=== PATIENT | male | born 1945 | race Caucasian/White ===

== ENCOUNTER 2023-10-23 10:46 | Outpatient (AMB) | payer OTHER, SELFPAY ==
--- NOTE | 2023-10-23 10:57 | A.OFFVIS_ITS ---
Vital Signs 10/23/23 11:02 Height 5 ft 11 in Weight 128 lb 6 oz BMI 17.9 BP 118/62 Blood Pressure Location Rt brachial Position Sitting Respiration 16 Pulse 86 Pulse Source Pulse Oximeter Pulse Oximetry (%) 93 Oxygen Delivery Method Room Air Intake Visit Reasons: ENP: Parkinson disease - Confirmed Intake Note: Pt presents for new pt evaluation for Parkinson's. 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 he was diagnosed by Late DR. Goldstein about 15 years ago when he presented with right UE rest tremors. He has been under the care of psychiatry for depression PTSD for over 40 years and has been on multiple medications. His psychiatrist noticed his tremors a s referred him to Dr. Goldstein. Currently he is on carbidopa/levodopa ER 50/200 2-1-1-1 Rasagiline 1mg qd ropinirole 0.5mg bid. Memory- good Sleep- he wanders, sleep talks Mood- stable with meds Motivated- good SPeech- softer, mumbles, drooling Trouble swallowing Using utensils- he has weighted spoons and it helps Handwriting- cannot write Dressing - slower and has trouble with buttons Shower- slower Gait- no falls , has back problems which affects his gait No dizziness He has constipation He has mild hallucinations - has insight started before Parkinsons. startles easily No fh/o tremors He was in [place] and exposed to Agent [place] [facility] Medical History (Updated 10/23/23 @ 11:36 by Lucy Pate MD) Coarse tremors Parkinson's disease without dyskinesia Hallucinations Depression Panic attacks Anxiety PTSD (post-traumatic stress disorder) Skin cancer Hyperlipidemia Squamous cell carcinoma of nose Surgical History (Updated 10/23/23 @ 11:07 by Monserrat Chen [facility]) History of appendectomy Social History (Updated 10/23/23 @ 11:09 by Monserrat Chen CMA) Household Members: Spouse Housing: House Alcohol intake: never Patient Tobacco Use Status: Current everyday Tobacco user Tobacco use type: Cigarette Years Smoked: for 50 years 3-5 cigarettes Physical Exam Vital Signs: Last Vital Signs Pulse 86 10/23/23 11:02 Resp 16 10/23/23 11:02 BP 118/62 10/23/23 11:02 Pulse Ox 93 10/23/23 11:02 Oxygen Delivery Method Room Air 10/23/23 11:02 BMI result Body Mass Index 17.9 Const General: cooperative, healthy appearing and no acute distress Nutritional Appearance: obese Orientation/consciousness: patient oriented x3 HEENT Head: Yes normal to inspection Neck Other: mild antecollis and restricted range of motion Neuro Other: Mild decreased blink and facial expression mild lower lip tremors, tongue tremors , slow tongue movements , yes yes head tremors Voice- severe hypophonia Rest tremors- Right LE Right UE Posturla and action tremors R>L Fine Finger movements - severely decreased bijal R>L Alternating hand movements - decreased bijal Hand movements - decreased bijal Foot taps- decreased bijal cog wheel rigidity - left UE gait - stooped, severe slowness and decreased arm swing R>L, small steps General: patient oriented x3 and no focal motor deficits Cranial nerves: Yes CN's II-XII intact bilaterally, Yes Bilaterally intact EOM present, Yes Normal facial strength present and Yes Midline tongue present Cognition (Neuro): normal cognition Motor exam (neuro): 5/5 motor strength present throughout Deep tendon reflexes (DTR's): Right triceps reflex intensity grade: 1+, Left triceps reflex intensity grade: 1+, Rt Biceps (C5, C6): 1+, Left biceps reflex intensity grade: 1+, Right brachioradialis reflex intensity grade: 1+, Left brachioradialis reflex intensity grade: 1+, Right patellar reflex intensity g rade: 1+ and Left patellar reflex intensity grade: 1+ Coordination: [id number] test normal Assessment & Plan Assessment & Plan (1) Parkinson's disease without dyskinesia: Comment: exposure to Agent [place] Code(s): G20.A1 - Parkinson's disease without dyskinesia, without mention of fluctuations Category: Medical (2) Hallucinations: Code(s): R44.3 - Hallucinations, unspecified Category: Social Hx (3) Coarse tremors: Code(s): G25.2 - Other specified forms of tremor Category: Medical Plan In addition to Parkinsonism he has additional features of essential tremors i will trail him on propranolol 10mg tid continue carbidopa/levodopa CR 50/200 2-1-1- Ropinirole 0.5 mg bid rasagiline 1mg qd will consider botox decline PT Speech therapy Medications: New propranolol 10 mg PO TID 90 tabs 6RF Coding Level of Care Code New Pt Level 4 (09501) Complex EM visit Add On G2211 Diagnoses Parkinson's disease without dyskinesia G20.A1 Hallucinations R44.3 Coarse tremors G25.2
[2023-10-23 11:02] VITALS: BP 118/62; PULSE 86; RESP 16; O2SAT 93; BMI 17.9
== END 2023-10-23 12:04 | disposition home or self-care (01) ==
PROVIDERS: Visit Provider Psychiatry & Neurology Neurology
DX: G20.A1 Parkinson's disease without dyskinesia, without mention of fluctuations (principal); R44.3 Hallucinations, unspecified; G25.2 Other specified forms of tremor
CPT/HCPCS: 99204; G2211

== ENCOUNTER → 2023-10-23 10:46 | Outpatient (BNVA) | payer OTHER, SELFPAY | PROVIDERS: Visit Provider Psychiatry & Neurology Neurology | DX: G20.A1 Parkinson's disease without dyskinesia, without mention of fluctuations (principal); R44.3 Hallucinations, unspecified; G25.2 Other specified forms of tremor | CPT/HCPCS: 99202 ==

== ENCOUNTER 2024-06-15 12:03 | Outpatient (AMB) | payer OTHER, SELFPAY ==
[2024-06-15 12:32] VITALS: BP 118/70; BMI 18.4
--- NOTE | 2024-06-15 12:32 | A.OFFVIS_ITS ---
Vital Signs 06/15/24 12:32 Height 5 ft 11 in Weight 132 lb BMI 18.4 BP 118/70 Blood Pressure Location Rt brachial Position Sitting Intake Visit Reasons: Follow up Intake Note: Patient presents for follow up Allergies Penicillins Allergy (Mild, Verified 06/15/24 12:35) Rash Medication List - Last Reconciled 06/15/24 by Lucy Pate MD carbidopa-levodopa 25-100 mg (Sinemet) 2 tabs PO QID escitalopram oxalate 20 mg PO DAILY gabapentin 300 mg PO DAILY lorazepam 0.5 mg PO BEDTIME PRN magnesium oxide 420 mg PO BEDTIME rasagiline 1 mg PO DAILY ropinirole 0.5 mg PO BID HPI Comments Details: 78y/o Right Handed male comes for follow up of Parkinson disease.He was trialed on propranalol 10mg tid - but he did not tolerate.He also decreased from Carbidopa/levodopa CR 50/200 ( -) to (2) History from initial visit- he was diagnosed by Late DR. Goldstein about 15 years ago when he presented with right UE rest tremors. He has been under the care of psychiatry for depression PTSD for over 40 years and has been on multiple medications. His psychiatrist noticed his tremors a s referred him to Dr. Goldstein. Currently he is on carbidopa/levodopa ER 50/200 - Rasagiline 1mg qd ropinirole 0.5mg bid. Memory- good Sleep- he wanders, sleep talks Mood- stable with meds Motivated- good SPeech- softer, mumbles, drooling Trouble swallowing Using utensils- he has weighted spoons and it helps Handwriting- cannot write Dressing - slower and has trouble with buttons Shower- slower Gait- no falls , has back problems which affects his gait No dizziness He has constipation He has mild hallucinations - has insight started before Parkinsons. startles easily No fh/o tremors He was in [place] and exposed to Agent [place] [facility] Medical History Coarse tremors Parkinson's disease without dyskinesia Hallucinations Depression Panic attacks Anxiety PTSD (post-traumatic stress disorder) Skin cancer Hyperlipidemia Squamous cell carcinoma of nose Surgical History History of appendectomy Social History Household Members: Spouse Housing: House Alcohol intake: never Patient Tobacco Use Status: Current everyday Tobacco user Tobacco use type: Cigarette Years Smoked: for 50 years 3-5 cigarettes Physical Exam Vital Signs: Last Vital Signs BP 118/70 06/15/24 12:32 BMI result Body Mass Index 18.4 Const General: cooperative, healthy appearing and no acute distress Nutritional Appearance: obese Orientation/consciousness: patient oriented x3 HEENT Head: Yes normal to inspection Neck Other: mild antecollis and restricted range of motion Neuro Other: Mild decreased blink and facial expression mild lower lip tremors, tongue tremors , slow tongue movements , yes yes head tremors Voice- severe hypophonia Rest tremors- Right LE Right UE Postural and action tremors R>L Fine Finger movements - severely decreased bijal R>L Alternating hand movements - decreased bijal Hand movements - decreased bijal Foot taps- decreased bijal cog wheel rigidity - left UE gait - stooped, severe slowness and decreased arm swing R>L, small steps General: patient oriented x3 and no focal motor deficits Cranial nerves: Yes CN's II-XII intact bilaterally, Yes Bilaterally intact EOM present, Yes Normal facial strength present and Yes Midline tongue present Cognition (Neuro): normal cognition Motor exam (neuro): 5/5 motor strength present throughout Coordination: [id number] test normal Assessment & Plan Assessment & Plan (1) Parkinson's disease without dyskinesia: Comment: exposure to Agent [place] Code(s): G20.A1 - Parkinson's disease without dyskinesia, without mention of fluctuations Category: Medical Qualifiers: Fluctuating manifestations: with fluctuating manifestations Qualified Code(s): G20.A2 - Parkinson's disease without dyskinesia, with fluctuations (2) Hallucinations: Comment: visual hallucinations. Code(s): R44.3 - Hallucinations, unspecified Category: Social Hx (3) Coarse tremors: Code(s): G25.2 - Other specified forms of tremor Category: Medical Plan In addition to Parkinsonism he has additional features of essential tremors D/C carbidopa/levodopa CR 50/200 2-1-1-1 Trial carbidopa/levodopa 25/100 2 tabs 8am 12, 4pm, 8pm Ropinirole 0.5 mg bid rasagiline 1mg qd will consider botox decline PT Speech therapy Medications: New carbidopa-levodopa 25-100 mg (Sinemet) 2 tabs PO QID 240 tabs 6RF Discontinued propranolol Discontinued Reason: Patient no longer taking 10 mg PO TID 90 tabs 6RF Coding Level of Care Code Est Pt Level 4 (35219) Complex EM visit Add On G2211 Diagnoses Parkinson's disease without dyskinesia, with fluctuating manifestations G20.A2 Fluctuating manifestations: with fluctuating manifestations Hallucinations R44.3 Coarse tremors G25.2
--- OUTSIDE RECORDS SUMMARY | 2024-06-15 13:27 | XMS_ITS ---
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 Per family, patient has had multiple previous MBS studies (most recently 4 years ago) given diagnosis of Parkinson's, leading to difficulty with chewing and swallowing. Previous MBS had recommended a diet of honey thick liquids and pur??es and compensation such as slow pacing and completing an additional swallow to clear residue, which patient tolerated well. Given recent intubation, patient underwent [facility] evaluation and MBS, which found that patient has mild to moderate oral and severe pharyngeal dysphagia with a life-threatening bleeding unsafe and severely inefficient swallow in the setting of Parkinson's disease, history of dysphagia and recent intubation. Patient was found to be high risk for aspiration due to moderate to severe oropharyngeal dysphagia and recommended for strict n.p.o. except ice chips after oral care and repeat MBS on 10/20 for reassessment. Per discussion with patient and patient's family, patient is recommended to continue swallowing exercises and reassessment of swallowing function, given recent intubation likely leading to swallowing weakness. Nutrition is an ongoing concern, as patient is not a candidate for NG tube given recent nasal surgery. -[facility] following closely for continued swallow exercises -Repeat MBS evaluation on 10/20 -Initiated on peripheral PN until repeat MBS evaluation for nutrition support -RFP, Mg BID given risk for re-feeding syndrome Pneumonia due to hemophilus influenzae ([facility]) 10/16/2022 Assessment & Plan (10/18/2022 9:02 AM EDT): RESOLVED. Patient found to have worsening respiratory distress during his postop course. Sputum culture did grow haemophilus influenzae. Initially started on ampicillin-sulbactam, but was transitioned to piperacillin-tazobactam when cultures found that H. influenzae which was beta-lactamase positive (predicting resistance to penicillin, ampicillin, and amoxicillin). Treated with course of piperacillin-tazobactam from 10/13/-10/17 with symptomatic improvement. Anxiety and depression 10/16/2022 Assessment & Plan (10/17/2022 4:58 PM EDT): Home medication(s): Escitalopram 20 mg daily, lorazepam 0.5 mg nightly PRN Patient with history of anxiety and depression, managed with aforementioned regimen, which held this admission iso strict NPO. -Hold escitalopram -Transition to lorazepam concentrate 0.5 mg nightly Restless leg syndrome 10/16/2022 Assessment & Plan (10/16/2022 6:42 PM EDT): Home medication(s): Ropinirole 0.2 mg BID Patient with history of restless leg syndrome, managed with aforementioned regimen, which held this admission. -Hold ropinirole Abnormal echocardiogram 10/16/2022 Assessment & Plan (10/16/2022 6:46 PM EDT): Patient underwent TTE given persistent hypoxia despite intubation. TTE demonstrated preserved LVEF of 65%, normal right ventricular size and function, estimated PA pressure 33 mmHg plus right atrial pressure, and abnormal septal motion. Cardiology was consulted for abnormal septal motion; per review of TTE by cardiology, patient was found to have septal flattening at end systole which is consistent with right ventricular pressure overload (consistent with multiple active pulmonary issues). Low concern for ischemic etiology given EKG demonstrating unchanged RBBB and normal troponin x2. 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 Zarate on 10/11. Surgery went without complication and minimal estimated blood loss. Postop course complicated by acute hypoxic and hypercapnic respiratory failure. Underwent nasal bolster removal on 10/18 with ENT. Continued on antibiotics for infection ppx until nasal stents can be removed after discharge. -ENT following, recommendations appreciated -Initiated on IV cefazolin 2g every 8 hours for infection ppx until nasal stent is removed (D1 10/18-) -Follow up with ENT: Shady Zarate Jr., MD on 10/24/2022 at 11:30 AM for nasal stent removal Aspiration into lower respiratory tract 10/12/19 23 Smoker 10/11/2022 Assessment & Plan (10/16/2022 6:43 PM EDT): Patient with history of smoking. -Nicotine 14 mg/24 hr daily Parkinson's disease 07/07/2013 Assessment & Plan (10/18/2022 9:02 AM EDT): Home medication(s): Carbidopa-levodopa 300 mg 3 times a day, rasagiline 1 mg daily Patient with history of Parkinson's, managed with aforementioned regimen, which was adjusted for this hospitalization. Patient was transitioned from PO to SL carbidopa-levodopa given NPO status. Rasagiline was held given risk of serotonin syndrome with peripheral PN. -Carbidopa-levodopa 25-100 mg 1 tablet 3 times a day -Hold rasagiline and gabapentin Hypercholesterolemia 02/12/2013 Current Oncology Plans No current plan information found. Past Plans No past plan information found. Radiation Treatments * No radiation treatments are documented for this patient in [facility]. Treatments may have been administered in another system. Lifetime Dose Tracking * Chemical Lifetime Dose Automatic Entry Manual Entr y Fluoro Time 5.705 minutes 5.705 minutes 0 minutes TotalDLP 398 mGy 398 mGy 0 mGy [id number] 3.6 mSv 3.6 mSv 0 mSv CTDIvol Max 12.6 mGy 12.6 mGy 0 mGy CTDIvol Min 12.6 mGy 12.6 mGy 0 mGy Radiation - mGy 16.59 mGy 16.59 mGy 0 mGy Resolved Problems Problem Noted Date Diagnosed Date Resolved Date Acute respiratory failure wi th hypoxia and hypercapnia 10/11/2022 10/19/2022 Assessment & Plan (10/18/2022 11:21 AM EDT): Patient with no baseline oxygen requirement, who presented to the hospital for elective resection of nasal squamous cell carcinoma. Postop course complicated by acute respiratory failure with hypoxemia and hypercarbia, requiring NRB and BiPAP. Due to persistent somnolence and hypoxia, patient was re-intubated and admitted to the ICU. In the ICU, patient was found to have slight LLL collapse. Patient was treated with chest physiotherapy, course of IV steroids for suspected COPD exacerbation (10/12-10/16), and IV Zosyn (10/13-10/17) for H. influenzae pneumonia. Patient initially transferred to floor on 8L aerosolized mask, but weaned to RA quickly. -Continuous pulse ox -Maintain SPO2 greater than 92% -Due to nasal surgery, NO nasal cannula, high flow nasal cannula, BiPAP, or CPAP for oxygen supplementation -For LLL collapse: Chest PT 3 times a day -Trending pulse ox Aspiration pneumonia (CMS/HCC) 10/11/2022 10/19/2022 Hypotension 10/11/2022 10/19/2022
--- OUTSIDE RECORDS SUMMARY | 2024-06-15 13:27 | XMS_ITS | Encounter Summary ---
Author Name [facility] (MD) Organization [facility] (MD) Address [address] [place] [address] Care Team Providers Care Property Portfolio Officer Name Role Phone MICA BALTAZAR Primary Care Provider Unavailabl e Insurance Providers: All historical and current Section Date Range: From patient's date of to the date document was created. This section includes the names of all active insurance providers for the patient. Insurance Provider Type of Coverage Plan Name Start of Policy Coverage End of Policy Coverage Group Number Member ID Insurance Provider's Telephone Number Policy Mccray's Name Patient's Relationship to Policy Mccray [employer] PRESCRIPT ION [id number] May 13, 2015 [id number] [phone] JAROCHO VILLASENOR PATIENT MEDICARE (WNR) MEDICARE (M) PART B Nov 10, 2014 PART B [id number] [phone] JAROCHO VILLASENOR PATIENT MEDICARE (WNR) MEDICARE (M) PART A Oct 11, 2009 PART A [id number] JAROCHO VILLASENOR PATIENT MEDICARE (WNR) MEDICARE (M) PART A Oct 11, 2009 PART A [id number] JAROCHO VILLASENOR PATIENT MEDICARE (WNR) MEDICARE (M) PART B Oct 11, 2009 PART B [id number] [phone] JAROCHO VILLASENOR PATIENT MEDICARE PART D (WN) PRESCRIPT ION PART D May 13, 2015 PART D [id number] JAROCHO VILLASENOR PATIENT UNICARE MEDICAL EXPENSE (OPT/PROF ) UNICLaila WHITE INDEM * Mar 13, 2015 [id number] JAROCHO VILLASENOR PATIENT Selected Encounter This section includes the information on record at MD for the Encounter. Date/Time Encounter Type Encounter Description Reason Provider Source Dec 17, 2023 11:30 AM OFFICE O/P EST MOD 30 MIN [facility]ENTAL [facility] CLINIC - IND ICD-10-CM F43.12 Post-traumatic stress disorder, chronic DELANEY LOGAN IHE Encounter Template Text not used by MD Assessments - Encounter Diagnoses This section includes the primary and secondary diagnoses documented for the Encounter. Date/Time Primary/Secondary Diagnosis Diagnosis Name Provider Source Dec 25, 2023 09:03 AM PRIMARY Post-traumatic stress disorder, chronic DELANEY LOGAN [facility] Plan of Treatment: Future Appointments (+ 6 months) and Future Tests (+/- 45 days) The Plan of Treatment section includes future care activities for the [facility] This section includes future appointments and future orders which are active, pending or scheduled. Future Appointments This section includes appointments that were scheduled to occur 6 months from the date of the Encounter, up to a maximum of 20 appointments. The data comes from all MD treatment facilities. Appointment Date/Time Appointment Type Appointme nt Facility Name Feb 26, 2024 11:30 AM [facility] Mar 25, 2024 11:30 AM [facility] Apr 21, 2024 11:30 AM AMBULATORY - PS[facility]CHIATRY [facility] [place] [facility] May 22, 2024 10:30 AM [facility] Jun 18, 2024 11:30 AM [facility] Social History: Smoking Status (Most current) and Tobacco Use (All prior to encounter date) This section includes the most current, and the historical, smoking and tobacco- related health factors from the MD facility where the Encounter took place. Current Smoking Status This section includes the most current smoking, or tobacco-related health factor, from the MD facility where the Encounter took place. Date/Time Current Smoking Status Comment Facil it May 23, 2023 10:30 AM VA-TOBACCO USER EVERY DAY [facility] [place] [facility] Tobacco Use History This section includes a history of the smoking, or tobacco-related health factors, that were collected on or before the date of the Encounter. The data comes from the MD facility where the Encounter took place. 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 [facility] [place] [facility] May 23, 2023 10:30 AM VA-TOBACCO USE MED NO [facility] [place] [facility] May 23, 2023 10:30 AM VA-TOBACCO USER EVERY DAY [facility] [place] [facility] May 23, 2022 09:30 AM VA-TOBACCO USE 30 YEARS OR MORE [facility] [place] [facility] May 23, 2022 09:30 AM VA-TOBACCO USE ADVICE [facility] [place] [facility] May 23, 2022 09:30 AM 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 [facility] [place] [facility] May 23, 2022 09:30 AM VA-TOBACCO USE MED NO [facility] [place] [facility] May 23, 2022 09:30 AM VA-TOBACCO USE WI 30 MIN OF WAKEUP [facility] [place] [facility] May 23, 2022 09:30 AM VA-TOBACCO USER SOME DAYS [facility] [place] [facility] May 22, 2021 01:30 PM VA-TOBACCO FORMER USER [facility] [place] [facility] May 22, 2021 01:30 PM VA-TOBACCO QUIT 15 YRS OR MORE [facility] [place] [facility] May 24, 2020 09:00 AM VA-TOBACCO FORMER USER [facility] [place] [facility] May 24, 2020 09:00 AM VA-TOBACCO QUIT 15 YRS OR MORE [facility] [place] [facility] Nov 24, 2018 08:52 AM VA-TOBACCO FORMER USER [facility] [place] [facility] Nov 24, 2018 08:52 AM VA-TOBACCO QUIT 15 YRS OR MORE [facility] [place] [facility] May 21, 2018 08:52 AM VA-TOBACCO FORMER USER [facility] [place] [facility] May 21, 2018 08:52 AM VA-TOBACCO QUIT 5 TO < 15 YRS [facility] [place] [facility] May 21, 2017 09:01 AM LIFETIME NON-TOBACCO USER [facility] [place] [facility] Jun 12, 2016 09:16 AM QUIT TOBACCO USE > 7 YEARS AGO [facility] [place] [facility] Jul 11, 2015 09:16 AM QUIT TOBACCO USE > 7 YEARS AGO [facility] [place] [facility] Aug 06, 2014 09:11 AM QUIT TOBACCO USE 1-7 YEARS AGO [facility] [place] [facility] Jan 08, 2014 09:12 AM QUIT TOBACCO USE IN PAST YEAR [facility] [place] [facility] May 01, 2013 08:55 AM CURRENT SMOKER [facility] [place] [facility] May 01, 2013 08:55 AM V1-PT NOT INTERESTED IN QUIT TOBACCO USE [facility] [place] [facility] Nov 07, 2012 08:35 AM V1-PT DECLINES TOBACCO CESSATION MEDS [facility] [place] [facility] Nov 07, 2012 08:35 AM V1-PT THINKING ABOUT QUIT TOBACCO USE [facility] [place] [facility] May 08, 2012 09:00 AM CURRENT SMOKER [facility] [place] [facility] May 08, 2012 09:00 AM V1-PT DECLINES TOBACCO CESSATION MEDS [facility] [place] [facility] May 08, 2012 09:00 AM V1-PT THINKING ABOUT QUIT TOBACCO USE [facility] [place] [facility] Nov 09, 2011 08:43 AM V1-PT DECLINES TOBACCO CESSATION MEDS [facility] [place] [facility] Nov 09, 2011 08:43 AM V1-PT THINKING ABOUT QUIT TOBACCO USE [facility] [place] [facility] Dec 29, 2010 08:58 AM CURRENT SMOKER Thinking to quit [facility] [place] [facility] Dec 29, 2010 08:58 AM V1-PT DECLINES TOBACCO CESSATION MEDS [facility] [place] [facility] Dec 29, 2010 08:58 AM V1-PT THINKING ABOUT QUIT TOBACCO USE [facility] [place] [facility] Jun 30, 2010 08:30 AM V1-PT DECLINES REF TO TOBACCO CESS PRGM [facility] [place] [facility] Jun 30, 2010 08:30 AM V1-PT DECLINES TOBACCO CESSATION MEDS [facility] [place] [facility] Jun 30, 2010 08:30 AM V1-PT THINKING ABOUT QUIT TOBACCO USE [facility] [place] [facility] Dec 30, 2009 09:18 AM CURRENT SMOKER Try to quit [facility] [place] [facility] Dec 30, 2009 09:18 AM V1-PT DECLINES REF TO TOBACCO CESS PRGM [facility] [place] [facility] Dec 30, 2009 09:18 AM V1-PT DECLINES TOBACCO CESSATION MEDS [facility] [place] [facility] Dec 30, 2009 09:18 AM V1-PT THINKING ABOUT QUIT TOBACCO USE [facility] [place] [facility] Dec 17, 2008 08:44 AM CURRENT SMOKER [facility] [place] [facility] Dec 17, 2008 08:44 AM V1-PT DECLINES REF TO TOBACCO CESS PRGM [facility] [place] [facility] Dec 17, 2008 08:44 AM V1-PT DECLINES TOBACCO CESSATION MEDS [facility] [place] [facility] Dec 17, 2008 08:44 AM V1-PT THINKING ABOUT QUIT TOBACCO USE [facility] [place] [facility] Jun 18, 2008 08:47 AM V1-PT DECLINES REF TO TOBACCO CESS PRGM [facility] [place] [facility] Jun 18, 2008 08:47 AM V1-PT DECLINES TOBACCO CESSATION MEDS [facility] [place] [facility] Jun 18, 2008 08:47 AM V1-PT THINKING ABOUT QUIT TOBACCO USE [facility] [place] [facility] Dec 12, 2007 08:59 AM CURRENT SMOKER [facility] [place] [facility] Dec 12, 2007 08:59 AM V1-PT DECLINES REF TO TOBACCO CESS PRGM [facility] Dec 12, 2007 08:59 AM V1-PT DECLINES TOBACCO CESSATION MEDS [facility] Dec 12, 2007 08:59 AM V1-PT THINKING ABOUT QUIT TOBACCO USE [facility] Jun 13, 2007 09:30 AM V1-PT DECLINES REF TO TOBACCO CESS PRGM [facility] Jun 13, 2007 09:30 AM V1-PT DECLINES TOBACCO CESSATION MEDS [facility] Jun 13, 2007 09:30 AM V1-PT THINKING ABOUT QUIT TOBACCO USE [facility] 2006 09:09 AM CURRENT SMOKER Not ready as yet to quit [facility] Aug 03, 2005 08:20 AM CURRENT SMOKER [facility] Apr 19, 2004 10:13 AM CURRENT SMOKER [facility] Mar 26, 2003 09:23 AM CURRENT SMOKER trying to cut down. [facility] Feb 17, 2002 11:07 AM CURRENT SMOKER [facility] Advance Directives: All historical and current Section Date Range: From patient's date of to the date document was created. This section includes ALL of a patient's completed or amended MD Advance and Rescinded Directives. The entries below indicate that a directive exists for the patient, but an actual copy is not included with this document. The data comes from all MD facilities. Date Advance Directives Provider Source Jun 12, 2019 ADVANCE DIRECTIVE MICA BALTAZAR [facility] Encounter Notes: All associated encounter notes This section contains the clinical notes associated to the Encounter. Date/Time Encounter Note(s) Provider Source Dec 17, 2023 11:55 AM PRIMARY CARE NURSE PRACTITIONER OUTPATIENT NOTE: LOCAL TITLE: NURSE PRACTITIONER OUTPATIENT NOTE STANDARD TITLE: PRIMARY CARE NURSE PRACTITIONER OUTPATIENT NOTE DATE OF NOTE: DEC 17, 2023@11:55 ENTRY DATE: DEC 17, 2023@11:55:19 AUTHOR: ISABELLA LOGAN COSIGNER: URGENCY: STATUS: COMPLETED OUTPATIENT MENTAL HEALTH CLINIC: FOLLOW-UP Visit is being conducted by MD [facility]. [place] identified with 2 identifiers: Full Name Date of Emergency Plan: confirmed and/or provided the following information in case of emergency or technology failure. PATIENT PHONE - PHONE NUMBER [CELLULAR] - Is patient phone number correct, if not, enter below: 's phone number: CHRISTIANO VILLASENOR [address], [place], [address] 's present location and address for appointment: home 's emergency contact name and phone number: up to date in CPRS [place] reported that location is private and safe: yes HPI: CHRISTIANO VILLASENOR, a 78 y/o male previously diagnosed with PTSD and PMH significant for Parkinson's disease presents for [facility] Follow-Up appointment. Last seen by This Provider on 10/15/23 Since Neurologist made change to dosage and formulation of carbidopa/levodopa Motivation, energy and concentration have all improved considerably and depression has decreased. Sleep has gotten worse recently. Wakes up for 30-40 minutes and then able to get back to sleep Also had some weird dreams after initiating propranolol but these have resolved. Dreams are not distressing or impairing Propranolol, prescribed by non-VA Neurologist might be helpful for anxiety PTSD symptoms stable at baseline Does not want to initiate a medication for sleep One fall last Saturday; no LOC or fracture. Did not hit his head. Informed that benzodiazepines increase fall risk and encouraged to consider downward titration of this medication. declines at present but says that he will think about it. [place] explicitly and convincingly denied SI, intent or plan and denied thoughts of harming others. SUBSTANCE USE: Caffeine: Tobacco: 3-5 cigarettes per day Alcohol: denied Narcotics: denied Cannabis: denied PSYCHIATRIC HISTORY: Medication trials: Melatonin trial ineffective and he has stopped taking MIRTAZAPINE RASAGILINE for PD PHENELZINE ([id number]) chart review suggests that change was prompted by change from phenelzine to tranylcyrpromine due to nationwide unavailability of phenelzine. SERTRALINE 2013- TRANYLCYPROMINE Inpatient Hospitalizations: denied Suicidal Acts and Self-Harm: denied HISTORY OF VIOLENCE/ASSAULTING OTHERS: denied FAMILY MENTAL HEALTH AND SUBSTANCE USE HISTORY: denied SOCIAL HISTORY: Per Uniform Outpatient Mental Health Assessment (06/03/2023), confirmed by [place] during assessment BORN IN [place] TO PARENTS. I AM MIDDLE OF THREE CHILDREN. MOM WAS A STAY AT HOME MOTHER AND DAD WAS A PRESS CLARK IN A [employer] 2nd Watch. IT WAS MOSTLY US AND MY MOTHER'S SISTER LIVED WITH US. WE DID NOT GO TO [facility]. FOR DISCIPLINE, WE DIDN'T DARE DO ANYTHING WRONG. WAIT TILL YOUR FATHER COMES HOME - THE FEAR WAS ENOUGH. 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 I PLAYED FOOTBALL FOR ONE YEAR. I GRADUATED FROM [employer] IN 1962. I WAS DRAFTED INTO THE [employer] IN 1964 AND SERVED IN [employer]. I WAS SENT TO [employer] FOR 13 MONTHS. I GOT OUT ON AN EARLY 90 DAY PASS IN FEBRUARY 26, 1967. I WAS AT 20. I HAVE THREE CHILDREN FROM THAT MARRIAGE. IT ENDED IN 1980 AFTER 5 OR 6 YEARS. I THOUGHT I HID MY PTSD PRETTY GOOD BUT I GUESS NOT. I MET AGRO IN 1982. WE GOT 10 YEARS LATER. HE WAS GOING TO BUY ME A MIKE AND I WASN'T GOING TO WAIT ANY LONGER. I WORKED IN AN [employer] FOR 11 YEARS. I LEFT THAT JOB TO FIND SOMETHING ELSE. 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 I THINK IT WAS A PERSONALITY CONFLICT WITH THE PERSON IN CHARGE. I QUIT. I THEN WENT TO [employer]. 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 THEY CHANGED MY JOB DESCRIPTION AND GAVE ME A RAISE. I WAS THERE FOR 20 YEARS. I LEFT DUE TO THE PARKINSON SYMPTOMS FROM [employer] (TOXIC) EXPOSURE. THE PROBLEM WITH THE SYMPTOMS WAS THAT WE USED TO STOCK RAINBOW TROUT FROM THE DECK OF A TRUCK AND I WAS FALLING OFF THE TRUCK. I FELL ONCE OR TWICE. NO MAJOR INJURIES. I LOST MY MOM, DAD, AUNT AND YOUNGER BROTHER (TOTALLY UNEXPECTED) - AROUND 2008. : WHEN HE GETS NERVOUS - WHEN PEOPLE COME OVER, HE DOESN'T LIKE TO EAT IN FRONT OF PEOPLE. HE DOESN'T WANT PEOPLE AROUND. HE HIDES THE PARKINSON SYMPTOMS. HE HAS ALIENATED FROM PEOPLE. ONLY ONE DAUGHTER KNOWS ABOUT THE SYMPTOMS. HER NAME IS YUNG AND SHE COMES EVERY WEEK. OTHER CHILDREN LIVE NEARBY. WE DON'T GO OUT ANYMORE. HE CAN'T WALK...SO HE CAN'T GO AROUND OUR BIG YARD. HE'S GOT A LITTLE SCOOTER THAT HELPS HIM TO GET OUT. HIS BACK KILLS HIM TO WALK, SO HE DOESN'T DO IT. I ENJOY WORKING ON MY CAR. I CAN DO THAT SOMEWHAT. I DO A LOT OF LOOKING. I GET UP, TAKE A SHOWER AND GET DRESSED MOSTLY BY MYSELF. I DON'T COOK. I CAN MAKE MY BED. I CAN DO THE DISHES OCCASIONALLY. I SOMETIMES DROP THEM SO I CAN'T ALWAYS DO IT. I DO NOT GO ONLINE. History: [id number]. ONE 13 MO DEPLOYMENT TO [employer]. MULTIPLE TRAUMA. 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 [employer] LEFT WITH AN HONORABLE DISCHARGE AT E-4. 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 Bradykinesia of BUE due to Parkinson's Disease. Speech: speech slurred due to Parkinson's disease; generally offers short answers to questions Thought process: logical, linear and coherent Thought content: denies delusions, or paranoia. Denies homicidal thoughts. Denies suicidal ideation, intent or plan to harm self. Insight and Judgment: both intact Cognition: alert and oriented x 3, good attention, memory grossly intact to conversational testing Mood: still doing good Affect: mood congruent MEDICAL HISTORY: Active Problem Parkinson's disease G20.A1 07/19/2023 RIGO DYKES Exposure to potentially hazardous s 07/18/2023 KAYLEIGH KENDRICK Hypercholesterolemia ([facility] [id number]) 05/21/2019 MICA BALTAZAR Parkinsonian gait (SNOMED CT [id number] 04/04/2015 RIGO DYKES Posttraumatic stress disorder, vahe 01/31/2016 NIKOLAY SULTANA ALLERGIES: Data on this list may not be complete. Please check JLV. FACILITY ALLERGY/ADR -------- No Remote Allergy/ADR Data available for this patient [facility] [place] [facility] MEDICATIONS: reviewed and updated in CPRS Active Outpatient Medications (including Supplies): Active Outpatient Medications Status 1) CARBIDOPA 50/LEVODOPA 200MG SA TAB TAKE 2 TABLETS BY ACTIVE (S) MOUTH EVERY MORNING AND TAKE 1 TABLET THREE TIMES A DAY FOR PARKINSON'S DISEASE 2) ESCITALOPRAM OXALATE 20MG TAB TAKE ONE TABLET BY ACTIVE (S) MOUTH EVERY MORNING AFTER BREAKFAST FOR MOOD/DEPRESSION 3) GABAPENTIN 300MG CAP TAKE ONE CAPSULE BY MOUTH EVERY ACTIVE (S) MORNING AND TAKE TWO CAPSULES AT BEDTIME TO PREVENT SEIZURES OR PAIN 4) LORAZEPAM 0.5MG TAB TAKE ONE TABLET BY MOUTH EVERY ACTIVE MORNING NEEDED AND TAKE TWO TABLETS AT BEDTIME NEEDED FOR ANXIETY 5) MAGNESIUM OXIDE 420MG TAB TAKE ONE TABLET BY MOUTH ACTIVE (S) EVERY DAY 6) PROPRANOLOL HCL 10MG TAB TAKE ONE TABLET BY MOUTH ACTIVE (S) THREE TIMES A DAY 7) RASAGILINE MESYLATE 1MG TAB TAKE ONE TABLET BY MOUTH ACTIVE (S) DAILY 8) ROPINIROLE HCL 0.5MG TAB TAKE ONE TABLET BY MOUTH ACTIVE (S) TWICE DAILY Pending Outpatient Medications Status 1) ESCITALOPRAM OXALATE 20MG TAB TAKE ONE TABLET BY PENDING MOUTH EVERY MORNING AFTER BREAKFAST FOR MOOD/DEPRESSION 9 Total Medications LABS AND STUDIES: REVIEWED IN CPRS SAFETY ASSESSMENT: No acute safety concerns. Convincingly denies any thoughts, intents, or plans to harm self or others. Chronic risk is elevated by status and mental illness but is currently mitigated by participation in treatment and demonstration of help-seeking behaviors. IMPRESSION: [place] presents as polite, cooperative and treatment motivated Reports adherence to current medications with significant therapeutic benefit and denies side effects. Reports desire to continue with current pharmacotherapy regimen. Discussed risks of BENZODIAZEPINES including increased fall risk and encouraged [place] to consider titrating dosage downwards. prefers to wait reminded of potential side effects of benzodiazepines, including ataxia, confusion, drowsiness, respiratory depression (especially if combined with other BRIM STITCHER depressants such as alcohol or opioid medications), increased fall risk and the risk of developing a substance use disorder. agreed to refrain from use of alcohol or opioid medications concurrent with use of benzodiazepine. PDMP and chart review do suggest any history of misuse or diversion. Will continue to discuss downward titration of lorazepam at follow-up No acute safety concerns Diagnosis: PTSD, chronic PLAN: 1) CONTINUE ESCITALOPRAM 20MG PO DAILY 2) CONTINUE LORAZEPAM 0.5MG PO TID Labs: None today Follow-Up: 02/26/24 Discussed risks and benefits of proposed medication treatments including FDA approved indications and off-label uses, as well as common and severe side effects. [place] comprehended all information discussed, had opportunity to ask questions which were answered to their satisfaction, and voluntarily and without duress agreed to trial as documented. CONTACT AND CRISIS INFO: informed that This Provider can be contacted at , [phone] or via Secure Messaging. We have reviewed the Crisis Hotline (209, dial #1 for line), and the [place] has been instructed to call 911 or go to the nearest ED if acutely suicidal or experiencing a mental health emergency. INFORMED CONSENT REVIEWED: At beginning of session reviewed rights and limits of confidentiality, mandatory reporting situations, duty to warn and protect, risk of suicide or homicide, potential elder or child abuse/neglect and Maciel Warning, (if treatment team finds patient to be an acute danger to himself or others, that this information could be relayed to a court of law and presented to a coremaking machine operator), and DOD access for active-duty service members. CODING: Total time today was 30 minutes, which included an in-person visit with the patient, providing counseling and education, and time spent reviewing the record, ordering meds, completing documentation, and coordinating care. CLINICAL REMINDERS: Medication Reconciliation: Outpatient: Has the patient been taking medications as documented in the EMLR? YES: The patient has been taking medications as documented in the EMLR. Essential Medication List for Review used to complete this medication reconciliation. INCLUDED IN THIS LIST: Alphabetical list of active outpatient prescriptions dispensed from this VA (local) and dispensed from another MD or [facility] facility (remote) as well as inpatient orders (local, pending and active), local clinic medications, locally documented non-VA medications, and local prescriptions that have or been discontinued in the past 90 days. - All changes in medications, including all non-VA/Herbal/OTC medications were entered into CPRS. - If there were any medications the patient should no longer take, they were discontinued. - The patient/caregiver was instructed to update this list, discard old lists, and take this list to the next appointment, whether with a VA or non-VA provider. /kev/ ISABELLA LOGAN Psychiatric Mental Health Nurse Practitioner Signed: 12/25/2023 09:03 ISABELLA LOGAN [facility]
--- OUTSIDE RECORDS SUMMARY | 2024-06-15 13:27 | XMS_ITS | Encounter Summary ---
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 Role Phone MICA BALTAZAR Primary Care [...] PRESCRIPT ION [id number] May 13, 2015 [id number] JAROCHO VILLASENOR PATIENT MEDICARE (WNR) MEDICARE (M) PART B Nov 10, 2014 PART B [id number] JAROCHO VILLASENOR PATIENT MEDICARE (WNR) MEDICARE (M) PART A Oct 11, 2009 PART A [id number] JAROCHO VILLASENOR PATIENT MEDICARE (WNR) MEDICARE (M) PART A Oct 11, 2009 PART A [id number] JAROCHO VILLASENOR PATIENT MEDICARE (WNR) MEDICARE (M) PART B Oct 11, 2009 PART B [id number] JAROCHO VILLASENOR PATIENT MEDICARE PART D (WN) PRESCRIPT ION PART D May 13, 2015 PART D [id number] JAROCHO VILLASENOR PATIENT UNICARE MEDICAL EXPENSE (OPT/PROF ) PIETRO WHITE INDEM * Mar 13, 2015 [id number] JAROCHO VILLASENOR PATIENT Selected Encounter This section includes the information on record at [place] for the Encounter. Date/Time Encounter Type Encounter Description Reason Provider Source Oct 15, 2023 11:30 AM OFFICE O/P EST MOD 30 MIN [facility]IC - IND ICD-10-CM F43.12 Post-traumatic stress disorder, chronic DELANEY LOGAN [facility] Encounter Template Text not used by [place] Assessments - Encounter Diagnoses This section includes the primary and secondary diagnoses documented for the Encounter. Date/Time Primary/Secondary Diagnosis Diagnosis Name Provider Source Oct 15, 2023 12:02 PM PRIMARY Post-traumatic stress disorder, chronic DELANEY LOGAN [facility] Plan of Treatment: Future Appointments (+ 6 months) and Future Tests (+/- 45 days) The Plan of Treatment section includes future care activities for the patient from all [place] treatmentfacilities. This section includes future appointments and future orders which are active, pending or scheduled. Future Appointments This section includes appointments that were scheduled to occur 6 months from the date of the Encounter, up to a maximum of 20 appointments. The data comes from all [place] treatment facilities. Appointment Date/Time Appointment Type Appointme nt Facility Name Oct 23, 2023 11:00 AM AMBULATORY - MEDICINE [facility] Dec 17, 2023 11:30 AM [facility] [place] Feb 26, 2024 11:30 AM [facility] [place] Mar 25, 2024 11:30 AM AMBULATORY - PSYCHIATRY [facility] Social History: Smoking Status (Most current) and Tobacco Use (All prior to encounter date) This section includes the most current, and the historical, smoking and tobacco- related health factors from the [facility] facility where the Encounter took place. Current Smoking Status This section includes the most current smoking, or tobacco-related health factor, from the [place] facility where the Encounter took place. Date/Time Current Smoking Status Comment Facil ity May 23, 2023 10:30 AM VA-TOBACCO DOESNT USE WI 30 MIN WAKEUP [place] [facility] [place] [facility] Tobacco Use History This section includes a history of the smoking, or tobacco-related health factors, that were collected on or before the date of the Encounter. The data comes from the [place] facility where the Encounter took place. 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 [facility] [place] [facility] May 23, 2023 10:30 AM VA-TOBACCO USE MED NO [facility] [place] [facility] May 23, 2023 10:30 AM VA-TOBACCO USER EVERY DAY [facility] [place] [facility] May 23, 2022 09:30 AM VA-TOBACCO USE 30 YEARS OR MORE [facility] [place] [facility] May 23, 2022 09:30 AM VA-TOBACCO USE ADVICE [facility] [place] [facility] May 23, 2022 09:30 AM 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 [facility] [place] [facility] May 23, 2022 09:30 AM VA-TOBACCO USE MED NO [facility] [place] [facility] May 23, 2022 09:30 AM VA-TOBACCO USE WI 30 MIN OF WAKEUP [facility] [place] [facility] May 23, 2022 09:30 AM VA-TOBACCO USER SOME DAYS [facility] [place] [facility] May 22, 2021 01:30 PM VA-TOBACCO FORMER USER [facility] [place] [facility] May 22, 2021 01:30 PM VA-TOBACCO QUIT 15 YRS OR MORE [facility] [place] [facility] May 24, 2020 09:00 AM VA-TOBACCO FORMER USER [facility] [place] [facility] May 24, 2020 09:00 AM VA-TOBACCO QUIT 15 YRS OR MORE [facility] [place] [facility] Nov 24, 2018 08:52 AM VA-TOBACCO FORMER USER [place] [facility] [place] [facility] Nov 24, 2018 08:52 AM VA-TOBACCO QUIT 15 YRS OR MORE [place] [facility] [place] [facility] May 21, 2018 08:52 AM VA-TOBACCO FORMER USER [facility] [place] [facility] May 21, 2018 08:52 AM VA-TOBACCO QUIT 5 TO < 15 YRS [place] [facility] [place] [facility] May 21, 2017 09:01 AM LIFETIME NON-TOBACCO USER [facility] [place] [facility] Jun 12, 2016 09:16 AM QUIT TOBACCO USE > 7 YEARS AGO [facility] [place] [facility] Jul 11, 2015 09:16 AM QUIT TOBACCO USE > 7 YEARS AGO [facility] [place] [facility] Aug 06, 2014 09:11 AM QUIT TOBACCO USE 1-7 YEARS AGO [place] [facility] [place] [facility] Jan 08, 2014 09:12 AM QUIT TOBACCO USE IN PAST YEAR [facility] [place] [facility] May 01, 2013 08:55 AM CURRENT SMOKER [place] [facility] [place] [facility] May 01, 2013 08:55 AM V1-PT NOT INTERESTED IN QUIT TOBACCO USE [facility] [place] [facility] Nov 07, 2012 08:35 AM V1-PT DECLINES TOBACCO CESSATION MEDS [facility] [place] [facility] Nov 07, 2012 08:35 AM V1-PT THINKING ABOUT QUIT TOBACCO USE [facility] [place] [facility] May 08, 2012 09:00 AM CURRENT SMOKER [facility] [place] [facility] May 08, 2012 09:00 AM V1-PT DECLINES TOBACCO CESSATION MEDS [facility] [place] [facility] May 08, 2012 09:00 AM V1-PT THINKING ABOUT QUIT TOBACCO USE [facility] [place] [facility] Nov 09, 2011 08:43 AM V1-PT DECLINES TOBACCO CESSATION MEDS [facility] [place] [facility] Nov 09, 2011 08:43 AM V1-PT THINKING ABOUT QUIT TOBACCO USE [facility] [place] [facility] Dec 29, 2010 08:58 AM CURRENT SMOKER Thinking to quit [facility] [place] [facility] Dec 29, 2010 08:58 AM V1-PT DECLINES TOBACCO CESSATION MEDS [facility] [place] [facility] Dec 29, 2010 08:58 AM V1-PT THINKING ABOUT QUIT TOBACCO USE [facility] [place] [facility] Jun 30, 2010 08:30 AM V1-PT DECLINES REF TO TOBACCO CESS PRGM [facility] [place] [facility] Jun 30, 2010 08:30 AM V1-PT DECLINES TOBACCO CESSATION MEDS [facility] [place] [facility] Jun 30, 2010 08:30 AM V1-PT THINKING ABOUT QUIT TOBACCO USE [facility] [place] [facility] Dec 30, 2009 09:18 AM CURRENT SMOKER Try to quit [facility] [place] [facility] Dec 30, 2009 09:18 AM V1-PT DECLINES REF TO TOBACCO CESS PRGM [facility] [place] [facility] Dec 30, 2009 09:18 AM V1-PT DECLINES TOBACCO CESSATION MEDS [facility] [place] [facility] Dec 30, 2009 09:18 AM V1-PT THINKING ABOUT QUIT TOBACCO USE [facility] [place] [facility] Dec 17, 2008 08:44 AM CURRENT SMOKER [facility] [place] [facility] Dec 17, 2008 08:44 AM V1-PT DECLINES REF TO TOBACCO CESS PRGM [facility] [place] [facility] Dec 17, 2008 08:44 AM V1-PT DECLINES TOBACCO CESSATION MEDS [facility] [place] [facility] Dec 17, 2008 08:44 AM V1-PT THINKING ABOUT QUIT TOBACCO USE [facility] [place] [facility] Jun 18, 2008 08:47 AM V1-PT DECLINES REF TO TOBACCO CESS PRGM [facility] [place] [facility] Jun 18, 2008 08:47 AM V1-PT DECLINES TOBACCO CESSATION MEDS [facility] [place] [facility] Jun 18, 2008 08:47 AM V1-PT THINKING ABOUT QUIT TOBACCO USE [facility] [place] [facility] Dec 12, 2007 08:59 AM CURRENT SMOKER [facility] [place] [facility] Dec 12, 2007 08:59 AM V1-PT DECLINES REF TO TOBACCO CESS PRGM [facility] [place] [facility] Dec 12, 2007 08:59 AM V1-PT DECLINES TOBACCO CESSATION MEDS [facility] Dec 12, 2007 08:59 AM V1-PT THINKING ABOUT QUIT TOBACCO USE [facility] Jun 13, 2007 09:30 AM V1-PT DECLINES REF TO TOBACCO CESS PRGM [facility] Jun 13, 2007 09:30 AM V1-PT DECLINES TOBACCO CESSATION MEDS [facility] Jun 13, 2007 09:30 AM V1-PT THINKING ABOUT QUIT TOBACCO USE [facility] 2006 09:09 AM CURRENT SMOKER Not ready as yet to quit [facility] Aug 03, 2005 08:20 AM CURRENT SMOKER [facility] Apr 19, 2004 10:13 AM CURRENT SMOKER [facility] Mar 26, 2003 09:23 AM CURRENT SMOKER trying to cut down. [facility] Feb 17, 2002 11:07 AM CURRENT SMOKER [facility] Advance Directives: All historical and current Section Date Range: From patient's date of to the date document was created. This section includes ALL of a patient's completed or amended [place] Advance and Rescinded Directives. The entries below indicate that a directive exists for the patient, but an actual copy is not included with this document. The data comes from all [place] facilities. Date Advance Directives Provider Source Jun 12, 2019 ADVANCE DIRECTIVE MICA BALTAZAR [facility] Encounter Notes: All associated encounter notes This section contains the clinical notes associated to the Encounter. Date/Time Encounter Note(s) Provider Source Oct 15, 2023 11:46 AM PRIMARY CARE NURSE PRACTITIONER OUTPATIENT NOTE: LOCAL TITLE: NURSE PRACTITIONER OUTPATIENT NOTE STANDARD TITLE: PRIMARY CARE NURSE PRACTITIONER OUTPATIENT NOTE DATE OF NOTE: OCT 15, 2023@11:46 ENTRY DATE: OCT 15, 2023@11:46:11 AUTHOR: ISABELLA LOGAN COSIGNER: URGENCY: STATUS: COMPLETED OUTPATIENT MENTAL HEALTH CLINIC: FOLLOW-UP Visit [facility] by [facility] [place] identified with 2 identifiers: Full Name Date of Emergency Plan: confirmed and/or provided the following information in case of emergency or technology failure. PATIENT PHONE - PHONE NUMBER [CELLULAR] - Is patient phone number correct, if not, enter below: 's phone number: CHRISTIANO VILLASENOR [address], [place], [address] 's present location and address for appointment: home [place]'s emergency contact name and phone number: up to date in CPRS reported that location is private and safe: yes HPI: CHRISTIANO VILLASENOR, a 77 y/o male [place] previously diagnosed with PTSD and PMH significant for Parkinson's disease presents for [facility] Follow-Up appointment. Last seen by This Provider on 08/20/23 Mood has improved substantially since Neurologist made change to dosage and formulation of carbidopa/levodopa. Motivation, energy and concentration have all improved considerably. Chronic VH in peripheral vision of 'people sneaking up on me' are stable at baseline. Not distressing or impairing at present. Chronic PTSD symptoms are stable. Sleep has been different. Fall asleep relatively easily but wakes up in the middle of the night wide awake. Needs to walk around in order to get back to sleep. No falls in interim since last visit. I'm very careful about that. Confirms desire to maintain current pharmacotherapy regimen. I think I'm doing pretty good. [place] explicitly and convincingly denied SI, intent or plan and denied thoughts of harming others. SUBSTANCE USE: Caffeine: Tobacco: 3-5 cigarettes per day Alcohol: denied Narcotics: denied Cannabis: denied PSYCHIATRIC HISTORY: Medication trials: Melatonin trial ineffective and he has stopped taking MIRTAZAPINE RASAGILINE for PD PHENELZINE ([id number]) chart review suggests that change was prompted by change from phenelzine to tranylcyrpromine due to nationwide unavailability of phenelzine. SERTRALINE TRANYLCYPROMINE Inpatient Hospitalizations: denied Suicidal Acts and Self-Harm: denied HISTORY OF VIOLENCE/ASSAULTING OTHERS: denied FAMILY MENTAL HEALTH AND SUBSTANCE USE HISTORY: denied SOCIAL HISTORY: Per Uniform Outpatient Mental Health Assessment (06/03/2023), confirmed by during assessment BORN IN [place] TO PARENTS. I AM MIDDLE OF THREE CHILDREN. MOM WAS A STAY AT HOME MOTHER AND DAD WAS A PRESS CLARK IN A [place]. IT WAS MOSTLY US AND MY MOTHER'S SISTER LIVED WITH US. WE DID NOT GO TO [place]. FOR DISCIPLINE, WE DIDN'T DARE DO ANYTHING WRONG. WAIT TILL YOUR FATHER COMES HOME - THE FEAR WAS ENOUGH. 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 I PLAYED FOOTBALL FOR ONE YEAR. I GRADUATED FROM [employer] IN 1962. I WAS DRAFTED INTO THE [employer] IN 1964 AND SERVED IN [employer]. I WAS SENT TO [employer] FOR 13 MONTHS. I GOT OUT ON AN EARLY 90 DAY PASS IN FEBRUARY 26, 1967. I WAS AT 20. I HAVE THREE CHILDREN FROM THAT MARRIAGE. IT ENDED IN 1980 AFTER 5 OR 6 YEARS. I THOUGHT I HID MY PTSD PRETTY GOOD BUT I GUESS NOT. I MET GARO IN 1982. WE GOT 10 YEARS LATER. HE WAS GOING TO BUY ME A MIKE AND I WASN'T GOING TO WAIT ANY LONGER. I WORKED IN AN [employer] FOR 11 YEARS. I LEFT THAT JOB TO FIND SOMETHING ELSE. 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 I THINK IT WAS A PERSONALITY CONFLICT WITH THE PERSON IN CHARGE. I QUIT. I THEN WENT TO [facility]. 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 THEY CHANGED MY JOB DESCRIPTION AND GAVE [...] IT. I DO NOT GO ONLINE. History: [id number]. ONE 13 MO DEPLOYMENT TO [employer]. MULTIPLE [...] memory grossly intact to conversational testing Mood: pretty good Affect: mood congruent MEDICAL HISTORY: Active Problem Parkinson's disease G20.A1 07/19/2023 RIGO DYKES Exposure to potentially hazardous s 07/18/2023 KAYLEIGH KENDRICK Hypercholesterolemia ([facility] [id number]) 05/21/2019 MICA BALTAZAR Parkinsonian gait (SNOMED CT 143808 04/04/2015 RIGO DYKES Posttraumatic stress disorder, vahe 01/31/2016 NIKOLAY SULTANA ALLERGIES: Data on this list may not be complete. Please check [facility]. FACILITY ALLERGY/ADR -------- No Remote Allergy/ADR Data available for this patient [facility] [place] [facility] [place] MEDICATIONS: reviewed and updated in CPRS Active Outpatient Medications (including Supplies): Active Outpatient Medications Status 1) CARBIDOPA 50/LEVODOPA 200MG SA TAB TAKE 2 TABLETS BY ACTIVE MOUTH EVERY MORNING AND TAKE 1 TABLET THREE TIMES A DAY FOR PARKINSON'S DISEASE 2) ESCITALOPRAM OXALATE 20MG TAB TAKE ONE TABLET BY ACTIVE MOUTH EVERY MORNING AFTER BREAKFAST FOR MOOD/DEPRESSION [...] BY MOUTH ACTIVE (S) EVERY DAY 6) RASAGILINE MESYLATE 1MG TAB TAKE ONE TABLET BY MOUTH ACTIVE (S) DAILY 7) ROPINIROLE HCL 0.5MG TAB TAKE ONE TABLET BY MOUTH ACTIVE (S) TWICE DAILY LABS AND STUDIES: REVIEWED IN CPRS SAFETY ASSESSMENT: No acute safety concerns. Convincingly denies any thoughts, intents, or plans to harm self or others. Chronic risk is elevated by status and mental illness but is currently mitigated by participation in treatment and demonstration of help-seeking behaviors. IMPRESSION: [place] presents as polite, cooperative and treatment motivated Mood symptoms have improved considerably after change made by Neurologist to carbidopa/levodopa Reports adherence to current medications with significant therapeutic benefit and denies side effects. Reports desire to continue with current pharmacotherapy regimen. 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 agreed to refrain from use of alcohol or opioid medications concurrent with use of benzodiazepine. PDMP and chart review do suggest any history of misuse or diversion. Emphasized that this medication increases fall risk and discussed trial of dose reduction. [place] declined to do so at present noting that mood symptoms have only recently improved and that he does not want to risk making changes at present. No acute safety concerns Diagnosis: PTSD, chronic PLAN: 1) CONTINUE ESCITALOPRAM 20MG PO DAILY 2) CONTINUE LORAZEPAM 0.5MG PO TID Labs: none today Follow-Up: 12/17/23 Discussed risks and benefits of proposed medication treatments including FDA approved indications and off-label uses, as well as common and severe side effects. comprehended all information discussed, had opportunity to ask questions which were answered to their satisfaction, and voluntarily and without duress agreed to trial as documented. CONTACT AND CRISIS INFO: informed that This Provider can be contacted at , [phone] or via Secure Messaging. We have reviewed the Crisis Hotline (544, dial #1 for line), and the has been instructed to call 911 or [...] court of law and presented to a vessel ordinary seaman), and DOD access for active-duty service members. [...] this VA (local) and dispensed from another VA or DoD facility (remote) as well as inpatient orders [...] LOGAN Psychiatric Mental Health Nurse Practitioner Signed: 10/15/2023 12:01 ISABELLA LOGAN [facility]
--- OUTSIDE RECORDS SUMMARY | 2024-06-15 13:27 | XMS_ITS | Encounter Summary ---
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 Name Role Phone MICA BALTAZAR Primary Care [...] PRESCRIPT ION [id number] May 13, 2015 [id number] JAROCHO VILLASENOR PATIENT MEDICARE (WNR) MEDICARE (M) PART B Nov 10, 2014 PART B [id number] JAROCHO VILLASENOR PATIENT MEDICARE (WNR) MEDICARE (M) PART A Oct 11, 2009 PART A [id number] JAROCHO VILLASENOR PATIENT MEDICARE (WNR) MEDICARE (M) PART A Oct 11, 2009 PART A [id number] JAROCHO VILLASENOR PATIENT MEDICARE (WNR) MEDICARE (M) PART B Oct 11, 2009 PART B [id number] JAROCHO VILLASENOR PATIENT MEDICARE PART D (WN) PRESCRIPT ION PART D May 13, 2015 PART D [id number] JAROCHO VILLASENOR PATIENT UNICARE MEDICAL EXPENSE (OPT/PROF ) UNICLaila WHITE INDEM * Mar 13, 2015 [id number] JAROCHO VILLASENOR PATIENT Selected Encounter This section includes the information on record at [place] for the Encounter. Date/Time Encounter Type Encounter Description Reason Provider Source Jun 17, 2023 02:00 PM OFFICE O/P EST HI 40 MIN [facility] CLINIC - IND ICD-10-CM F43.12 Post-traumatic stress disorder, chronic DELANEY TODD IHE Encounter Template Text not used by [place] Assessments - Encounter Diagnoses This section includes the primary and secondary diagnoses documented for the Encounter. Date/Time Primary/Secondary Diagnosis Diagnosis Name Provider Source Jun 17, 2023 02:49 PM PRIMARY Post-traumatic stress disorder, chronic [facility] TODD [facility] Plan of Treatment: Future Appointments (+ 6 months) and Future Tests (+/- 45 days) The Plan of Treatment section includes future care activities for the patient from [facility] [place] [facility] [place] This section includes future appointments and future orders which are active, pending or scheduled. Future Appointments This section includes appointments that were scheduled to occur 6 months from the date of the Encounter, up to a maximum of 20 appointments. The data comes from all [place] treatment facilities. Appointment Date/Time Appointment Type Appointme nt Facility Name Jul 09, 2023 11:30 AM [facility] [place] [facility] Jul 19, 2023 01:00 PM [facility] [place] [facility] Aug 20, 2023 11:30 AM AMBULATORY - PSYCHIATRY [facility] [place] [facility] Oct 15, 2023 11:30 AM [facility] [place] [facility] Oct 23, 2023 11:00 AM AMBUL[facility] - MED[facility]INE [facility] Social History: Smoking Status (Most current) and Tobacco Use (All prior to encounter date) This section includes the most current, and the historical, smoking and tobacco- related health factors from the [place] facility where the Encounter took place. Current Smoking Status This section includes the most current smoking, or tobacco-related health factor, from the [place] facility where the Encounter took place. Date/Time Current Smoking Status Comment [facility] it May 23, 2023 10:30 AM VA-TOBACCO USER EVERY DAY [place] [facility] [place] [facility] Tobacco Use History This section includes a history of the smoking, or tobacco-related health factors, that were collected on or before the date of the Encounter. The data comes from the [place] facility where the Encounter took place. 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 [facility] [place] [facility] May 23, 2023 10:30 AM VA-TOBACCO USE MED NO [facility] [place] [facility] May 23, 2023 10:30 AM VA-TOBACCO USER EVERY DAY [facility] [place] [facility] May 23, 2022 09:30 AM VA-TOBACCO USE 30 YEARS OR MORE [facility] [place] [facility] May 23, 2022 09:30 AM VA-TOBACCO USE ADVICE [facility] [place] [facility] May 23, 2022 09:30 AM 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 [facility] [place] [facility] May 23, 2022 09:30 AM VA-TOBACCO USE MED NO [facility] [place] [facility] May 23, 2022 09:30 AM VA-TOBACCO USE WI 30 MIN OF WAKEUP [facility] [place] [facility] May 23, 2022 09:30 AM VA-TOBACCO USER SOME DAYS [facility] [place] [facility] May 22, 2021 01:30 PM VA-TOBACCO FORMER USER [facility] [place] [facility] May 22, 2021 01:30 PM VA-TOBACCO QUIT 15 YRS OR MORE [facility] [place] [facility] May 24, 2020 09:00 AM VA-TOBACCO FORMER USER [facility] [place] [facility] May 24, 2020 09:00 AM VA-TOBACCO QUIT 15 YRS OR MORE [facility] [place] [facility] Nov 24, 2018 08:52 AM VA-TOBACCO FORMER USER [facility] [place] [facility] Nov 24, 2018 08:52 AM VA-TOBACCO QUIT 15 YRS OR MORE [facility] [place] [facility] May 21, 2018 08:52 AM VA-TOBACCO FORMER USER [facility] [place] [facility] May 21, 2018 08:52 AM VA-TOBACCO QUIT 5 TO < 15 YRS [facility] [place] [facility] May 21, 2017 09:01 AM LIFETIME NON-TOBACCO USER [facility] [place] [facility] Jun 12, 2016 09:16 AM QUIT TOBACCO USE > 7 YEARS AGO [facility] [place] [facility] Jul 11, 2015 09:16 AM QUIT TOBACCO USE > 7 YEARS AGO [facility] [place] [facility] Aug 06, 2014 09:11 AM QUIT TOBACCO USE 1-7 YEARS AGO [facility] [place] [facility] Jan 08, 2014 09:12 AM QUIT TOBACCO USE IN PAST YEAR [facility] [place] [facility] May 01, 2013 08:55 AM CURRENT SMOKER [facility] [place] [facility] May 01, 2013 08:55 AM V1-PT NOT INTERESTED IN QUIT TOBACCO USE [facility] [place] [facility] Nov 07, 2012 08:35 AM V1-PT DECLINES TOBACCO CESSATION MEDS [facility] [place] [facility] Nov 07, 2012 08:35 AM V1-PT THINKING ABOUT QUIT TOBACCO USE [facility] [place] [facility] May 08, 2012 09:00 AM CURRENT SMOKER [facility] [place] [facility] May 08, 2012 09:00 AM V1-PT DECLINES TOBACCO CESSATION MEDS [facility] [place] [facility] May 08, 2012 09:00 AM V1-PT THINKING ABOUT QUIT TOBACCO USE [facility] [place] [facility] Nov 09, 2011 08:43 AM V1-PT DECLINES TOBACCO CESSATION MEDS [facility] [place] [facility] Nov 09, 2011 08:43 AM V1-PT THINKING ABOUT QUIT TOBACCO USE [facility] [place] [facility] Dec 29, 2010 08:58 AM CURRENT SMOKER Thinking to quit [facility] [place] [facility] Dec 29, 2010 08:58 AM V1-PT DECLINES TOBACCO CESSATION MEDS [facility] [place] [facility] Dec 29, 2010 08:58 AM V1-PT THINKING ABOUT QUIT TOBACCO USE [facility] [place] [facility] Jun 30, 2010 08:30 AM V1-PT DECLINES REF TO TOBACCO CESS PRGM [facility] [place] [facility] Jun 30, 2010 08:30 AM V1-PT DECLINES TOBACCO CESSATION MEDS [facility] [place] [facility] Jun 30, 2010 08:30 AM V1-PT THINKING ABOUT QUIT TOBACCO USE [facility] [place] [facility] Dec 30, 2009 09:18 AM CURRENT SMOKER Try to quit [facility] [place] [facility] Dec 30, 2009 09:18 AM V1-PT DECLINES REF TO TOBACCO CESS PRGM [facility] [place] [facility] Dec 30, 2009 09:18 AM V1-PT DECLINES TOBACCO CESSATION MEDS [facility] [place] [facility] Dec 30, 2009 09:18 AM V1-PT THINKING ABOUT QUIT TOBACCO USE [facility] [place] [facility] Dec 17, 2008 08:44 AM CURRENT SMOKER [facility] [place] [facility] Dec 17, 2008 08:44 AM V1-PT DECLINES REF TO TOBACCO CESS PRGM [facility] [place] [facility] Dec 17, 2008 08:44 AM V1-PT DECLINES TOBACCO CESSATION MEDS [facility] [place] [facility] Dec 17, 2008 08:44 AM V1-PT THINKING ABOUT QUIT TOBACCO USE [facility] [place] [facility] Jun 18, 2008 08:47 AM V1-PT DECLINES REF TO TOBACCO CESS PRGM [facility] [place] [facility] Jun 18, 2008 08:47 AM V1-PT DECLINES TOBACCO CESSATION MEDS [facility] [place] [facility] Jun 18, 2008 08:47 AM V1-PT THINKING ABOUT QUIT TOBACCO USE [facility] [place] [facility] Dec 12, 2007 08:59 AM CURRENT SMOKER [facility] [place] [facility] Dec 12, 2007 08:59 AM V1-PT DECLINES REF TO TOBACCO CESS PRGM [facility] Dec 12, 2007 08:59 AM V1-PT DECLINES TOBACCO CESSATION MEDS [facility] Dec 12, 2007 08:59 AM V1-PT THINKING ABOUT QUIT TOBACCO USE [facility] Jun 13, 2007 09:30 AM V1-PT DECLINES REF TO TOBACCO CESS PRGM [facility] Jun 13, 2007 09:30 AM V1-PT DECLINES TOBACCO CESSATION MEDS [facility] Jun 13, 2007 09:30 AM V1-PT THINKING ABOUT QUIT TOBACCO USE [facility] 2006 09:09 AM CURRENT SMOKER Not ready as yet to quit [facility] Aug 03, 2005 08:20 AM CURRENT SMOKER [facility] Apr 19, 2004 10:13 AM CURRENT SMOKER [facility] Mar 26, 2003 09:23 AM CURRENT SMOKER trying to cut down. [facility] Feb 17, 2002 11:07 AM CURRENT SMOKER [facility] Advance Directives: All historical and current Section Date Range: From patient's date of to the date document was created. This section includes ALL of a patient's completed or amended [place] Advance and Rescinded Directives. The entries below indicate that a directive exists for the patient, but an actual copy is not included with this document. The data comes from all [place] facilities. Date Advance Directives Provider Source Jun 12, 2019 ADVANCE DIRECTIVE MICA BALTAZAR [facility] Encounter Notes: All associated encounter notes This section contains the clinical notes associated to the Encounter. Date/Time Encounter Note(s) Provider Source Jun 17, 2023 02:48 PM ACCOUNTING OF DISCLOSURES NOTE: LOCAL TITLE: STATE PRESCRIPTION DRUG MONITORING PROGRAM STANDARD TITLE: ACCOUNTING OF DISCLOSURES NOTE DATE OF NOTE: JUN 17, 2023@14:48:08 ENTRY DATE: JUN 17, 2023@14:48:08 AUTHOR: DOREEN,SIMON EXP COSIGNER: URGENCY: STATUS: COMPLETED This PDMP query was submitted by Simon Todd. The clinical justification for this PDMP query is to review controlled substances prescribed outside of the [facility], and any additional information that may become available, as an important component of standard clinical care, and in accordance with [facility] policy. Patient information was shared with the PDMP [place]. No prescription(s) for controlled substances outside the [facility] were found in the last 90 days. /kev/ SIMON TODD Psychiatric Mental Health Nurse Practitioner Signed: 06/17/2023 14:49 SIMON TODD [place] [facility] [place] [facility] Jun 17, 2023 02:04 PM MENTAL HEALTH INITIAL EVALUATION NOTE: LOCAL TITLE: CONSULT REPORT/MENTAL HEALTH INTAKE STANDARD TITLE: MENTAL HEALTH INITIAL EVALUATION NOTE DATE OF NOTE: JUN 17, 2023@14:04 ENTRY DATE: JUN 17, 2023@14:05:38 AUTHOR: SIMON TODD EXP COSIGNER: URGENCY: STATUS: COMPLETED OUTPATIENT MENTAL-HEALTH CLINIC: INITIAL ASSESSMENT Visit is being conducted by [place] [employer]. [place] identified with 2 identifiers: Full Name Date of Emergency Plan: [place] confirmed and/or provided the following information in case of emergency or technology failure. PATIENT PHONE - PHONE NUMBER [CELLULAR] - Is patient phone number correct, if not, enter below: [place]'s phone number: CHRISTIANO VILLASENOR [address], [place], [address] [place]'s present location and address for appointment: home 's emergency contact name and phone number: up to date in CPRS [place] reported that location is private and safe: yes HPI: CHRISTIANO VILLASENOR, a 77 y/o male previously diagnosed with PTSD and PMH significant for Parkinson's disease presents for Initial Assessment following transfer from previous psychiatric prescriber, Dr. Bishop Bhatia, PharmD. Last seen by Dr. Bhatia on 09/24/22 Current Psychotropics are: ESCITALOPRAM 20MG PO DAILY LORAZEPAM 0.5MG PO TID 's joined today's assessment, at [place]'s suggestion. reports mood as About the same, no changes anxious, depressed and don't sleep very well. adds that between depression and anxiety, symptoms of anxiety are worse. Sleep is Usually about 4-5 hours per night. endorses trauma related symptoms secondary to loss of younger brother and combat in [place] including nightmares, hypervigilance, startle response and irritability. Takes Lorazepam TID and finds it very helpful for anxiety and preventing panic attacks. Still has mild panic attacks one to three times per week but frequency is reduced by PRN lorazepam. Experienced Bad rebound symptoms when medication was abruptly discontinued. With regards to appetite reports I don't have appetite, don't care if I eat anything. Endorsed auditory and visual hallucinations but then clarified that these are People sneaking up on me that are only seen in his peripheral vision as shadows. Also endorses auditory hallucinations of Sounds like someone talking in the distance. Mumbling in the distance. Cannot hear distinct words and denies command hallucinations. Reports that these symptoms predated onset of Parkinson's Disease and started after return from [place]. Notes that It can be frightening but that he's gotten used to them. Able to reality test and aware that these sounds and images are not being generated by 'real' people. [place] reports that previous trial of phenelzine was much more helpful, for symptoms of depression and anxiety but that he was taken off because of concerns about cardiac function (per [place]). Reports that adherence to dietary restrictions while taking an MAOI were not overly difficult or onerous. Denies paranoia or delusions. No Ideas of reference, thought insertion or command hallucinations Denies any recent episodes of sandy/hypomania and specifically denies discrete episodes of increased energy, irritability, impulsivity and/or expansive affect lasting several days. [place] explicitly and convincingly denied SI, intent or plan and denied thoughts of harming others. SUBSTANCE USE: Caffeine: Tobacco: 3-5 cigarettes per day Alcohol: denied Narcotics: denied Cannabis: denied PSYCHIATRIC HISTORY: Medication trials: Melatonin trial ineffective and he has stopped taking MIRTAZAPINE RASAGILINE for PD PHENELZINE ([id number]) chart review suggests that change was prompted by change from phenelzine to tranylcyrpromine due to nationwide unavailability of phenelzine. SERTRALINE TRANYLCYPROMINE Inpatient Hospitalizations: denied Suicidal Acts and Self-Harm: denied HISTORY OF VIOLENCE/ASSAULTING OTHERS: denied FAMILY MENTAL HEALTH AND SUBSTANCE USE HISTORY: denied SOCIAL HISTORY: Per [facility]patient Mental Health Assessment (06/03/2023), confirmed by [place] during assessment BORN IN [place] TO PARENTS. I AM MIDDLE OF THREE CHILDREN. MOM WAS A STAY AT HOME MOTHER AND DAD WAS A PRESS CLARK IN A PAPER MILL. IT WAS MOSTLY US AND MY MOTHER'S SISTER LIVED WITH US. WE DID NOT GO TO [place]. FOR DISCIPLINE, WE DIDN'T DARE DO ANYTHING WRONG. WAIT TILL YOUR FATHER COMES HOME - THE FEAR WAS ENOUGH. 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 I PLAYED FOOTBALL FOR ONE YEAR. I GRADUATED FROM [employer] IN 1962. I WAS DRAFTED INTO THE [employer] IN 1964 AND [facility] [employer]. I WAS SENT TO [place] FOR 13 MONTHS. I GOT OUT ON [...] WAIT ANY LONGER. I WORKED IN AN [employer] FOR 11 YEARS. I LEFT THAT JOB TO FIND SOMETHING ELSE. 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 I THINK IT WAS A PERSONALITY CONFLICT WITH THE PERSON IN CHARGE. I QUIT. I THEN WENT TO [employer] AND [employer]. 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 THEY CHANGED MY JOB DESCRIPTION AND GAVE [...] IT. I DO NOT GO ONLINE. History: [id number]. ONE 13 MO DEPLOYMENT TO [place]. MULTIPLE TRAUMA. 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 [employer] LEFT WITH AN HONORABLE DISCHARGE AT E-4. 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 Please check JLV. FACILITY ALLERGY/ADR -------- No Remote Allergy/ADR Data available for this patient [place] [facility] [place] [facility] PENICILLIN MEDICATIONS: reviewed and updated in CPRS Active Outpatient Medications (including Supplies): Active Outpatient Medications Status 1) CARBIDOPA 25/LEVODOPA 100MG TAB TAKE 3 TABLETS BY ACTIVE MOUTH THREE TIMES A DAY 2) CARBIDOPA 50/LEVODOPA 200MG SA TAB TAKE 1 TABLET BY ACTIVE (S) MOUTH AT BEDTIME 3) ESCITALOPRAM OXALATE 20MG TAB TAKE ONE TABLET BY ACTIVE (S) MOUTH EVERY MORNING AFTER BREAKFAST FOR MOOD/DEPRESSION 4) GABAPENTIN 300MG CAP TAKE ONE CAPSULE BY MOUTH EVERY ACTIVE (S) MORNING AND TAKE TWO CAPSULES AT BEDTIME TO PREVENT SEIZURES OR PAIN 5) LORAZEPAM 0.5MG TAB TAKE ONE TABLET BY MOUTH EVERY ACTIVE MORNING NEEDED AND TAKE TWO TABLETS AT BEDTIME NEEDED FOR ANXIETY 6) MAGNESIUM OXIDE 420MG TAB TAKE ONE TABLET BY MOUTH ACTIVE (S) EVERY DAY 7) RASAGILINE MESYLATE 1MG TAB TAKE ONE TABLET BY MOUTH ACTIVE (S) DAILY 8) ROPINIROLE HCL 0.5MG TAB TAKE ONE TABLET BY MOUTH ACTIVE (S) TWICE DAILY MENTAL STATUS EXAM: Appearance: consistent w/ stated age, approriate grooming and hygiene Behavior: polite, cooperative and [...] memory grossly intact to conversational testing Mood: anxious and depressed Affect: mood congruent LABS AND STUDIES: Color, Urine (AX 4280): Light-Yellow Appearance, Urine (AX 4280): Clear Glucose, Urine (AX 4280): NEGATIVE Ketones, Urine (AX 4280): TRACE Blood, Urine (AX 4280): NEGATIVE Protein, Urine (AX 4280): NEGATIVE Nitrite, Urine (AX 4280): NEGATIVE Bilirubin, Urine (AX 4280): NEGATIVE Specific [place], (AX 4280): 1.019 pH, Urine ([id number]): 6.0 Urobilinogen, Urine (AX 4280): <2.0 Leukocyte Esterase, (AX 4280): NEGATIVE GLUCOSE: 84 UREA NITROGEN: 13 SODIUM: 142 POTASSIUM: 4.2 CHLORIDE: 104 CO2: 29 CHOLESTEROL: 199 PROTEIN,TOTAL: 6.3 ALBUMIN: 3.9 ALKALINE PHOSPHATASE: 67 SGOT: 9 SGPT: <6 TRIGLYCERIDE: 60 LDL CHOL: 130 H CHOL/HDL RATIO: 3.5 HDL: 57 BILIRUBIN,TOT.: 0.7 TSH (Access): 0.76 CREATININE-EGFR: 0.81 eGFR CKD-EPI 2020: 90 WBC: 4.54 RBC: 4.79 HGB: 15.7 HCT: 46.7 MCV: 97.5 MCHC: 33.6 RDW: 13.7 PLT: 201 MCH: 32.8 H Neut %: 47.2 Lymph %: 32.6 Cameron %: 11.0 Eos %: 7.5 H Baso %: 1.5 Neut, Abs: 2.14 L Lymph, Abs: 1.48 Cameron, Abs: 0.50 Eos, Abs: 0.34 Baso, Abs: 0.07 Immature Granulocytes %: 0.2 Immature Granulocytes, Abs: 0.01 SAFETY ASSESSMENT: No acute safety concerns. Convincingly denies any thoughts, intents, or plans to harm self or others. Chronic risk is elevated by status and mental illness but is currently mitigated by participation in treatment and demonstration of help-seeking behaviors. IMPRESSION: Mirtazapine was still active as of Peter's last visit with Dr. Bhatia and it is unclear why it was not continued. Chart review does not indicate adverse reaction and given disrupted sleep, poor appetite and significant residual symptoms of anxiety and depression reinitiation appears to be a logical starting point. Chart review indicates that Peter was previously treated with MAOI at therapeutic doses for depression but that this treatment had to be discontinued as Neurology insisted that it interfered with treatment for Parkinson's Disease, presumably because PD tx involved initiation of another MAOI which Peter continues to take. Peter currently in the process of being connected with a Neurologist through [facility] referral also has Cataract surgery scheduled for the and 03 of July. Discussed reinitiation of phenelzine but after further chart review and before Peter has been connected with a new Neurologist doing so does not appear to be prudent. Chart review suggests that Peter tolerated mirtazapine without any indications of serotonin syndrome (a concern given co-prescription of an MAOI and an SSRI) and preliminary literature review suggests that mirtazapine far less likely to produce serotonin syndrome than other serotonergic medications with some literature indicating that mirtazapine may actually attenuate the risk of serotonin syndrome. Also briefly discussed augmenting with bupropion but when informed that increased anxiety and insomnia were possible side effects Peter and his were both reluctant to initiate this medication. Auditory and visual hallucinations appear to be PTSD related pseudo hallucinations, especially given that their onset predates PD onset by some time. Primvanserin and clozapine are recommended for PD psychosis but this does not appear to be the case. Might also consider switching back to sertraline. Will assess further as to patients response to this medication vs escitalopram. No acute safety concerns Diagnosis: PTSD PLAN: 1) CONTINUE ESCITALOPRAM 20MG PO DAILY 2) CONTINUE LORAZEPAM 0.5MG PO TID Labs: None today Follow-Up: RTC for 07/09/23 Discussed risks and benefits of proposed medication treatments including FDA approved indications and off-label uses, as well as common and severe side effects. reminded of potential side effects of benzodiazepines, including ataxia, confusion, drowsiness, respiratory depression (especially if combined with other COMPUT[employer] depressants such as alcohol or opioid medications), increased fall risk and the risk of developing a substance use disorder. agreed to refrain from use of alcohol or opioid medications concurrent with use of benzodiazepine. PDMP and chart review do suggest any history of misuse or diversion. comprehended all information discussed, had opportunity to ask questions which were answered to their satisfaction, and voluntarily and without duress agreed to trial as documented. CONTACT AND CRISIS INFO: informed that This Provider can be contacted at , [phone] or via Secure Messaging. We have reviewed the Crisis Hotline (185, dial #1 for line), and the [place] has been instructed to call 911 or go to the nearest ED if acutely suicidal or experiencing a mental health emergency. 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 CODING: Total time today was 60 minutes, which included an in-person visit with [...] of active outpatient prescriptions dispensed from this [facility] (local) and dispensed from another [place] or [facility] facility (remote) as well as [...] with a VA or non-VA provider. /kev/ SIMON TODD Psychiatric Mental Health Nurse Practitioner Signed: 06/20/2023 10:08 SIMON TODD [facility] May 22, 2023 10:29 AM ACCOUNTING OF DISCLOSURES NOTE: LOCAL TITLE: STATE PRESCRIPTION DRUG MONITORING PROGRAM STANDARD TITLE: ACCOUNTING OF DISCLOSURES NOTE DATE OF NOTE: MAY 22, 2023@10:29:59 ENTRY DATE: MAY 22, 2023@10:29:59 AUTHOR: LAVELLE DUNNE EXP COSIGNER: URGENCY: STATUS: COMPLETED This PDMP query was submitted by Lavelle Dunne MD, MD. The clinical justification for this PDMP query is to review controlled substances prescribed outside of the VA, and any additional information that may become available, as an important component of standard clinical care, and in accordance with [facility] policy. Patient information was shared with the PDMP [place]. No prescription(s) for controlled substances outside the VA were found in the last 90 days. /kev/ LAVELLE DUNNE JR, MD STAFF PSYCHIATRIST Signed: 05/22/2023 10:30 LAVELLE DUNNE MD [facility]
--- OUTSIDE RECORDS SUMMARY | 2024-06-15 13:27 | XMS_ITS | Referral Summary ---
Author Organization [facility] Address [address] [place] [address] Care Team Providers Care Outpatient Physical Therapist Assistant Name Role Phone Wing Sumanth Dilip Primary Care Provider [phone] Allergies Active Allergy Reactions Criticality Noted Date Comments Penicillins Fever Tolerated ampicillin-sulbactam October 2022 Venom-Honey Bee Angioedema High Medications carbidopa-levod opa (SINEMET) 25-100 mg per tablet Take 3 tablets by mouth 3 times a day. 5 Active gabapentin (NEURONTIN) 300 mg capsule Take 300 mg by mouth 3 times a day. 3 Active rasagiline (AZILECT) 1 mg tablet Take 1 mg by mouth once a day. 5 Active rOPINIRole (REQUIP) 0.5 mg tablet Take 0.5 mg by mouth 2 times a day. 3 Active escitalopram (LEXAPRO) 20 mg tablet Take 20 mg by mouth every morning. After breakfast 2 Active magnesium oxide 420 mg tablet Take 420 mg by mouth once a day. 3 Active vit C,Y-Ah-oopmm-kaye tein-zeaxan (PreserVision AREDS-2) capsule Take 1 capsule by mouth 2 times a day. Active LORazepam (ATIVAN) 0.5 mg tablet Take 1 mg by mouth nightly as needed for anxiety. Active Active Problems Problem Noted Date Diagnosed Date Dysphagia causing pulmonary aspiration with swal lowing 10/16/2022 Assessment & Plan (10/18/2022 7:08 AM EDT): Patient with a history of acute on chronic dysphagia, followed by SCRUBBER SYSTEM ATTENDANT through the [facility]. Per family, patient has had multiple previous MBS studies (most recently 4 years ago) given diagnosis of Parkinson's, leading to difficulty with chewing and swallowing. Previous MBS had recommended a diet of honey thick liquids and pur??es and compensation such as slow pacing and completing an additional swallow to clear residue, which patient tolerated well. Given recent intubation, patient underwent SCRUBBER SYSTEM ATTENDANT evaluation and MBS, which found that patient [...] for NG tube given recent nasal surgery. -SCRUBBER SYSTEM ATTENDANT following closely for continued swallow exercises -Repeat MBS evaluation on 10/20 -Initiated on peripheral PN until repeat MBS evaluation for nutrition support -RFP, Mg BID given risk for re-feeding syndrome Pneumonia due to hemophilus influenzae ([facility]) 10/16/2022 Assessment & Plan (10/18/2022 9:02 [...] day -Hold rasagiline and gabapentin Hypercholesterolemia 02/12/2013 Resolved Problems Problem Noted Date Diagnosed Date [...] pneumonia (CMS/HCC) 10/11/2022 10/19/2022 Hypotension 10/11/2022 10/19/2022 Immunizations Name Administration Dates Next Due Influenza, Injectable, Quadrivalent, Preservativ e Free 02/19/2013 Social History Tobacco Use Types Packs/Day Years Used Date Smoking Tobacco: Some Days Cigarettes Smokeless Tobacco: Never Tobacco Cessation:Ready to Q uit: Not Asked; Counseling Given: Not Answered Comments:Here and there smoker Alcohol Use Standard Drinks/Week Comments Never 0 (1 standard drink = 0.6 oz pur e alcohol) Sex and Gender Information Value Date Recorded Sex Assigned at Not on file Legal Sex Male 12:08 AM EDT Gender Identity Not on file Sexual Orientation Not on file Last Filed Vital Signs Vital Sign Reading Time Taken Comments Blood Pressure 103/65 01/04/2023 9:00 AM EDT Pulse 75 01/04/2023 9:00 AM EDT Temperature 36.7 ??C (98.1 ??F) 10/19/2022 6:00 AM ED T Respiratory Rate 18 01/04/2023 9:00 AM EDT Oxygen Saturation 95% 01/04/2023 9:00 AM EDT Inhaled Oxygen Concentration - - Weight 56.7 kg (125 lb) 11/30/2022 8:45 AM EDT Height 177.8 cm (5' 10 ) 11/30/2022 8:45 AM EDT Body Mass Index 17.94 11/30/2022 8:45 AM EDT Plan of Treatment Not on file Insurance MEDICARE [facility] Advance Directives Documents on File Type Date Recorded Patient Marketing Executive Expl anation Health Care Proxy 10/15/2022 2:03 PM 2022 * Full Code (Latest Code Status on File) Date Activated Date Inactivated Comments 10/11/2022 4:30 PM 10/19/2022 3:36 PM * Presumed Full Code Date Activated Date Inactivated Comments 10/11/2022 5:51 AM 10/11/2022 4:29 PM Care Teams Outpatient Physical Therapist Assistant Relationship Specialty Start Date End Date Sumanth Dimas [address] [place] [id number] PCP - General Family Medicine 08/27/22
--- OUTSIDE RECORDS SUMMARY | 2024-06-15 13:27 | XMS_ITS | Encounter Summary ---
Author Organization [facility] Address [address] [place] [address] Care Team Providers Care Animal Physiologist Name Role Phone Sumanth Dimas Primary Care Provider [phone] Encounter Details Date Type Department Care Team (Late st Contact Info) Description 09/07/2022 Orders Only [facility] Interventional Radiology [address] [place] [address] Cain Davila MD [address], [place] [id number] Social History Tobacco Use Types Packs/Day Years Used Date Smoking Tobacco: Former Comments:: Sex and Gender Information Value Date Recorded Sex Assigned at Not on file Legal Sex Male 12:08 AM EDT Gender Identity Not on file Sexual Orientation Not on file documented as of this encounter Plan of Treatment Not on file documented as of this encounter Visit Diagnoses Not on filedocumented in this encounter Care Teams Animal Physiologist Relationship Specialty Start Date End Date Sumanth Dimas [address] [place] [phone] PCP - General Family Medicine 08/27/22 documented as of this encounter
--- OUTSIDE RECORDS SUMMARY | 2024-06-15 13:27 | XMS_ITS | Encounter Summary ---
Author Name [facility] Organization [facility] Address [address] [place] [address] Care Team Providers Care Rehab Nursing Tech Name Role Phone SHAYAN SAMANIEGO Primary Care Provider Unavailabl e Insurance Providers: [...] PRESCRIPT ION [id number] May 13, 2015 [id number] JAROCHO VILLASENOR PATIENT MEDICARE (WNR) MEDICARE (M) PART B Nov 10, 2014 PART B [id number] JAROCHO VILLASENOR PATIENT MEDICARE (WNR) MEDICARE (M) PART A Oct 11, 2009 PART A [id number] JAROCHO VILLASENOR PATIENT MEDICARE (WNR) MEDICARE (M) PART A Oct 11, 2009 PART A [id number] JAROCHO VILLASENOR PATIENT MEDICARE (WNR) MEDICARE (M) PART B Oct 11, 2009 PART B [id number] JAROCHO VILLASENOR PATIENT MEDICARE PART D (WN) PRESCRIPT ION PART D May 13, 2015 PART D [id number] JAROCHO VILLASENOR PATIENT UNICARE MEDICAL EXPENSE (OPT/PROF ) [place] [facility] * Mar 13, 2015 [id number] JAROCHO VILLASENOR PATIENT Selected Encounter This section includes the information on record at NH for the Encounter. Date/Time Encounter Type Encounter Description Reason Pro vider Source Apr 27, 2024 03:09 PM Outpatient Encounter ADMIN PAT ACTIVTIES (MASNONCT) IHE Encounter Template Text not used by NH Plan of Treatment: Future Appointments (+ 6 months) and Future Tests (+/- 45 days) The Plan of Treatment section includes future care activities for the patient from all NH treatmentfacilities. This section includes future appointments and future orders which are active, pending or scheduled. Future Appointments This section includes appointments that were scheduled to occur 6 months from the date of the Encounter, up to a maximum of 20 appointments. The data comes from all NH treatment facilities. Appointment Date/Time Appointment Type Appointme nt Facility Name May 22, 2024 10:30 AM [facility] Jun 18, 2024 11:30 AM AMBULATORY - PSYCHIATRY [facility] Lab Results: +/- 30 days of the encounter This section includes the Chemistry and Hematology Lab Results on record with NH for the patient. Radiology Reports and Pathology Reports are provided separately, in subsequent sections. Lab Results This section contains the Chemistry/Hematology Results that were resulted 30 days before or 30 daysafter the date of the Encounter. Date/Time Source Result Type Result - Unit Interpretation Reference Range Comment Apr 22, 2024 08:26 AM [facility] TSH Specimen Type: SERUM No comment entered. Ordering Provider: SHAYAN SAMANIEGO Report Released Date/Time: Apr 05, 2024 04:17 PM Reporting Lab: [facility] [address] [facility] [address] Performing Lab: [facility] [address] [facility] [address] TSH 1.09 u[IU]/mL 0.35-5.00 Apr 22, 2024 08:26 AM [facility] LIPID PANEL FASTING Specimen Type: SERUM No comment entered. Ordering Provider: SHAYAN SAMANIEGO Report Released Date/Time: Apr 05, 2024 04:17 PM Reporting Lab: [address] [address] Performing Lab: [address] [address] CHOLESTEROL 207 mg/dL H TRIGLYCERIDE 101 mg/dL 0-150 LDL calculated 135 mg/dL H 0-129 CHOL/HDL 4.0 HDL CHOLESTEROL 52 mg/dL 40-60 Apr 22, 2024 08:26 AM [facility] LIVER FUNCTION Specimen Type: SERUM No comment entered. Ordering Provider: SHAYAN SAMANIEGO Report Released Date/Time: Apr 05, 2024 04:17 PM Reporting Lab: [address] [address] Performing Lab: [address] [address] PROTEIN,TOTAL 6.6 g/dL 6.0-8.3 ALBUMIN 3.9 g/dL 3.5-5.0 ALKALINE PHOSPHATASE 66 U/L 40-150 AST 10 U/L 5-34 ALT <6 U/L BILIRUBIN, TOTAL 0.7 mg/dL 0.2-1.2 Apr 22, 2024 08:26 AM [facility] BASIC METABOLIC PANEL (fasting) Specimen Type: SERUM No comment entered. Ordering Provider: SHAYAN SAMANIEGO Report Released Date/Time: Apr 05, 2024 04:17 PM Reporting Lab: [address] [address] Performing Lab: [address] [address] UREA NITROGEN 15 mg/dL 7-25 GLUCOSE 98 mg/dL 65-100 SODIUM 142 mmol/L 135-145 POTASSIUM 4.8 mmol/L 3.5-5.0 CHLORIDE 103 mmol/L 100-110 CO2 31 meq/L H 20-30 CREATININE, Serum 0.81 mg/dL 0.50-1.40 eGFR(CKD-EPI 2020) 90 mL/min >60 Apr 22, 2024 08:26 AM [facility] URINALYSIS CLEAN CATCH Specimen Type: URINE Comment: If Glucose = >500 and Ketones are positive, please alert the Physician. Ordering Provider: SHAYAN SAMANIEGO Report Released Date/Time: Apr 05, 2024 04:17 PM Reporting Lab: [address] [address] Performing Lab: [address] [address] UA COLOR Light-Yellow Yellow UA APPEARANCE Clear Clear UA GLUCOSE Normal mg/dL Negative UA KETONES NEGATIVE mg/dL Negative UA BLOOD NEGATIVE mg/dL Negative UA PROTEIN NEGATIVE mg/dL Negative UA NITRITE NEGATIVE mg/dL Negative UA BILIRUBIN NEGATIVE mg/dL Negative UA SPECIFIC GRAVITY 1.020 1.016-1.022 UA pH 6.5 5.0-9.0 UA UROBILINOGEN Normal mg/dL <2.0 UA LEUKOCYTE NEGATIVE Negative Apr 22, 2024 08:26 AM [facility] CBC AND DIFF (AUTO) Specimen Type: BLOOD No comment entered. Ordering Provider: SHAYAN SAMANIEGO Report Released Date/Time: Apr 05, 2024 04:17 PM Reporting Lab: [address] [address] Performing Lab: [address] [address] WBC 4.92 10*3/uL 4.50-11.00 RBC 4.55 10*6/uL 4.23-5.66 HGB 15.1 g/dL 12.8-17 HCT 44.2 39.2-50.4 MCV 97.1 fL 82-99 MCHC 34.2 g/dL 30.8-35.1 PLT 211 10*3/uL 140-360 RDW-CV 12.9 12.0-16.0 MONO, ABS 0.55 10*3/uL 0.30-1.10 MCH 33.2 pg H 26.2-32.6 NEUT % 54.1 43.7-75.8 LYMPH % 25.8 14.0-42.3 MONO % 11.2 5.1-13.7 EOS % 7.1 H 0.4-6.8 BASO % 1.6 0.1-2.0 NEUT, ABS 2.66 10*3/uL 2.20-7.60 LYMPH, ABS 1.27 10*3/uL 1.00-3.20 EOS, ABS 0.35 10*3/uL 0.03-0.44 BASO, ABS 0.08 10*3/uL 0.01-0.13 IMMATURE GRAN % 0.2 0.0-0.7 IMMATURE GRAN, ABS 0.01 10*3/uL 0.00-0.06 NRBC % 0.0 0.0-0.0 NRBC, ABS 0.00 10*3/uL 0.00-0.00 Social History: Smoking Status (Most current) and Tobacco Use (All prior to encounter date) This section includes the most current, and the historical, smoking and tobacco- related health factors from the NH facility where the Encounter took place. Current Smoking Status This section includes the most current smoking, or tobacco-related health factor, from the NH facility where the Encounter took place. Date/Time Current Smoking Status Comment [facility] May 23, 2023 10:30 AM VA-TOBACCO USER EVERY DAY [facility] [place] [facility] Tobacco Use History This section includes a history of the smoking, or tobacco-related health factors, that were collected on or before the date of the Encounter. The data comes from the NH facility where the Encounter took place. Date/Time Smoking Status/Tobac co Use Comment Facility May 23, 2023 10:30 AM VA-TOBACCO USE 30 YEARS OR MORE [facility] [place] [facility] May 23, 2023 10:30 AM VA-TOBACCO USE ADVICE [facility] [place] [facility] May 23, 2023 10:30 AM VA-TOBACCO USE AQUATIC PERFORMER NO [facility] [place] [facility] May 23, 2023 10:30 AM VA-TOBACCO USE MED NO [facility] [place] [facility] May 23, 2023 10:30 AM VA-TOBACCO USER EVERY DAY [facility] [place] [facility] May 23, 2022 09:30 AM VA-TOBACCO USE 30 YEARS OR MORE [facility] [place] [facility] May 23, 2022 09:30 AM VA-TOBACCO USE ADVICE [facility] [place] [facility] May 23, 2022 09:30 AM VA-TOBACCO USE AQUATIC PERFORMER NO [facility] [place] [facility] May 23, 2022 09:30 AM VA-TOBACCO USE MED NO [facility] [place] [facility] May 23, 2022 09:30 AM VA-TOBACCO USE WI 30 MIN OF WAKEUP [facility] [place] [facility] May 23, 2022 09:30 AM VA-TOBACCO USER SOME DAYS [facility] [place] [facility] May 22, 2021 01:30 PM VA-TOBACCO FORMER USER [facility] [place] [facility] May 22, 2021 01:30 PM VA-TOBACCO QUIT 15 YRS OR MORE [facility] [place] [facility] May 24, 2020 09:00 AM VA-TOBACCO FORMER USER [facility] [place] [facility] May 24, 2020 09:00 AM VA-TOBACCO QUIT 15 YRS OR MORE [facility] [place] [facility] Nov 24, 2018 08:52 AM VA-TOBACCO FORMER USER [facility] [place] [facility] Nov 24, 2018 08:52 AM VA-TOBACCO QUIT 15 YRS OR MORE [facility] [place] [facility] May 21, 2018 08:52 AM VA-TOBACCO FORMER USER [facility] [place] [facility] May 21, 2018 08:52 AM VA-TOBACCO QUIT 5 TO < 15 YRS [facility] [place] [facility] May 21, 2017 09:01 AM LIFETIME NON-TOBACCO USER [facility] [place] [facility] Jun 12, 2016 09:16 AM QUIT TOBACCO USE > 7 YEARS AGO [facility] [place] [facility] Jul 11, 2015 09:16 AM QUIT TOBACCO USE > 7 YEARS AGO [facility] [place] [facility] Aug 06, 2014 09:11 AM QUIT TOBACCO USE 1-7 YEARS AGO [facility] [place] [facility] Jan 08, 2014 09:12 AM QUIT TOBACCO USE IN PAST YEAR [facility] [place] [facility] May 01, 2013 08:55 AM CURRENT SMOKER [facility] [place] [facility] May 01, 2013 08:55 AM V1-PT NOT INTERESTED IN QUIT TOBACCO USE [facility] [place] [facility] Nov 07, 2012 08:35 AM V1-PT DECLINES TOBACCO CESSATION MEDS [facility] [place] [facility] Nov 07, 2012 08:35 AM V1-PT THINKING ABOUT QUIT TOBACCO USE [facility] [place] [facility] May 08, 2012 09:00 AM CURRENT SMOKER [facility] [place] [facility] May 08, 2012 09:00 AM V1-PT DECLINES TOBACCO CESSATION MEDS [facility] [place] [facility] May 08, 2012 09:00 AM V1-PT THINKING ABOUT QUIT TOBACCO USE [facility] [place] [facility] Nov 09, 2011 08:43 AM V1-PT DECLINES TOBACCO CESSATION MEDS [facility] [place] [facility] Nov 09, 2011 08:43 AM V1-PT THINKING ABOUT QUIT TOBACCO USE [facility] [place] [facility] Dec 29, 2010 08:58 AM CURRENT SMOKER Thinking to quit [facility] [place] [facility] Dec 29, 2010 08:58 AM V1-PT DECLINES TOBACCO CESSATION MEDS [facility] [place] [facility] Dec 29, 2010 08:58 AM V1-PT THINKING ABOUT QUIT TOBACCO USE [facility] [place] [facility] Jun 30, 2010 08:30 AM V1-PT DECLINES REF TO TOBACCO CESS PRGM [facility] [place] [facility] Jun 30, 2010 08:30 AM V1-PT DECLINES TOBACCO CESSATION MEDS [facility] [place] [facility] Jun 30, 2010 08:30 AM V1-PT THINKING ABOUT QUIT TOBACCO USE [facility] [place] [facility] Dec 30, 2009 09:18 AM CURRENT SMOKER Try to quit [facility] [place] [facility] Dec 30, 2009 09:18 AM V1-PT DECLINES REF TO TOBACCO CESS PRGM [facility] [place] [facility] Dec 30, 2009 09:18 AM V1-PT DECLINES TOBACCO CESSATION MEDS [facility] [place] [facility] Dec 30, 2009 09:18 AM V1-PT THINKING ABOUT QUIT TOBACCO USE [facility] [place] [facility] Dec 17, 2008 08:44 AM CURRENT SMOKER [facility] [place] [facility] Dec 17, 2008 08:44 AM V1-PT DECLINES REF TO TOBACCO CESS PRGM [facility] [place] [facility] Dec 17, 2008 08:44 AM V1-PT DECLINES TOBACCO CESSATION MEDS [facility] [place] [facility] Dec 17, 2008 08:44 AM V1-PT THINKING ABOUT QUIT TOBACCO USE [facility] [place] [facility] Jun 18, 2008 08:47 AM V1-PT DECLINES REF TO TOBACCO CESS PRGM [facility] [place] [facility] Jun 18, 2008 08:47 AM V1-PT DECLINES TOBACCO CESSATION MEDS [facility] [place] [facility] Jun 18, 2008 08:47 AM V1-PT THINKING ABOUT QUIT TOBACCO USE [facility] [place] [facility] Dec 12, 2007 08:59 AM CURRENT SMOKER [facility] [place] [facility] Dec 12, 2007 08:59 AM V1-PT DECLINES REF TO TOBACCO CESS PRGM [facility] [place] [facility] Dec 12, 2007 08:59 AM V1-PT DECLINES TOBACCO CESSATION MEDS [facility] [place] [facility] Dec 12, 2007 08:59 AM V1-PT THINKING ABOUT QUIT TOBACCO USE [facility] [place] [facility] Jun 13, 2007 09:30 AM V1-PT DECLINES REF TO TOBACCO CESS PRGM [facility] [place] [facility] Jun 13, 2007 09:30 AM V1-PT DECLINES TOBACCO CESSATION MEDS [facility] [place] [facility] Jun 13, 2007 09:30 AM V1-PT THINKING ABOUT QUIT TOBACCO USE [facility] [place] [facility] 2006 09:09 AM CURRENT SMOKER Not ready as yet to quit [facility] [place] [facility] Aug 03, 2005 08:20 AM CURRENT SMOKER [facility] [place] [facility] Apr 19, 2004 10:13 AM CURRENT SMOKER [facility] [place] [facility] Mar 26, 2003 09:23 AM CURRENT SMOKER trying to cut down. [facility] [place] [facility] Feb 17, 2002 11:07 AM CURRENT SMOKER [facility] Advance Directives: All historical and current Section Date Range: From patient's date of to the date document was created. This section includes ALL of a patient's completed or amended NH Advance and Rescinded Directives. The entries below indicate that a directive exists for the patient, but an actual copy is not included with this document. The data comes from all NH facilities. Date Advance Directives Provider Source Jun 12, 2019 ADVANCE DIRECTIVE SHAYAN SAMANIEGO [facility] Encounter Notes: All associated encounter notes This section contains the clinical notes associated to the Encounter. Date/Time Encounter Note(s) Provider Source Apr 27, 2024 03:12 PM ADDENDUM: LOCAL TITLE: Addendum STANDARD TITLE: ADDENDUM DATE OF NOTE: APR 27, 2024@15:12:15 ENTRY DATE: APR 27, 2024@15:12:16 AUTHOR: SHAYAN SAMANIEGO EXP COSIGNER: URGENCY: STATUS: COMPLETED forward to prescriber /kev/ Shayan Samaniego MD Staff Physician Signed: 04/27/2024 15:12 Receipt Acknowledged By: 04/27/2024 16:10 /kev/ ISABELLA LOGAN Psychiatric Mental Health Nurse Practitioner ====== --- Original Document --- 04/27/24 MEDICATION RENEWAL: john Jones is requesting a refill on the following prescription(s). Please renew if appropriate.Thank you for your time. 1) LORAZEPAM 1MG TAB TAKE ONE TABLET BY MOUTH ONCE DAILY ACTIVE NEEDED AND TAKE TWO TABLETS AT BEDTIME NEEDED Indication: ANXIETY /kev/ NAHUN LEON Signed: 04/27/2024 15:09 Receipt Acknowledged By: 04/27/2024 15:14 /kev/ Sylvia Melton RN, BSN Primary Care 04/27/2024 15:12 /kev/ Shayan Samaniego MD Staff Physician [facility] Apr 27, 2024 03:09 PM MEDICATION MGT NOT E: LOCAL TITLE: MEDICATION RENEWAL STANDARD TITLE: MEDICATION MGT NOTE DATE OF NOTE: APR 27, 2024@15:09 ENTRY DATE: APR 27, 2024@15:09:37 AUTHOR: NAHUN LEON EXP COSIGNER: URGENCY: STATUS: COMPLETED MEDICATION RENEWAL Has ADDENDA Hello, is requesting a refill on the following prescription(s). Please renew if appropriate.Thank you for your time. 1) LORAZEPAM 1MG TAB TAKE ONE TABLET BY MOUTH ONCE DAILY ACTIVE NEEDED AND TAKE TWO TABLETS AT BEDTIME NEEDED Indication: ANXIETY /kev/ NAHUN LEON Signed: 04/27/2024 15:09 Receipt Acknowledged By: 04/27/2024 15:14 /kev/ Sylvia Melton RN, BSN Primary Care 04/27/2024 15:12 /kev/ Shayan Samaniego MD Staff Physician 04/27/2024 ADDENDUM STATUS: COMPLETED forward to prescriber /kev/ Shayan Samaniego MD Staff Physician Signed: 04/27/2024 15:12 Receipt Acknowledged By: * AWAITING SIGNATURE * ISABLELA LOGAN JEILYNE M [facility]
--- OUTSIDE RECORDS SUMMARY | 2024-06-15 13:28 | XMS_ITS | Encounter Summary ---
Author Name [facility] [place] Organization [facility] [place] Address [address] [place] [address] Care Team Providers Care Digital Marketing Executive Name Role Phone MICA BALTAZAR Primary Care [...] PRESCRIPT ION [id number] May 13, 2015 [id number] JAROCHO VILLASENOR PATIENT MEDICARE (WNR) MEDICARE (M) PART B Nov 10, 2014 PART B [id number] JAROCHO VILLASENOR PATIENT MEDICARE (WNR) MEDICARE (M) PART A Oct 11, 2009 PART A [id number] JAROCHO VILLASENOR PATIENT MEDICARE (WNR) MEDICARE (M) PART A Oct 11, 2009 PART A [id number] JAROCHO VILLASENOR PATIENT MEDICARE (WNR) MEDICARE (M) PART B Oct 11, 2009 PART B [id number] [phone] JAROCHO VILLASENOR PATIENT MEDICARE PART D (WN) PRESCRIPT ION PART D May 13, 2015 PART D [id number] JAROCHO VILLASENOR PATIENT UNICARE MEDICAL EXPENSE (OPT/PROF ) [place] [facility] [place] * Mar 13, 2015 [id number] JAROCHO VILLASENOR PATIENT Selected Encounter This section includes the information on record at [place] for the Encounter. Date/Time Encounter Type Encounter Description Reason Provider Source Feb 26, 2024 11:30 AM OFFICE O/P EST MOD 30 MIN [facility] - IND ICD-10-CM F43.12 Post-traumatic stress disorder, chronic DELANEY TODD [facility] Encounter Template Text not used by [place] Assessments - Encounter Diagnoses This section includes the primary and secondary diagnoses documented for the Encounter. Date/Time Primary/Secondary Diagnosis Diagnosis Name Provider Source Mar 04, 2024 04:28 PM PRIMARY Post-traumatic stress disorder, chronic DELANEY TODD [facility] Plan of Treatment: Future Appointments (+ 6 months) and Future Tests (+/- 45 days) The Plan of Treatment section includes future care activities for the patient from all [place] treatmentfacilities. This section includes future appointments and future orders which are active, pending or scheduled. Future Appointments This section includes appointments that were scheduled to occur 6 months from the date of the Encounter, up to a maximum of 20 appointments. The data comes from all [place] treatment facilities. Appointment Date/Time Appointment Type Appointme nt Facility Name Mar 25, 2024 11:30 AM AMBULATORY - PSYCHIATRY [facility] Apr 21, 2024 11:30 AM [facility] May 22, 2024 10:30 [facility] Jun 18, 2024 11:30 AM AMBULATORY - PSYCHIATRY [facility] Social History: Smoking Status (Most current) and Tobacco Use (All prior to encounter date) This section includes the most current, and the historical, smoking and tobacco- related health factors from the [facility] facility where the Encounter took place. Current Smoking Status This section includes the most current smoking, or tobacco-related health factor, from the [place] facility where the Encounter took place. Date/Time Current Smoking Status Comment Facil ity May 23, 2023 10:30 AM VA-TOBACCO DOESNT USE WI 30 MIN WAKEUP [place] [facility] [place] [facility] Tobacco Use History This section includes a history of the smoking, or tobacco-related health factors, that were collected on or before the date of the Encounter. The data comes from the [place] facility where the Encounter took place. 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 [facility] [place] [facility] May 23, 2023 10:30 AM VA-TOBACCO USE MED NO [facility] [place] [facility] May 23, 2023 10:30 AM VA-TOBACCO USER EVERY DAY [facility] [place] [facility] May 23, 2022 09:30 AM VA-TOBACCO USE 30 YEARS OR MORE [facility] [place] [facility] May 23, 2022 09:30 AM VA-TOBACCO USE ADVICE [place] [facility] [place] [facility] May 23, 2022 09:30 AM VA-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 [facility] [place] [facility] May 23, 2022 09:30 AM VA-TOBACCO USE MED NO [facility] [place] [facility] May 23, 2022 09:30 AM VA-TOBACCO USE WI 30 MIN OF WAKEUP [facility] [place] [facility] May 23, 2022 09:30 AM VA-TOBACCO USER SOME DAYS [facility] [place] [facility] May 22, 2021 01:30 PM VA-TOBACCO FORMER USER [facility] [place] [facility] May 22, 2021 01:30 PM VA-TOBACCO QUIT 15 YRS OR MORE [facility] [place] [facility] May 24, 2020 09:00 AM VA-TOBACCO FORMER USER [facility] [place] [facility] May 24, 2020 09:00 AM VA-TOBACCO QUIT 15 YRS OR MORE [facility] [place] [facility] Nov 24, 2018 08:52 AM VA-TOBACCO FORMER USER [place] [facility] [place] [facility] Nov 24, 2018 08:52 AM VA-TOBACCO QUIT 15 YRS OR MORE [facility] [place] [facility] May 21, 2018 08:52 AM VA-TOBACCO FORMER USER [facility] [place] [facility] May 21, 2018 08:52 AM VA-TOBACCO QUIT 5 TO < 15 YRS [facility] [place] [facility] May 21, 2017 09:01 AM LIFETIME NON-TOBACCO USER [facility] [place] [facility] Jun 12, 2016 09:16 AM QUIT TOBACCO USE > 7 YEARS AGO [facility] [place] [facility] Jul 11, 2015 09:16 AM QUIT TOBACCO USE > 7 YEARS AGO [facility] [place] [facility] Aug 06, 2014 09:11 AM QUIT TOBACCO USE 1-7 YEARS AGO [place] [facility] [place] [facility] Jan 08, 2014 09:12 AM QUIT TOBACCO USE IN PAST YEAR [facility] [place] [facility] May 01, 2013 08:55 AM CURRENT SMOKER [place] [facility] [place] [facility] May 01, 2013 08:55 AM V1-PT NOT INTERESTED IN QUIT TOBACCO USE [facility] [place] [facility] Nov 07, 2012 08:35 AM V1-PT DECLINES TOBACCO CESSATION MEDS [facility] [place] [facility] Nov 07, 2012 08:35 AM V1-PT THINKING ABOUT QUIT TOBACCO USE [facility] [place] [facility] May 08, 2012 09:00 AM CURRENT SMOKER [facility] [place] [facility] May 08, 2012 09:00 AM V1-PT DECLINES TOBACCO CESSATION MEDS [facility] [place] [facility] May 08, 2012 09:00 AM V1-PT THINKING ABOUT QUIT TOBACCO USE [facility] [place] [facility] Nov 09, 2011 08:43 AM V1-PT DECLINES TOBACCO CESSATION MEDS [facility] [place] [facility] Nov 09, 2011 08:43 AM V1-PT THINKING ABOUT QUIT TOBACCO USE [facility] [place] [facility] Dec 29, 2010 08:58 AM CURRENT SMOKER Thinking to quit [facility] [place] [facility] Dec 29, 2010 08:58 AM V1-PT DECLINES TOBACCO CESSATION MEDS [facility] [place] [facility] Dec 29, 2010 08:58 AM V1-PT THINKING ABOUT QUIT TOBACCO USE [facility] [place] [facility] Jun 30, 2010 08:30 AM V1-PT DECLINES REF TO TOBACCO CESS PRGM [facility] [place] [facility] Jun 30, 2010 08:30 AM V1-PT DECLINES TOBACCO CESSATION MEDS [facility] [place] [facility] Jun 30, 2010 08:30 AM V1-PT THINKING ABOUT QUIT TOBACCO USE [facility] [place] [facility] Dec 30, 2009 09:18 AM CURRENT SMOKER Try to quit [facility] [place] [facility] Dec 30, 2009 09:18 AM V1-PT DECLINES REF TO TOBACCO CESS PRGM [facility] [place] [facility] Dec 30, 2009 09:18 AM V1-PT DECLINES TOBACCO CESSATION MEDS [facility] [place] [facility] Dec 30, 2009 09:18 AM V1-PT THINKING ABOUT QUIT TOBACCO USE [facility] [place] [facility] Dec 17, 2008 08:44 AM CURRENT SMOKER [facility] [place] [facility] Dec 17, 2008 08:44 AM V1-PT DECLINES REF TO TOBACCO CESS PRGM [facility] [place] [facility] Dec 17, 2008 08:44 AM V1-PT DECLINES TOBACCO CESSATION MEDS [facility] [place] [facility] Dec 17, 2008 08:44 AM V1-PT THINKING ABOUT QUIT TOBACCO USE [facility] [place] [facility] Jun 18, 2008 08:47 AM V1-PT DECLINES REF TO TOBACCO CESS PRGM [facility] [place] [facility] Jun 18, 2008 08:47 AM V1-PT DECLINES TOBACCO CESSATION MEDS [facility] [place] [facility] Jun 18, 2008 08:47 AM V1-PT THINKING ABOUT QUIT TOBACCO USE [facility] [place] [facility] Dec 12, 2007 08:59 AM CURRENT SMOKER [facility] [place] [facility] Dec 12, 2007 08:59 AM V1-PT DECLINES REF TO TOBACCO CESS PRGM [facility] [place] [facility] Dec 12, 2007 08:59 AM V1-PT DECLINES TOBACCO CESSATION MEDS [facility] Dec 12, 2007 08:59 AM V1-PT THINKING ABOUT QUIT TOBACCO USE [facility] Jun 13, 2007 09:30 AM V1-PT DECLINES REF TO TOBACCO CESS PRGM [facility] Jun 13, 2007 09:30 AM V1-PT DECLINES TOBACCO CESSATION MEDS [facility] Jun 13, 2007 09:30 AM V1-PT THINKING ABOUT QUIT TOBACCO USE [facility] 2006 09:09 AM CURRENT SMOKER Not ready as yet to quit [facility] Aug 03, 2005 08:20 AM CURRENT SMOKER [facility] Apr 19, 2004 10:13 AM CURRENT SMOKER [facility] Mar 26, 2003 09:23 AM CURRENT SMOKER trying to cut down. [facility] Feb 17, 2002 11:07 AM CURRENT SMOKER [facility] Advance Directives: All historical and current Section Date Range: From patient's date of to the date document was created. This section includes ALL of a patient's completed or amended [place] Advance and Rescinded Directives. The entries below indicate that a directive exists for the patient, but an actual copy is not included with this document. The data comes from all [place] facilities. Date Advance Directives Provider Source Jun 12, 2019 ADVANCE DIRECTIVE MICA BALTAZAR [facility] Encounter Notes: All associated encounter notes This section contains the clinical notes associated to the Encounter. Date/Time Encounter Note(s) Provider Source Feb 26, 2024 11:45 AM ACCOUNTING OF DISCLOSURES NOTE: LOCAL TITLE: STATE PRESCRIPTION DRUG MONITORING PROGRAM STANDARD TITLE: ACCOUNTING OF DISCLOSURES NOTE DATE OF NOTE: FEB 26, 2024@11:45:11 ENTRY DATE: FEB 26, 2024@11:45:11 AUTHOR: SIMON TODD EXP COSIGNER: URGENCY: STATUS: COMPLETED This PDMP query was submitted by Simon Todd. The clinical justification for this PDMP query is to review controlled substances prescribed outside of the VA, and any additional information that may become available, as an important component of standard clinical care, and in accordance with [facility] policy. Patient information was shared with the PDMP Appriss [place]. No prescription(s) for controlled substances outside the VA were found in the last 90 days. /kev/ SIMON TODD Psychiatric Mental Health Nurse Practitioner Signed: 02/26/2024 11:45 SIMON TODD [place] [facility] [place] [facility] Feb 26, 2024 11:43 AM PRIMARY CARE NURSE PRACTITIONER OUTPATIENT NOTE: LOCAL TITLE: NURSE PRACTITIONER OUTPATIENT NOTE STANDARD TITLE: PRIMARY CARE NURSE PRACTITIONER OUTPATIENT NOTE DATE OF NOTE: FEB 26, 2024@11:43 ENTRY DATE: FEB 26, 2024@11:43:25 AUTHOR: SIMON TODD COSIGNER: URGENCY: STATUS: COMPLETED OUTPATIENT MENTAL HEALTH CLINIC: FOLLOW-UP Visit is being conducted by [place] [employer]. [place] identified with 2 identifiers: Full Name Date of Emergency Plan: confirmed and/or provided the following information in case of emergency or technology failure. PATIENT PHONE - PHONE NUMBER [CELLULAR] - Is patient phone number correct, if not, enter below: 's phone number: CHRISTIANO VILLASENOR [address], [place], [address] [place]'s present location and address for appointment: home [place]'s emergency contact name and phone number: up to date in CPR[facility] reported that location is private and safe: yes HPI: CHRISTIANO VILLASENOR, a 78 y/o male previously diagnosed with PTSD and PMH significant for Parkinson's disease presents for [facility] Follow-Up appointment. Last seen by This Provider on 12/17/23 reports mood as pretty good Sleep has gotten worse recently. Wakes up for 30-40 minutes and then able to get back to sleep Also had some weird dreams after initiating propranolol but these have resolved. Dreams are not distressing or impairing Identifies problems both with sleep initiation and sleep maintenance as most distressing MH symptoms at present Confirms that prior prescription for mirtazapine had helped with sleep but just a little bit PTSD symptoms stable at baseline Symptoms of anxiety better under control No depression explicitly and convincingly denied SI, intent or plan and denied thoughts of harming others. SUBSTANCE USE: Caffeine: Tobacco: 3-5 cigarettes per day Alcohol: denied Narcotics: denied Cannabis: denied PSYCHIATRIC HISTORY: Medication trials: Melatonin trial ineffective and he has stopped taking MIRTAZAPINE RASAGILINE for PD PHENELZINE ([id number]) chart review suggests that change was prompted by change from phenelzine to tranylcyrpromine due to nationwide unavailability of phenelzine. SERTRALINE TRANYLCYPROMINE Inpatient Hospitalizations: denied Suicidal Acts and Self-Harm: denied HISTORY OF VIOLENCE/ASSAULTING OTHERS: denied FAMILY MENTAL HEALTH AND SUBSTANCE USE HISTORY: denied SOCIAL HISTORY: Per [facility] Mental Health Assessment (06/03/2023), confirmed by during assessment BORN IN [place] TO PARENTS. I AM MIDDLE OF THREE CHILDREN. MOM WAS A STAY AT HOME MOTHER AND DAD WAS A PRESS CLARK IN A [employer]. IT WAS MOSTLY US AND MY MOTHER'S SISTER LIVED WITH US. WE DID NOT GO TO [place]. FOR DISCIPLINE, WE DIDN'T DARE DO ANYTHING WRONG. WAIT TILL YOUR FATHER COMES HOME - THE FEAR WAS ENOUGH. 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 I PLAYED FOOTBALL FOR ONE YEAR. I GRADUATED FROM [employer] IN 1962. I WAS DRAFTED INTO THE [employer] IN 1964 AND SERVED IN [facility] [employer]. I WAS SENT TO [employer] FOR 13 MONTHS. I GOT OUT ON [...] WAIT ANY LONGER. I WORKED IN AN [employer] SHOP FOR 11 YEARS. I LEFT THAT JOB TO FIND SOMETHING ELSE. 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 I THINK IT WAS A PERSONALITY CONFLICT WITH THE PERSON IN CHARGE. I QUIT. I THEN WENT TO [employer]. 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 THEY CHANGED MY JOB DESCRIPTION AND GAVE [...] IT. I DO NOT GO ONLINE. History: [id number]. ONE 13 MO DEPLOYMENT TO [place]. MULTIPLE [...] potentially hazardous s 07/18/2023 KAYLEIGH KENDRICK Hypercholesterolemia ([facility] [id number]) 05/21/2019 MICA BALTAZAR Parkinsonian gait (SNOMED CT [id number] 04/04/2015 RIGO DYKES Posttraumatic stress disorder, vahe 01/31/2016 NIKOLAY SULTANA ALLERGIES: Data on this list may not be complete. Please check JLV. FACILITY ALLERGY/ADR -------- No Remote Allergy/ADR Data available for this patient [facility] [place] [facility] PENICILLIN MEDICATIONS: reviewed [...] BEDTIME TO PREVENT SEIZURES OR PAIN 4) MAGNESIUM OXIDE 420MG TAB TAKE ONE TABLET BY MOUTH ACTIVE (S) EVERY DAY 5) PROPRANOLOL HCL 10MG TAB TAKE ONE TABLET BY MOUTH ACTIVE (S) THREE TIMES A DAY 6) RASAGILINE MESYLATE 1MG TAB TAKE [...] treatment and demonstration of help-seeking behaviors. IMPRESSION: presents as polite, cooperative and treatment motivated Reports adherence to current medications with significant therapeutic benefit and denies side effects. Reports desire to continue with current pharmacotherapy regimen. Lorazepam order had actually last September but and maintained that he has still been taking this medication without interruption. Denies falls. Risks/side effects were reiterated, especially fall risk. Strongly encouraged to take the lowest possible dose as infrequently as possible. Also reiterated contraindication in PTSD Will start low dose doxepin for sleep No acute safety concerns Diagnosis: PTSD, chronic Insomnia Disorder, unspecified PLAN: 1) CONTINUE ESCITALOPRAM 20MG PO DAILY 2) CONTINUE LORAZEPAM 0.5MG PO TID 3) INITIATE DOXEPIN, 6 MG PO QHS PRN Labs: None today Follow-Up: 03/25/24 Discussed risks and benefits of proposed medication treatments including FDA approved indications and off-label uses, as well as common and severe side effects. [place] comprehended all information discussed, had opportunity to ask questions which were answered to their satisfaction, and voluntarily and without duress agreed to trial as documented. CONTACT AND CRISIS INFO: informed that This Provider can be contacted at , [phone] or via Secure Messaging. We have reviewed the Crisis Hotline (735, dial #1 for line), and the [place] has been instructed to call 911 or [...] court of law and presented to a construction framer), and DOD access for active-duty service members. [...] this [facility] (local) and dispensed from another [place] or [facility] facility (remote) as well as inpatient orders [...] TODD Psychiatric Mental Health Nurse Practitioner Signed: 03/04/2024 16:27 SIMON TODD [place] [facility] [place] [facility]
--- OUTSIDE RECORDS SUMMARY | 2024-06-15 13:28 | XMS_ITS | Encounter Summary ---
Author Name [facility] [place] [facility] [place] Address [address] [place] [address] Care Team Providers Care Video Game Maker Name Role Phone MICA BALTAZAR Primary Care [...] PRESCRIPT ION [id number] May 13, 2015 [id number] JAROCHO VILLASENOR PATIENT MEDICARE (WNR) MEDICARE (M) PART B Nov 10, 2014 PART B [id number] [phone] JAROCHO VILLASENOR PATIENT MEDICARE (WNR) MEDICARE (M) PART A Oct 11, 2009 PART A [id number] JAROCHO VILLASENOR PATIENT MEDICARE (WNR) MEDICARE (M) PART A Oct 11, 2009 PART A [id number] JAROCHO VILLASENOR PATIENT MEDICARE (WNR) MEDICARE (M) PART B Oct 11, 2009 PART B [id number] [phone] JAROCHO VILLASENOR PATIENT MEDICARE PART D (WN) PRESCRIPT ION PART D May 13, 2015 PART D [id number] JAROCHO VILLASENOR PATIENT UNICARE MEDICAL EXPENSE (OPT/PROF ) [place]RO WHITE INDE[place] * Mar 13, 2015 [id number] JAROCHO VILLASENOR PATIENT Selected Encounter This section includes the information on record at [place] for the Encounter. Date/Time Encounter Type Encounter Description Reason Provider Source Aug 20, 2023 11:30 AM OFFICE O/P EST MOD 30 MIN [facility] - IND ICD-10-CM F43.12 Post-traumatic stress disorder, chronic DELANEY TODD IHE Encounter Template Text not used by [place] Assessments - Encounter Diagnoses This section includes the primary and secondary diagnoses documented for the Encounter. Date/Time Primary/Secondary Diagnosis Diagnosis Name Provider Source Aug 20, 2023 12:01 PM PRIMARY Post-traumatic stress disorder, chronic DELANEY TODD [facility] Plan of Treatment: Future Appointments (+ 6 months) and Future Tests (+/- 45 days) The Plan of Treatment section includes future care activities for the patient from all [place] treatmentfacilities. This section includes future appointments and future orders which are active, pending or scheduled. Future Appointments This section includes appointments that were scheduled to occur 6 months from the date of the Encounter, up to a maximum of 20 appointments. The data comes from all [place] treatment facilities. Appointment Date/Time Appointment Type Appointme nt Facility Name Oct 15, 2023 11:30 AM AMBULATORY - PSYCHIATRY [facility] Oct 23, 2023 11:00 AM AMBULATORY - MEDICINE [facility] Dec 17, 2023 11:30 AM AMBULATORY - PSYCHIATRY [facility] Social History: Smoking Status (Most current) and Tobacco Use (All prior to encounter date) This section includes the most current, and the historical, smoking and tobacco- related health factors from the [place] facility where the Encounter took place. Current Smoking Status This section includes the most current smoking, or tobacco-related health factor, from the [place] facility where the Encounter took place. Date/Time Current Smoking Status Comment Don renteria May 23, 2023 10:30 AM VA-TOBACCO USER EVERY DAY [facility] Tobacco Use History This section includes a history of the smoking, or tobacco-related health factors, that were collected on or before the date of the Encounter. The data comes from the [place] facility where the Encounter took place. 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 [facility] [place] [facility] May 23, 2023 10:30 AM VA-TOBACCO USE MED NO [facility] [place] [facility] May 23, 2023 10:30 AM VA-TOBACCO USER EVERY DAY [facility] [place] [facility] May 23, 2022 09:30 AM VA-TOBACCO USE 30 YEARS OR MORE [facility] [place] [facility] May 23, 2022 09:30 AM VA-TOBACCO USE ADVICE [facility] [place] [facility] May 23, 2022 09:30 AM 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 [facility] [place] [facility] May 23, 2022 09:30 AM VA-TOBACCO USE MED NO [facility] [place] [facility] May 23, 2022 09:30 AM VA-TOBACCO USE WI 30 MIN OF WAKEUP [facility] [place] [facility] May 23, 2022 09:30 AM VA-TOBACCO USER SOME DAYS [facility] [place] [facility] May 22, 2021 01:30 PM VA-TOBACCO FORMER USER [facility] [place] [facility] May 22, 2021 01:30 PM VA-TOBACCO QUIT 15 YRS OR MORE [facility] [place] [facility] May 24, 2020 09:00 AM VA-TOBACCO FORMER USER [facility] [place] [facility] May 24, 2020 09:00 AM VA-TOBACCO QUIT 15 YRS OR MORE [facility] [place] [facility] Nov 24, 2018 08:52 AM VA-TOBACCO FORMER USER [facility] [place] [facility] Nov 24, 2018 08:52 AM VA-TOBACCO QUIT 15 YRS OR MORE [facility] [place] [facility] May 21, 2018 08:52 AM VA-TOBACCO FORMER USER [place] [facility] [place] [facility] May 21, 2018 08:52 AM VA-TOBACCO QUIT 5 TO < 15 YRS [facility] [place] [facility] May 21, 2017 09:01 AM LIFETIME NON-TOBACCO USER [facility] [place] [facility] Jun 12, 2016 09:16 AM QUIT TOBACCO USE > 7 YEARS AGO [facility] [place] [facility] Jul 11, 2015 09:16 AM QUIT TOBACCO USE > 7 YEARS AGO [facility] [place] [facility] Aug 06, 2014 09:11 AM QUIT TOBACCO USE 1-7 YEARS AGO [facility] [place] [facility] Jan 08, 2014 09:12 AM QUIT TOBACCO USE IN PAST YEAR [facility] [place] [facility] May 01, 2013 08:55 AM CURRENT SMOKER [place] [facility] [place] [facility] May 01, 2013 08:55 AM V1-PT NOT INTERESTED IN QUIT TOBACCO USE [facility] [place] [facility] Nov 07, 2012 08:35 AM V1-PT DECLINES TOBACCO CESSATION MEDS [facility] [place] [facility] Nov 07, 2012 08:35 AM V1-PT THINKING ABOUT QUIT TOBACCO USE [facility] [place] [facility] May 08, 2012 09:00 AM CURRENT SMOKER [facility] [place] [facility] May 08, 2012 09:00 AM V1-PT DECLINES TOBACCO CESSATION MEDS [facility] [place] [facility] May 08, 2012 09:00 AM V1-PT THINKING ABOUT QUIT TOBACCO USE [facility] [place] [facility] Nov 09, 2011 08:43 AM V1-PT DECLINES TOBACCO CESSATION MEDS [facility] [place] [facility] Nov 09, 2011 08:43 AM V1-PT THINKING ABOUT QUIT TOBACCO USE [facility] [place] [facility] Dec 29, 2010 08:58 AM CURRENT SMOKER Thinking to quit [facility] [place] [facility] Dec 29, 2010 08:58 AM V1-PT DECLINES TOBACCO CESSATION MEDS [facility] [place] [facility] Dec 29, 2010 08:58 AM V1-PT THINKING ABOUT QUIT TOBACCO USE [facility] [place] [facility] Jun 30, 2010 08:30 AM V1-PT DECLINES REF TO TOBACCO CESS PRGM [facility] [place] [facility] Jun 30, 2010 08:30 AM V1-PT DECLINES TOBACCO CESSATION MEDS [facility] [place] [facility] Jun 30, 2010 08:30 AM V1-PT THINKING ABOUT QUIT TOBACCO USE [facility] [place] [facility] Dec 30, 2009 09:18 AM CURRENT SMOKER Try to quit [facility] [place] [facility] Dec 30, 2009 09:18 AM V1-PT DECLINES REF TO TOBACCO CESS PRGM [facility] [place] [facility] Dec 30, 2009 09:18 AM V1-PT DECLINES TOBACCO CESSATION MEDS [facility] [place] [facility] Dec 30, 2009 09:18 AM V1-PT THINKING ABOUT QUIT TOBACCO USE [facility] [place] [facility] Dec 17, 2008 08:44 AM CURRENT SMOKER [facility] [place] [facility] Dec 17, 2008 08:44 AM V1-PT DECLINES REF TO TOBACCO CESS PRGM [facility] [place] [facility] Dec 17, 2008 08:44 AM V1-PT DECLINES TOBACCO CESSATION MEDS [facility] [place] [facility] Dec 17, 2008 08:44 AM V1-PT THINKING ABOUT QUIT TOBACCO USE [facility] [place] [facility] Jun 18, 2008 08:47 AM V1-PT DECLINES REF TO TOBACCO CESS PRGM [facility] [place] [facility] Jun 18, 2008 08:47 AM V1-PT DECLINES TOBACCO CESSATION MEDS [facility] [place] [facility] Jun 18, 2008 08:47 AM V1-PT THINKING ABOUT QUIT TOBACCO USE [facility] [place] [facility] Dec 12, 2007 08:59 AM CURRENT SMOKER [facility] [place] [facility] Dec 12, 2007 08:59 AM V1-PT DECLINES REF TO TOBACCO CESS PRGM [facility] [place] [facility] Dec 12, 2007 08:59 AM V1-PT DECLINES TOBACCO CESSATION MEDS [facility] [place] [facility] Dec 12, 2007 08:59 AM V1-PT THINKING ABOUT QUIT TOBACCO USE [facility] Jun 13, 2007 09:30 AM V1-PT DECLINES REF TO TOBACCO CESS PRGM [facility] Jun 13, 2007 09:30 AM V1-PT DECLINES TOBACCO CESSATION MEDS [facility] Jun 13, 2007 09:30 AM V1-PT THINKING ABOUT QUIT TOBACCO USE [facility] 2006 09:09 AM CURRENT SMOKER Not ready as yet to quit [facility] Aug 03, 2005 08:20 AM CURRENT SMOKER [facility] Apr 19, 2004 10:13 AM CURRENT SMOKER [facility] Mar 26, 2003 09:23 AM CURRENT SMOKER trying to cut down. [facility] Feb 17, 2002 11:07 AM CURRENT SMOKER [facility] Advance Directives: All historical and current Section Date Range: From patient's date of to the date document was created. This section includes ALL of a patient's completed or amended [place] Advance and Rescinded Directives. The entries below indicate that a directive exists for the patient, but an actual copy is not included with this document. The data comes from all [place] facilities. Date Advance Directives Provider Source Jun 12, 2019 ADVANCE DIRECTIVE MICA BALTAZAR [facility] Encounter Notes: All associated encounter notes This section contains the clinical notes associated to the Encounter. Date/Time Encounter Note(s) Provider Source Aug 20, 2023 12:00 PM ACCOUNTING OF DISCLOSURES NOTE: LOCAL TITLE: STATE PRESCRIPTION DRUG MONITORING PROGRAM STANDARD TITLE: ACCOUNTING OF DISCLOSURES NOTE DATE OF NOTE: AUG 20, 2023@12:00:15 ENTRY DATE: AUG 20, 2023@12:00:15 AUTHOR: SIMON TODD EXP COSIGNER: URGENCY: STATUS: COMPLETED This PDMP query was submitted by Simon Todd. The clinical justification for this PDMP query is to review controlled substances prescribed outside of the [place], and any additional information that may become available, as an important component of standard clinical care, and in accordance with [facility] policy. [facility] [place]. No prescription(s) for controlled substances outside the [place] were found in the last 90 days. /kev/ SIMON TODD Psychiatric Mental Health Nurse Practitioner Signed: 08/20/2023 12:00 SIMON TODD [place] [facility] [place] [facility] Aug 20, 2023 11:48 AM PRIMARY CARE NURSE PRACTITIONER OUTPATIENT NOTE: LOCAL TITLE: NURSE PRACTITIONER OUTPATIENT NOTE STANDARD TITLE: PRIMARY CARE NURSE PRACTITIONER OUTPATIENT NOTE DATE OF NOTE: AUG 20, 2023@11:48 ENTRY DATE: AUG 20, 2023@11:48:23 AUTHOR: SIMON TODD EXP COSIGNER: URGENCY: STATUS: COMPLETED OUTPATIENT MENTAL HEALTH CLINIC: FOLLOW-UP Visit is being conducted by [place] [employer] [facility]. identified with 2 identifiers: Full Name Date of Emergency Plan: [place] confirmed and/or provided the following information in case of emergency or technology failure. PATIENT PHONE - PHONE NUMBER [CELLULAR] - Is patient phone number correct, if not, enter below: 's phone number: CHRISTIANO VILLASENOR [address], [place], [address] [place]'s present location and address for appointment: home 's emergency contact name and phone number: up to date in CPRS [place] reported that location is private and safe: yes HPI: CHRISTIANO VILLASENOR, a 77 y/o male previously diagnosed with PTSD and PMH significant for Parkinson's disease presents for [facility] Follow-Up appointment. Last seen by This Provider on 07/09/23 reports mood as Doing pretty good. Neurologist recently made changes to PD medications and [place] notes improvement in mood and PTSD symptoms as a result. Still tired a lot, but a little more energetic. Appetite is good, Small meals 4 times per day Declines interest in psychotherapy not right now Sleep: pretty good, actually. Credits changes that he has made to his sleeping routine. Depression 6/10 Anxiety and PTSD as a 6 or 7 out of 10. Appetite is good, Small meals 4 times per day 4. Chronic auditory and visual hallucinations with little change from baseline. People sneaking up on me that are only seen in his peripheral vision as shadows. Also endorses auditory hallucinations of Sounds like someone talking in the distance. Mumbling in the distance. Cannot hear distinct words and denies command hallucinations. explicitly and convincingly denied SI, intent or plan and denied thoughts of harming others. SUBSTANCE USE: Caffeine: Tobacco: 3-5 cigarettes per day Alcohol: denied Narcotics: denied Cannabis: denied PSYCHIATRIC HISTORY: Medication trials: Melatonin trial ineffective and he has stopped taking MIRTAZAPINE RASAGILINE for PD PHENELZINE ([id number]) chart review suggests that change was prompted by change from phenelzine to tranylcyrpromine due to nationwide unavailability of phenelzine. SERTRALINE TRANYLCYPROMINE Inpatient Hospitalizations: denied Suicidal Acts and Self-Harm: denied HISTORY OF VIOLENCE/ASSAULTING OTHERS: denied FAMILY MENTAL HEALTH AND SUBSTANCE USE HISTORY: denied SOCIAL HISTORY: Per [facility] Outpatient Mental Health Assessment (06/03/2023), confirmed by during assessment BORN IN [place] TO PARENTS. I AM MIDDLE OF THREE CHILDREN. MOM WAS A STAY AT HOME MOTHER AND DAD WAS A [place]ESS CLARK IN A [place]. IT WAS MOSTLY US AND MY MOTHER'S SISTER LIVED WITH US. WE DID NOT GO TO [facility]IC[facility]. FOR DISCIPLINE, WE DIDN'T DARE DO ANYTHING WRONG. WAIT TILL YOUR FATHER COMES HOME - THE FEAR WAS ENOUGH. 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 I PLAYED FOOTBALL FOR ONE YEAR. I GRADUATED FROM [employer] IN 1962. I WAS DRAFTED INTO THE [employer] IN 1964 AND SERVED IN [facility]. I WAS SENT TO [place] FOR 13 MONTHS. I GOT OUT ON [...] SOMETHING ELSE. 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 I THINK IT WAS A PERSONALITY CONFLICT WITH THE PERSON IN CHARGE. I QUIT. I THEN WENT TO [employer]. 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 THEY CHANGED MY JOB DESCRIPTION AND GAVE [...] IT. I DO NOT GO ONLINE. History: [id number]. ONE 13 MO DEPLOYMENT TO [place]. MULTIPLE [...] DYKES Exposure to potentially hazardous s 07/18/2023 MIREILLEKAYLEIGH Hypercholesterolemia ([facility] [id number]) 05/21/2019 MICA BALTAZAR Parkinsonian gait ([facility]OMED CT [id number] 04/04/2015 RIGO DYKES Posttraumatic stress disorder, vahe 01/31/2016 NIKOLAY S[place]NA ALLERGIES: Data on this list may not be complete. Please check [facility]. FACILITY ALLERGY/ADR -------- No Remote Allergy/ADR Data available for this patient [facility] [place] [facility] MEDICATIONS: reviewed [...] TAKE ONE TABLET BY MOUTH EVERY ACTIVE (S) MORNING NEEDED AND TAKE TWO TABLETS AT [...] treatment and demonstration of help-seeking behaviors. IMPRESSION: [place] presents as polite, cooperative and treatment motivated Reports adherence to current medications with significant therapeutic benefit and denies side effects (aside from sexual side effects from escitalopram). Reports desire to continue with current pharmacotherapy regimen. declined making changes in pharmacotherapy regimen citing recent changes in Neurology medications that have improved mood and not wanting to introduce anything that could potentially interfere with this recent uptick in well being. Declined interest in psychotherapy consult. Reinitiation of mirtazapine (which he tolerated well in the past) and further discussion of bupropion might also be warranted at follow-up. reports excellent response to phenelzine, but in the distant past. Would want to wait until he is connected with a new Neurologist (current provider is retiring) and coordinate before attempting such a change. [place] agreed that prudence and erring on the side of caution is also his preference given multiple ongoing medical issues, even though response to current medications has been suboptimal. No acute safety concerns Diagnosis: PTSD PLAN: 1) CONTINUE ESCITALOPRAM 20MG PO DAILY 2) CONTINUE LORAZEPAM 0.5MG PO TID Labs: None today Follow-Up: RTC for 10/15/23 Discussed risks and benefits of proposed medication treatments including FDA approved indications and off-label uses, as well as common and severe side effects. [place] reminded of potential side effects of benzodiazepines, including ataxia, confusion, drowsiness, respiratory depression (especially if combined with other SITE SAFETY COORDINATOR depressants such as alcohol or opioid medications), increased fall risk and the risk of developing a substance use disorder. [place] agreed to refrain from use of alcohol or opioid medications concurrent with use of benzodiazepine. PDMP and chart review do suggest any history of misuse or diversion. [place] comprehended all information discussed, had opportunity to ask questions which were answered to their satisfaction, and voluntarily and without duress agreed to trial as documented. CONTACT AND CRISIS INFO: [place] informed that This Provider can be contacted at , [phone] or via Secure Messaging. We have reviewed the Crisis Hotline (988, dial #1 for line), and the has [...] court of law and presented to a rural carrier), and DOD access for active-duty service members. [...] TODD Psychiatric Mental Health Nurse Practitioner Signed: 08/20/2023 11:58 SIMON TODD [facility]
--- OUTSIDE RECORDS SUMMARY | 2024-06-15 13:28 | XMS_ITS | Encounter Summary ---
Author Name [facility] [place] Organization [facility] [place] Address [address] [place] [address] Care Team Providers Care Supervisor Grounds Name Role Phone MICA BALTAZAR Primary Care [...] PRESCRIPT ION [id number] May 13, 2015 [id number] [phone] JAROCHO VILLASENOR PATIENT MEDICARE (WNR) MEDICARE (M) PART B Nov 10, 2014 PART B [id number] JAROCHO VILLASENOR PATIENT MEDICARE (WNR) MEDICARE (M) PART A Oct 11, 2009 PART A [id number] [phone] JAROCHO VILLASENOR PATIENT MEDICARE (WNR) MEDICARE (M) PART A Oct 11, 2009 PART A [id number] [phone] JAROCHO VILLAESNOR PATIENT MEDICARE (WNR) MEDICARE (M) PART B Oct 11, 2009 PART B [id number] JAROCHO VILLASENOR PATIENT MEDICARE PART D (WN) PRESCRIPT ION PART D May 13, 2015 PART D [id number] JAROCHO VILLASENOR PATIENT UNICARE MEDICAL EXPENSE (OPT/PROF ) PIETRO WHITE INDEM * Mar 13, 2015 [id number] JAROCHO VILLASENOR PATIENT Selected Encounter This section includes the information on record at [place] for the Encounter. Date/Time Encounter Type Encounter Description Reason Provider Source Jul 09, 2023 11:30 AM OFFICE O/P EST MOD 30 MIN [facility] - IND ICD-10-CM F43.12 Post-traumatic stress disorder, chronic DELANEY LOGAN [facility] Encounter Template Text not used by [place] Assessments - Encounter Diagnoses This section includes the primary and secondary diagnoses documented for the Encounter. Date/Time Primary/Secondary Diagnosis Diagnosis Name Provider Source Jul 09, 2023 12:55 PM PRIMARY Post-traumatic stress disorder, chronic DELANEY LOGAN [facility] Plan of Treatment: Future Appointments (+ 6 months) and Future Tests (+/- 45 days) The Plan of Treatment section includes future care activities for the patient from all [place] [facility] This section includes future appointments and future orders which are active, pending or scheduled. Future Appointments This section includes appointments that were scheduled to occur 6 months from the date of the Encounter, up to a maximum of 20 appointments. The data comes from all [place] treatment facilities. Appointment Date/Time Appointment Type Appointme nt Facility Name Jul 19, 2023 01:00 PM [facility] Aug 20, 2023 11:30 AM [facility] Oct 15, 2023 11:30 AM [facility] [place] [facility] Oct 23, 2023 11:00 AM AM[facility] Dec 17, 2023 11:30 AM [facility] Social History: Smoking Status (Most current) and Tobacco Use (All prior to encounter date) This section includes the most current, and the historical, smoking and tobacco- related health factors from the [place] facility where the Encounter took place. Current Smoking Status This section includes the most current smoking, or tobacco-related health factor, from the [place] facility where the Encounter took place. Date/Time Current Smoking Status Comment Facil it May 23, 2023 10:30 AM VA-TOBACCO USER EVERY DAY [place] [facility] [place] [facility] Tobacco Use History This section includes a history of the smoking, or tobacco-related health factors, that were collected on or before the date of the Encounter. The data comes from the [place] facility where the Encounter took place. Date/Time Smoking Status/Tobac co Use Comment Facility May 23, 2023 10:30 AM VA-TOBACCO USE 30 YEARS OR MORE [facility] [place] [facility] May 23, 2023 10:30 AM VA-TOBACCO USE ADVICE [facility] [place] 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 May 23, 2023 10:30 AM VA-TOBACCO USE MED NO [facility] [place] [facility] May 23, 2023 10:30 AM VA-TOBACCO USER EVERY DAY [facility] [place] [facility] May 23, 2022 09:30 AM VA-TOBACCO USE 30 YEARS OR MORE [facility] [place] [facility] May 23, 2022 09:30 AM VA-TOBACCO USE ADVICE [facility] [place] 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 May 23, 2022 09:30 AM VA-TOBACCO USE MED NO [facility] [place] [facility] May 23, 2022 09:30 AM VA-TOBACCO USE WI 30 MIN OF WAKEUP [facility] [place] [facility] May 23, 2022 09:30 AM VA-TOBACCO USER SOME DAYS [facility] [place] [facility] May 22, 2021 01:30 PM VA-TOBACCO FORMER USER [facility] [place] [facility] May 22, 2021 01:30 PM VA-TOBACCO QUIT 15 YRS OR MORE [facility] [place] [facility] May 24, 2020 09:00 AM VA-TOBACCO FORMER USER [facility] [place] [facility] May 24, 2020 09:00 AM VA-TOBACCO QUIT 15 YRS OR MORE [facility] [place] [facility] Nov 24, 2018 08:52 AM VA-TOBACCO FORMER USER [place] [facility] [place] [facility] Nov 24, 2018 08:52 AM VA-TOBACCO QUIT 15 YRS OR MORE [facility] [place] [facility] May 21, 2018 08:52 AM VA-TOBACCO FORMER USER [facility] [place] [facility] May 21, 2018 08:52 AM VA-TOBACCO QUIT 5 TO < 15 YRS [place] [facility] [place] [facility] May 21, 2017 09:01 AM LIFETIME NON-TOBACCO USER [place] [facility] [place] [facility] Jun 12, 2016 09:16 AM QUIT TOBACCO USE > 7 YEARS AGO [facility] [place] [facility] Jul 11, 2015 09:16 AM QUIT TOBACCO USE > 7 YEARS AGO [place] [facility] [place] [facility] Aug 06, 2014 09:11 AM QUIT TOBACCO USE 1-7 YEARS AGO [place] [facility] [place] [facility] Jan 08, 2014 09:12 AM QUIT TOBACCO USE IN PAST YEAR [place] [facility] [place] [facility] May 01, 2013 08:55 AM CURRENT SMOKER [facility] [place] [facility] May 01, 2013 08:55 AM V1-PT NOT INTERESTED IN QUIT TOBACCO USE [facility] [place] [facility] Nov 07, 2012 08:35 AM V1-PT DECLINES TOBACCO CESSATION MEDS [facility] [place] [facility] Nov 07, 2012 08:35 AM V1-PT THINKING ABOUT QUIT TOBACCO USE [facility] [place] [facility] May 08, 2012 09:00 AM CURRENT SMOKER [facility] [place] [facility] May 08, 2012 09:00 AM V1-PT DECLINES TOBACCO CESSATION MEDS [facility] [place] [facility] May 08, 2012 09:00 AM V1-PT THINKING ABOUT QUIT TOBACCO USE [facility] [place] [facility] Nov 09, 2011 08:43 AM V1-PT DECLINES TOBACCO CESSATION MEDS [facility] [place] [facility] Nov 09, 2011 08:43 AM V1-PT THINKING ABOUT QUIT TOBACCO USE [facility] [place] [facility] Dec 29, 2010 08:58 AM CURRENT SMOKER Thinking to quit [facility] [place] [facility] Dec 29, 2010 08:58 AM V1-PT DECLINES TOBACCO CESSATION MEDS [facility] [place] [facility] Dec 29, 2010 08:58 AM V1-PT THINKING ABOUT QUIT TOBACCO USE [facility] [place] [facility] Jun 30, 2010 08:30 AM V1-PT DECLINES REF TO TOBACCO CESS PRGM [facility] [place] [facility] Jun 30, 2010 08:30 AM V1-PT DECLINES TOBACCO CESSATION MEDS [facility] [place] [facility] Jun 30, 2010 08:30 AM V1-PT THINKING ABOUT QUIT TOBACCO USE [facility] [place] [facility] Dec 30, 2009 09:18 AM CURRENT SMOKER Try to quit [facility] [place] [facility] Dec 30, 2009 09:18 AM V1-PT DECLINES REF TO TOBACCO CESS PRGM [facility] [place] [facility] Dec 30, 2009 09:18 AM V1-PT DECLINES TOBACCO CESSATION MEDS [facility] [place] [facility] Dec 30, 2009 09:18 AM V1-PT THINKING ABOUT QUIT TOBACCO USE [facility] [place] [facility] Dec 17, 2008 08:44 AM CURRENT SMOKER [facility] [place] [facility] Dec 17, 2008 08:44 AM V1-PT DECLINES REF TO TOBACCO CESS PRGM [facility] [place] [facility] Dec 17, 2008 08:44 AM V1-PT DECLINES TOBACCO CESSATION MEDS [facility] [place] [facility] Dec 17, 2008 08:44 AM V1-PT THINKING ABOUT QUIT TOBACCO USE [facility] [place] [facility] Jun 18, 2008 08:47 AM V1-PT DECLINES REF TO TOBACCO CESS PRGM [facility] [place] [facility] Jun 18, 2008 08:47 AM V1-PT DECLINES TOBACCO CESSATION MEDS [facility] [place] [facility] Jun 18, 2008 08:47 AM V1-PT THINKING ABOUT QUIT TOBACCO USE [facility] [place] [facility] Dec 12, 2007 08:59 AM CURRENT SMOKER [facility] [place] [facility] Dec 12, 2007 08:59 AM V1-PT DECLINES REF TO TOBACCO CESS PRGM [facility] Dec 12, 2007 08:59 AM V1-PT DECLINES TOBACCO CESSATION MEDS [facility] Dec 12, 2007 08:59 AM V1-PT THINKING ABOUT QUIT TOBACCO USE [facility] Jun 13, 2007 09:30 AM V1-PT DECLINES REF TO TOBACCO CESS PRGM [facility] Jun 13, 2007 09:30 AM V1-PT DECLINES TOBACCO CESSATION MEDS [facility] Jun 13, 2007 09:30 AM V1-PT THINKING ABOUT QUIT TOBACCO USE [facility] 2006 09:09 AM CURRENT SMOKER Not ready as yet to quit [facility] Aug 03, 2005 08:20 AM CURRENT SMOKER [facility] Apr 19, 2004 10:13 AM CURRENT SMOKER [facility] Mar 26, 2003 09:23 AM CURRENT SMOKER trying to cut down. [facility] Feb 17, 2002 11:07 AM CURRENT SMOKER [facility] Advance Directives: All historical and current Section Date Range: From patient's date of to the date document was created. This section includes ALL of a patient's completed or amended [place] Advance and Rescinded Directives. The entries below indicate that a directive exists for the patient, but an actual copy is not included with this document. The data comes from all [place] facilities. Date Advance Directives Provider Source Jun 12, 2019 ADVANCE DIRECTIVE MICA BALTAZAR [facility] Encounter Notes: All associated encounter notes This section contains the clinical notes associated to the Encounter. Date/Time Encounter Note(s) Provider Source Jul 09, 2023 11:59 AM PRIMARY CARE NURSE PRACTITIONER OUTPATIENT NOTE: LOCAL TITLE: NURSE PRACTITIONER OUTPATIENT NOTE STANDARD TITLE: PRIMARY CARE NURSE PRACTITIONER OUTPATIENT NOTE DATE OF NOTE: JUL 09, 2023@11:59 ENTRY DATE: JUL 09, 2023@11:59:08 AUTHOR: DOREEN,ISABELLA EXP COSIGNER: URGENCY: STATUS: COMPLETED OUTPATIENT MENTAL HEALTH CLINIC: FOLLOW-UP Visit is being conducted by [place] [facility]. Timbo identified with 2 identifiers: Full Name Date of Emergency Plan: confirmed and/or provided the following information in case of emergency or technology failure. PATIENT PHONE - PHONE NUMBER [CELLULAR] - Is patient phone number correct, if not, enter below: 's phone number: CHRISTIANO VILLASENOR [address], [place], [address] Timbo's present location and address for appointment: home Timbo's emergency contact name and phone number: up to date in CPRS reported that location is private and safe: yes HPI: CHRISTIANO VILLASENOR, a 77 y/o male previously diagnosed with PTSD and PMH significant for Parkinson's disease presents for [facility] Follow-Up appointment. Last seen by This Provider on 06/17/23 reports mood as I think I've been doing pretty good. Notes that sleep cycle is better regulated and that sleep is improved marginally. Persistent symptoms of anxiety and depression remain unchanged relative to baselin during previous assessment. Timbo did ask if either of his psychotropics could cause blurred vision as a side effect. Notes that blurred vision had been reported in connection with both but that it seemed to be an extremely rare reaction. is scheduled for cataract surgery next week and encouraged to follow-up with specialist as to whether any psychiatric medications could be exacerbating symptoms. also reports Erectile dysfunction as a medication side effect and has been an issue for quite awhile now. Discussed several possible medication changes and ultimately Timbo elected to remain with current regimen, noting that he'd prefer to wait until after surgery before introducing new changes. Appetite is good, Small meals 4 times per day 4. Mild lapses in memory (forgetting to put the toilet seat down). Endorsed auditory and visual hallucinations but then [...] are not being generated by 'real' people. No paranoia or delusions. No Ideas of reference, thought insertion or command hallucinations explicitly and convincingly denied SI, intent or plan and denied thoughts of harming others. SUBSTANCE USE: Caffeine: Tobacco: 3-5 cigarettes per day Alcohol: denied Narcotics: denied Cannabis: denied PSYCHIATRIC HISTORY: Medication trials: Melatonin trial ineffective and he has stopped taking MIRTAZAPINE RASAGILINE for PD PHENELZINE ([id number]) chart review suggests that change was prompted by change from phenelzine to tranylcyrpromine due to nationwide unavailability of phenelzine. SERTRALINE TRANYLCYPROMINE Inpatient Hospitalizations: denied Suicidal Acts and Self-Harm: denied HISTORY OF VIOLENCE/ASSAULTING OTHERS: denied FAMILY MENTAL HEALTH AND SUBSTANCE USE HISTORY: denied SOCIAL HISTORY: Per [facility] Assessment (06/03/2023), confirmed by Timbo during assessment [place] TO PARENTS. I AM MIDDLE OF THREE CHILDREN. MOM WAS A STAY AT HOME MOTHER AND DAD WAS A PRESS CLARK IN A [employer]. IT WAS MOSTLY US AND MY MOTHER'S SISTER LIVED WITH US. WE DID NOT GO TO [place]. FOR DISCIPLINE, WE DIDN'T DARE DO ANYTHING WRONG. WAIT TILL YOUR FATHER COMES HOME - THE FEAR WAS ENOUGH. 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 I PLAYED FOOTBALL FOR ONE YEAR. I GRADUATED FROM [employer] IN 1962. I WAS DRAFTED INTO THE AR[employer] IN 1964 AND SERVED IN [facility] [employer]. I WAS SENT TO [employer] FOR 13 MONTHS. I GOT OUT ON [...] SOMETHING ELSE. 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 I THINK IT WAS A PERSONALITY CONFLICT WITH THE PERSON IN CHARGE. I QUIT. I THEN WENT TO [employer]. 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 THEY CHANGED MY JOB DESCRIPTION AND GAVE [...] IT. I DO NOT GO ONLINE. History: [id number]. ONE 13 MO DEPLOYMENT TO [employer]. MULTIPLE [...] Mood: anxious and depressed Affect: mood congruent MEDICAL HISTORY: Active Problem Hypercholesterolemia ([facility] [id number]) 05/21/2019 MICA BALTAZAR Parkinsonian gait (SNOMED CT 406358 04/04/2015 RIGO DYKES Posttraumatic stress disorder, vahe 01/31/2016 NIKOLAY S[place]TANA ALLERGIES: Data on this list may not be complete. Please check JLV. FACILITY ALLERGY/ADR -------- No Remote Allergy/ADR Data available for this patient [facility] [place] [facility] MEDICATIONS: reviewed [...] ACTIVE (S) TWICE DAILY LABS AND STUDIES: LAB RESULTS LAST 1440 HRS - NONE FOUND SAFETY ASSESSMENT: No acute safety concerns. Convincingly denies any thoughts, intents, or plans to harm self or others. Chronic risk is elevated by status and mental illness but is currently mitigated by participation in treatment and demonstration of help-seeking behaviors. IMPRESSION: Timbo presents as polite, cooperative and treatment motivated Mirtazapine was still active as of Timbo's last visit with Dr. Bhatia and it is unclear why it was not continued. Chart review does not indicate adverse reaction and given disrupted sleep, poor appetite and significant residual symptoms of anxiety and depression reinitiation appears to be a logical starting point in addressing symptoms of anxiety and depression refractory to treatment. Might consider cross-titrating with escitalopram even though this combination was well tolerated. Further discussion of bupropion might also be warranted. reports excellent response to phenelzine, but in the distant past. Would want to wait until he is connected with a new Neurologist (current provider is retiring) and coordinate before attempting such a change. Timbo agreed that prudence and erring on the side of caution is also his preference given multiple ongoing medical issues, even though response to current medications has been suboptimal. No acute safety concerns Diagnosis: PTSD PLAN: 1) CONTINUE ESCITALOPRAM 20MG PO DAILY 2) CONTINUE LORAZEPAM 0.5MG PO TID Labs: None today Follow-Up: RTC for 08/20/23 Discussed risks and benefits of proposed medication treatments including FDA approved indications and off-label uses, as well as common and severe side effects. Timbo reminded of potential side effects of benzodiazepines, including ataxia, confusion, drowsiness, respiratory depression (especially if combined with other TACTICAL DEBRIEFER depressants such as alcohol or opioid medications), [...] trial as documented. CONTACT AND CRISIS INFO: Timbo informed that This Provider can be contacted at , EXT [phone] or via Secure Messaging. We have reviewed the Crisis Hotline (618, dial #1 for line), and the has [...] court of law and presented to a product management consultant), and DOD access for active-duty service members. [...] LOGAN Psychiatric Mental Health Nurse Practitioner Signed: 07/09/2023 12:54 ISABELLA LOGAN [facility]
--- OUTSIDE RECORDS SUMMARY | 2024-06-15 13:28 | XMS_ITS | Encounter Summary ---
Author Name [facility] Organization [facility] [place] Address [address] [place] [address] Care Team Providers Care Ecological Technical Officer Name Role Phone MICA BALTAZAR Primary [...] PRESCRIPT ION [id number] May 13, 2015 [id number] JAROCHO VILLASENOR PATIENT MEDICARE (WNR) MEDICARE (M) PART B Nov 10, 2014 PART B [id number] JAROCHO VILLASENOR PATIENT MEDICARE (WNR) MEDICARE (M) PART A Oct 11, 2009 PART A [id number] JAROCHO VILLASENOR PATIENT MEDICARE (WNR) MEDICARE (M) PART A Oct 11, 2009 PART A [id number] JAROCHO VILLASENOR PATIENT MEDICARE (WNR) MEDICARE (M) PART B Oct 11, 2009 PART B [id number] JAROCHO VILLASENOR PATIENT MEDICARE PART D (WN) PRESCRIPT ION PART D May 13, 2015 PART D [id number] JAROCHO VILLASENOR PATIENT UNICARE MEDICAL EXPENSE (OPT/PROF ) [place] [facility] * Mar 13, 2015 [id number] JAROCHO VILLASENOR PATIENT Selected Encounter This section includes the information on record at [place] for the Encounter. Date/Time Encounter Type Encounter Description Reason Provider Source Mar 25, 2024 11:30 AM OFFICE O/P EST MOD 30 MIN MENTAL HEALTH CLINIC - IND ICD-10-CM F43.12 Post-traumatic stress disorder, chronic DOREEN,DELANEY N IHE Encounter Template Text not used by [place] Assessments - Encounter Diagnoses This section includes the primary and secondary diagnoses documented for the Encounter. Date/Time Primary/Secondary Diagnosis Diagnosis Name Provider Source Mar 26, 2024 08:28 AM PRIMARY Post-traumatic stress disorder, chronic DELANEY TODD [place] [facility] [place] [facility] Mar 26, 2024 08:28 AM SECONDARY Primary insomnia [facility] Plan of Treatment: Future Appointments (+ 6 months) and Future Tests (+/- 45 days) The Plan of Treatment section includes future care activities for the patient from all [place] treatmentfacilities. This section includes future appointments and future orders which are active, pending or scheduled. Future Appointments This section includes appointments that were scheduled to occur 6 months from the date of the Encounter, up to a maximum of 20 appointments. The data comes from all [place] treatment facilities. Appointment Date/Time Appointment Type Appointme nt Facility Name Apr 21, 2024 11:30 AM AMBULAT[facility] May 22, 2024 10:30 AM AMBULATORY - MEDICINE [place] [facility] [place] [facility] Jun 18, 2024 11:30 AM [facility] Lab Results: +/- 30 days of the encounter This section includes the Chemistry and Hematology Lab Results on record with [place] for the patient. Radiology Reports and Pathology Reports are provided separately, in subsequent sections. Lab Results This section contains the Chemistry/Hematology Results that were resulted 30 days before or 30 daysafter the date of the Encounter. Date/Time Source Result Type Result - Unit Interpretation Reference Range Comment Apr 22, 2024 08:26 AM [facility] TSH Specimen Type: SERUM No comment entered. Ordering Provider: MICA BALTAZAR Report Released Date/Time: Apr 05, 2024 04:17 PM Reporting Lab: [facility] [address] [facility] [address] Performing Lab: [address] [address] TSH 1.09 u[IU]/mL 0.35-5.00 Apr 22, 2024 08:26 AM [facility] LIPID PANEL FASTING Specimen Type: SERUM No comment entered. Ordering Provider: MICA BALTAZAR Report Released Date/Time: Apr 05, 2024 04:17 PM Reporting Lab: [facility] [address] [facility] [address] Performing Lab: [address] [address] CHOLESTEROL 207 mg/dL H TRIGLYCERIDE 101 mg/dL 0-150 LDL calculated 135 mg/dL H 0-129 CHOL/HDL 4.0 HDL CHOLESTEROL 52 mg/dL 40-60 Apr 22, 2024 08:26 AM [facility] LIVER FUNCTION Specimen Type: SERUM No comment entered. Ordering Provider: MICA BALTAZAR Report Released Date/Time: Apr 05, 2024 04:17 PM Reporting Lab: [address] [address] Performing Lab: [address] [address] PROTEIN,TOTAL 6.6 g/dL 6.0-8.3 ALBUMIN 3.9 g/dL 3.5-5.0 ALKALINE PHOSPHATASE 66 U/L 40-150 AST 10 U/L 5-34 ALT <6 U/L BILIRUBIN, TOTAL 0.7 mg/dL 0.2-1.2 Apr 22, 2024 08:26 AM [facility] BASIC METABOLIC PANEL (fasting) Specimen Type: SERUM No comment entered. Ordering Provider: MICA BALTAZAR Report Released Date/Time: Apr 05, 2024 04:17 PM Reporting Lab: [facility] [address] [facility] [address] Performing Lab: [facility] [address] [facility] [address] UREA NITROGEN 15 mg/dL 7-25 GLUCOSE 98 mg/dL 65-100 SODIUM 142 mmol/L 135-145 POTASSIUM 4.8 mmol/L 3.5-5.0 CHLORIDE 103 mmol/L 100-110 CO2 31 meq/L H 20-30 CREATININE, Serum 0.81 mg/dL 0.50-1.40 eGFR(CKD-EPI 2020) 90 mL/min >60 Apr 22, 2024 08:26 AM [facility] URINALYSIS CLEAN CATCH Specimen Type: URINE Comment: If Glucose = >500 and Ketones are positive, please alert the Physician. Ordering Provider: MICA BALTAZAR Report Released Date/Time: Apr 05, 2024 04:17 PM Reporting Lab: [address] [address] Performing Lab: [address] [address] UA COLOR Light-Yellow Yellow UA APPEARANCE Clear Clear UA GLUCOSE Normal mg/dL Negative UA KETONES NEGATIVE mg/dL Negative UA BLOOD NEGATIVE mg/dL Negative UA PROTEIN NEGATIVE mg/dL Negative UA NITRITE NEGATIVE mg/dL Negative UA BILIRUBIN NEGATIVE mg/dL Negative UA SPECIFIC GRAVITY 1.020 1.016-1.022 UA pH 6.5 5.0-9.0 UA UROBILINOGEN Normal mg/dL <2.0 UA LEUKOCYTE NEGATIVE Negative Apr 22, 2024 08:26 AM [facility] CBC AND DIFF (AUTO) Specimen Type: BLOOD No comment entered. Ordering Provider: MICA BALTAZAR Report Released Date/Time: Apr 05, 2024 04:17 PM Reporting Lab: [address] [address] Performing Lab: [address] [address] WBC 4.92 10*3/uL 4.50-11.00 RBC 4.55 10*6/uL [...] and tobacco- related health factors from the [place] facility where the Encounter took place. Current Smoking Status This section includes the most current smoking, or tobacco-related health factor, from the [place] facility where the Encounter took place. Date/Time Current Smoking Status Comment [facility] May 23, 2023 10:30 AM VA-TOBACCO USER EVERY DAY [facility] Tobacco Use History This section includes a history of the smoking, or tobacco-related health factors, that were collected on or before the date of the Encounter. The data comes from the [place] facility where the Encounter took place. Date/Time Smoking Status/Tobac co Use Comment Facility May 23, 2023 10:30 AM VA-TOBACCO USE 30 YEARS OR MORE [facility] May 23, 2023 10:30 AM VA-TOBACCO USE ADVICE [facility] [place] [facility] May 23, 2023 10:30 AM VA-TOBACCO 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 POLICE RESERVES NO [facility] [place] [facility] May 23, 2023 10:30 AM VA-TOBACCO USE MED NO [facility] [place] [facility] May 23, 2023 10:30 AM VA-TOBACCO USER EVERY DAY [facility] [place] [facility] May 23, 2022 09:30 AM VA-TOBACCO USE 30 YEARS OR MORE [facility] [place] [facility] May 23, 2022 09:30 AM VA-TOBACCO USE ADVICE [facility] [place] [facility] May 23, 2022 09:30 AM 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 POLICE RESERVES NO [facility] [place] [facility] May 23, 2022 09:30 AM VA-TOBACCO USE MED NO [facility] [place] [facility] May 23, 2022 09:30 AM VA-TOBACCO USE WI 30 MIN OF WAKEUP [facility] [place] [facility] May 23, 2022 09:30 AM VA-TOBACCO USER SOME DAYS [facility] [place] [facility] May 22, 2021 01:30 PM VA-TOBACCO FORMER USER [facility] [place] [facility] May 22, 2021 01:30 PM VA-TOBACCO QUIT 15 YRS OR MORE [facility] [place] [facility] May 24, 2020 09:00 AM VA-TOBACCO FORMER USER [facility] [place] [facility] May 24, 2020 09:00 AM VA-TOBACCO QUIT 15 YRS OR MORE [facility] [place] [facility] Nov 24, 2018 08:52 AM VA-TOBACCO FORMER USER [facility] [place] [facility] Nov 24, 2018 08:52 AM VA-TOBACCO QUIT 15 YRS OR MORE [facility] [place] [facility] May 21, 2018 08:52 AM VA-TOBACCO FORMER USER [facility] [place] [facility] May 21, 2018 08:52 AM VA-TOBACCO QUIT 5 TO < 15 YRS [facility] [place] [facility] May 21, 2017 09:01 AM LIFETIME NON-TOBACCO USER [facility] [place] [facility] Jun 12, 2016 09:16 AM QUIT TOBACCO USE > 7 YEARS AGO [facility] [place] [facility] Jul 11, 2015 09:16 AM QUIT TOBACCO USE > 7 YEARS AGO [facility] [place] [facility] Aug 06, 2014 09:11 AM QUIT TOBACCO USE 1-7 YEARS AGO [facility] [place] [facility] Jan 08, 2014 09:12 AM QUIT TOBACCO USE IN PAST YEAR [facility] [place] [facility] May 01, 2013 08:55 AM CURRENT SMOKER [facility] [place] [facility] May 01, 2013 08:55 AM V1-PT NOT INTERESTED IN QUIT TOBACCO USE [facility] [place] [facility] Nov 07, 2012 08:35 AM V1-PT DECLINES TOBACCO CESSATION MEDS [facility] [place] [facility] Nov 07, 2012 08:35 AM V1-PT THINKING ABOUT QUIT TOBACCO USE [facility] [place] [place] [facility] May 08, 2012 09:00 AM [facility] [place] [facility] May 08, 2012 09:00 AM V1-PT DECLINES TOBACCO CESSATION MEDS [facility] [place] [facility] May 08, 2012 09:00 AM V1-PT THINKING ABOUT QUIT TOBACCO USE [facility] [place] [facility] Nov 09, 2011 08:43 AM V1-PT DECLINES TOBACCO CESSATION MEDS [facility] [place] [facility] Nov 09, 2011 08:43 AM V1-PT THINKING ABOUT QUIT TOBACCO USE [facility] [place] [facility] Dec 29, 2010 08:58 AM CURRENT SMOKER Thinking to quit [place] [facility] [place] [facility] Dec 29, 2010 08:58 AM V1-PT DECLINES TOBACCO CESSATION MEDS [facility] [place] [facility] Dec 29, 2010 08:58 AM V1-PT THINKING ABOUT QUIT TOBACCO USE [facility] [place] [facility] Jun 30, 2010 08:30 AM V1-PT DECLINES REF TO TOBACCO CESS PRGM [facility] [place] [facility] Jun 30, 2010 08:30 AM V1-PT DECLINES TOBACCO CESSATION MEDS [place] [facility] [place] [facility] Jun 30, 2010 08:30 AM V1-PT THINKING ABOUT QUIT TOBACCO USE [facility] [place] [facility] Dec 30, 2009 09:18 AM CURRENT SMOKER Try to quit [facility] [place] [facility] Dec 30, 2009 09:18 AM V1-PT DECLINES REF TO TOBACCO CESS PRGM [facility] [place] [facility] Dec 30, 2009 09:18 AM V1-PT DECLINES TOBACCO CESSATION MEDS [facility] [place] [facility] Dec 30, 2009 09:18 AM V1-PT THINKING ABOUT QUIT TOBACCO USE [facility] [place] [facility] Dec 17, 2008 08:44 AM CURRENT SMOKER [facility] [place] [facility] Dec 17, 2008 08:44 AM V1-PT DECLINES REF TO TOBACCO CESS PRGM [facility] [place] [facility] Dec 17, 2008 08:44 AM V1-PT DECLINES TOBACCO CESSATION MEDS [facility] [place] [facility] Dec 17, 2008 08:44 AM V1-PT THINKING ABOUT QUIT TOBACCO USE [facility] [place] [facility] Jun 18, 2008 08:47 AM V1-PT DECLINES REF TO TOBACCO CESS PRGM [facility] [place] [facility] Jun 18, 2008 08:47 AM V1-PT DECLINES TOBACCO CESSATION MEDS [facility] [place] [facility] Jun 18, 2008 08:47 AM V1-PT THINKING ABOUT QUIT TOBACCO USE [facility] [place] [facility] Dec 12, 2007 08:59 AM CURRENT SMOKER [facility] [place] [facility] Dec 12, 2007 08:59 AM V1-PT DECLINES REF TO TOBACCO CESS PRGM [facility] [place] [facility] Dec 12, 2007 08:59 AM V1-PT DECLINES TOBACCO CESSATION MEDS [facility] [place] [facility] Dec 12, 2007 08:59 AM V1-PT THINKING ABOUT QUIT TOBACCO USE [facility] [place] [facility] Jun 13, 2007 09:30 AM V1-PT DECLINES REF TO TOBACCO CESS PRGM [facility] [place] [facility] Jun 13, 2007 09:30 AM V1-PT DECLINES TOBACCO CESSATION MEDS [facility] [place] [facility] Jun 13, 2007 09:30 AM V1-PT THINKING ABOUT QUIT TOBACCO USE [facility] 2006 09:09 AM CURRENT SMOKER Not ready as yet to quit [facility] Aug 03, 2005 08:20 AM CURRENT SMOKER [facility] Apr 19, 2004 10:13 AM CURRENT SMOKER [facility] Mar 26, 2003 09:23 AM CURRENT SMOKER trying to cut down. [facility] Feb 17, 2002 11:07 AM CURRENT SMOKER [facility] Advance Directives: All historical and current Section Date Range: From patient's date of to the date document was created. This section includes ALL of a patient's completed or amended [place] Advance and Rescinded Directives. The entries below indicate that a directive exists for the patient, but an actual copy is not included with this document. The data comes from all [place] facilities. Date Advance Directives Provider Source Jun 12, 2019 ADVANCE DIRECTIVE MICA BALTAZAR [facility] Encounter Notes: All associated encounter notes This section contains the clinical notes associated to the Encounter. Date/Time Encounter Note(s) Provider Source Mar 25, 2024 11:56 AM PRIMARY CARE NURSE PRACTITIONER OUTPATIENT NOTE: LOCAL TITLE: NURSE PRACTITIONER OUTPATIENT NOTE STANDARD TITLE: PRIMARY CARE NURSE PRACTITIONER OUTPATIENT NOTE DATE OF NOTE: MAR 25, 2024@11:56 ENTRY DATE: MAR 25, 2024@11:56:36 AUTHOR: SIMON TODD: URGENCY: STATUS: COMPLETED OUTPATIENT MENTAL HEALTH CLINIC: FOLLOW-UP Visit is being conducted by [place] [facility]. identified with 2 identifiers: Full Name Date of Emergency Plan: [place] confirmed and/or provided the following information in case of emergency or technology failure. PATIENT PHONE - PHONE NUMBER [CELLULAR] - Is patient phone number correct, if not, enter below: 's phone number: CHRISTIANO VILLASENOR [address] [place] [address], [id number] 's present location and address for appointment: home 's emergency contact name and phone number: up to date in CPRS reported that location is private and safe: yes HPI: CHRISTIANO VILLASENOR, a 78 y/o male previously diagnosed with PTSD and PMH significant for Parkinson's disease presents for [facility] Follow-Up appointment. Last seen by This Provider on 02/26/24 Doxepin for sleep didn't work. [place] had been taking one full tablet (6 mg) without perceptible benefit. Also denies side effects Sleep has not improved. Sleeps for 1-3 hours, wakes up for several hours and then sleeps for another 1-3 hours. As a result sleep wake cycle is disrupted, sleep is broken up and choppy and even when [place] sleeps 6 hours (which is rare) he does not find this sleep to be restful. Uses lorazepam for both daytime symptoms of anxiety as well as for sleep initiation. Denies falls or worsening gait instability. Also notes worsening symptoms of depression which he feels are secondary to poor and disrupted sleep. [place] explicitly and convincingly denied SI, intent or plan and denied thoughts of harming others. SUBSTANCE USE: Caffeine: Tobacco: 3-5 cigarettes per day Alcohol: denied Narcotics: denied Cannabis: denied PSYCHIATRIC HISTORY: Medication trials: Melatonin trial ineffective and he has stopped taking MIRTAZAPINE RASAGILINE for PD PHENELZINE ([id number]) chart review suggests that change was prompted by change from phenelzine to tranylcyrpromine due to nationwide unavailability of phenelzine. SERTRALINE TRANYLCYPROMINE Inpatient Hospitalizations: denied Suicidal Acts and Self-Harm: denied HISTORY OF VIOLENCE/ASSAULTING OTHERS: denied FAMILY MENTAL HEALTH AND SUBSTANCE USE HISTORY: denied SOCIAL HISTORY: Per [facility] Outpatient Mental Health Assessment (06/03/2023), confirmed by during assessment BORN IN [place] TO PARENTS. I AM MIDDLE OF THREE CHILDREN. MOM WAS A STAY AT HOME MOTHER AND DAD WAS A PRESS CLARK IN A PAPER MILL. IT WAS MOSTLY US AND MY MOTHER'S SISTER LIVED WITH US. WE DID NOT GO TO TENRIISM. FOR DISCIPLINE, WE DIDN'T DARE DO ANYTHING WRONG. WAIT TILL YOUR FATHER COMES HOME - THE FEAR WAS ENOUGH. 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 I PLAYED FOOTBALL FOR ONE YEAR. I GRADUATED FROM [employer] IN 1962. I WAS DRAFTED INTO THE [employer] IN 1964 AND SERVED IN [employer]. I WAS SENT TO [place] FOR 13 MONTHS. I GOT OUT ON [...] WAIT ANY LONGER. I WORKED IN AN [employer] FOR 11 YEARS. I LEFT THAT JOB TO FIND SOMETHING ELSE. 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 I THINK IT WAS A PERSONALITY CONFLICT WITH THE PERSON IN CHARGE. I QUIT. I THEN WENT TO [employer]. 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 THEY CHANGED MY JOB DESCRIPTION AND GAVE [...] IT. I DO NOT GO ONLINE. History: [id number]. ONE 13 MO DEPLOYMENT TO [place]. MULTIPLE [...] memory grossly intact to conversational testing Mood: more depressed and tired Affect: mood congruent MEDICAL HISTORY: Active Problem Parkinson's disease G20.A1 07/19/2023 RIGO DYKES Exposure to potentially hazardous s 07/18/2023 KAYLEIGH KENDRICK Hypercholesterolemia ([facility] [id number]) 05/21/2019 MICA BALTAZAR Parkinsonian gait (SNOMED CT 128990 04/04/2015 RIGO DYKES Posttraumatic stress disorder, vahe 01/31/2016 NIKOLAY SULTANA ALLERGIES: Data on this list may not be complete. Please check JLV. FACILITY ALLERGY/ADR -------- No Remote Allergy/ADR Data available for this patient [facility] [place] [facility] PENICILLIN MEDICATIONS: reviewed and updated in CPRS [...] TO PREVENT SEIZURES OR PAIN 4) LORAZEPAM 1MG TAB TAKE ONE TABLET BY MOUTH ONCE DAILY ACTIVE NEEDED AND TAKE TWO TABLETS AT BEDTIME NEEDED ANXIETY 5) MAGNESIUM OXIDE 420MG TAB TAKE ONE TABLET BY MOUTH ACTIVE (S) EVERY DAY 6) PROPRANOLOL HCL 10MG TAB TAKE ONE TABLET BY MOUTH ACTIVE (S) THREE TIMES A DAY 7) RASAGILINE MESYLATE 1MG TAB TAKE ONE TABLET BY MOUTH ACTIVE (S) DAILY 8) ROPINIROLE HCL 0.5MG TAB TAKE ONE TABLET BY MOUTH ACTIVE (S) TWICE DAILY Pending Outpatient Medications Status 1) ESZOPICLONE 1MG TAB TAKE ONE TABLET BY MOUTH AT PENDING BEDTIME NEEDED 9 Total Medications LABS AND STUDIES: REVIEWED [...] desire to continue with current pharmacotherapy regimen. Denies falls. Risks/side effects of benzodiazepines were reiterated, especially fall risk and respiratory depression. Strongly encouraged to take the lowest possible dose as infrequently as possible. Also reiterated contraindication on benzodiazepines in PTSD. Discussed several options for addressing insomnia including reinitiation of mirtazapine (previously prescribed), trazodone or a frontline medication such as eszopiclone. Discussed possible side effects of BZRAs at length; not generally recommended for chronic use and carries risk of complex sleep behaviors, respiratory depression and other psychiatric/behavioral effects ranging from hallucination (visual and auditory), delirium, abnormality in thinking, increased aggressive behavior, disinhibition, bizarre behavior, agitation, amnesia, anxiety to worsening of depression. Also reminded that potential for sedation, for impaired coordination, for falling and for impaired cognition which can persist into the following morning and can increase the risk of an MVA Advised not combine with other SKI TOPPER depressants such as alcohol or opioid medications. Advised of additive risk of side effects when combined with benzodiazepine given similar mechanism of action and [place] agreed not to combine these medications and to separate them by at least 4-6 hours. Also stressed fall risk of both of these medications. Given that insomnia has not responded to multiple medications with more benign side effect profiles and the way in which disrupted sleep is disrupting daytime mood [place] agreed that potential benefits justify these risks. No acute safety concerns Diagnosis: PTSD, chronic Insomnia Disorder PLAN: 1) CONTINUE ESCITALOPRAM 20MG PO DAILY 2) CONTINUE LORAZEPAM 0.5MG PO TID 3) DISCONTINUE DOXEPIN, 6 MG PO QHS PRN 4) INITIATE ESZOPICLONE, 1 MG PO QHS PRN Labs: None today Follow-Up: 04/21/24 Discussed risks and benefits of proposed medication treatments including FDA approved indications and off-label uses, as well as common and severe side effects. comprehended all information discussed, had opportunity to ask questions which were answered to their satisfaction, and voluntarily and without duress agreed to trial as documented. CONTACT AND CRISIS INFO: [place] informed that This Provider can be contacted at , [phone] or via Secure Messaging. We have reviewed the Crisis Hotline (890, dial #1 for line), and the has [...] court of law and presented to a recapper), and [facility] access for active-duty service members. CODING: Total [...] whether with a VA or non-VA provider. /guilherme TODD Psychiatric Mental Health Nurse Practitioner Signed: 03/26/2024 08:26 SIMON TODD [facility] Mar 25, 2024 11:54 AM ACCOUNTING OF DISCLOSURES NOTE: LOCAL TITLE: STATE PRESCRIPTION DRUG MONITORING PROGRAM STANDARD TITLE: ACCOUNTING OF DISCLOSURES NOTE DATE OF NOTE: MAR 25, 2024@11:54:35 ENTRY DATE: MAR 25, 2024@11:54:35 AUTHOR: SIMON TODD EXP COSIGNER: URGENCY: STATUS: [...] information was shared with the PDMP Appriss [place]. No prescription(s) for controlled substances outside the [facility] were found in the last 90 days. /guilherme TODD Psychiatric Mental Health Nurse Practitioner Signed: 03/25/2024 11:58 SIMON TODD [facility]
--- OUTSIDE RECORDS SUMMARY | 2024-06-15 13:29 | XMS_ITS | Clinical Summary ---
Author Organization [facility] Address [address] [place] [address] Care Team Providers Care Misdraw Hand Name Role Phone WingSumanth Dilip Primary Care Provider [phone] Allergies Active Allergy Reactions Criticality Noted Date [...] mouth once a day. 3 Active vit C,X-Se-eeccy-kaye tein-zeaxan (PreserVision AREDS-2) capsule Take 1 capsule by mouth 2 times a day. Active LORazepam (ATIVAN) 0.5 mg tablet Take 1 mg by mouth nightly as needed for anxiety. Active Active Problems Problem Noted Date Diagnosed Date Dysphagia causing pulmonary aspiration with swal lowing 10/16/2022 Assessment & Plan (10/18/2022 7:08 AM EDT): Patient with a history of acute on chronic dysphagia, [facility] Per family, patient has had multiple previous MBS studies (most recently 4 years ago) given diagnosis of Parkinson's, leading to difficulty with chewing and swallowing. Previous MBS had recommended a diet of honey thick liquids and pur??es and compensation such as slow pacing and completing an additional swallow to clear residue, which patient tolerated well. Given recent intubation, patient underwent RECEIVING T[facility] OPERATOR evaluation and MBS, which found that patient [...] for NG tube given recent nasal surgery. -RECEIVING TANK OPERATOR following closely for continued swallow exercises -Repeat MBS evaluation on 10/20 -Initiated on peripheral PN until repeat MBS evaluation for nutrition support -RFP, Mg BID given risk for re-feeding syndrome Pneumonia due to hemophilus influenzae ([facility]) 10/16/2022 Assessment & Plan (10/18/2022 [...] Influenza, Injectable, Quadrivalent, Preservativ e Free 02/19/2013 Family History Medical History Relation Name Comments Other Brother Fraternal histo ry of Cirrhosis Skin cancer Father Heart disease Mother Other Other 1 Family history of Acute Myocardial Infarction Other Other 2 Family history of Cancer Other Other 3 Family history of Heart Disease Other Sister Sororal history of Parkinson Disease Relation Name Status Comments Brother Father Mother Other 1 Other 2 Other 3 Sister Social History Tobacco Use Types Packs/Day Years [...] 11/30/2022 8:45 AM EDT Plan of Treatment Health Maintenance Due Date Last Done Comments Hepatitis C Screening [address] CT Lung Cancer Screening (Baseline) 1994 Zoster Vaccines (1 of 2) 08/20/2014 06/25/2014 Pneumococcal Vaccine: 65+ Years (2 of 2 - PPSV23 or PCV20) 07/28/2015 06/02/2015 RSV Vaccine (60+ years old and patients) (1 - 1-dose 75+ series) 11/02/2019 DTaP,Tdap,and Td Vaccines (2 - Tdap) 06/10/2023 06/10/2013 COVID-19 Vaccine ( - season) 2024 03/27/2022, 03/31/2021, 07/15/2020, Additional history exists Influenza Vaccine (#1) 2024 3, 03/13/2022, 03/13/2022, Additional history exists Alcohol/Substance Use Screening 05/13/2024 Depression Evaluation 05/13/2024 Health Care Proxy Review 05/13/2024 Social Drivers of Health Annual Screening 05/13/2024 Hepatitis B Vaccines Aged Out No long er eligible based on patient's age to complete this topic Insurance MEDICARE 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
--- OUTSIDE RECORDS SUMMARY | 2024-06-15 13:29 | XMS_ITS | Encounter Summary ---
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 Role Phone MICA BALTAZAR Primary Care [...] PRESCRIPT ION [id number] May 13, 2015 [id number] [phone] JAROCHO VILLASENOR PATIENT MEDICARE (WNR) MEDICARE (M) PART B Nov 10, 2014 PART B [id number] JAROCHO VILLASENOR PATIENT MEDICARE (WNR) MEDICARE (M) PART A Oct 11, 2009 PART A [id number] JAROCHO VILLASENOR PATIENT MEDICARE (WNR) MEDICARE (M) PART A Oct 11, 2009 PART A [id number] JAROCHO VILLASENOR PATIENT MEDICARE (WNR) MEDICARE (M) PART B Oct 11, 2009 PART B [id number] [phone] JAROCHO VILLASENOR PATIENT MEDICARE PART D (WN) PRESCRIPT ION PART D May 13, 2015 PART D [id number] JAROCHO VILLASENOR PATIENT UNICARE MEDICAL EXPENSE (OPT/PROF ) [facility] * Mar 13, 2015 [id number] JAROCHO VILALSENOR PATIENT Selected Encounter This section includes the information on record at [place] for the Encounter. Date/Time Encounter Type Encounter Description Reason Provider Source Apr 21, 2024 11:30 AM OFFICE O/P EST MOD 30 MIN [facility] - IND ICD-10-CM F43.12 Post-traumatic stress disorder, chronic DELANEY TODD IHE Encounter Template Text not used by [place] Assessments - Encounter Diagnoses This section includes the primary and secondary diagnoses documented for the Encounter. Date/Time Primary/Secondary Diagnosis Diagnosis Name Provider Source Apr 21, 2024 12:01 PM PRIMARY Post-traumatic stress disorder, chronic DELANEY TODD [facility] Apr 21, 2024 12:01 PM SECONDARY Insomnia due to other mental disorder [facility] TODD [facility] Plan of Treatment: Future Appointments (+ 6 months) and Future Tests (+/- 45 days) The Plan of Treatment section includes future care activities for the patient from all [place] treatmentcilities. This section includes future appointments and future orders which are active, pending or scheduled. Future Appointments This section includes appointments that were scheduled to occur 6 months from the date of the Encounter, up to a maximum of 20 appointments. The data comes from all [place] treatment facilities. Appointment Date/Time Appointment Type Appointme nt Facility Name May 22, 2024 10:30 AM [facility] [place] [facility] Jun 18, 2024 11:30 AM AMBULATORY - PS[facility]IAT[facility] Lab Results: +/- 30 days of the encounter This section includes the Chemistry and Hematology Lab Results on record with [place] for the patient. Radiology Reports and Pathology Reports are provided separately, in subsequent sections. Lab Results This section contains the Chemistry/Hematology Results that were resulted 30 days before or 30 daysafter the date of the Encounter. Date/Time Source Result Type Result - Unit Interpretation Reference Range Comment Apr 22, 2024 08:26 AM [facility] TSH Specimen Type: SERUM No comment entered. Ordering Provider: MICA BALTAZAR Report Released Date/Time: Apr 05, 2024 04:17 PM Reporting Lab: [facility] [address] [address] Performing Lab: [address] [address] TSH 1.09 u[IU]/mL 0.35-5.00 Apr 22, 2024 08:26 AM [facility] LIPID PANEL FASTING Specimen Type: SERUM No comment entered. Ordering Provider: MICA BALTAZAR Report Released Date/Time: Apr 05, 2024 04:17 PM Reporting Lab: [address] [address] Performing Lab: [address] [address] CHOLESTEROL 207 mg/dL H TRIGLYCERIDE 101 mg/dL 0-150 LDL calculated 135 mg/dL H 0-129 CHOL/HDL 4.0 HDL CHOLESTEROL 52 mg/dL 40-60 Apr 22, 2024 08:26 AM [facility] LIVER FUNCTION Specimen Type: SERUM No comment entered. Ordering Provider: MICA BALTAZAR Report Released Date/Time: Apr 05, 2024 04:17 PM Reporting Lab: [address] [address] Performing Lab: [address] [address] PROTEIN,TOTAL 6.6 g/dL 6.0-8.3 ALBUMIN 3.9 g/dL 3.5-5.0 ALKALINE PHOSPHATASE 66 U/L 40-150 AST 10 U/L 5-34 ALT <6 U/L BILIRUBIN, TOTAL 0.7 mg/dL 0.2-1.2 Apr 22, 2024 08:26 AM [facility] URINALYSIS CLEAN CATCH Specimen Type: URINE Comment: If Glucose = >500 and Ketones are positive, please alert the Physician. Ordering Provider: MICA BALTAZAR Report Released Date/Time: Apr 05, 2024 04:17 PM Reporting Lab: [facility] [address] [address] Performing Lab: [facility] [address] [facility] [address] UA COLOR Light-Yellow Yellow UA APPEARANCE Clear Clear UA GLUCOSE Normal mg/dL Negative UA KETONES NEGATIVE mg/dL Negative UA BLOOD NEGATIVE mg/dL Negative UA PROTEIN NEGATIVE mg/dL Negative UA NITRITE NEGATIVE mg/dL Negative UA BILIRUBIN NEGATIVE mg/dL Negative UA SPECIFIC GRAVITY 1.020 1.016-1.022 UA pH 6.5 5.0-9.0 UA UROBILINOGEN Normal mg/dL <2.0 UA LEUKOCYTE NEGATIVE Negative Apr 22, 2024 08:26 AM [facility] BASIC METABOLIC PANEL (fasting) Specimen Type: SERUM No comment entered. Ordering Provider: MICA BALTAZAR Report Released Date/Time: Apr 05, 2024 04:17 PM Reporting Lab: [address] [address] Performing Lab: [address] [address] UREA NITROGEN 15 mg/dL 7-25 GLUCOSE 98 mg/dL 65-100 SODIUM 142 mmol/L 135-145 POTASSIUM 4.8 mmol/L 3.5-5.0 CHLORIDE 103 mmol/L 100-110 CO2 31 meq/L H 20-30 CREATININE, Serum 0.81 mg/dL 0.50-1.40 eGFR(CKD-EPI 2020) 90 mL/min >60 Apr 22, 2024 08:26 AM [facility] CBC AND DIFF (AUTO) Specimen Type: BLOOD No comment entered. Ordering Provider: MICA BALTAZAR Report Released Date/Time: Apr 05, 2024 04:17 PM Reporting Lab: [address] [address] Performing Lab: [address] [address] WBC 4.92 10*3/uL 4.50-11.00 RBC 4.55 10*6/uL [...] and tobacco- related health factors from the [place] facility where the Encounter took place. Current Smoking Status This section includes the most current smoking, or tobacco-related health factor, from the [place] facility where the Encounter took place. Date/Time Current Smoking Status Comment [facility] May 23, 2023 10:30 AM VA-TOBACCO USER EVERY DAY [facility] Tobacco Use History This section includes a history of the smoking, or tobacco-related health factors, that were collected on or before the date of the Encounter. The data comes from the [place] facility where the Encounter took place. 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 [facility] [place] [facility] May 23, 2023 10:30 AM VA-TOBACCO USE MED NO [facility] [place] [facility] May 23, 2023 10:30 AM VA-TOBACCO USER EVERY DAY [facility] [place] [facility] May 23, 2022 09:30 AM VA-TOBACCO USE 30 YEARS OR MORE [facility] [place] [facility] May 23, 2022 09:30 AM VA-TOBACCO USE ADVICE [facility] [place] [facility] May 23, 2022 09:30 AM 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 [facility] [place] [facility] May 23, 2022 09:30 AM VA-TOBACCO USE MED NO [facility] [place] [facility] May 23, 2022 09:30 AM VA-TOBACCO USE WI 30 MIN OF WAKEUP [place] [facility] [place] [facility] May 23, 2022 09:30 AM VA-TOBACCO USER SOME DAYS [facility] [place] [facility] May 22, 2021 01:30 PM VA-TOBACCO FORMER USER [facility] [place] [facility] May 22, 2021 01:30 PM VA-TOBACCO QUIT 15 YRS OR MORE [facility] [place] [facility] May 24, 2020 09:00 AM VA-TOBACCO FORMER USER [facility] [place] [facility] May 24, 2020 09:00 AM VA-TOBACCO QUIT 15 YRS OR MORE [facility] [place] [facility] Nov 24, 2018 08:52 AM VA-TOBACCO FORMER USER [facility] [place] [facility] Nov 24, 2018 08:52 AM VA-TOBACCO QUIT 15 YRS OR MORE [facility] [place] [facility] May 21, 2018 08:52 AM VA-TOBACCO FORMER USER [facility] [place] [facility] May 21, 2018 08:52 AM VA-TOBACCO QUIT 5 TO < 15 YRS [facility] [place] [facility] May 21, 2017 09:01 AM LIFETIME NON-TOBACCO USER [facility] [place] [facility] Jun 12, 2016 09:16 AM QUIT TOBACCO USE > 7 YEARS AGO [facility] [place] [facility] Jul 11, 2015 09:16 AM QUIT TOBACCO USE > 7 YEARS AGO [facility] [place] [facility] Aug 06, 2014 09:11 AM QUIT TOBACCO USE 1-7 YEARS AGO [facility] [place] [facility] Jan 08, 2014 09:12 AM QUIT TOBACCO USE IN PAST YEAR [facility] [place] [facility] May 01, 2013 08:55 AM CURRENT SMOKER [facility] [place] [facility] May 01, 2013 08:55 AM V1-PT NOT INTERESTED IN QUIT TOBACCO USE [facility] [place] [facility] Nov 07, 2012 08:35 AM V1-PT DECLINES TOBACCO CESSATION MEDS [facility] [place] [facility] Nov 07, 2012 08:35 AM V1-PT THINKING ABOUT QUIT [facility]ACCO [facility] [place] [facility] May 08, 2012 09:00 AM CURRENT SMOKER [facility] [place] [facility] May 08, 2012 09:00 AM V1-PT DECLINES TOBACCO CESSATION MEDS [facility] [place] [facility] May 08, 2012 09:00 AM V1-PT THINKING ABOUT QUIT [facility]BACCO USE [facility] [place] [facility] Nov 09, 2011 08:43 AM V1-PT DECLINES TOBACCO CESSATION MEDS [facility] [place] [facility] Nov 09, 2011 08:43 AM V1-PT THINKING ABOUT QUIT [facility]AC[facility] [place] [facility] Dec 29, 2010 08:58 AM CURRENT SMOKER Thinking to quit [place] [facility] [place] [facility] Dec 29, 2010 08:58 AM V1-PT DECLINES TOBACCO CESSATION MEDS [facility] [place] [facility] Dec 29, 2010 08:58 AM V1-PT THINKING ABOUT QUIT TOBACCO USE [facility] [place] [facility] Jun 30, 2010 08:30 AM V1-PT DECLINES REF TO TOBACCO CESS PRGM [facility] [place] [facility] Jun 30, 2010 08:30 AM V1-PT DECLINES TOBACCO CESSATION MEDS [facility] [place] [facility] Jun 30, 2010 08:30 AM V1-PT THINKING ABOUT QUIT TOBACCO USE [facility] [place] [facility] Dec 30, 2009 09:18 AM CURRENT SMOKER Try to quit [facility] [place] [facility] Dec 30, 2009 09:18 AM V1-PT DECLINES REF TO TOBACCO CESS PRGM [facility] [place] [facility] Dec 30, 2009 09:18 AM V1-PT DECLINES TOBACCO CESSATION MEDS [facility] [place] [facility] Dec 30, 2009 09:18 AM V1-PT THINKING ABOUT QUIT TOBACCO USE [facility] [place] [facility] Dec 17, 2008 08:44 AM CURRENT SMOKER [facility] [place] [facility] Dec 17, 2008 08:44 AM V1-PT DECLINES REF TO TOBACCO CESS PRGM [facility] [place] [facility] Dec 17, 2008 08:44 AM V1-PT DECLINES TOBACCO CESSATION MEDS [facility] [place] [facility] Dec 17, 2008 08:44 AM V1-PT THINKING ABOUT QUIT TOBACCO USE [facility] [place] [facility] Jun 18, 2008 08:47 AM V1-PT DECLINES REF TO TOBACCO CESS PRGM [facility] [place] [facility] Jun 18, 2008 08:47 AM V1-PT DECLINES TOBACCO CESSATION MEDS [facility] [place] [facility] Jun 18, 2008 08:47 AM V1-PT THINKING ABOUT QUIT TOBACCO USE [facility] [place] [facility] Dec 12, 2007 08:59 AM CURRENT SMOKER [facility] [place] [facility] Dec 12, 2007 08:59 AM V1-PT DECLINES REF TO TOBACCO CESS PRGM [facility] [place] [facility] Dec 12, 2007 08:59 AM V1-PT DECLINES TOBACCO CESSATION MEDS [facility] [place] [facility] Dec 12, 2007 08:59 AM V1-PT THINKING ABOUT QUIT TOBACCO USE [facility] [place] [facility] Jun 13, 2007 09:30 AM V1-PT DECLINES REF TO TOBACCO CESS PRGM [facility] [place] [facility] Jun 13, 2007 09:30 AM V1-PT DECLINES TOBACCO CESSATION MEDS [facility] [place] [facility] Jun 13, 2007 09:30 AM V1-PT THINKING ABOUT QUIT TOBACCO USE [facility] 2006 09:09 AM CURRENT SMOKER Not ready as yet to quit [facility] Aug 03, 2005 08:20 AM CURRENT SMOKER [facility] Apr 19, 2004 10:13 AM CURRENT SMOKER [facility] Mar 26, 2003 09:23 AM CURRENT SMOKER trying to cut down. [facility] Feb 17, 2002 11:07 AM CURRENT SMOKER [facility] Advance Directives: All historical and current Section Date Range: From patient's date of to the date document was created. This section includes ALL of a patient's completed or amended [place] Advance and Rescinded Directives. The entries below indicate that a directive exists for the patient, but an actual copy is not included with this document. The data comes from all [place] facilities. Date Advance Directives Provider Source Jun 12, 2019 ADVANCE DIRECTIVE MICA BALTAZAR [facility] Encounter Notes: All associated encounter notes This section contains the clinical notes associated to the Encounter. Date/Time Encounter Note(s) Provider Source Apr 27, 2024 04:10 PM ACCOUNTING OF DISCLOSURES NOTE: LOCAL TITLE: STATE PRESCRIPTION DRUG MONITORING PROGRAM STANDARD TITLE: ACCOUNTING OF DISCLOSURES NOTE DATE OF NOTE: APR 27, 2024@16:10:46 ENTRY DATE: APR 27, 2024@16:10:46 AUTHOR: SIMON TODD EXP COSIGNER: URGENCY: STATUS: COMPLETED This PDMP query was submitted by Simon Todd. The clinical justification for this PDMP query is to review controlled substances prescribed outside of the [place], and any additional information that may become available, as an important component of standard clinical care, and in accordance with [facility] policy. Patient information was shared with the PDMP [place]. No prescription(s) for controlled substances outside the [place] were found in the last 90 days. /kev/ SIMON TODD Psychiatric Mental Health Nurse Practitioner Signed: 04/27/2024 16:10 SIMON TODD [facility] Apr 21, 2024 11:44 AM PRIMARY CARE NURSE PRACTITIONER OUTPATIENT NOTE: LOCAL TITLE: NURSE PRACTITIONER OUTPATIENT NOTE STANDARD TITLE: PRIMARY CARE NURSE PRACTITIONER OUTPATIENT NOTE DATE OF NOTE: APR 21, 2024@11:44 ENTRY DATE: APR 21, 2024@11:44:25 AUTHOR: SIMON TODDIGNYAMILETH: URGENCY: STATUS: COMPLETED OUTPATIENT MENTAL HEALTH CLINIC: FOLLOW-UP Visit is being conducted by [place] [facility]. [place] identified with 2 identifiers: Full Name Date of Emergency Plan: confirmed and/or provided the following information in case of emergency or technology failure. PATIENT PHONE - PHONE NUMBER [CELLULAR] - Is patient phone number correct, if not, enter below: 's phone number: CHRISTIANO VILLASENOR [address], [place], [address] [place]'s present location and address for appointment: home 's emergency contact name and phone number: up to date in CPRS [place] reported that location is private and safe: yes HPI: CHRISTIANO VILLASENOR, a 78 y/o male previously diagnosed with PTSD and PMH significant for Parkinson's disease [place] [facility] [place]. Last seen by This Provider on 03/25/24 Did not try eszopiclone because sleep improved with dose change to carbidopa/levodopa Mood has been good otherwise Sleeping at least 8 hours; wakes up more refreshed and rested LORAZEPAM still helpful for daytime anxiety and also helpful for sleep initiation. Denies falls or any other side effects PTSD symptoms stable at baseline. Declines changes to medication: I think I'm pretty well set on everything [place] explicitly and convincingly denied SI, intent or plan and denied thoughts of harming others. SUBSTANCE USE: Tobacco: 3-5 cigarettes per day Alcohol: denied Narcotics: denied Cannabis: denied PSYCHIATRIC HISTORY: Medication trials: Melatonin trial ineffective and he has stopped taking MIRTAZAPINE RASAGILINE for PD PHENELZINE ([id number]) chart review suggests that change was prompted by change from phenelzine to tranylcyrpromine due to nationwide unavailability of phenelzine. SERTRALINE 2013- TRANYLCYPROMINE DOXEPIN ineffective ESZOPICLONE never initiated Inpatient Hospitalizations: denied Suicidal Acts and Self-Harm: denied HISTORY OF VIOLENCE/ASSAULTING OTHERS: denied FAMILY MENTAL HEALTH AND SUBSTANCE USE HISTORY: denied SOCIAL HISTORY: Per [facility] Outpatient Mental Health Assessment (06/03/2023), confirmed by during assessment BORN IN [place] TO PARENTS. I AM MIDDLE OF THREE CHILDREN. MOM WAS A STAY AT HOME MOTHER AND DAD WAS A PRESS CLARK IN A PAPER [employer]. IT WAS MOSTLY US AND MY MOTHER'S SISTER LIVED WITH US. WE DID NOT GO TO [facility]. FOR DISCIPLINE, WE DIDN'T DARE DO ANYTHING WRONG. WAIT TILL YOUR FATHER COMES HOME - THE FEAR WAS ENOUGH. 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 I PLAYED FOOTBALL FOR ONE YEAR. I GRADUATED FROM [employer] IN 1962. I WAS DRAFTED INTO THE [employer] IN 1964 AND [facility] I WAS SENT TO [employer] FOR 13 MONTHS. I GOT OUT ON [...] WAIT ANY LONGER. I WORKED IN AN [employer] SHOP FOR 11 YEARS. I LEFT THAT JOB TO FIND SOMETHING ELSE. 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 I THINK IT WAS A PERSONALITY CONFLICT WITH THE PERSON IN CHARGE. I QUIT. I THEN WENT TO [employer]. 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 THEY CHANGED MY JOB DESCRIPTION AND GAVE [...] IT. I DO NOT GO ONLINE. History: [id number]. ONE 13 MO DEPLOYMENT TO [employer]. MULTIPLE [...] memory grossly intact to conversational testing Mood: better Affect: mood congruent MEDICAL HISTORY: Active Problem Parkinson's disease G20.A1 07/19/2023 RIGO DYKES Exposure to potentially hazardous s 07/18/2023 KAYLEIGH KENDRICK Hypercholesterolemia ([facility] [id number]) 05/21/2019 MICA BALTAZAR Parkinsonian gait (SNOMED CT [id number] 04/04/2015 RIGO DYKES Posttraumatic stress disorder, vahe [...] 200MG SA TAB TAKE 2 TABLETS BY MOUTH ACTIVE (S) EVERY MORNING AND TAKE 1 TABLET THREE TIMES A DAY Indication: FOR PARKINSON'S DISEASE 2) ESCITALOPRAM OXALATE 20MG TAB TAKE ONE TABLET BY MOUTH EVERY ACTIVE (S) MORNING AFTER BREAKFAST FOR MOOD/DEPRESSION 3) ESZOPICLONE 1MG TAB TAKE ONE TABLET BY MOUTH AT BEDTIME ACTIVE NEEDED FOR Indication: INSOMNIA 4) GABAPENTIN 300MG CAP TAKE ONE CAPSULE BY MOUTH EVERY MORNING ACTIVE (S) AND TAKE TWO CAPSULES AT BEDTIME TO PREVENT SEIZURES OR PAIN 5) LORAZEPAM 1MG TAB TAKE ONE TABLET BY MOUTH ONCE DAILY ACTIVE NEEDED AND TAKE TWO TABLETS AT BEDTIME NEEDED Indication: ANXIETY 6) MAGNESIUM OXIDE 420MG TAB TAKE ONE TABLET BY MOUTH EVERY DAY ACTIVE 7) PROPRANOLOL HCL 10MG TAB TAKE ONE TABLET BY MOUTH THREE ACTIVE TIMES A DAY Indication: FOR ESSENTIAL TREMOR 8) RASAGILINE MESYLATE 1MG TAB TAKE ONE TABLET BY MOUTH DAILY ACTIVE 9) ROPINIROLE HCL 0.5MG TAB TAKE ONE TABLET BY MOUTH TWICE ACTIVE DAILY LABS AND STUDIES: REVIEWED IN CPRS SAFETY ASSESSMENT: No acute safety concerns. Convincingly denies any thoughts, intents, or plans to harm self or others. Chronic risk is elevated by status and mental illness but is currently mitigated by participation in treatment and demonstration of help-seeking behaviors. IMPRESSION: [place] presents as polite, cooperative and treatment motivated Reports adherence to current medications with significant therapeutic benefit and denies side effects. Reports desire to continue with current pharmacotherapy regimen. Denies falls. Risks/side effects of benzodiazepines were reiterated, especially fall risk and respiratory depression. Strongly encouraged to take the lowest possible dose as infrequently as possible. Also reiterated contraindication on benzodiazepines in PTSD. No acute safety concerns Diagnosis: PTSD, chronic Insomnia Disorder PLAN: 1) CONTINUE ESCITALOPRAM 20MG PO DAILY 2) CONTINUE LORAZEPAM 0.5MG PO TID 3) DISCONTINUE ESZOPICLONE, 1 MG PO QHS PRN Labs: None today Follow-Up: 06/18/24 Discussed risks and benefits of proposed medication treatments including FDA approved indications and off-label uses, as well as common and severe side effects. comprehended all information discussed, had opportunity to ask questions which were answered to their satisfaction, and voluntarily and without duress agreed to trial as documented. CONTACT AND CRISIS INFO: informed that This Provider can be contacted at , [phone] or via Secure Messaging. We have reviewed the Crisis Hotline (086, dial #1 for line), and the has [...] court of law and presented to a director of consumer affairs), and DOD access for active-duty service members. [...] whether with a VA or non-VA provider. Outpatient: Has the patient been taking medications as documented in the EMLR? YES: The patient has been taking medications as documented in the EMLR. Essential Medication List for Review used to complete this medication reconciliation. INCLUDED IN THIS LIST: Alphabetical list of active outpatient prescriptions dispensed from this [place] (local) and dispensed from another [place] or [facility] facility (remote) as well as inpatient orders [...] TODD Psychiatric Mental Health Nurse Practitioner Signed: 04/21/2024 12:01 SIMON TODD [place] [facility]
--- OUTSIDE RECORDS SUMMARY | 2024-06-15 13:29 | XMS_ITS | Encounter Summary ---
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 Role Phone MICA BALTAZAR Primary Care [...] PRESCRIPT ION [id number] May 13, 2015 [id number] JAROCHO VILLASENOR PATIENT MEDICARE (WNR) MEDICARE (M) PART B Nov 10, 2014 PART B [id number] JAROCHO VILLASENOR PATIENT MEDICARE (WNR) MEDICARE (M) PART A Oct 11, 2009 PART A [id number] JAROCHO VILLASENOR PATIENT MEDICARE (WNR) MEDICARE (M) PART A Oct 11, 2009 PART A [id number] JAROCHO VILLASENOR PATIENT MEDICARE (WNR) MEDICARE (M) PART B Oct 11, 2009 PART B [id number] [phone] JAROCHO VILLASENOR PATIENT MEDICARE PART D (WN) PRESCRIPT ION PART D May 13, 2015 PART D [id number] JAROCHO VILLASENOR PATIENT UNICARE MEDICAL EXPENSE (OPT/PROF ) [place] * Mar 13, 2015 [id number] JAROCHO VILLASENOR PATIENT Selected Encounter This section includes the information on record at [place] for the Encounter. Date/Time Encounter Type Encounter Description Reason Provider Source Jul 19, 2023 01:00 PM OFFICE O/P EST MOD 30 MIN NEUROLOGY ICD-10-CM G20.A1 Parkinson's dis w/o dyskinesia, w/o mention of fluctuations KENNETH DYKES E Encounter Template Text not used by [place] Assessments - Encounter Diagnoses This section includes the primary and secondary diagnoses documented for the Encounter. Date/Time Primary/Secondary Diagnosis Diagnosis Name Provider Source Jul 19, 2023 01:59 PM PRIMARY Parkinson's dis w/o dyskinesia, w/o mention of fluctuations KENNETH DYKES [facility] Plan of Treatment: Future Appointments (+ 6 months) and Future Tests (+/- 45 days) The Plan of Treatment section includes future care activities for the patient from all [place] treatmentfacilities. This section includes future appointments and future orders which are active, pending or scheduled. Future Appointments This section includes appointments that were scheduled to occur 6 months from the date of the Encounter, up to a maximum of 20 appointments. The data comes from all [place] treatment facilities. Appointment Date/Time Appointment Type Appointme nt Facility Name Aug 20, 2023 11:30 AM AMBULATORY - PSYCHIATRY [facility] Oct 15, 2023 11:30 AM AMBULATORY - PSYCHIATRY [facility] Oct 23, 2023 11:00 AM AMBULATORY - MEDICINE [facility] Dec 17, 2023 11:30 AM AMBULATORY - PSYCHIATRY [facility] Social History: Smoking Status (Most current) and Tobacco Use (All prior to encounter date) This section includes the most current, and the historical, smoking and tobacco- related health factors from the [facility] facility where the Encounter took place. Current Smoking Status This section includes the most current smoking, or tobacco-related health factor, from the [facility] facility where the Encounter took place. Date/Time Current Smoking Status Comment Facil it May 23, 2023 10:30 AM VA-TOBACCO USER EVERY DAY [facility] [place] [facility] Tobacco Use History This section includes a history of the smoking, or tobacco-related health factors, that were collected on or before the date of the Encounter. The data comes from the [place] facility where the Encounter took place. 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 [facility] [place] [facility] May 23, 2023 10:30 AM VA-TOBACCO USE MED NO [facility] [place] [facility] May 23, 2023 10:30 AM VA-TOBACCO USER EVERY DAY [facility] [place] [facility] May 23, 2022 09:30 AM VA-TOBACCO USE 30 YEARS OR MORE [facility] [place] [facility] May 23, 2022 09:30 AM VA-TOBACCO USE ADVICE [facility] [place] [facility] May 23, 2022 09:30 AM 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 [facility] [place] [facility] May 23, 2022 09:30 AM VA-TOBACCO USE MED NO [facility] [place] [facility] May 23, 2022 09:30 AM VA-TOBACCO USE WI 30 MIN OF WAKEUP [facility] [place] [facility] May 23, 2022 09:30 AM VA-TOBACCO USER SOME DAYS [facility] [place] [facility] May 22, 2021 01:30 PM VA-TOBACCO FORMER USER [facility] [place] [facility] May 22, 2021 01:30 PM VA-TOBACCO QUIT 15 YRS OR MORE [facility] [place] [facility] May 24, 2020 09:00 AM VA-TOBACCO FORMER USER [facility] [place] [facility] May 24, 2020 09:00 AM VA-TOBACCO QUIT 15 YRS OR MORE [facility] [place] [facility] Nov 24, 2018 08:52 AM VA-TOBACCO FORMER USER [facility] [place] [facility] Nov 24, 2018 08:52 AM VA-TOBACCO QUIT 15 YRS OR MORE [facility] [place] [facility] May 21, 2018 08:52 AM VA-TOBACCO FORMER USER [facility] [place] [facility] May 21, 2018 08:52 AM VA-TOBACCO QUIT 5 TO < 15 YRS [facility] [place] [facility] May 21, 2017 09:01 AM LIFETIME NON-TOBACCO USER [facility] [place] [facility] Jun 12, 2016 09:16 AM QUIT TOBACCO USE > 7 YEARS AGO [facility] [place] [facility] Jul 11, 2015 09:16 AM QUIT TOBACCO USE > 7 YEARS AGO [facility] [place] [facility] Aug 06, 2014 09:11 AM QUIT TOBACCO USE 1-7 YEARS AGO [facility] [place] [facility] Jan 08, 2014 09:12 AM QUIT TOBACCO USE IN PAST YEAR [facility] [place] [facility] May 01, 2013 08:55 AM CURRENT SMOKER [facility] [place] [facility] May 01, 2013 08:55 AM V1-PT NOT INTERESTED IN QUIT TOBACCO USE [facility] [place] [facility] Nov 07, 2012 08:35 AM V1-PT DECLINES TOBACCO CESSATION MEDS [facility] [place] [facility] Nov 07, 2012 08:35 AM V1-PT THINKING ABOUT QUIT TOBACCO USE [facility] [place] [facility] May 08, 2012 09:00 AM CURRENT SMOKER [facility] [place] [facility] May 08, 2012 09:00 AM V1-PT DECLINES TOBACCO CESSATION MEDS [facility] [place] [facility] May 08, 2012 09:00 AM V1-PT THINKING ABOUT QUIT TOBACCO USE [facility] [place] [facility] Nov 09, 2011 08:43 AM V1-PT DECLINES TOBACCO CESSATION MEDS [facility] [place] [facility] Nov 09, 2011 08:43 AM V1-PT THINKING ABOUT QUIT TOBACCO USE [facility] [place] [facility] Dec 29, 2010 08:58 AM CURRENT SMOKER Thinking to quit [facility] [place] [facility] Dec 29, 2010 08:58 AM V1-PT DECLINES TOBACCO CESSATION MEDS [facility] [place] [facility] Dec 29, 2010 08:58 AM V1-PT THINKING ABOUT QUIT TOBACCO USE [facility] [place] [facility] Jun 30, 2010 08:30 AM V1-PT DECLINES REF TO TOBACCO CESS PRGM [facility] [place] [facility] Jun 30, 2010 08:30 AM V1-PT DECLINES TOBACCO CESSATION MEDS [facility] [place] [facility] Jun 30, 2010 08:30 AM V1-PT THINKING ABOUT QUIT TOBACCO USE [facility] [place] [facility] Dec 30, 2009 09:18 AM CURRENT SMOKER Try to quit [facility] [place] [facility] Dec 30, 2009 09:18 AM V1-PT DECLINES REF TO TOBACCO CESS [facility]GM [facility] Dec 30, 2009 09:18 AM V1-PT DECLINES TOBACCO CESSATION MEDS [facility] [place] [facility] Dec 30, 2009 09:18 AM V1-PT THINKING ABOUT QUIT TOBACCO USE [facility] [place] [facility] Dec 17, 2008 08:44 AM CURRENT SMOKER [facility] [place] [facility] Dec 17, 2008 08:44 AM V1-PT DECLINES REF TO TOBACCO CESS PRGM [facility] [place] [facility] Dec 17, 2008 08:44 AM V1-PT DECLINES TOBACCO CESSATION MEDS [facility] [place] [facility] Dec 17, 2008 08:44 AM V1-PT THINKING ABOUT QUIT TOBACCO USE [facility] [place] [facility] Jun 18, 2008 08:47 AM V1-PT DECLINES REF TO TOBACCO CESS PRGM [facility] [place] [facility] Jun 18, 2008 08:47 AM V1-PT DECLINES TOBACCO CESSATION MEDS [facility] [place] [facility] Jun 18, 2008 08:47 AM V1-PT THINKING ABOUT QUIT TOBACCO USE [facility] [place] [facility] Dec 12, 2007 08:59 AM CURRENT SMOKER [facility] [place] [facility] Dec 12, 2007 08:59 AM V1-PT DECLINES REF TO TOBACCO CESS PRGM [facility] [place] [facility] Dec 12, 2007 08:59 AM V1-PT DECLINES TOBACCO CESSATION MEDS [facility] Dec 12, 2007 08:59 AM V1-PT THINKING ABOUT QUIT TOBACCO USE [facility] Jun 13, 2007 09:30 AM V1-PT DECLINES REF TO TOBACCO CESS PRGM [facility] Jun 13, 2007 09:30 AM V1-PT DECLINES TOBACCO CESSATION MEDS [facility] Jun 13, 2007 09:30 AM V1-PT THINKING ABOUT QUIT TOBACCO USE [facility] 2006 09:09 AM CURRENT SMOKER Not ready as yet to quit [facility] Aug 03, 2005 08:20 AM CURRENT SMOKER [facility] Apr 19, 2004 10:13 AM CURRENT SMOKER [facility] Mar 26, 2003 09:23 AM CURRENT SMOKER trying to cut down. [facility] Feb 17, 2002 11:07 AM CURRENT SMOKER [facility] Advance Directives: All historical and current Section Date Range: From patient's date of to the date document was created. This section includes ALL of a patient's completed or amended [place] Advance and Rescinded Directives. The entries below indicate that a directive exists for the patient, but an actual copy is not included with this document. The data comes from all [place] facilities. Date Advance Directives Provider Source Jun 12, 2019 ADVANCE DIRECTIVE MICA BALTAZAR [facility] Encounter Notes: All associated encounter notes This section contains the clinical notes associated to the Encounter. Date/Time Encounter Note(s) Provider Source Jul 19, 2023 01:02 PM NEUROLOGY OUTPATIE NT NOTE: LOCAL TITLE: NEUROLOGY CLINIC NOTE STANDARD TITLE: NEUROLOGY OUTPATIENT NOTE DATE OF NOTE: JUL 19, 2023@13:02 ENTRY DATE: JUL 19, 2023@13:02:36 AUTHOR: KENNETH DYKES EXP COSIGNER: URGENCY: STATUS: COMPLETED Chief Complaint: Parkinsons Disease Talked to pt by [facility] Interval Hx Jul Pt reports that shaking generally unchanged improves after sinemet, wears off 2 falls, no injuries, unsure of why fell, other than loss of balance. He was using his cane when those falls happened. He uses his rollator only very seldom. No constipation Sleep varies, with some good/bad nights. Some RBD, still taking melatonin for sleep, which is helpful. Some hallucinations of 'people sneaking up on him'. These have been ongoing for several decades', are unchanged. Some dysphagia, for solids and for liquids. He has modified his dietary intake to adapt, as per directions from soil biology teacher following swallow study, but is unsure if it has made any He has been established with provider in the community, but is not able to be seen until October. Pt o/w denies any new issues, hospitalizations, injuries, illness, or concerns. NEUROLOGIC EXAM: MS: AAO to Person/Place/Situation. hypomimia Able to maintain attention to conversation and follow directions on exam without distractability, impersistence, or perseveration. Fluent language and intact comprehension, without any paraphasic errors. Some dysarthria and hypophonia, and head shaking causing voice changes. Mod amp/mod freq rest tremor of arms, similar tremor during extension and pointing. Last sinemet was ~5 hours ago Assessment/Plan: 77 y/o M w/parkinsons disease, with tremors generally unchanged, somewhat controlled on current sinemet IR 75/300mg tid, though he feels that control was better when he was on the TID sinemet SA 50/200mg, with less wearing off. -will restart the sinemet SA, 2 tabs in a.m., and 1 tab tid thereafter including soon before bed -He has appt scheduled to be seen by community care neurologist Pt to RTC in 0 months, or sooner if new issues. Kenneth Dykes MD Staff Neurologist [facility] ~30 mins spent on exam, assessment, counseling, and coordination This chart has been reviewed, and in my best medical opinion the [facility] medical care can be conducted by a telephone visit, (or a [facility] visit, if patient is equipped for that modality). This change has been made due to the #COVID19# situation. Patient has not had close contact with a person known to have coronavirus and has been asymptomatic. Patient has been asked to remain at home and call clinic if he has fever or respiratory symptoms. If it was felt that the patient should be evaluated in clinic then they were directed there. The patient verbally consented to visit. All issues as above were discussed and addressed, but no physical exam was performed. COVID-19 Education At this time patient is not suspected of having COVID-19. Answered patient questions about COVID-19 including signs and symptoms, self home care and warning signs to look for especially the worsening of symptoms and respiratory distress day 8/. Advised if seeks care to call first to allow for proper isolation precautions. [ X ] Management of Neurologic Condition was reassessed, taking into account pt's complex other medical issues and medications. [ X ] ~50% of exam was spent on discussion and education or coordination Outpt. Medication Reconciliation: Med Rec Completed. Medication Rec per Telephone Coin Box Collector Nursing note on Jul@13:54. NO DISCREPANCIES FOUND other than those listed in note. The patient's medication list/medication history to include Local Active VA Prescriptions, Remote Active VA Prescriptions, Non-VA medications, Recently VA Prescriptions (90-180 days), Recently Discontinued VA Prescriptions (90-180 days), and Pending Medication Orders where relevant (e.g., patient is seen by multiple providers in the same day) was compared with CPRS and reviewed with the patient/caregiver and reconciled. Any changes in medications and any medications prescribed by this provider discontinued are documented in this note. Medications not prescribed by this provider will be addressed by pt's PCM or appropriate specialty provider. Discussed risks and possible benefits and mechanism of action of medications prescribed. Pt indicated understanding of the risks of medications, and all questions were answered to pt's satisfaction /kev/ KENNETH DYKES MD PHYSICIAN Signed: 07/19/2023 13:59 KENNETH DYKES [facility]
--- OUTSIDE RECORDS SUMMARY | 2024-06-15 13:29 | XMS_ITS | Continuity of Care Document ---
Author Name [facility] Organization [facility] Care Team Providers Care Key Holder Name Role Phone [facility] Unavailable Unavailable Problems Combined list of problems from Department of 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 It does not include entries that were removed or entered in error. Problem Status Onset Date Problem Type Date of Resolution Comments Source Hypercholesterolemia (SCT 15764516) Active 020 Condition May 21, 2019 Entered By: MICA BALTAZAR Comment: treated with diet [facility] [place] [facility] Posttraumatic stress disorder, delayed onset (SNOMED CT 427758240) Active 970 Condition Jul 30, 2001 Entered By: NIKOLAY SULTANA Comment: ReviewedMay 2002 Entered By: NIKOLAY SULTANA Comment: ReviewedMay 2003 Entered By: NIKOLAY SULTANA Comment: ReviewedMar 2004 Entered By: NIKOLAY SULTANA Comment: ReviewedMar 2005 Entered By: NIKOLAY SULTANA Comment: ReviewedDec 2005 Entered By: NIKOLAY SULTANA Comment: ReviewedFeb 2007 Entered By: NIKOLAY SULTANA Comment: ReviewedFeb 2008 Entered By: NIKOLAY SULTANA Comment: ReviewedAug 2008 Entered By: NIKOLAY SULTANA Comment: ReviewedAug 2009 Entered By: NIKOLAY SULTANA Comment: ReviewedAug 2010 Entered By: NIKOLAY SULTANA Comment: ReviewedJun 2011 Entered By: NIKOLAY SULTANA Comment: ReviewedJun 2012 Entered By: NIKOLAY SULTANA Comment: ReviewedSep 2015 Entered By: NIKOLAY SULTANA Comment: Reviewed [facility] Exposure to potentially hazardous substance Active Condition Jul 18, 2023 Entered By: KAYLEIGH KENDRICK Comment: Original GINNY Screen completed 05/23/22 [facility] Parkinson's disease Active Condition [facility] Parkinsonian gait (SNOMED CT 516731695) Active Condition [facility] Diagnosis: ICD-10-CM G20.A1 Parkinson's dis w/o dyskinesia, w/o mention of fluctuations Active Diagnosis [facility] Diagnosis: ICD-10-CM F43.12 Post-traumatic stress disorder, chronic Active Diagnosis [facility] Diagnosis: ICD-10-CM G20.C Parkinsonism, unspecified Active Diagnosis [facility] Diagnosis: ICD-10-CM G20 Parkinson's disease Active Diagnosis [facility] Medications Combined list of outpatient medications from Department of 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Medications provided include 1) outpatient medications from the last 15 months, and 2) patient-reported medications. Medication Details Route Status Patient Instructions Prescription Expires Prescription Number Last Dispense Date Ordering Provider Order Date Order Qty Source CARBIDOPA 25MG/LEVODO PA 100MG TAB TAKE 3 TABLETS BY MOUTH THREE TIMES A DAY ORAL DISCONT INUED BY PROVIDE R 01/12/2024 [id number] 3 TONY DYKES 2022 270 [facility] CARBIDOPA 50MG/LEVODO PA 200MG TAB,SA TAKE 2 TABLETS BY MOUTH EVERY MORNING AND TAKE 1 TABLET THREE TIMES A DAY FOR PARKINSO N'S DISEASE ORAL SUSPEND ED 05/23/2025 [id number] MOLLY BALTAZAR 2024 450 [facility] CARBIDOPA 50MG/LEVODO PA 200MG TAB,SA TAKE 2 TABLETS BY MOUTH EVERY MORNING AND TAKE 1 TABLET THREE TIMES A DAY FOR PARKINSO N'S DISEASE ORAL DISCONT INUED 04/06/2025 [id number] 5 MOLLY BALTAZAR 2024 450 [facility] CARBIDOPA 50MG/LEVODO PA 200MG TAB,SA TAKE 2 TABLETS BY MOUTH EVERY MORNING AND TAKE 1 TABLET THREE TIMES A DAY FOR PARKINSO N'S DISEASE ORAL DISCONT INUED 07/19/2024 [id number] TONY DYKES 2023 450 [facility] CARBIDOPA 50MG/LEVODO PA 200MG TAB,SA TAKE 1 TABLET BY MOUTH AT BEDTIME ORAL DISCONT INUED BY PROVIDE R 01/12/2024 [id number] 4 TONY DYKES Y 2022 90 [facility] DOXEPIN 6MG TAB TAKE ONE TABLET BY MOUTH AT BEDTIME NEEDED FOR INSOMNIA ORAL DISCONT INUED BY PROVIDE R 02/26/2025 [id number] ISABELLA LOGAN 2023 30 [facility] ESCITALOPRA M OXALATE 20MG TAB TAKE ONE TABLET BY MOUTH EVERY MORNING AFTER BREAKFAS T FOR MOOD/DEP RESSION ORAL SUSPEND ED 12/17/2024 [id number] ISABELLA LOGAN 2023 90 [facility] ESCITALOPRA M OXALATE 20MG TAB TAKE ONE TABLET BY MOUTH EVERY MORNING AFTER BREAKFAS T FOR MOOD/DEP RESSION ORAL DISCONT INUED 04/25/2024 [id number] DANK GARIBAY 2022 90 [facility] ESZOPICLONE 1MG TAB TAKE ONE TABLET BY MOUTH AT BEDTIME NEEDED FOR INSOMNIA ORAL DISCONT INUED BY PROVIDE R 09/25/2024 [id number] ISABELLA LOGAN 2023 30 [facility] GABAPENTIN 300MG CAP TAKE ONE CAPSULE BY MOUTH EVERY MORNING AND TAKE TWO CAPSULES AT BEDTIME TO PREVENT SEIZURES OR PAIN ORAL ACTIVE 05/23/2025 [id number] 5 MOLLY BALTAZAR 2024 270 [facility] GABAPENTIN 300MG CAP TAKE ONE CAPSULE BY MOUTH EVERY MORNING AND TAKE TWO CAPSULES AT BEDTIME TO PREVENT SEIZURES OR PAIN ORAL DISCONT INUED 07/19/2024 [id number] 4 TONY DYKES 2023 270 [facility] GABAPENTIN 300MG CAP TAKE ONE CAPSULE BY MOUTH EVERY MORNING AND TAKE TWO CAPSULES AT BEDTIME TO PREVENT SEIZURES OR PAIN ORAL DISCONT INUED 01/12/2024 [id number] 4 TONY DYKES 2022 270 [facility] LORAZEPAM 0.5MG TAB TAKE ONE TABLET BY MOUTH EVERY MORNING NEEDED AND TAKE TWO TABLETS AT BEDTIME NEEDED FOR ANXIETY ORAL DISCONT INUED 12/18/2023 [id number] ISABELLA LOGAN 2023 90 [facility] LORAZEPAM 0.5MG TAB TAKE ONE TABLET BY MOUTH EVERY MORNING NEEDED AND TAKE TWO TABLETS AT BEDTIME NEEDED FOR ANXIETY ORAL DISCONT INUED 06/21/2023 [id number] LAVELLE RICHEY MD 2023 90 [facility] LORAZEPAM 0.5MG TAB TAKE ONE TABLET BY MOUTH EVERY MORNING NEEDED AND TAKE TWO TABLETS AT BEDTIME NEEDED FOR ANXIETY ORAL 02/20/2024 [id number] ISABELLA LOGAN 2023 90 [facility] LORAZEPAM 1MG TAB TAKE ONE TABLET BY MOUTH ONCE DAILY NEEDED AND TAKE TWO TABLETS AT BEDTIME NEEDED ANXIETY ORAL ACTIVE 10/28/2024 [id number] ISABELLA LOGAN 2024 90 [facility] LORAZEPAM 1MG TAB TAKE ONE TABLET BY MOUTH ONCE DAILY NEEDED AND TAKE TWO TABLETS AT BEDTIME NEEDED ANXIETY ORAL DISCONT INUED 08/28/2024 [id number] ISABELLA LOGAN 2023 90 [facility] MAGNESIUM OXIDE 420MG TAB TAKE ONE TABLET BY MOUTH EVERY DAY ORAL SUSPEND ED 05/23/2025 [id number] 5 MOLLY BALTAZAR 2024 90 [facility] MAGNESIUM OXIDE 420MG TAB TAKE ONE TABLET BY MOUTH EVERY DAY ORAL DISCONT INUED 07/19/2024 [id number] 4 TONY DYKES Y 2023 90 [facility] MAGNESIUM OXIDE 420MG TAB TAKE ONE TABLET BY MOUTH EVERY DAY ORAL DISCONT INUED 01/12/2024 [id number] 3 TONY DYKES Y 2022 90 [facility] PROPRANOLOL HCL 10MG TAB TAKE ONE TABLET BY MOUTH THREE TIMES A DAY FOR ESSENTIA L [place] ORAL SUSPEND ED 05/23/2025 [id number] 5 MOLLY BALTAZAR D 2024 270 [facility] PROPRANOLOL HCL 10MG TAB TAKE ONE TABLET BY MOUTH THREE TIMES A DAY FOR ESSENTIA L [place] ORAL DISCONT INUED 04/06/2025 [id number] MOLLY BALTAZAR 2023 270 [facility] PROPRANOLOL HCL 10MG TAB TAKE ONE TABLET BY MOUTH THREE TIMES A DAY ORAL DISCONT INUED 10/23/2024 [id number] Courtney GASTELUM MD 2023 90 [facility] RASAGILINE MESYLATE 1MG TAB TAKE ONE TABLET BY MOUTH DAILY ORAL SUSPEND ED 05/23/2025 [id number] 5 MOLLY BALTAZAR 2024 90 [facility] RASAGILINE MESYLATE 1MG TAB TAKE ONE TABLET BY MOUTH DAILY ORAL DISCONT INUED 07/19/2024 [id number] 4 TONY DYKES Y 2023 90 [facility] RASAGILINE MESYLATE 1MG TAB TAKE ONE TABLET BY MOUTH DAILY ORAL DISCONT INUED 01/12/2024 [id number] 3 TONY DYKES Y 2022 90 [facility] ROPINIROLE HCL 0.5MG TAB TAKE ONE TABLET BY MOUTH TWICE DAILY ORAL SUSPEND ED 05/23/2025 [id number] 5 MOLLY BALTAZAR 2024 180 [facility] [place] [facility] ROPINIROLE HCL 0.5MG TAB TAKE ONE TABLET BY MOUTH TWICE DAILY ORAL DISCONT INUED 07/19/2024 [id number] 4 DONIS,DA CUATE Y 2023 180 [facility] [place] [facility] ROPINIROLE HCL 0.5MG TAB TAKE ONE TABLET BY MOUTH TWICE DAILY ORAL DISCONT INUED 01/12/2024 [id number] DONIS,DA CUATE Y 2022 180 [facility] Allergies, Adverse Reactions, Alerts Combined list of allergies from Department of 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 It does not include entries that were removed or entered in error. Substance Category Reaction Severity Reaction type Status Date Reported Comments Source PENICILLIN Propensity to adverse reactions to drug (finding) Eruption [facility] [place] [facility] Immunizations Combined list of available immunizations from the Department of 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 Comments Source INFLUENZA, UNSPECIFIED FORMULATION 2023 88 complet ed [facility] INFLUENZA, UNSPECIFIED FORMULATION 2022 88 complet ed [facility] [place] [facility] COVID-19 (MODERNA), MRNA, LNP-S, BIVALENT BOOSTER, PF, 50 MCG/0.5 ML OR 25MCG/0.25 ML DOSE 2021 229 complet ed Lot#: [id number] [facility] [place] INFLUENZA, UNSPECIFIED FORMULATION 2021 88 complet ed [facility] [place] INFLUENZA, UNSPECIFIED FORMULATION 2020 88 complet ed [facility] [place] COVID-19 (MODERNA), MRNA, LNP-S, PF, 100 MCG/0.5 ML DOSE 2 2020 207 complet ed MOD; [id number]; 1 [facility] COVID-19 (MODERNA), MRNA, LNP-S, PF, 100 MCG/0.5 ML DOSE 1 2020 207 complet ed MOD; [id number]; 1 [facility] INFLUENZA, UNSPECIFIED FORMULATION 2019 88 complet ed [facility] INFLUENZA, SEASONAL, INJECTABLE 2018 141 complet ed [facility] INFLUENZA, INJECTABLE, QUADRIVALENT 2017 158 complet ed Site: Left Deltoid [facility] INFLUENZA, SEASONAL, INJECTABLE 2016 141 complet ed Site: Left Deltoid [facility] FLU,3 YRS (HISTORICAL) 2015 88 complet ed Site: Left Deltoid [facility] PNEUMOCOCCAL CONJUGATE PCV 13 2015 133 complet ed [facility] FLU,3 YRS (HISTORICAL) 2014 88 complet ed Site: Left Deltoid [facility] ZOSTER (SHINGLES) (HISTORICAL) 2014 121 complet ed Proximal Left Arm [facility] FLU,3 YRS (HISTORICAL) 2013 88 complet ed Site: Left Deltoid [facility] DTAP, UNSPECIFIED FORMULATION 2013 107 complet ed [facility] PNEUMOCOCCAL, UNSPECIFIED FORMULATION 2013 109 complet ed [facility] FLU,3 YRS (HISTORICAL) 2012 88 complet ed [facility] FLU,3 YRS (HISTORICAL) 2011 88 complet ed [facility] Results Combined list of recent chemistry, hematology and other laboratory results from Department of Defense and Veterans Affairs, ranging from 15 months to all on record, depending upon the facility. Order Name Results Value Reference Range Date Interpretation Specimen Comments Source TSH THYROTROPI N [UNITS/VOL UME] IN SERUM OR PLASMA 1.09 u[IU]/mL 0.35 - 5.00 04/22 Specimen Type: SERUM No comment entered. Ordering Provider: SUZY BALTAZAR Report Released Date/Time: Apr 05, 2024 04:17 PM Reporting Lab: [facility] [place] [facility] [address] [address] Performing Lab: [facility] [place] [facility] [address] [address] [facility] [place] [facility] LIPID PANEL FASTING CHOLESTERO L [MASS/VOLU ME] IN SERUM OR PLASMA 207 mg/dL 04/22 H Specimen Type: SERUM No comment entered. Ordering Provider: SUZY BALTAZAR Report Released Date/Time: Apr 05, 2024 04:17 PM Reporting Lab: [facility] [place] [facility] [address] [address] Performing Lab: [facility] [place] [address] [address] [facility] [place] [facility] LIPID PANEL FASTING TRIGLYCERI DE [MASS/VOLU ME] IN SERUM OR PLASMA 101 mg/dL 0 - 150 04/22 Specimen Type: SERUM No comment entered. Ordering Provider: SUZY BALTAZAR Report Released Date/Time: Apr 05, 2024 04:17 PM Reporting Lab: [facility] [place] [facility] [address] [address] Performing Lab: [facility] [place] [facility] [address] [address] [facility] [place] [facility] LIPID PANEL FASTING CHOLESTERO L IN LDL [MASS/VOLU ME] IN SERUM OR PLASMA BY CALCULATIO N 135 mg/dL 0 - 129 04/22 H Specimen Type: SERUM No comment entered. Ordering Provider: SUZY BALTAZAR Report Released Date/Time: Apr 05, 2024 04:17 PM Reporting Lab: [facility] [place] [facility] [address] [address] Performing Lab: [facility] [place] [facility] [address] [address] [facility] [place] [facility] LIPID PANEL FASTING CHOLESTERO L.TOTAL/CH OLESTEROL IN HDL [MASS RATIO] IN SERUM OR PLASMA 4.0 04/22 Specimen Type: SERUM No comment entered. Ordering Provider: SUZY BALTAZAR Report Released Date/Time: Apr 05, 2024 04:17 PM Reporting Lab: [facility] [place] [facility] [address] [address] Performing Lab: [facility] [address] [address] [facility] [place] [facility] LIPID PANEL FASTING CHOLESTERO L IN HDL [MASS/VOLU ME] IN SERUM OR PLASMA 52 mg/dL 40 - 60 04/22 Specimen Type: SERUM No comment entered. Ordering Provider: SUZY BALTAZAR Report Released Date/Time: Apr 05, 2024 04:17 PM Reporting Lab: [facility] [address] Performing Lab: [facility] [address] [address] [facility] TRN [facility] LIVER FUNCTION PROTEIN [MASS/VOLU ME] IN SERUM OR PLASMA 6.6 g/dL 6.0 - 8.3 04/22 Specimen Type: SERUM No comment entered. Ordering Provider: SUZY BALTAZAR Report Released Date/Time: Apr 05, 2024 04:17 PM Reporting Lab: [facility] [place] [address] [address] Performing Lab: [facility] [place] [facility] [address] [address] [facility] [place] [facility] LIVER FUNCTION ALBUMIN [MASS/VOLU ME] IN SERUM OR PLASMA 3.9 g/dL 3.5 - 5.0 04/22 Specimen Type: SERUM No comment entered. Ordering Provider: SUZY BALTAZAR Report Released Date/Time: Apr 05, 2024 04:17 PM Reporting Lab: [facility] [place] [address] [address] Performing Lab: [facility] [place] [address] [address] [facility] [place] [facility] LIVER FUNCTION ALKALINE PHOSPHATAS E [ENZYMATIC ACTIVITY/V OLUME] IN SERUM OR PLASMA 66 U/L 40 - 150 04/22 Specimen Type: SERUM No comment entered. Ordering Provider: SUZY BALTAZAR Report Released Date/Time: Apr 05, 2024 04:17 PM Reporting Lab: [facility] [place] [facility] [address] [address] Performing Lab: [facility] [place] [facility] [address] [address] [facility] [place] [facility] LIVER FUNCTION ASPARTATE AMINOTRANS FERASE [ENZYMATIC ACTIVITY/V OLUME] IN SERUM OR PLASMA 10 U/L 5 - 34 04/22 Specimen Type: SERUM No comment entered. Ordering Provider: SUZY BALTAZAR Report Released Date/Time: Apr 05, 2024 04:17 PM Reporting Lab: [facility] [place] [address] [address] Performing Lab: [facility] [place] [address] [address] [facility] [place] [facility] LIVER FUNCTION ALANINE AMINOTRANS FERASE [ENZYMATIC ACTIVITY/V OLUME] IN SERUM OR PLASMA <6U/L 04/22 Specimen Type: SERUM No comment entered. Ordering Provider: SUZY BALTAZAR Report Released Date/Time: Apr 05, 2024 04:17 PM Reporting Lab: [facility] [place] [address] [address] Performing Lab: [facility] [place] [address] [address] [facility] [place] [facility] LIVER FUNCTION BILIRUBIN. TOTAL [MASS/VOLU ME] IN SERUM OR PLASMA 0.7 mg/dL 0.2 - 1.2 04/22 Specimen Type: SERUM No comment entered. Ordering Provider: SUYZ BALTAZAR Report Released Date/Time: Apr 05, 2024 04:17 PM Reporting Lab: [facility] [place] [address] [address] Performing Lab: [facility] [place] [facility] [address] [address] [facility] [place] [facility] BASIC METABOLI C PANEL (fasting ) UREA NITROGEN [MASS/VOLU ME] IN SERUM OR PLASMA 15 mg/dL 7 - 25 04/22 Specimen Type: SERUM No comment entered. Ordering Provider: SUZY BALTAZAR Report Released Date/Time: Apr 05, 2024 04:17 PM Reporting Lab: [facility] [place] [facility] [address] [address] Performing Lab: [facility] [place] [facility] [address] [address] [facility] [place] [facility] BASIC METABOLI C PANEL (fasting ) GLUCOSE [MASS/VOLU ME] IN SERUM OR PLASMA 98 mg/dL 65 - 100 04/22 Specimen Type: SERUM No comment entered. Ordering Provider: SUZY BALTAZAR Report Released Date/Time: Apr 05, 2024 04:17 PM Reporting Lab: [facility] [place] [facility] [address] [address] Performing Lab: [facility] [place] [address] [address] [facility] [place] [facility] BASIC METABOLI C PANEL (fasting ) SODIUM [MOLES/VOL UME] IN SERUM OR PLASMA 142 mmol/L 135 - 145 04/22 Specimen Type: SERUM No comment entered. Ordering Provider: SUZY BALTAZAR Report Released Date/Time: Apr 05, 2024 04:17 PM Reporting Lab: [facility] [place] [facility] [address] [address] Performing Lab: [facility] [place] [address] [address] [facility]TR[facility] [place] [facility] BASIC METABOLI C PANEL (fasting ) POTASSIUM [MOLES/VOL UME] IN SERUM OR PLASMA 4.8 mmol/L 3.5 - 5.0 04/22 Specimen Type: SERUM No comment entered. Ordering Provider: SUZY BALTAZAR Report Released Date/Time: Apr 05, 2024 04:17 PM Reporting Lab: [facility] [place] [facility] [address] [address] Performing Lab: [facility] [place] [facility] [address] [address] [facility] [place] [facility] BASIC METABOLI C PANEL (fasting ) CHLORIDE [MOLES/VOL UME] IN SERUM OR PLASMA 103 mmol/L 100 - 110 04/22 Specimen Type: SERUM No comment entered. Ordering Provider: SUZY BALTAZAR Report Released Date/Time: Apr 05, 2024 04:17 PM Reporting Lab: [facility] [place] [facility] [address] [address] Performing Lab: [facility] [place] [facility] [address] [address] [facility] [place] [facility] BASIC METABOLI C PANEL (fasting ) CARBON DIOXIDE, TOTAL [MOLES/VOL UME] IN SERUM OR PLASMA 31 meq/L 20 - 30 04/22 H Specimen Type: SERUM No comment entered. Ordering Provider: SUZY BALTAZAR Report Released Date/Time: Apr 05, 2024 04:17 PM Reporting Lab: [facility] [place] [facility] [address] [address] Performing Lab: [facility] [place] [facility] [address] [address] [facility] BASIC METABOLI C PANEL (fasting ) CREATININE [MASS/VOLU ME] IN SERUM OR PLASMA 0.81 mg/dL 0.50 - 1.40 04/22 Specimen Type: SERUM No comment entered. Ordering Provider: SUZY BALTAZAR Report Released Date/Time: Apr 05, 2024 04:17 PM Reporting Lab: [facility] [place] [facility] [address] [address] Performing Lab: [facility] [place] [facility] [address] [address] [facility] [place] [facility] BASIC METABOLI C PANEL (fasting ) GLOMERULAR FILTRATION RATE/1.73 SQ M.PREDICTE D [VOLUME RATE/AREA] IN SERUM, PLASMA OR BLOOD BY CREATININE -BASED FORMULA (CKD-EPI 2020) 90 mL/min 60 04/22 Specimen Type: SERUM No comment entered. Ordering Provider: SUZY BALTAZAR Report Released Date/Time: Apr 05, 2024 04:17 PM Reporting Lab: [facility] [place] [facility] [address] [address] Performing Lab: [facility] [place] [facility] [address] [address] [facility] [place] [facility] URINALYS IS CLEAN CATCH COLOR OF URINE Light-Ye llow 04/22 Specimen Type: URINE Comment: If Glucose = >500 and Ketones are positive, please alert the Physician. Ordering Provider: SUZY BALTAZAR Report Released Date/Time: Apr 05, 2024 04:17 PM Reporting Lab: [facility] [place] [address] [address] Performing Lab: [facility] [place] [facility] [address] [address] [facility] [place] [facility] URINALYS IS CLEAN CATCH APPEARANCE OF URINE Clear 04/22 Specimen Type: URINE Comment: If Glucose = >500 and Ketones are positive, please alert the Physician. Ordering Provider: SUZY BALTAZAR Report Released Date/Time: Apr 05, 2024 04:17 PM Reporting Lab: [facility] [place] [facility] [address] [address] Performing Lab: [facility] [place] [facility] [address] [address] [facility] [place] [facility] URINALYS IS CLEAN CATCH GLUCOSE [MASS/VOLU ME] IN URINE Normalmg /dL 04/22 Specimen Type: URINE Comment: If Glucose = >500 and Ketones are positive, please alert the Physician. Ordering Provider: SUZY BALTAZAR Report Released Date/Time: Apr 05, 2024 04:17 PM Reporting Lab: [facility] [place] [address] [address] Performing Lab: [facility] [facility] [address] [facility] [facility] [address] [facility] [place] [facility] URINALYS IS CLEAN CATCH KETONES [MASS/VOLU ME] IN URINE BY TEST STRIP NEGATIVE mg/dL 04/22 Specimen Type: URINE Comment: If Glucose = >500 and Ketones are positive, please alert the Physician. Ordering Provider: SUZY BALTAZAR Report Released Date/Time: Apr 05, 2024 04:17 PM Reporting Lab: [place] [facility] [place] [facility] [address] [address] Performing Lab: [place] [facility] [place] [facility] [address] [facility] [address] [facility] [place] [facility] URINALYS IS CLEAN CATCH ERYTHROCYT ES [PRESENCE] IN URINE SEDIMENT BY LIGHT MICROSCOPY NEGATIVE mg/dL 04/22 Specimen Type: URINE Comment: If Glucose = >500 and Ketones are positive, please alert the Physician. Ordering Provider: SUZY BALTAZAR Report Released Date/Time: Apr 05, 2024 04:17 PM Reporting Lab: [facility] [place] [address] [address] Performing Lab: [place] [facility] [place] [facility] [address] [facility] [facility] [address] [facility] [place] [facility] URINALYS IS CLEAN CATCH PROTEIN [MASS/VOLU ME] IN URINE BY TEST STRIP NEGATIVE mg/dL 04/22 Specimen Type: URINE Comment: If Glucose = >500 and Ketones are positive, please alert the Physician. Ordering Provider: SUZY BALTAZAR Report Released Date/Time: Apr 05, 2024 04:17 PM Reporting Lab: [facility] [place] [facility] [facility] [address] [facility] [address] Performing Lab: [facility] [place] [facility] [address] [address] [facility] [facility] URINALYS IS CLEAN CATCH NITRITE [PRESENCE] IN URINE NEGATIVE mg/dL 04/22 Specimen Type: URINE Comment: If Glucose = >500 and Ketones are positive, please alert the Physician. Ordering Provider: SUZY BALTAZAR Report Released Date/Time: Apr 05, 2024 04:17 PM Reporting Lab: [facility] [place] [facility] [address] [facility] [address] Performing Lab: [facility] [place] [facility] [address] [facility] [address] [facility] URINALYS IS CLEAN CATCH BILIRUBIN. TOTAL [PRESENCE] IN URINE NEGATIVE mg/dL 04/22 Specimen Type: URINE Comment: If Glucose = >500 and Ketones are positive, please alert the Physician. Ordering Provider: SUZY BALTAZAR Report Released Date/Time: Apr 05, 2024 04:17 PM Reporting Lab: [facility] [place] [facility] [address] [facility] [address] Performing Lab: [facility] [place] [facility] [address] [facility] [address] [facility] URINALYS IS CLEAN CATCH SPECIFIC GRAVITY OF URINE BY REFRACTOME TRY 1.020 1.016 - 1.022 04/22 Specimen Type: URINE Comment: If Glucose = >500 and Ketones are positive, please alert the Physician. Ordering Provider: SUZY BALTAZAR Report Released Date/Time: Apr 05, 2024 04:17 PM Reporting Lab: [facility] [place] [facility] [address] [facility] [address] Performing Lab: [facility] [place] [facility] [address] [facility] [address] [facility] URINALYS IS CLEAN CATCH PH OF URINE BY TEST STRIP 6.5 5.0 - 9.0 04/22 Specimen Type: URINE Comment: If Glucose = >500 and Ketones are positive, please alert the Physician. Ordering Provider: SUZY BALTAZAR Report Released Date/Time: Apr 05, 2024 04:17 PM Reporting Lab: [facility] [place] [facility] [address] [facility] [address] Performing Lab: [facility] [place] [facility] [address] [facility] [address] [facility] [place] URINALYS IS CLEAN CATCH UROBILINOG EN [MASS/VOLU ME] IN URINE BY TEST STRIP Normalmg /dL <2.0 - 2.0 04/22 Specimen Type: URINE Comment: If Glucose = >500 and Ketones are positive, please alert the Physician. Ordering Provider: SUZY BALTAZAR Report Released Date/Time: Apr 05, 2024 04:17 PM Reporting Lab: [facility] [address] [facility] [address] Performing Lab: [facility]USE[facility] [address] [facility] [address] [facility] URINALYS IS CLEAN CATCH LEUKOCYTE ESTERASE [PRESENCE] IN URINE BY TEST STRIP NEGATIVE 04/22 Specimen Type: URINE Comment: If Glucose = >500 and Ketones are positive, please alert the Physician. Ordering Provider: SUZY BALTAZAR Report Released Date/Time: Apr 05, 2024 04:17 PM Reporting Lab: [facility] [address] [facility] [address] Performing Lab: [facility]ITALUSE[address] [address] [facility] CBC AND DIFF (AUTO) LEUKOCYTES [#/VOLUME] IN BLOOD BY AUTOMATED COUNT 4.92 10*3/uL 4.50 - 11.00 04/22 Specimen Type: BLOOD No comment entered. Ordering Provider: SUZY BALTAZAR Report Released Date/Time: Apr 05, 2024 04:17 PM Reporting Lab: [facility]ITALRST[facility]N [facility]ITALUSEJ[facility] [address] [facility] [address] [address] Performing Lab: [facility]ITALUSE[address] [address] [facility]ITALUSE [facility] CBC AND DIFF (AUTO) ERYTHROCYT ES [#/VOLUME] IN BLOOD BY AUTOMATED COUNT 4.55 10*6/uL 4.23 - 5.66 04/22 Specimen Type: BLOOD No comment entered. Ordering Provider: SUZY BALTAZAR Report Released Date/Time: Apr 05, 2024 04:17 PM Reporting Lab: [facility] [place] [facility] [address] [facility] [address] Performing Lab: [facility] [place] [facility] [address] [facility] [address] [facility] CBC AND DIFF (AUTO) HEMOGLOBIN [MASS/VOLU ME] IN BLOOD 15.1 g/dL 12.8 - 17 04/22 Specimen Type: BLOOD No comment entered. Ordering Provider: SUZY BALTAZAR Report Released Date/Time: Apr 05, 2024 04:17 PM Reporting Lab: [facility] [place] [facility] [address] [facility] [address] Performing Lab: [facility] [place] [facility] [address] [facility] [address] [facility] [place] [facility] CBC AND DIFF (AUTO) HEMATOCRIT [VOLUME FRACTION] OF BLOOD BY AUTOMATED COUNT 44.2 39.2 - 50.4 04/22 Specimen Type: BLOOD No comment entered. Ordering Provider: SUZY BALTAZAR Report Released Date/Time: Apr 05, 2024 04:17 PM Reporting Lab: [facility] [place] [facility] [address] [facility] [address] Performing Lab: [facility] [place] [facility] [address] [address] [facility] [place] [facility] CBC AND DIFF (AUTO) MCV [ENTITIC VOLUME] BY AUTOMATED COUNT 97.1 fL 82 - 99 04/22 Specimen Type: BLOOD No comment entered. Ordering Provider: SUZY BALTAZAR Report Released Date/Time: Apr 05, 2024 04:17 PM Reporting Lab: [facility] [place] [facility] [address] [facility] [address] Performing Lab: [facility] [place] [facility] [address] [facility] [address] [facility] [place] [facility] CBC AND DIFF (AUTO) MCHC [MASS/VOLU ME] BY AUTOMATED COUNT 34.2 g/dL 30.8 - 35.1 04/22 Specimen Type: BLOOD No comment entered. Ordering Provider: SUZY BALTAZAR Report Released Date/Time: Apr 05, 2024 04:17 PM Reporting Lab: [facility] [place] [facility] [address] [facility] [address] Performing Lab: [facility] [place] [facility] [address] [facility] [address] [facility] [place] CBC AND DIFF (AUTO) PLATELETS [#/VOLUME] IN BLOOD BY AUTOMATED COUNT 211 10*3/uL 140 - 360 04/22 Specimen Type: BLOOD No comment entered. Ordering Provider: SUZY BALTAZAR Report Released Date/Time: Apr 05, 2024 04:17 PM Reporting Lab: [facility] [place] [facility] [address] [facility] [address] Performing Lab: [facility] [place] [facility] [address] [facility] [address] [facility] [place] CBC AND DIFF (AUTO) ERYTHROCYT E DISTRIBUTI ON WIDTH [RATIO] BY AUTOMATED COUNT 12.9 12.0 - 16.0 04/22 Specimen Type: BLOOD No comment entered. Ordering Provider: SUZY BALTAZAR Report Released Date/Time: Apr 05, 2024 04:17 PM Reporting Lab: [facility] [place] [facility] [address] [facility] [address] Performing Lab: [facility] [place] [facility] [address] [place] [address] [facility] [place] [facility] CBC AND DIFF (AUTO) MONOCYTES [#/VOLUME] IN BLOOD BY AUTOMATED COUNT 0.55 10*3/uL 0.30 - 1.10 04/22 Specimen Type: BLOOD No comment entered. Ordering Provider: SUZY BALTAZAR Report Released Date/Time: Apr 05, 2024 04:17 PM Reporting Lab: [facility] [place] [facility] [address] [facility] [address] Performing Lab: [facility] [place] [facility] [address] [place] [address] [facility] [place] CBC AND DIFF (AUTO) MCH [ENTITIC MASS] BY AUTOMATED COUNT 33.2 pg 26.2 - 32.6 04/22 H Specimen Type: BLOOD No comment entered. Ordering Provider: SUZY BALTAZAR Report Released Date/Time: Apr 05, 2024 04:17 PM Reporting Lab: [facility] [place] [facility] [address] [facility] [address] Performing Lab: [facility] [place] [facility] [address] [facility] [address] [facility] [place] [facility] CBC AND DIFF (AUTO) NEUTROPHIL S/100 LEUKOCYTES IN BLOOD BY AUTOMATED COUNT 54.1 43.7 - 75.8 04/22 Specimen Type: BLOOD No comment entered. Ordering Provider: SUZY BALTAZAR Report Released Date/Time: Apr 05, 2024 04:17 PM Reporting Lab: [facility] [place] [facility] [address] [facility] [address] Performing Lab: [facility] [place] [facility] [address] [facility] [address] [facility] [place] [facility] CBC AND DIFF (AUTO) LYMPHOCYTE S/100 LEUKOCYTES IN BLOOD BY AUTOMATED COUNT 25.8 14.0 - 42.3 04/22 Specimen Type: BLOOD No comment entered. Ordering Provider: SUZY BALTAZAR Report Released Date/Time: Apr 05, 2024 04:17 PM Reporting Lab: [facility] [place] [facility] [address] [facility] [address] Performing Lab: [facility] [place] [facility] [address] [facility] [address] [facility] [place] [facility] CBC AND DIFF (AUTO) MONOCYTES/ 100 LEUKOCYTES IN BLOOD BY AUTOMATED COUNT 11.2 5.1 - 13.7 04/22 Specimen Type: BLOOD No comment entered. Ordering Provider: SUZY BALTAZAR Report Released Date/Time: Apr 05, 2024 04:17 PM Reporting Lab: [facility] [place] [facility] [address] [facility] [address] Performing Lab: [facility] [place] [facility] [address] [facility] [address] [facility] [place] [facility] CBC AND DIFF (AUTO) EOSINOPHIL S/100 LEUKOCYTES IN BLOOD BY AUTOMATED COUNT 7.1 0.4 - 6.8 04/22 H Specimen Type: BLOOD No comment entered. Ordering Provider: SUZY BALTAZAR Report Released Date/Time: Apr 05, 2024 04:17 PM Reporting Lab: [facility] [place] [address] [address] Performing Lab: [facility] [place] [facility] [address] [facility] [address] [facility] [place] [facility] CBC AND DIFF (AUTO) BASOPHILS/ 100 LEUKOCYTES IN BLOOD BY AUTOMATED COUNT 1.6 0.1 - 2.0 04/22 Specimen Type: BLOOD No comment entered. Ordering Provider: SUZY BALTAZAR Report Released Date/Time: Apr 05, 2024 04:17 PM Reporting Lab: [facility] [address] [address] Performing Lab: [facility] [place] [address] [address] [facility]ITALRL [place] [place] [facility] CBC AND DIFF (AUTO) NEUTROPHIL S [#/VOLUME] IN BLOOD BY AUTOMATED COUNT 2.66 10*3/uL 2.20 - 7.60 04/22 Specimen Type: BLOOD No comment entered. Ordering Provider: SUZY BALTAZAR Report Released Date/Time: Apr 05, 2024 04:17 PM Reporting Lab: [facility] [place] [address] [address] Performing Lab: [facility] [place] [address] [address] [facility] [place] [facility] CBC AND DIFF (AUTO) LYMPHOCYTE S [#/VOLUME] IN BLOOD BY AUTOMATED COUNT 1.27 10*3/uL 1.00 - 3.20 04/22 Specimen Type: BLOOD No comment entered. Ordering Provider: SUZY BALTAZAR Report Released Date/Time: Apr 05, 2024 04:17 PM Reporting Lab: [facility] [place] [address] [address] Performing Lab: [facility] [facility] [address] [facility] [address] [facility] [place] [facility] CBC AND DIFF (AUTO) EOSINOPHIL S [#/VOLUME] IN BLOOD BY AUTOMATED COUNT 0.35 10*3/uL 0.03 - 0.44 04/22 Specimen Type: BLOOD No comment entered. Ordering Provider: SUZY BALTAZAR Report Released Date/Time: Apr 05, 2024 04:17 PM Reporting Lab: [facility] [place] [facility] [address] [facility] [address] Performing Lab: [facility] [place] [facility] [address] [facility] [address] [facility]ITALRL [place] [place] [facility] CBC AND DIFF (AUTO) BASOPHILS [#/VOLUME] IN BLOOD BY AUTOMATED COUNT 0.08 10*3/uL 0.01 - 0.13 04/22 Specimen Type: BLOOD No comment entered. Ordering Provider: SUZY BALTAZAR Report Released Date/Time: Apr 05, 2024 04:17 PM Reporting Lab: [facility] [facility] [address] [facility] [address] Performing Lab: [facility] [place] [facility] [address] [facility] [address] [facility] HOSPITALRL TRN [facility]CHUSE [facility] CBC AND DIFF (AUTO) IMMATURE GRANULOCYT ES/100 LEUKOCYTES IN BLOOD BY AUTOMATED COUNT 0.2 0.0 - 0.7 04/22 Specimen Type: BLOOD No comment entered. Ordering Provider: SUZY BALTAZAR Report Released Date/Time: Apr 05, 2024 04:17 PM Reporting Lab: [facility] [facility] [address] [facility] [address] Performing Lab: [facility] [place] [facility] [address] [facility] [address] [facility] HOSPITALRL TRN [facility] TS [facility] CBC AND DIFF (AUTO) IMMATURE GRANULOCYT ES [#/VOLUME] IN BLOOD 0.01 10*3/uL 0.00 - 0.06 04/22 Specimen Type: BLOOD No comment entered. Ordering Provider: SUZY BALTAZAR Report Released Date/Time: Apr 05, 2024 04:17 PM Reporting Lab: [facility] [place] [facility] [address] [facility] [address] Performing Lab: [facility] [place] [facility] [address] [facility] [address] [facility] [place] [facility] CBC AND DIFF (AUTO) NRBC % 0.0 0.0 - 0.0 04/22 Specimen Type: BLOOD No comment entered. Ordering Provider: SUZY BALTAZAR Report Released Date/Time: Apr 05, 2024 04:17 PM Reporting Lab: [facility] [place] [facility] [address] [facility] [address] Performing Lab: [facility] [place] [facility] [address] [facility] [address] [facility] [place] [facility] CBC AND DIFF (AUTO) NRBC, ABS 0.00 10*3/uL 0.00 - 0.00 04/22 Specimen Type: BLOOD No comment entered. Ordering Provider: SUZY BALTAZAR Report Released Date/Time: Apr 05, 2024 04:17 PM Reporting Lab: [facility] [place] [facility] [address] [facility] [address] Performing Lab: [facility] [facility] [address] [facility] [address] [facility] [place] [facility] LIVER FUNCTION PROTEIN [MASS/VOLU ME] IN SERUM OR PLASMA 6.3 g/dL 6.0 - 8.3 05/03 Specimen Type: SERUM No comment entered. Ordering Provider: SUZY BALTAZAR Report Released Date/Time: Apr 16, 2023 05:26 PM Reporting Lab: [facility] [place] [facility] [address] [facility] [address] Performing Lab: [facility] [place] [address] [address] [facility] [place] [facility] LIVER FUNCTION ALBUMIN [MASS/VOLU ME] IN SERUM OR PLASMA 3.9 g/dL 3.5 - 5.0 12/22 /2023 Specimen Type: SERUM No comment entered. Ordering Provider: SUZY BALTAZAR Report Released Date/Time: Apr 16, 2023 05:26 PM Reporting Lab: [facility] [place] [facility] [address] [facility] [address] Performing Lab: [facility] [facility] [address] [facility] [address] [facility] [place] [facility] LIVER FUNCTION ALKALINE PHOSPHATAS E [ENZYMATIC ACTIVITY/V OLUME] IN SERUM OR PLASMA 67 U/L 40 - 150 05/03 Specimen Type: SERUM No comment entered. Ordering Provider: SUZY BALTAZAR Report Released Date/Time: Apr 16, 2023 05:26 PM Reporting Lab: [facility] [place] [facility] [address] [facility] [address] Performing Lab: [facility] [facility] [address] [facility] [address] [facility] [place] [facility] LIVER FUNCTION ASPARTATE AMINOTRANS FERASE [ENZYMATIC ACTIVITY/V OLUME] IN SERUM OR PLASMA 9 U/L 5 - 34 05/03 Specimen Type: SERUM No comment entered. Ordering Provider: SUZY BALTAZAR Report Released Date/Time: Apr 16, 2023 05:26 PM Reporting Lab: [facility] [place] [facility] [address] [facility] [address] Performing Lab: [facility] [place] [facility] [address] [facility] [address] [facility] [place] [facility] LIVER FUNCTION ALANINE AMINOTRANS FERASE [ENZYMATIC ACTIVITY/V OLUME] IN SERUM OR PLASMA <6U/L 05/03 Specimen Type: SERUM No comment entered. Ordering Provider: SUZY BALTAZAR Report Released Date/Time: Apr 16, 2023 05:26 PM Reporting Lab: [facility] [place] [facility] [address] [facility] [address] Performing Lab: [facility] [place] [facility] [address] [facility] [address] [facility] [place] [facility] LIVER FUNCTION BILIRUBIN. TOTAL [MASS/VOLU ME] IN SERUM OR PLASMA 0.7 mg/dL 0.2 - 1.2 05/03 Specimen Type: SERUM No comment entered. Ordering Provider: SUZY BALTAZAR Report Released Date/Time: Apr 16, 2023 05:26 PM Reporting Lab: [facility] [place] [facility] [address] [facility] [address] Performing Lab: [facility] [place] [facility] [address] [facility] [address] [facility] [place] [facility] LIPID PANEL FASTING CHOLESTERO L [MASS/VOLU ME] IN SERUM OR PLASMA 199 mg/dL 05/03 Specimen Type: SERUM No comment entered. Ordering Provider: SUZY BALTAZAR Report Released Date/Time: Apr 16, 2023 05:26 PM Reporting Lab: [facility] [place] [facility] [address] [facility] [address] Performing Lab: [facility] [place] [address] [address] [facility] [place] [facility] LIPID PANEL FASTING TRIGLYCERI DE [MASS/VOLU ME] IN SERUM OR PLASMA 60 mg/dL 0 - 150 05/03 Specimen Type: SERUM No comment entered. Ordering Provider: SUZY BALTAZAR Report Released Date/Time: Apr 16, 2023 05:26 PM Reporting Lab: [facility] [facility] [address] [facility] [address] Performing Lab: [facility] [place] [address] [address] [facility] [place] [facility] LIPID PANEL FASTING CHOLESTERO L IN LDL [MASS/VOLU ME] IN SERUM OR PLASMA BY CALCULATIO N 130 mg/dL 0 - 129 05/03 H Specimen Type: SERUM No comment entered. Ordering Provider: SUZY BALTAZAR Report Released Date/Time: Apr 16, 2023 05:26 PM Reporting Lab: [facility] [facility] [address] [facility] [address] Performing Lab: [facility] [place] [address] [address] [facility] [place] [place] [facility] LIPID PANEL FASTING CHOLESTERO L.TOTAL/CH OLESTEROL IN HDL [MASS RATIO] IN SERUM OR PLASMA 3.5 05/03 Specimen Type: SERUM No comment entered. Ordering Provider: SUZY BALTAZAR Report Released Date/Time: Apr 16, 2023 05:26 PM Reporting Lab: [facility]OSPITALRL TRN [facility]ITALUSE[address] [address] Performing Lab: [facility] HOSPITALRL WSTRN [facility]ITALUSE[facility] [address] [facility] [address] [facility]ITALRL TRN [facility]ITALUSE [facility] LIPID PANEL FASTING CHOLESTERO L IN HDL [MASS/VOLU ME] IN SERUM OR PLASMA 57 mg/dL 40 - 60 05/03 Specimen Type: SERUM No comment entered. Ordering Provider: SUZY BALTAZAR Report Released Date/Time: Apr 16, 2023 05:26 PM Reporting Lab: [facility] HOSPITALRST. VINCENT[facility] ST[facility] CLAIRN [address] [address] Performing Lab: [facility] HOSPITALRL TRN [facility]ITALUSE[address] [address] [facility] HOSPITALRL [facility]ITALUSE [facility] BASIC METABOLI C PANEL (fasting ) UREA NITROGEN [MASS/VOLU ME] IN SERUM OR PLASMA 13 mg/dL 7 - 25 05/03 Specimen Type: SERUM No comment entered. Ordering Provider: SUZY BALTAZAR Report Released Date/Time: Apr 16, 2023 05:26 PM Reporting Lab: [facility] HOSPITALRCHOCTAW GENERAL HOSPITALTRN [facility]OSPITALUSE[address] [address] Performing Lab: [facility] HOSPITALRL TRN [facility]ITALUSE[address] [address] [facility] HOSPITALRL TRN [facility]ITALUSE [facility] BASIC METABOLI C PANEL (fasting ) GLUCOSE [MASS/VOLU ME] IN SERUM OR PLASMA 84 mg/dL 65 - 100 05/03 Specimen Type: SERUM No comment entered. Ordering Provider: SUZY BALTAZAR Report Released Date/Time: Apr 16, 2023 05:26 PM Reporting Lab: [facility] HOSPITALRCHOCTAW GENERAL HOSPITALTRN [facility]ITALUSE[address] [address] Performing Lab: [facility] HOSPITALRL [place] [facility] [address] [facility] [address] [facility] HOSPITALRL WSTRN [place] [facility] BASIC METABOLI C PANEL (fasting ) SODIUM [MOLES/VOL UME] IN SERUM OR PLASMA 142 mmol/L 135 - 145 05/03 Specimen Type: SERUM No comment entered. Ordering Provider: SUZY BALTAZAR Report Released Date/Time: Apr 16, 2023 05:26 PM Reporting Lab: [facility] [place] [facility] [address] [facility] [address] Performing Lab: [facility] [place] [facility] [address] [facility] [address] [facility] HOSPITALRL WSTRN MASSUSE [facility] BASIC METABOLI C PANEL (fasting ) POTASSIUM [MOLES/VOL UME] IN SERUM OR PLASMA 4.2 mmol/L 3.5 - 5.0 05/03 Specimen Type: SERUM No comment entered. Ordering Provider: SUZY BALTAZAR Report Released Date/Time: Apr 16, 2023 05:26 PM Reporting Lab: [facility] [place] [facility] [address] [facility] [address] Performing Lab: [place] [facility] [place] [address] [address] [facility] HOSPITALRL WSTRN [place] [facility] BASIC METABOLI C PANEL (fasting ) CHLORIDE [MOLES/VOL UME] IN SERUM OR PLASMA 104 mmol/L 100 - 110 05/03 Specimen Type: SERUM No comment entered. Ordering Provider: SUZY BALTAZAR Report Released Date/Time: Apr 16, 2023 05:26 PM Reporting Lab: [facility] [place] [facility] [address] [facility] [address] Performing Lab: [place] [facility] [place] [address] [address] [facility] HOSPITALRL [facility]STRN [place] [facility] BASIC METABOLI C PANEL (fasting ) CARBON DIOXIDE, TOTAL [MOLES/VOL UME] IN SERUM OR PLASMA 29 meq/L 20 - 30 05/03 Specimen Type: SERUM No comment entered. Ordering Provider: SUZY BALTAZAR Report Released Date/Time: Apr 16, 2023 05:26 PM Reporting Lab: [facility] [place] [facility] [address] [facility] [address] Performing Lab: [facility] [place] [facility] [address] [facility] [facility] [address] [facility] [place] [facility] BASIC METABOLI C PANEL (fasting ) CREATININE [MASS/VOLU ME] IN SERUM OR PLASMA 0.81 mg/dL 0.50 - 1.40 05/03 Specimen Type: SERUM No comment entered. Ordering Provider: SUZY BALTAZAR Report Released Date/Time: Apr 16, 2023 05:26 PM Reporting Lab: [facility] [place] [facility] [address] [facility] [address] Performing Lab: [place] [facility] [place] [facility] [address] [facility] [address] [facility] [place] [facility] BASIC METABOLI C PANEL (fasting ) GLOMERULAR FILTRATION RATE/1.73 SQ M.PREDICTE D [VOLUME RATE/AREA] IN SERUM, PLASMA OR BLOOD BY CREATININE -BASED FORMULA (CKD-EPI 2020) 90 mL/min 60 05/03 Specimen Type: SERUM No comment entered. Ordering Provider: SUZY BALTAZAR Report Released Date/Time: Apr 16, 2023 05:26 PM Reporting Lab: [facility] [place] [facility] [address] [facility] [address] Performing Lab: [facility] [address] [address] [facility] [place] [facility] TSH THYROTROPI N [UNITS/VOL UME] IN SERUM OR PLASMA 0.76 u[IU]/mL 0.35 - 5.00 05/03 Specimen Type: SERUM No comment entered. Ordering Provider: SUZY BALTAZAR Report Released Date/Time: Apr 16, 2023 05:26 PM Reporting Lab: [facility] [place] [facility] [address] [facility] [address] Performing Lab: [facility] [address] [address] [facility] [place] [facility] Vital Signs Combined list of inpatient and outpatient Vital Signs from Department of Defense and Veterans Affairs, ranging from 12 months to all on record, depending upon the facility. Vital Sign Value Date Comments Source SYSTOLIC BLOOD PRESSURE [id number] 05/22/19 25 10:00:37 [facility] [place] [facility] DIASTOLIC BLOOD PRESSURE 80 025 10:00:37 [facility] [facility] PULSE OXIMETRY 95 05/22/2024 10:00:37 [facility] WEIGHT 132 05/22/2024 10:00:37 [facility] BMI 20kg/m2 05/22/2024 10:00:37 [facility] PAIN 0 05/22/2024 10:00:37 [facility] TEMPERATURE 97.6 05/22/2024 10:00:37 [facility] PULSE 75 05/22/2024 10:00:37 [facility] RESPIRATION 16 05/22/2024 10:00:37 [facility] Encounters Combined list of: 1) Encounters from Department of Veterans Affairs facilities going back up to thelast 18 months. 2) Encounters from the Department of Defense facilities going back up to 280 months. 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
RITU DYKES IEHakeem Y 01/11 [facility] En[facility] [id number] 02/20 [facility] [id number] 04/16 [facility] En[facility] [id number] DANK GARIBAY 04/25 [facility] En[facility] [id number] 05/16 [facility] Encounter [id number] 05/21 [facility] OFF[facility] O/P EST LOW 20 MIN [id number] 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
SAL BALTAZAR RD 05/23 [facility] En[facility] [id number] 05/23 [facility] PSYCH DIAGNOSTIC EVALUATION [id number] Diagnos is: ICD-10- CM F43.12 Post-tr aumatic stress disorde r, chronic
WOLFGANG CARDENAS 06/03 [facility] OFFICE O/P EST HI 40 MIN [id number] Diagnos is: ICD-10- CM F43.12 Post-tr aumatic stress disorde r, chronic
Baltazar LOGAN 06/17 [facility] OFFICE O/P EST MOD 30 MIN [id number] Diagnos is: ICD-10- CM F43.12 Post-tr aumatic stress disorde r, chronic
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
Baltazar LOGAN ARLINE 08/19 [facility] OFFICE O/P EST MOD 30 MIN [id number] Diagnos is: ICD-10- CM F43.12 Post-tr aumatic stress disorde r, chronic
Baltazar LOGAN ARLINE 10/14 [facility] Outpatient Encounter [id number]/22 [facility] Outpatient Encounter [id number] DMITRY MARTINES 10/27 [facility] OFFICE O/P EST MOD 30 MIN [id number] Diagnos is: ICD-10- CM F43.12 Post-tr aumatic stress disorde r, chronic
Baltazar LOGAN ARLINE 12/16 [facility] En[facility] [id number] 02/19 [facility] OFF[facility] O/P EST MOD 30 MIN [id number] Diagnos is: ICD-10- CM F43.12 Post-tr aumatic stress disorde r, chronic
Baltazar LOGAN ARLINE 02/25 [facility] OFFICE O/P EST MOD 30 MIN [id number] Diagnos is: ICD-10- CM F43.12 Post-tr aumatic stress disorde r, chronic
Baltazar LOGAN ARLINE 03/25 [facility] En[facility] [id number] 04/05 [facility] OFFICE O/P EST MOD 30 MIN [id number] Diagnos is: ICD-10- CM F43.12 Post-tr aumatic stress disorde r, chronic
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 Social History Type Response Date Comment Source Tobacco smoking status [facility]-TOBACCO USE EVERY DAY CIGARETTES 05/22/2024 [facility] [place] [facility] History of tobacco use SD-TOBACCO NEVER USED OTHER TYPE 05/22/2024 [facility] [place] [facility] History of tobacco use SD-TOBACCO USER EVERY DAY 05/23/2023 [facility] [place] [facility] History of tobacco use SD-TOBACCO USER SOME DAYS 05/23/2022 [facility] [place] [facility] History of tobacco use SD-TOBACCO FORMER USER 05/22/2021 [facility] [place] [facility] History of tobacco use SD-TOBACCO FORMER USER 05/24/2020 [facility] [place] [facility] History of tobacco use SD-TOBACCO QUIT 15 YRS OR MORE 11/24/2018 [facility] [place] [facility] History of tobacco use SD-TOBACCO FORMER USER 05/21/2018 [facility] [place] [facility] History of tobacco use LIFETIME NON-TOBACCO USER 05/21/2017 [facility] [place] [facility] History of tobacco use QUIT TOBACCO USE > 7 YEARS AGO 06/12/2016 [facility] [place] [facility] History of tobacco use QUIT TOBACCO USE > 7 YEARS AGO 07/11/2015 [facility] [place] [facility] History of tobacco use QUIT TOBACCO USE 1-7 YEARS AGO 08/06/2014 [facility] [place] [facility] History of tobacco use QUIT TOBACCO USE IN PAST YEAR 01/08/2014 [facility] [place] [facility] History of tobacco use CURRENT SMOKER 05/01/2013 [facility] [place] [facility] History of tobacco use V1-PT DECLINES TOBACCO CESSATION MEDS 11/07/2012 [facility] of tobacco use CURRENT SMOKER 05/08/2012 [facility] History of tobacco use V1-PT DECLINES TOBACCO CESSATION MEDS 11/09/2011 [facility] History of tobacco use CURRENT SMOKER 12/29/2010 Thinking to quit [facility] History of tobacco use V1-PT DECLINES TOBACCO CESSATION MEDS 06/30/2010 [facility] History of tobacco use CURRENT SMOKER 12/30/2009 [facility] to [facility] History of tobacco use CURRENT SMOKER 12/17/2008 [facility] History [facility] tobacco use V1-PT DECLINES TOBACCO CESSATION MEDS 06[facility]18/2008 [facility] History of tobacco use CURRENT SMOKER 12/12/2007 [facility] History [facility] tobacco use V1-PT DECLINES TOBACCO CESSATION MEDS 06/13/2007 [facility] History of tobacco use CURRENT SMOKER 2006 Not ready as yet to quit [facility] History [facility] tobacco use CURRENT SMOKER 08/03/2005 [facility] [place] [facility] History of tobacco use CURRENT SMOKER 04/19/2004 [facility] History of tobacco use CURRENT SMOKER 03/26/2003 trying to cut down. [facility] [place] [facility] History [facility] tobacco use CURRENT SMOKER 02[facility]17/2002 [facility] Plan of Care List of future care activities from [facility] facilities[facility] Additional future care activities may be listed in the Assessment and Plan section. Date/Time Care Activity Care Activity Detail Facili ty 06/18/2024 AMBULATORY - PSYCHIATRY AMBULATORY - PSYC HIATRY [facility] Advance Directives List of completed, amended, or rescinded Advance Directives on record at [facility] facilities. An actual copy of the Directive is not included. Date Advance Directive Provider Source 06/12/2019 ADVANCE DIRECTIVE MICA BALTAZAR [place] [facility]
--- OUTSIDE RECORDS SUMMARY | 2024-06-15 13:29 | XMS_ITS | Encounter Summary ---
Author Name [facility] Organization [facility] Address [address] [place] [address] Care Team Providers Care Outsole Handler Name Role Phone SHAYAN SAMANIEGO Primary Care [...] PRESCRIPT ION [id number] May 13, 2015 [id number] JAROCHO VILLASENOR PATIENT MEDICARE (WNR) MEDICARE (M) PART B Nov 10, 2014 PART B [id number] JAROCHO VILLASENOR PATIENT MEDICARE (WNR) MEDICARE (M) PART A Oct 11, 2009 PART A [id number] JAROCHO VILLASENOR PATIENT MEDICARE (WNR) MEDICARE (M) PART A Oct 11, 2009 PART A [id number] [phone] JAROCHO VILLASENOR PATIENT MEDICARE (WNR) MEDICARE (M) PART B Oct 11, 2009 PART B [id number] JAROCHO VILLASENOR PATIENT MEDICARE PART D (WN) PRESCRIPT ION PART D May 13, 2015 PART D [id number] JAROCHO VILLASENOR PATIENT UNICARE MEDICAL EXPENSE (OPT/PROF ) PIETRO INDEM * Mar 13, 2015 [id number] JAROCHO VILLASENOR PATIENT Selected Encounter This section includes the information on record at ID for the Encounter. Date/Time Encounter Type Encounter Description Reason Provider Source May 22, 2024 10:30 AM OFFICE O/P EST LOW 20 MIN PRIMARY CARE/MEDICINE ICD-10-CM G20.A1 Parkinson's dis w/o dyskinesia, w/o mention of fluctuations SHAYAN SAMANIEGO IH Encounter Template Text not used by ID Assessments - Encounter Diagnoses This section includes the primary and secondary diagnoses documented for the Encounter. Date/Time Primary/Secondary Diagnosis Diagnosis Name Provider Source May 22, 2024 10:48 AM PRIMARY Parkinson's dis w/o dyskinesia, w/o mention of fluctuations SHAYAN SAMANIEGO [facility] Plan of Treatment: Future Appointments (+ 6 months) and Future Tests (+/- 45 days) The Plan of Treatment section includes future care activities for the patient from all ID treatmentfacilities. This section includes future appointments and future orders which are active, pending or scheduled. Future Appointments This section includes appointments that were scheduled to occur 6 months from the date of the Encounter, up to a maximum of 20 appointments. The data comes from all ID treatment facilities. Appointment Date/Time Appointment Type Appointme nt Facility Name Jun 18, 2024 11:30 AM AMBULATORY - PSYCHIATRY [facility] Vital Signs: All taken on the encounter date This section contains inpatient and outpatient Vital Signs collected on the date of the Encounter. Date/Time Temperature Pulse Blood Pressure Respiratory Rate SP02 Pain Height Weight Body Mass Index Source May 22, 2024 10:00 AM 97.6 75 116/80 16 95 0 132 20 [facility] Social History: Smoking Status (Most current) and Tobacco Use (All prior to encounter date) This section includes the most current, and the historical, smoking and tobacco- related health factors from the ID facility where the Encounter took place. Current Smoking Status This section includes the most current smoking, or tobacco-related health factor, from the ID facility where the Encounter took place. Date/Time Current Smoking Status Comment Don dali May 22, 2024 10:30 AM VA-TOBACCO USE ROSA RY DAY CIGARETTES [facility] [place] [facility] Tobacco Use History This section includes a history of the smoking, or tobacco-related health factors, that were collected on or before the date of the Encounter. The data comes from the ID facility where the Encounter took place. Date/Time Smoking Status/Tobac co Use Comment Facility May 22, 2024 10:30 AM VA-TOBACCO SCREEN FOLLOW-UP [facility] [place] [facility] May 22, 2024 10:30 AM VA-TOBACCO USE ADVICE [facility] [place] [facility] May 22, 2024 10:30 AM VA-TOBACCO USE GREEN CHAIN MARKER NO [facility] [place] [facility] May 22, 2024 10:30 AM VA-TOBACCO USE EVERY DAY CIGARETTES [facility] [place] [facility] May 22, 2024 10:30 AM VA-TOBACCO USE MED NO [facility] [place] [facility] May 23, 2023 10:30 AM VA-TOBACCO DOESNT USE WI 30 MIN WAKEUP [facility] [place] [facility] May 23, 2023 10:30 AM VA-TOBACCO USE 30 YEARS OR MORE [facility] [place] [facility] May 23, 2023 10:30 AM VA-TOBACCO USE ADVICE [facility] [place] [facility] May 23, 2023 10:30 AM VA-TOBACCO USE GREEN CHAIN MARKER NO [facility] [place] [facility] May 23, 2023 10:30 AM VA-TOBACCO USE MED NO [facility] [place] [facility] May 23, 2023 10:30 AM VA-TOBACCO USER EVERY DAY [facility] [place] [facility] May 23, 2022 09:30 AM VA-TOBACCO USE 30 YEARS OR MORE [facility] [place] [facility] May 23, 2022 09:30 AM VA-TOBACCO USE ADVICE [facility] [place] [facility] May 23, 2022 09:30 AM VA-TOBACCO USE GREEN CHAIN MARKER NO [facility] [place] [facility] May 23, 2022 09:30 AM VA-TOBACCO USE MED NO [facility] [place] [facility] May 23, 2022 09:30 AM VA-TOBACCO USE WI 30 MIN OF WAKEUP ID [facility] [place] [facility] May 23, 2022 09:30 AM VA-TOBACCO USER SOME DAYS [facility] [place] [facility] May 22, 2021 01:30 PM VA-TOBACCO FORMER USER [facility] [place] [facility] May 22, 2021 01:30 PM VA-TOBACCO QUIT 15 YRS OR MORE [facility] [place] [facility] May 24, 2020 09:00 AM VA-TOBACCO FORMER USER [facility] [place] [facility] May 24, 2020 09:00 AM VA-TOBACCO QUIT 15 YRS OR MORE [facility] [place] [facility] Nov 24, 2018 08:52 AM VA-TOBACCO FORMER USER [facility] [place] [facility] Nov 24, 2018 08:52 AM VA-TOBACCO QUIT 15 YRS OR MORE [facility] [place] [facility] May 21, 2018 08:52 AM VA-TOBACCO FORMER USER [facility] [place] [facility] May 21, 2018 08:52 AM VA-TOBACCO QUIT 5 TO < 15 YRS [facility] [place] [facility] May 21, 2017 09:01 AM LIFETIME NON-TOBACCO USER [facility] [place] [facility] Jun 12, 2016 09:16 AM QUIT TOBACCO USE > 7 YEARS AGO [facility] [place] [facility] Jul 11, 2015 09:16 AM QUIT TOBACCO USE > 7 YEARS AGO [facility] [place] [facility] Aug 06, 2014 09:11 AM QUIT TOBACCO USE 1-7 YEARS AGO [facility] [place] [facility] Jan 08, 2014 09:12 AM QUIT TOBACCO USE IN PAST YEAR [facility] [place] [facility] May 01, 2013 08:55 AM CURRENT SMOKER [facility] [place] [facility] May 01, 2013 08:55 AM V1-PT NOT INTERESTED IN QUIT TOBACCO USE [facility] [place] [facility] Nov 07, 2012 08:35 AM V1-PT DECLINES TOBACCO CESSATION MEDS [facility] [place] [facility] Nov 07, 2012 08:35 AM V1-PT THINKING ABOUT QUIT TOBACCO USE [facility] [place] [facility] May 08, 2012 09:00 AM CURRENT SMOKER [facility] [place] [facility] May 08, 2012 09:00 AM V1-PT DECLINES TOBACCO CESSATION MEDS [facility] [place] [facility] May 08, 2012 09:00 AM V1-PT THINKING ABOUT QUIT TOBACCO USE [facility] [place] [facility] Nov 09, 2011 08:43 AM V1-PT DECLINES TOBACCO CESSATION MEDS [facility] [place] [facility] Nov 09, 2011 08:43 AM V1-PT THINKING ABOUT QUIT TOBACCO USE [facility] [place] [facility] Dec 29, 2010 08:58 AM CURRENT SMOKER Thinking to quit [facility] [place] [facility] Dec 29, 2010 08:58 AM V1-PT DECLINES TOBACCO CESSATION MEDS [facility] [place] [facility] Dec 29, 2010 08:58 AM V1-PT THINKING ABOUT QUIT TOBACCO USE [facility] [place] [facility] Jun 30, 2010 08:30 AM V1-PT DECLINES REF TO TOBACCO CESS PRGM [facility] [place] [facility] Jun 30, 2010 08:30 AM V1-PT DECLINES TOBACCO CESSATION MEDS [facility] [place] [facility] Jun 30, 2010 08:30 AM V1-PT THINKING ABOUT QUIT TOBACCO USE [facility] [place] [facility] Dec 30, 2009 09:18 AM CURRENT SMOKER Try to quit [facility] [place] [facility] Dec 30, 2009 09:18 AM V1-PT DECLINES REF TO TOBACCO CESS PRGM [facility] [place] [facility] Dec 30, 2009 09:18 AM V1-PT DECLINES TOBACCO CESSATION MEDS [facility] [place] [facility] Dec 30, 2009 09:18 AM V1-PT THINKING ABOUT QUIT TOBACCO USE [facility] [place] [facility] Dec 17, 2008 08:44 AM CURRENT SMOKER [facility] [place] [facility] Dec 17, 2008 08:44 AM V1-PT DECLINES REF TO TOBACCO CESS PRGM [facility] [place] [facility] Dec 17, 2008 08:44 AM V1-PT DECLINES TOBACCO CESSATION MEDS [facility] [place] [facility] Dec 17, 2008 08:44 AM V1-PT THINKING ABOUT QUIT TOBACCO USE [facility] [place] [facility] Jun 18, 2008 08:47 AM V1-PT DECLINES REF TO TOBACCO CESS PRGM [facility] Jun 18, 2008 08:47 AM V1-PT DECLINES TOBACCO CESSATION MEDS [facility] [place] [facility] Jun 18, 2008 08:47 AM V1-PT THINKING ABOUT QUIT TOBACCO USE [facility] [place] [facility] Dec 12, 2007 08:59 AM CURRENT SMOKER [facility] Dec 12, 2007 08:59 AM V1-PT DECLINES REF TO TOBACCO CESS PRGM [facility] Dec 12, 2007 08:59 AM V1-PT DECLINES TOBACCO CESSATION MEDS [facility] Dec 12, 2007 08:59 AM V1-PT THINKING ABOUT QUIT TOBACCO USE [facility] Jun 13, 2007 09:30 AM V1-PT DECLINES REF TO TOBACCO CESS PRGM [facility] Jun 13, 2007 09:30 AM V1-PT DECLINES TOBACCO CESSATION MEDS [facility] Jun 13, 2007 09:30 AM V1-PT THINKING ABOUT QUIT TOBACCO USE [facility] [place] [facility] 2006 09:09 AM CURRENT SMOKER Not ready as yet to quit [facility] Aug 03, 2005 08:20 AM CURRENT SMOKER [facility] [place] [facility] Apr 19, 2004 10:13 AM CURRENT SMOKER [facility] Mar 26, 2003 09:23 AM CURRENT SMOKER [facility] [place] [facility] Feb 17, 2002 11:07 AM CURRENT SMOKER [facility] Advance Directives: All historical and current Section Date Range: From patient's date of to the date document was created. This section includes ALL of a patient's completed or amended ID Advance and Rescinded Directives. The entries below indicate that a directive exists for the patient, but an actual copy is not included with this document. The data comes from all ID facilities. Date Advance Directives Provider Source Jun 12, 2019 ADVANCE DIRECTIVE SHAYAN SAMANIEGO [facility] Encounter Notes: All associated encounter notes This section contains the clinical notes associated to the Encounter. Date/Time Encounter Note(s) Provider Source May 22, 2024 10:47 AM ACCOUNTING OF DISCLOSURES NOTE: LOCAL TITLE: STATE PRESCRIPTION DRUG MONITORING PROGRAM ([facility]) STANDARD TITLE: ACCOUNTING OF DISCLOSURES NOTE DATE OF NOTE: MAY 22, 2024@10:47 ENTRY DATE: MAY 22, 2024@10:47:46 AUTHOR: SHAYAN SAMANIEGO EXP COSIGNER: URGENCY: STATUS: COMPLETED State Prescription Drug Monitoring Program ([facility]) Review The following [facility] Prescription Drug Monitoring Program was queried for this patient: [place] Report Number: The purpose of this query was a part of the medication reconciliation process for the: Renewal of a controlled substance prescription. The findings of the query are as follows: No duplicate therapy prescriptions for controlled substances outside the ID were found. /kev/ Shayan Samaniego MD Staff Physician Signed: 05/22/2024 10:48 SHAYAN SAMANIEGO [facility] May 22, 2024 10:30 AM PHYSICIAN NOTE: LOCAL TITLE: MD NOTE STANDARD TITLE: PHYSICIAN NOTE DATE OF NOTE: MAY 22, 2024@10:30 ENTRY DATE: MAY 22, 2024@10:30:43 AUTHOR: SHAYAN SAMANIEGO EXP COSIGNER: URGENCY: STATUS: COMPLETED Patient Name: CHRISTIANO VILLASENOR VITALS: Patient temperature: 97.6 F [36.4 C] (05/22/2024 10:00) Blood pressure: 116/80 (05/22/2024 10:00) Patient height: 69 in [175.3 cm] (05/21/2018 08:50) Patient weight: 132 lb [59.87 kg] (05/22/2024 10:00) Patient BMI: BMI: 19.5 Patient pulse: 75 (05/22/2024 10:00) Patient respiration: 16 (05/22/2024 10:00) Patient Pulse Oximetry: 95% (05/22/2024 10:00) Pain Ratin (05/22/2024 10:00) Active VA Medications: Active Outpatient Medications (including Supplies): Active Outpatient Medications Status === 1) CARBIDOPA 50/LEVODOPA 200MG SA TAB TAKE 2 TABLETS BY MOUTH ACTIVE (S) EVERY MORNING AND TAKE 1 TABLET THREE TIMES A DAY Indication: FOR PARKINSON'S DISEASE 2) ESCITALOPRAM OXALATE 20MG TAB TAKE ONE TABLET BY MOUTH EVERY ACTIVE (S) MORNING AFTER BREAKFAST FOR MOOD/DEPRESSION 3) GABAPENTIN 300MG CAP TAKE ONE CAPSULE BY MOUTH EVERY MORNING ACTIVE (S) AND TAKE TWO CAPSULES AT BEDTIME TO PREVENT SEIZURES OR PAIN 4) LORAZEPAM 1MG TAB TAKE ONE TABLET BY MOUTH ONCE DAILY ACTIVE (S) NEEDED AND TAKE TWO TABLETS AT BEDTIME NEEDED Indication: ANXIETY 5) MAGNESIUM OXIDE 420MG TAB TAKE ONE TABLET BY MOUTH EVERY DAY ACTIVE 6) PROPRANOLOL HCL 10MG TAB TAKE ONE TABLET BY MOUTH THREE ACTIVE (S) TIMES A DAY Indication: FOR ESSENTIAL TREMOR 7) RASAGILINE MESYLATE 1MG TAB TAKE ONE TABLET BY MOUTH DAILY ACTIVE 8) ROPINIROLE HCL 0.5MG TAB TAKE ONE TABLET BY MOUTH TWICE ACTIVE DAILY Remote Medications: No Active Remote Medications for this patient surgical aide note Chief complaint: Parkinson's all primary care private Dr. [place] for neurology and psychiatry History of present illness Patient is followed by [facility] neurology for Parkinson's. He feels well today with no complaints. He takes all medications regularly Review of systems No chest pain or dyspnea No abdominal pain No trouble urinating No fever or chills No cough Physical examination Well-developed well-nourished male in no acute distress Coronary no murmur Lungs clear Color, Urine (AX 4280): Light-Yellow Appearance, Urine (AX 4280): Clear Glucose, Urine (AX 4280): Normal Ketones, Urine (AX 4280): NEGATIVE Blood, Urine (AX 4280): NEGATIVE Protein, Urine (AX 4280): NEGATIVE Nitrite, Urine (AX 4280): NEGATIVE Bilirubin, Urine (AX 4280): NEGATIVE Specific [place], (AX 4280): 1.020 pH, Urine ([id number]): 6.5 Urobilinogen, Urine (AX 4280): Normal Leukocyte Esterase, (AX 4280): NEGATIVE TSH (Access): 1.09 GLUCOSE: 98 UREA NITROGEN: 15 SODIUM: 142 POTASSIUM: 4.8 CHLORIDE: 103 CO2: 31 H CHOLESTEROL: 207 H PROTEIN,TOTAL: 6.6 ALBUMIN: 3.9 ALKALINE PHOSPHATASE: 66 SGOT: 10 SGPT: <6 TRIGLYCERIDE: 101 LDL CHOL: 135 H CHOL/HDL RATIO: 4.0 HDL: 52 BILIRUBIN,TOT.: 0.7 CREATININE-EGFR: 0.81 eGFR CKD-EPI 2020: 90 WBC: 4.92 RBC: 4.55 HGB: 15.1 HCT: 44.2 MCV: 97.1 MCHC: 34.2 RDW: 12.9 PLT: 211 MCH: 33.2 H Neut %: 54.1 Lymph %: 25.8 [place] %: 11.2 Eos %: 7.1 H Baso %: 1.6 Neut, Abs: 2.66 Lymph, Abs: 1.27 [place], Abs: 0.55 Eos, Abs: 0.35 Baso, Abs: 0.08 Immature Granulocytes %: 0.2 Immature Granulocytes, Abs: 0.01 NRBC%: 0.0 NRBC#: 0.00 I discussed above test results with patient Assessment and plan: 1. Parkinson's: Followed by neurology Plan continue present medications Follow-up 1 year clinic visit and lab Patient declined all vaccines today Follow-Up Pos PTSD/Depression: I have reviewed the results of the Mental Health screens and have evaluated the patient. Based on the evaluation, the following disposition plan will be implemented: Already receiving needed treatment. Contact information and instructions for accessing emergency services provided. Pneumococcal PPSV23 (Pneumovax): The patient declines to receive the recommended dose of PPSV23 vaccine. Immunization: PNEUMOCOCCAL POLYSACCHARIDE PPV23 Refusal Reason: PATIENT DECISION Patient refuses all immunization(s) in the PneumoPPV group Date Documented: 05/22/24 10:53 Medication Reconciliation: Outpatient: Has the patient been taking medications as documented in the EMLR? YES: The patient has been taking medications as documented in the EMLR. Essential Medication List for Review used to complete this medication reconciliation. INCLUDED IN THIS LIST: Alphabetical list of active outpatient prescriptions dispensed from this ID (local) and dispensed from another ID or DoD facility (remote) as well as [...] whether with a VA or non-VA provider. Td / Tdap Immunization: The patient declines to receive the recommended dose of Td/Tdap vaccine. Immunization: TD(ADULT) UNSPECIFIED FORMULATION Refusal Reason: PATIENT DECISION Patient refuses all immunization(s) in the Td group Date Documented: 05/22/24 10:53 COVID-19 Immunization: Refused Moderna Monovalent COVID-19 vaccine Immunization: COVID-19 (MODERNA), MRNA, LNP-S, PF, 50 MCG/0.5 ML (AGES 12+ YEARS) Refusal Reason: PATIENT DECISION Patient refuses all immunization(s) in the COVID-19 group Date Documented: 05/22/24 10:54 Herpes Zoster (Shingles) Vaccine: The patient declines to receive the recommended dose of zoster (shingles) vaccine. Immunization: ZOSTER RECOMBINANT Refusal Reason: PATIENT DECISION Patient refuses all immunization(s) in the ZOSTER group Date Documented: 05/22/24 10:54 Tobacco Use Follow-Up: Patient was advised to stop smoking and/or using other tobacco products. Advised patient that a combination of behavioral counseling and FDA-approved cessation medications is the most effective way to ensure their success in stopping to smoke and/or using other tobacco products. The patient was not interested in additional information about behavioral counseling and other support strategies discussed. Informed patient that medications can help with cravings and withdrawal symptoms, and they greatly increase the chances of successfully stopping your tobacco use. The patient was not interested in a prescription for tobacco cessation medications. /kev/ Shayan Samaniego MD Staff Physician Signed: 05/22/2024 10:55 SHAYAN SAMANIEGO [facility] [place] [facility] May 22, 2024 10:03 AM PREVENTIVE MEDICINE NURSING NOTE: LOCAL TITLE: CLINICAL REMINDERS/NURSING STANDARD TITLE: PREVENTIVE MEDICINE NURSING NOTE DATE OF NOTE: MAY 22, 2024@10:03 ENTRY DATE: MAY 22, 2024@10:03:40 AUTHOR: JEFFREY DALE COSIGNER: URGENCY: STATUS: COMPLETED Suicide Screen: C-SSRS Screening [place] Suicide Severity Rating Scale (C-SSRS) screener 1. Over the past month, have you wished you were or wished you could go to sleep and not wake up? Yes 2. Over the past month, have you had any actual thoughts of killing yourself? Yes 3. Over the past month, have you been thinking about how you might do this? No 4. Over the past month, have you had these thoughts and had some intention of acting on them? No 5. Over the past month, have you started to work out or worked out the details of how to kill yourself? No 6. If yes, at any time in the past month did you intend to carry out this plan? Response not required due to responses to other questions. 7. In your lifetime, have you ever done anything, started to do anything, or prepared to do anything to end your life (for example, collected pills, obtained a gun, gave away valuables, went to the roof but didn't jump)? No 8. If YES, was this within the past 3 months? Response not required due to responses to other questions. Depression Screening: Perform PHQ-2 A PHQ-2 screen was performed. The score was 4 which is a positive screen for depression. Over the past two weeks, how often have you been bothered by the following problems? 1. Little interest or pleasure in doing things More than half the days 2. Feeling down, depressed, or hopeless More than half the days Licensed Independent Provider notified of positive screen and need for follow-up. Name of provider notified: [place] & Incontinence Screen: Falls Screen: 4. No falls within the past year. Incontinence Screen No incontinence. Tobacco Use Screening: The patient smokes cigarettes every day. The patient has never used other types of tobacco. Influenza Immunization: The patient has received the seasonal influenza vaccine for the current season at another location. Documented: INFLUENZA, UNSPECIFIED FORMULATION Historical Date Administered: Feb 20, 2024 Series: Booster Outside Location: Outside Healthcare Provider Information Source: FROM OTHER PROVIDER Alcohol Use Screen (AUDIT-C): Alcohol Screen: SCREEN FOR ALCOHOL (AUDIT-C) An alcohol screening test (AUDIT-C) was negative (score=0). 1. How often did you have a drink containing alcohol in the past year? Consider a drink to be a 12 ounce can or bottle of regular beer, 8 ounces of malt liquor, a 5 ounce glass of table wine, or a 1.5 ounce shot of liquor (like scotch, gin, or vodka). Never 2. How many drinks containing alcohol did you have on a typical day when you were drinking in the past year? Response not required due to responses to other questions. 3. How often did you have six or more drinks on one occasion in the past year? Response not required due to responses to other questions. /kev/ JEFFREY DALE LPN Signed: 05/22/2024 10:07 JEFFREY DALE [facility]
== END 2024-06-15 13:06 | disposition home or self-care (01) ==
PROVIDERS: Visit Provider Psychiatry & Neurology Neurology
DX: G20.A2 Parkinson's disease without dyskinesia, with fluctuations (principal); R44.3 Hallucinations, unspecified; G25.2 Other specified forms of tremor
CPT/HCPCS: 99214; G2211

== ENCOUNTER → 2024-06-15 12:03 | Outpatient (BNVA) | payer OTHER, SELFPAY | PROVIDERS: Visit Provider Psychiatry & Neurology Neurology | DX: G20.A2 Parkinson's disease without dyskinesia, with fluctuations (principal); G25.2 Other specified forms of tremor; R44.3 Hallucinations, unspecified; Z79.899 Other long term (current) drug therapy | CPT/HCPCS: 99212 ==

== ENCOUNTER 2024-09-18 11:21 | Outpatient (AMB) | payer OTHER, SELFPAY ==
--- NOTE | 2024-09-18 11:21 | MHC.OFFVIS ---
Intake Visit Reasons: 2 mo follow [phone] w/ Intake Note: Patient presents for follow up parkinsion trial of carbidopa levodopa Allergies Penicillins Allergy (Mild, Verified 09/18/24 11:22) Rash HPI Comments Details: 78y/o Right Handed male calls for follow up of Parkinson disease.He is on carbidopa/levodopa 25/100 2tabs qid Ropinirole 0.5 mg bid and rasagiline 1mg qd He is doing well denies any change . he had questions if blurred vision was caused by carbidopa/levodopa. No falls or halluicnations History from initial visit- he was diagnosed by Late DR. Goldstein about 15 years ago when he presented with right UE rest tremors. He has been under the care of psychiatry for depression PTSD for over 40 years and has been on multiple medications. His psychiatrist noticed his tremors a s referred him to Dr. Goldstein. Currently he is on carbidopa/levodopa ER 50/200 2-1-1-1 Rasagiline 1mg qd ropinirole 0.5mg bid. Memory- good Sleep- he wanders, sleep talks Mood- stable with meds Motivated- good SPeech- softer, mumbles, drooling Trouble swallowing Using utensils- he has weighted spoons and it helps Handwriting- cannot write Dressing - slower and has trouble with buttons Shower- slower Gait- no falls , has back problems which affects his gait No dizziness He has constipation He has mild hallucinations - has insight started before Parkinsons. startles easily No fh/o tremors He was in [place] and exposed to Agent [place] [facility] Medical History Coarse tremors Parkinson's disease without dyskinesia Hallucinations Depression Panic attacks Anxiety PTSD (post-traumatic stress disorder) Skin cancer Hyperlipidemia Squamous cell carcinoma of nose Surgical History History of appendectomy Social History Household Members: Spouse Housing: House Alcohol intake: never Patient Tobacco Use Status: Current everyday Tobacco user Tobacco use type: Cigarette Years Smoked: for 50 years 3-5 cigarettes Physical Exam Const General: cooperative Neuro Other: alert awake oriented X 3 speech - normal Mood stable Telehealth Telehealth Telehealth Platform: Telephone Location of provider rendering services: practice address Location of patient: address on file Patient Identification confirmed using: Name, : Yes Telehealth method: voice only Patient verbally consented to treatment: Yes Patient verbally consented to billing insurance company: Yes Patient informed of any privacy concerns related to visit: Yes Minutes spent on Phone/Video with Pt.: 22 Assessment & Plan Assessment & Plan (1) Parkinson's disease without dyskinesia: Comment: exposure to Agent [place] Code(s): G20.A1 - Parkinson's disease without dyskinesia, without mention of fluctuations Category: Medical Qualifiers: Fluctuating manifestations: with fluctuating manifestations Qualified Code(s): G20.A2 - Parkinson's disease without dyskinesia, with fluctuations (2) Hallucinations: Comment: visual hallucinations. Code(s): R44.3 - Hallucinations, unspecified Category: Social Hx (3) Coarse tremors: Code(s): G25.2 - Other specified forms of tremor Category: Medical Plan In addition to Parkinsonism he has additional features of essential tremors continue carbidopa/levodopa 25/100 2 tabs 8am 12, 4pm, 8pm Ropinirole 0.5 mg bid rasagiline 1mg qd will consider botox decline PT Speech therapy Coding Level of Care Code Tele Est Pt Level 4 (25964) Diagnoses Parkinson's disease without dyskinesia, with fluctuating manifestations G20.A2 Fluctuating manifestations: with fluctuating manifestations Hallucinations R44.3 Coarse tremors G25.2
--- OUTSIDE RECORDS SUMMARY | 2024-09-18 11:48 | XMS_ITS | Encounter Summary ---
Author Name [facility] [place] [facility] Address [address] [place] [address] Care Team Providers Care Home Decorator Name Role Phone MICA BALTAZAR Primary Care [...] Mccray's Name Patient's Relationship to Policy Mccray GLENN SPEARSAyaan ELLIS [id number] May 13, 2015 [id number] JAROCHO VILLASENOR PATIENT MEDICARE (WNR) MEDICARE (M) PART B Nov 10, 2014 PART B [id number] [phone] JAROCHO VILLASENOR PATIENT MEDICARE (WNR) MEDICARE (M) PART A Oct 11, 2009 PART A [id number] [phone] JAROCHO VILLASENOR PATIENT MEDICARE (WNR) MEDICARE (M) PART A Oct 11, 2009 PART A [id number] [phone] JAROCHO VILLASENOR PATIENT MEDICARE (WNR) MEDICARE (M) PART B Oct 11, 2009 PART B [id number] JAROCHO VILLASENOR PATIENT MEDICARE (WNR) MEDICARE (M) PART A Oct 11, 2009 PART A [id number] [phone] JAROCHO VILLASENOR PATIENT MEDICARE (WNR) MEDICARE (M) PART B Oct 11, 2009 PART B [id number] JAROCHO VILLASENOR PATIENT MEDICARE PART D (WNR) PRESCRIPT ION PART D May 13, 2015 PART D [id number] [phone] JAROCHO VILLASENOR PATIENT [employer] (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 Date/Time Encounter Type Encounter Description Reason Provider Source Apr 21, 2024 11:30 AM OFFICE O/P EST MOD 30 MIN [facility] - IND ICD-10-CM F43.12 Post-traumatic stress disorder, chronic DELANEY TODD IHE Encounter Template Text not used by [place] Assessments - Encounter Diagnoses This section includes the primary and secondary diagnoses documented for the Encounter. Date/Time Primary/Secondary Diagnosis Diagnosis Name Provider Source Apr 21, 2024 12:01 PM PRIMARY Post-traumatic stress disorder, chronic DELANEY TODD [place] [facility] [place] [facility] Apr 21, 2024 12:01 PM SECONDARY Insomnia due to other mental disorder [facility] Plan of Treatment: Future Appointments (+ 6 months) and Future Tests (+/- 45 days) The Plan of Treatment section includes future care activities for the patient from all [place] treatmentfacilities. This section includes future appointments and future orders which are active, pending or scheduled. Future Appointments This section includes appointments that were scheduled to occur 6 months from the date of the Encounter, up to a maximum of 20 appointments. The data comes from all [place] treatment facilities. Appointment Date/Time Appointment Type Appointme nt Facility Name May 22, 2024 10:30 AM AMBULATORY - [facility]INE [facility] [place] [facility] Jun 18, 2024 11:30 AM [facility] Jul 28, 2024 11:30 AM [facility] September 30, 2024 11:30 AM AMBULATORY - PSYCHIATRY [facility] Lab Results: +/- 30 days of the encounter This section includes the Chemistry and Hematology Lab Results on record with [place] for the patient. Radiology Reports and Pathology Reports are provided separately, in subsequent sections. Lab Results This section contains the Chemistry/Hematology Results that were resulted 30 days before or 30 daysafter the date of the Encounter. Date/Time Source Result Type Result - Unit Interpretation Reference Range Specimen Type Comment Apr 22, 2024 08:26 AM [facility] TSH SERUM Specimen Type: SERUM No comment entered. Ordering Provider: MICA BALTAZAR Report Released Date/Time: Apr 05, 2024 04:17 PM Reporting Lab: [address] [address] Performing Lab: [address] [address] TSH 1.09 u[IU]/mL 0.35-5.00 Apr 22, 2024 08:26 AM [facility] LIPID PANEL FASTING SERUM Specimen Type: SERU M No comment entered. Ordering Provider: MICA BALTAZAR Report Released Date/Time: Apr 05, 2024 04:17 PM Reporting Lab: [address] [address] Performing Lab: [address] [address] CHOLESTEROL 207 mg/dL H TRIGLYCERIDE 101 mg/dL 0-150 LDL calculated 135 mg/dL H 0-129 CHOL/HDL 4.0 HDL CHOLESTEROL 52 mg/dL 40-60 Apr 22, 2024 08:26 AM [facility] LIVER FUNCTION SERUM Specimen Type: SERUM No comment entered. Ordering Provider: MICA BALTAZAR Report Released Date/Time: Apr 05, 2024 04:17 PM Reporting Lab: [address] [address] Performing Lab: [address] [address] PROTEIN,TOTAL 6.6 g/dL 6.0-8.3 ALBUMIN 3.9 g/dL 3.5-5.0 ALKALINE PHOSPHATASE 66 U/L 40-150 AST 10 U/L 5-34 ALT <6 U/L BILIRUBIN, TOTAL 0.7 mg/dL 0.2-1.2 Apr 22, 2024 08:26 AM [facility] BASIC METABOLIC PANEL (fasting) SERUM Specime n Type: SERUM No comment entered. Ordering Provider: MICA BALTAZAR Report Released Date/Time: Apr 05, 2024 04:17 PM Reporting Lab: [address] [address] Performing Lab: [address] [address] UREA NITROGEN 15 mg/dL 7-25 GLUCOSE 98 mg/dL 65-100 SODIUM 142 mmol/L 135-145 POTASSIUM 4.8 mmol/L 3.5-5.0 CHLORIDE 103 mmol/L 100-110 CO2 31 meq/L H 20-30 CREATININE, Serum 0.81 mg/dL 0.50-1.40 eGFR(CKD-EPI 2020) 90 mL/min >60 Apr 22, 2024 08:26 AM [facility] URINALYSIS CLEAN CATCH URINE Specimen Type: U RINE Comment: If Glucose = >500 and Ketones are positive, please alert the Physician. Ordering Provider: MICA BALTAZAR Report Released Date/Time: Apr 05, 2024 04:17 PM Reporting Lab: [address] [address] Performing Lab: [address] [address] UA COLOR Light-Yellow Yellow UA APPEARANCE Clear Clear UA GLUCOSE Normal mg/dL Negative UA KETONES NEGATIVE mg/dL Negative UA BLOOD NEGATIVE mg/dL Negative UA PROTEIN NEGATIVE mg/dL Negative UA NITRITE NEGATIVE mg/dL Negative UA BILIRUBIN NEGATIVE mg/dL Negative UA SPECIFIC GRAVITY 1.020 1.016-1.022 UA pH 6.5 5.0-9.0 UA UROBILINOGEN Normal mg/dL <2.0 UA LEUKOCYTE NEGATIVE Negative Apr 22, 2024 08:26 AM [facility] CBC AND DIFF (AUTO) BLOOD Specimen Type: BLOO D No comment entered. Ordering Provider: MICA BALTAZAR Report Released Date/Time: Apr 05, 2024 04:17 PM Reporting Lab: [facility] [address] [facility] [address] Performing Lab: [facility] [address] [facility] [address] WBC 4.92 10*3/uL 4.50-11.00 RBC 4.55 10*6/uL [...] 0.2 0.0-0.7 IMMATURE GRAN, ABS 0.01 10*3/uL 0.00-0.0 6 NRBC % 0.0 0.0-0.0 NRBC, ABS 0.00 10*3/uL 0.00-0.00 Social History: Smoking Status (Most current) and Tobacco Use (All prior to encounter date) This section includes the most current, and the historical, smoking and tobacco- related health factors from the [place] facility where the Encounter took place. Current Smoking Status This section includes the most current smoking, or tobacco-related health factor, from the [place] facility where the Encounter took place. Date/Time Current Smoking Status Comment Facil dexter May 23, 2023 10:30 AM VA-TOBACCO USER EVERY DAY [place] [facility] [place] [facility] Tobacco Use History This section includes a history of the smoking, or tobacco-related health factors, that were collected on or before the date of the Encounter. The data comes from the [place] facility where the Encounter took place. Date/Time Smoking Status/Tobac co Use Comment Facility May 23, 2023 10:30 AM VA-TOBACCO USE 30 YEARS OR MORE [facility] [place] [facility] May 23, 2023 10:30 AM VA-TOBACCO USE ADVICE [place] [facility] [place] 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 May 23, 2023 10:30 AM VA-TOBACCO USE MED NO [place] [facility] [place] [facility] May 23, 2023 10:30 AM VA-TOBACCO USER EVERY DAY [place] [facility] [place] [facility] May 23, 2022 09:30 AM VA-TOBACCO USE 30 YEARS OR MORE [place] [facility] [place] [facility] May 23, 2022 09:30 AM VA-TOBACCO USE ADVICE [place] [facility] [place] [facility] May 23, 2022 09:30 AM VA-TOBACCO USE SCRAP PREPARER NO [facility] [place] [facility] May 23, 2022 09:30 AM VA-TOBACCO USE MED NO [place] [facility] [place] [facility] May 23, 2022 09:30 AM VA-TOBACCO USE WI 30 MIN OF WAKEUP [facility] [place] [facility] May 23, 2022 09:30 AM VA-TOBACCO USER SOME DAYS [facility] [place] [facility] May 22, 2021 01:30 PM VA-TOBACCO FORMER USER [facility] [place] [facility] May 22, 2021 01:30 PM VA-TOBACCO QUIT 15 YRS OR MORE [facility] [place] [facility] May 24, 2020 09:00 AM VA-TOBACCO FORMER USER [facility] [place] [facility] May 24, 2020 09:00 AM VA-TOBACCO QUIT 15 YRS OR MORE [place] [facility] [place] [facility] Nov 24, 2018 08:52 AM VA-TOBACCO FORMER USER [place] [facility] [place] [facility] Nov 24, 2018 08:52 AM VA-TOBACCO QUIT 15 YRS OR MORE [place] [facility] [place] [facility] May 21, 2018 08:52 AM VA-TOBACCO FORMER USER [place] [facility] [place] [facility] May 21, 2018 08:52 AM VA-TOBACCO QUIT 5 TO < 15 YRS [place] [facility] [place] [facility] May 21, 2017 09:01 AM LIFETIME NON-TOBACCO USER [place] [facility] [place] [facility] Jun 12, 2016 09:16 AM QUIT TOBACCO USE > 7 YEARS AGO [place] [facility] [place] [facility] Jul 11, 2015 09:16 AM QUIT TOBACCO USE > 7 YEARS AGO [place] [facility] [place] [facility] Aug 06, 2014 09:11 AM QUIT TOBACCO USE 1-7 YEARS AGO [place] [facility] [place] [facility] Jan 08, 2014 09:12 AM QUIT TOBACCO USE IN PAST YEAR [place] [facility] [place] [facility] May 01, 2013 08:55 AM CURRENT SMOKER [place] [facility] [place] [facility] May 01, 2013 08:55 AM V1-PT NOT INTERESTED IN QUIT TOBACCO USE [place] [facility] [place] [facility] Nov 07, 2012 08:35 AM V1-PT DECLINES TOBACCO CESSATION MEDS [place] [facility] [place] [facility] Nov 07, 2012 08:35 AM V1-PT THINKING ABOUT QUIT TOBACCO USE [place] [facility] [place] [facility] May 08, 2012 09:00 AM CURRENT SMOKER [place] [facility] [place] [facility] May 08, 2012 09:00 AM V1-PT DECLINES TOBACCO CESSATION MEDS [place] [facility] [place] [facility] May 08, 2012 09:00 AM V1-PT THINKING ABOUT QUIT TOBACCO USE [place] [facility] [place] [facility] Nov 09, 2011 08:43 AM V1-PT DECLINES TOBACCO CESSATION MEDS [place] [facility] [place] [facility] Nov 09, 2011 08:43 AM V1-PT THINKING ABOUT QUIT TOBACCO USE [place] [facility] [place] [facility] Dec 29, 2010 08:58 AM CURRENT SMOKER Thinking to quit [place] [facility] [place] [facility] Dec 29, 2010 08:58 AM V1-PT DECLINES TOBACCO CESSATION MEDS [place] [facility] [place] [facility] Dec 29, 2010 08:58 AM V1-PT THINKING ABOUT QUIT TOBACCO USE [place] [facility] [place] [facility] Jun 30, 2010 08:30 AM V1-PT DECLINES REF TO TOBACCO CESS PRGM [facility] [place] [facility] Jun 30, 2010 08:30 AM V1-PT DECLINES TOBACCO CESSATION MEDS [place] [facility] [place] [facility] Jun 30, 2010 08:30 AM V1-PT THINKING ABOUT QUIT TOBACCO USE [place] [facility] [place] [facility] Dec 30, 2009 09:18 AM CURRENT SMOKER Try to quit [place] [facility] [place] [facility] Dec 30, 2009 09:18 AM V1-PT DECLINES REF TO TOBACCO CESS PRGM [place] [facility] [place] [facility] Dec 30, 2009 09:18 AM V1-PT DECLINES TOBACCO CESSATION MEDS [place] [facility] [place] [facility] Dec 30, 2009 09:18 AM V1-PT THINKING ABOUT QUIT TOBACCO USE [place] [facility] [place] [facility] Dec 17, 2008 08:44 AM CURRENT SMOKER [place] [facility] [place] [facility] Dec 17, 2008 08:44 AM V1-PT DECLINES REF TO TOBACCO CESS PRGM [place] [facility] [place] [facility] Dec 17, 2008 08:44 AM V1-PT DECLINES TOBACCO CESSATION MEDS [facility] [place] [facility] Dec 17, 2008 08:44 AM V1-PT THINKING ABOUT QUIT TOBACCO USE [place] [facility] [place] [facility] Jun 18, 2008 08:47 AM V1-PT DECLINES REF TO TOBACCO CESS PRGM [facility] [place] [facility] Jun 18, 2008 08:47 AM V1-PT DECLINES TOBACCO CESSATION MEDS [facility] [place] [facility] Jun 18, 2008 08:47 AM V1-PT THINKING ABOUT QUIT TOBACCO USE [place] [facility] [place] [facility] Dec 12, 2007 08:59 AM CURRENT SMOKER [place] [facility] [place] [facility] Dec 12, 2007 08:59 AM V1-PT DECLINES REF TO TOBACCO CESS PRGM [facility] [place] [facility] Dec 12, 2007 08:59 AM V1-PT DECLINES TOBACCO CESSATION MEDS [facility] Dec 12, 2007 08:59 AM V1-PT THINKING ABOUT QUIT TOBACCO USE [facility] Jun 13, 2007 09:30 AM V1-PT DECLINES REF TO TOBACCO CESS PRGM [facility] Jun 13, 2007 09:30 AM V1-PT DECLINES TOBACCO CESSATION MEDS [facility] Jun 13, 2007 09:30 AM V1-PT THINKING ABOUT QUIT TOBACCO USE [facility] 2006 09:09 AM CURRENT SMOKER Not ready as yet to quit [facility] Aug 03, 2005 08:20 AM CURRENT SMOKER [facility] Apr 19, 2004 10:13 AM CURRENT SMOKER [facility] Mar 26, 2003 09:23 AM CURRENT SMOKER trying to cut down. [facility] Feb 17, 2002 11:07 AM CURRENT SMOKER [facility] Advance Directives: All historical and current Section Date Range: From patient's date of to the date document was created. This section includes ALL of a patient's completed or amended [place] Advance and Rescinded Directives. The entries below indicate that a directive exists for the patient, but an actual copy is not included with this document. The data comes from all [place] facilities. Date Advance Directives Provider Source Jun 12, 2019 ADVANCE DIRECTIVE MICA BALTAZAR [facility] Encounter Notes: All associated encounter notes [...] Simon Todd. The clinical justification for this [facility] query is to review controlled substances prescribed outside of the [facility], and any additional information that may become available, as an important component of standard clinical care, and in accordance with [facility] policy. Patient information was shared with the PDMP [place]. No prescription(s) for controlled substances outside the [facility] were found in the last 90 days. /kev/ SIMON TODD Psychiatric Mental Health Nurse Practitioner Signed: 04/27/2024 16:10 SIMON TODD [place] [facility] [place] [facility] Apr 21, 2024 11:44 AM PRIMARY CARE NURSE PRACTITIONER OUTPATIENT NOTE: LOCAL TITLE: NURSE PRACTITIONER OUTPATIENT NOTE STANDARD TITLE: PRIMARY CARE NURSE PRACTITIONER OUTPATIENT NOTE DATE OF NOTE: APR 21, 2024@11:44 ENTRY DATE: APR 21, 2024@11:44:25 AUTHOR: SIMON TODD EXP COSIGNER: URGENCY: STATUS: COMPLETED OUTPATIENT MENTAL HEALTH CLINIC: FOLLOW-UP Visit is being conducted by [place] [facility] [employer]. Waldron identified with 2 identifiers: Full Name Date of Emergency Plan: confirmed and/or provided the following information in case of emergency or technology failure. PATIENT PHONE - PHONE NUMBER [CELLULAR] - Is patient phone number correct, if not, enter below: Waldron's phone number: CHRISTIANO VILLASENOR [address], [place], [address] Waldron's present location and address for appointment: home Waldron's emergency contact name and phone number: up to date in CPRS Waldron reported that location is private and safe: yes HPI: CHRISTIANO VILLASENOR, a 78 y/o male previously diagnosed with PTSD and PMH significant for Parkinson's disease presents for [facility]-Up appointment. Last seen by This Provider [...] think I'm pretty well set on everything explicitly and convincingly denied SI, intent or plan and denied thoughts of harming others. SUBSTANCE USE: Tobacco: 3-5 cigarettes per day Alcohol: denied Narcotics: denied Cannabis: denied PSYCHIATRIC HISTORY: Medication trials: Melatonin trial ineffective and he has stopped taking MIRTAZAPINE RASAGILINE for PD PHENELZINE ([id number]) chart review suggests that change was prompted by change from phenelzine to tranylcyrpromine due to nationwide unavailability of phenelzine. SERTRALINE TRANYLCYPROMINE DOXEPIN ineffective ESZOPICLONE never initiated Inpatient Hospitalizations: denied Suicidal Acts and Self-Harm: denied HISTORY OF VIOLENCE/ASSAULTING OTHERS: denied FAMILY MENTAL HEALTH AND SUBSTANCE USE HISTORY: denied SOCIAL HISTORY: Per [facility] Assessment (06/03/2023), confirmed by during assessment BORN IN [place] TO PARENTS. I AM MIDDLE OF THREE CHILDREN. MOM WAS A STAY AT HOME MOTHER AND DAD WAS A [place]ESS [place] IN A [place]. IT WAS MOSTLY US AND MY MOTHER'S SISTER LIVED WITH US. WE DID NOT GO TO RESTORATION. FOR DISCIPLINE, WE DIDN'T DARE DO ANYTHING WRONG. WAIT TILL YOUR FATHER COMES HOME - THE FEAR WAS ENOUGH. 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 I PLAYED FOOTBALL FOR ONE YEAR. I GRADUATED FROM [employer] IN 1962. I WAS DRAFTED INTO THE [employer] IN 1964 AND [facility] I WAS SENT TO Walk-in Appointment Scheduler FOR 13 MONTHS. I GOT OUT ON [...] SOMETHING ELSE. 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 I THINK IT WAS A PERSONALITY CONFLICT WITH THE PERSON IN CHARGE. I QUIT. I THEN WENT TO [employer]. 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 THEY CHANGED MY JOB DESCRIPTION AND GAVE [...] IT. I DO NOT GO ONLINE. History: [id number]. ONE 13 MO DEPLOYMENT TO [employer]. MULTIPLE [...] hazardous s 07/18/2023 KAYLEIGH KENDRICK Hypercholesterolemia ([facility] [id number]) 05/21/2019 MICA BALTAZAR Parkinsonian gait (SNOMED CT 538549 04/04/2015 RIGO DYKES Posttraumatic stress disorder, vahe 01/31/2016 NIKOLAY SULTANA ALLERGIES: Data on this list may not be complete. Please check JLV. FACILITY ALLERGY/ADR -------- No Remote Allergy/ADR Data available for this patient [place] [facility] [place] [facility] PENICILLIN MEDICATIONS: reviewed [...] well as common and severe side effects. Waldron comprehended all information discussed, had opportunity to ask questions which were answered to their satisfaction, and voluntarily and without duress agreed to trial as documented. CONTACT AND CRISIS INFO: Waldron informed that This Provider can be contacted at , EXT [phone] or via Secure Messaging. We have reviewed the Crisis Hotline (298, dial #1 for line), and the has [...] court of law and presented to a mds nurse), and DOD access for active-duty service members. [...] this VA (local) and dispensed from another [place] or [facility] facility (remote) as well as [...] this VA (local) and dispensed from another [place] or [facility] facility (remote) as well as [...] Nurse Practitioner Signed: 04/21/2024 12:01 SIMON TODD [facility]
--- OUTSIDE RECORDS SUMMARY | 2024-09-18 11:48 | XMS_ITS | Encounter Summary ---
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 Name Role Phone MICA BALTAZAR Primary [...] SPEARSAyaan ELLIS [id number] May 13, 2015 [id number] [phone] JAROCHO VILLASENOR PATIENT MEDICARE (WNR) MEDICARE (M) PART B Nov 10, 2014 PART B [id number] JAROCHO VILLASENOR PATIENT MEDICARE (WNR) MEDICARE (M) PART A Oct 11, 2009 PART A [id number] JAROCHO VILLASENOR PATIENT MEDICARE (WNR) MEDICARE (M) PART A Oct 11, 2009 PART A [id number] JAROCHO VILLASENOR PATIENT MEDICARE (WNR) MEDICARE (M) PART B Oct 11, 2009 PART B [id number] [phone] JAROCHO VILLASENOR PATIENT MEDICARE (WNR) MEDICARE (M) PART A Oct 11, 2009 PART A [id number] [phone] JAROCHO VILLASENOR PATIENT MEDICARE (WNR) MEDICARE (M) PART B Oct 11, 2009 PART B [id number] [phone] JAROCHO VILLASENOR PATIENT MEDICARE PART D (WNR) PRESCRIPT ION PART D May 13, 2015 PART D [id number] JAROCHO VILLASENOR PATIENT [employer] (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 Date/Time Encounter Type Encounter Description Reason Provider Source Feb 26, 2024 11:30 AM OFFICE O/P EST MOD 30 MIN [facility] - IND ICD-10-CM F43.12 Post-traumatic stress disorder, chronic DOREEN,DELANEY N IHE Encounter Template Text not used by ND Assessments - Encounter Diagnoses This section includes the primary and secondary diagnoses documented for the Encounter. Date/Time Primary/Secondary Diagnosis Diagnosis Name Provider Source Mar 04, 2024 04:28 PM PRIMARY Post-traumatic stress disorder, chronic DOREEN,DELANEY N [place] [facility] [place] [facility] Plan of Treatment: Future Appointments (+ 6 months) and Future Tests (+/- 45 days) The Plan of Treatment section includes future care activities for the patient from all [place] treatmentfacilities. This section includes future appointments and future orders which are active, pending or scheduled. Future Appointments This section includes appointments that were scheduled to occur 6 months from the date of the Encounter, up to a maximum of 20 appointments. The data comes from all [place] treatment facilities. Appointment Date/Time Appointment Type Appointme nt Facility Name Mar 25, 2024 11:30 AM AMBULATORY - PSYCHIATRY [place] [facility] [place] [facility] Apr 21, 2024 11:30 AM AMBULATORY - PSYCHIATRY [place] [facility] [place] [facility] May 22, 2024 10:30 AM AMBULATORY - MEDICINE ND C [facility] [place] [facility] Jun 18, 2024 11:30 AM AMBULATORY - PSYCHIATRY [place] [facility] [place] [facility] Jul 28, 2024 11:30 AM AMBULATORY - PSYCHIATRY [place] [facility] [place] [facility] Social History: Smoking Status (Most current) and Tobacco Use (All prior to encounter date) This section includes the most current, and the historical, smoking and tobacco- related health factors from the [place] facility where the Encounter took place. Current Smoking Status This section includes the most current smoking, or tobacco-related health factor, from the [place] facility where the Encounter took place. Date/Time Current Smoking Status Comment Don mcnally May 23, 2023 10:30 AM VA-TOBACCO USER EVERY DAY [place] [facility] [place] [facility] Tobacco Use History This section includes a history of the smoking, or tobacco-related health factors, that were collected on or before the date of the Encounter. The data comes from the [place] facility where the Encounter took place. 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 [facility] [place] [facility] May 23, 2023 10:30 AM VA-TOBACCO USE MED NO [facility] [place] [facility] May 23, 2023 10:30 AM VA-TOBACCO USER EVERY DAY [facility] [place] [facility] May 23, 2022 09:30 AM VA-TOBACCO USE 30 YEARS OR MORE [facility] [place] [facility] May 23, 2022 09:30 AM VA-TOBACCO USE ADVICE [facility] [place] [facility] May 23, 2022 09:30 AM 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 [facility] [place] [facility] May 23, 2022 09:30 AM VA-TOBACCO USE MED NO [facility] [place] [facility] May 23, 2022 09:30 AM VA-TOBACCO USE WI 30 MIN OF WAKEUP [facility] [place] [facility] May 23, 2022 09:30 AM VA-TOBACCO USER SOME DAYS [facility] [place] [facility] May 22, 2021 01:30 PM VA-TOBACCO FORMER USER [facility] [place] [facility] May 22, 2021 01:30 PM VA-TOBACCO QUIT 15 YRS OR MORE [facility] [place] [facility] May 24, 2020 09:00 AM VA-TOBACCO FORMER USER [facility] [place] [facility] May 24, 2020 09:00 AM VA-TOBACCO QUIT 15 YRS OR MORE [place] [facility] [place] [facility] Nov 24, 2018 08:52 AM VA-TOBACCO FORMER USER [facility] [place] [facility] Nov 24, 2018 08:52 AM VA-TOBACCO QUIT 15 YRS OR MORE [facility] [place] [facility] May 21, 2018 08:52 AM VA-TOBACCO FORMER USER [facility] [place] [facility] May 21, 2018 08:52 AM VA-TOBACCO QUIT 5 TO < 15 YRS [facility] [place] [facility] May 21, 2017 09:01 AM LIFETIME NON-TOBACCO USER [place] [facility] [place] [facility] Jun 12, 2016 09:16 AM QUIT TOBACCO USE > 7 YEARS AGO [facility] [place] [facility] Jul 11, 2015 09:16 AM QUIT TOBACCO USE > 7 YEARS AGO [facility] [place] [facility] Aug 06, 2014 09:11 AM QUIT TOBACCO USE 1-7 YEARS AGO [facility] [place] [facility] Jan 08, 2014 09:12 AM QUIT TOBACCO USE IN PAST YEAR [place] [facility] [place] [facility] May 01, 2013 08:55 AM CURRENT SMOKER [facility] [place] [facility] May 01, 2013 08:55 AM V1-PT NOT INTERESTED IN QUIT TOBACCO USE [facility] [place] [facility] Nov 07, 2012 08:35 AM V1-PT DECLINES TOBACCO CESSATION MEDS [facility] [place] [facility] Nov 07, 2012 08:35 AM V1-PT THINKING ABOUT QUIT TOBACCO USE [facility] [place] [facility] May 08, 2012 09:00 AM CURRENT SMOKER [facility] [place] [facility] May 08, 2012 09:00 AM V1-PT DECLINES TOBACCO CESSATION MEDS [facility] [place] [facility] May 08, 2012 09:00 AM V1-PT THINKING ABOUT QUIT TOBACCO USE [facility] [place] [facility] Nov 09, 2011 08:43 AM V1-PT DECLINES TOBACCO CESSATION MEDS [facility] [place] [facility] Nov 09, 2011 08:43 AM V1-PT THINKING ABOUT QUIT TOBACCO USE [facility] [place] [facility] Dec 29, 2010 08:58 AM CURRENT SMOKER Thinking to quit [facility] [place] [facility] Dec 29, 2010 08:58 AM V1-PT DECLINES TOBACCO CESSATION MEDS [facility] [place] [facility] Dec 29, 2010 08:58 AM V1-PT THINKING ABOUT QUIT TOBACCO USE [facility] [place] [facility] Jun 30, 2010 08:30 AM V1-PT DECLINES REF TO TOBACCO CESS PRGM [facility] Jun 30, 2010 08:30 AM V1-PT DECLINES TOBACCO CESSATION MEDS [facility] Jun 30, 2010 08:30 AM V1-PT THINKING ABOUT QUIT TOBACCO USE [facility] [place] [facility] Dec 30, 2009 09:18 AM CURRENT SMOKER Try to quit [facility] Dec 30, 2009 09:18 AM V1-PT DECLINES REF TO TOBACCO CESS PRGM [facility] Dec 30, 2009 09:18 AM V1-PT DECLINES TOBACCO CESSATION MEDS [facility] Dec 30, 2009 09:18 AM V1-PT THINKING ABOUT QUIT TOBACCO USE [facility] [place] [facility] Dec 17, 2008 08:44 AM CURRENT SMOKER [facility] [place] [facility] Dec 17, 2008 08:44 AM V1-PT DECLINES REF TO TOBACCO CESS PRGM [facility] [place] [facility] Dec 17, 2008 08:44 AM V1-PT DECLINES TOBACCO CESSATION MEDS [facility] [place] [facility] Dec 17, 2008 08:44 AM V1-PT THINKING ABOUT QUIT TOBACCO USE [facility] [place] [facility] Jun 18, 2008 08:47 AM V1-PT DECLINES REF TO TOBACCO CESS PRGM [facility] Jun 18, 2008 08:47 AM V1-PT DECLINES TOBACCO CESSATION MEDS [facility] Jun 18, 2008 08:47 AM V1-PT THINKING ABOUT QUIT TOBACCO USE [facility] Dec 12, 2007 08:59 AM CURRENT SMOKER [facility] Dec 12, 2007 08:59 AM V1-PT DECLINES REF TO TOBACCO CESS PRGM [facility] Dec 12, 2007 08:59 AM V1-PT DECLINES TOBACCO CESSATION MEDS [facility] Dec 12, 2007 08:59 AM V1-PT THINKING ABOUT QUIT TOBACCO USE [facility] Jun 13, 2007 09:30 AM V1-PT DECLINES REF TO TOBACCO CESS PRGM [facility] Jun 13, 2007 09:30 AM V1-PT DECLINES TOBACCO CESSATION MEDS [facility] Jun 13, 2007 09:30 AM V1-PT THINKING ABOUT QUIT TOBACCO USE [facility] 2006 09:09 AM CURRENT SMOKER Not ready as yet to quit [facility] Aug 03, 2005 08:20 AM CURRENT SMOKER [facility] Apr 19, 2004 10:13 AM CURRENT SMOKER [facility] Mar 26, 2003 09:23 AM CURRENT SMOKER trying to cut down. [facility] Feb 17, 2002 11:07 AM CURRENT SMOKER [facility] Advance Directives: All historical and current Section Date Range: From patient's date of to the date document was created. This section includes ALL of a patient's completed or amended [place] Advance and Rescinded Directives. The entries below indicate that a directive exists for the patient, but an actual copy is not included with this document. The data comes from all [place] facilities. Date Advance Directives Provider Source Jun 12, 2019 ADVANCE DIRECTIVE MICA BALTAZAR [facility] Encounter Notes: All associated encounter notes This section contains the clinical notes associated to the Encounter. Date/Time Encounter Note(s) Provider Source Feb 26, 2024 11:45 AM ACCOUNTING OF DISCLOSURES NOTE: LOCAL TITLE: STATE PRESCRIPTION DRUG MONITORING PROGRAM STANDARD TITLE: ACCOUNTING OF DISCLOSURES NOTE DATE OF NOTE: FEB 26, 2024@11:45:11 ENTRY DATE: FEB 26, 2024@11:45:11 AUTHOR: SIMON TODDIGNER: URGENCY: STATUS: COMPLETED This PDMP query was submitted by Simon Todd. The clinical justification for this PDMP query is to review controlled substances prescribed outside of the [facility], and any additional information that may become available, as an important component of standard clinical care, and in accordance with [facility] policy. Patient information was shared with the PDMP [place]. No prescription(s) for controlled substances outside the [facility] were found in the last 90 days. /kev/ SIMON TODD Psychiatric Mental Health Nurse Practitioner Signed: 02/26/2024 11:45 SIMON TODD [place] [facility] [place] [facility] Feb 26, 2024 11:43 AM PRIMARY CARE NURSE PRACTITIONER OUTPATIENT NOTE: LOCAL TITLE: NURSE PRACTITIONER OUTPATIENT NOTE STANDARD TITLE: PRIMARY CARE NURSE PRACTITIONER OUTPATIENT NOTE DATE OF NOTE: FEB 26, 2024@11:43 ENTRY DATE: FEB 26, 2024@11:43:25 AUTHOR: SIMON TODDIGNER: URGENCY: STATUS: COMPLETED OUTPATIENT MENTAL HEALTH CLINIC: FOLLOW-UP Visit is being conducted by ND [facility]. identified with 2 identifiers: Full Name Date of Emergency Plan: [place] confirmed and/or provided the following information in case of emergency or technology failure. PATIENT PHONE - PHONE NUMBER [CELLULAR] - Is patient phone number correct, if not, enter below: [place]'s phone number: CHRISTIANO VILLASENOR [address], [place], [address] [place]'s present location and address for appointment: home 's emergency contact name and phone number: up to date in CPRS [place] reported that location is private and safe: yes HPI: CHRISTIANO VILLASENOR, a 78 y/o male previously diagnosed with PTSD and PMH significant for Parkinson's disease [place] [facility] [place]. Last seen by This Provider on 12/17/23 [place] reports mood as pretty good Sleep has [...] stopped taking MIRTAZAPINE RASAGILINE for PD PHENELZINE ([id number]) chart review suggests that change was prompted by change from phenelzine to tranylcyrpromine due to nationwide unavailability of phenelzine. SERTRALINE TRANYLCYPROMINE Inpatient Hospitalizations: denied Suicidal Acts and Self-Harm: denied HISTORY OF VIOLENCE/ASSAULTING OTHERS: denied FAMILY MENTAL HEALTH AND SUBSTANCE USE HISTORY: denied SOCIAL HISTORY: Per [facility] Outpatient Mental Health Assessment (06/03/2023), confirmed by during assessment BORN IN [place] TO PARENTS. I AM MIDDLE OF THREE CHILDREN. MOM WAS A STAY AT HOME MOTHER AND DAD WAS A PRESS CLARK IN A PAPER [employer]. IT WAS MOSTLY US AND MY MOTHER'S SISTER LIVED WITH US. WE DID NOT GO TO [facility]. FOR DISCIPLINE, WE DIDN'T DARE DO ANYTHING WRONG. WAIT TILL YOUR FATHER COMES HOME - THE FEAR WAS ENOUGH. 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 I PLAYED FOOTBALL FOR ONE YEAR. I GRADUATED [facility] [employer] IN 1962. I WAS DRAFTED INTO THE [employer] IN 1964 AND SERVED IN [facility] [employer]. I WAS SENT TO [employer] FOR 13 MONTHS. I GOT OUT ON [...] WAIT ANY LONGER. I WORKED IN AN [employer] FOR 11 YEARS. I LEFT THAT JOB TO FIND SOMETHING ELSE. 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 I THINK IT WAS A PERSONALITY CONFLICT WITH THE PERSON IN CHARGE. I QUIT. I THEN WENT TO [employer]. 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 THEY CHANGED MY JOB DESCRIPTION AND GAVE [...] IT. I DO NOT GO ONLINE. History: [id number]. ONE 13 MO DEPLOYMENT TO [place]. MULTIPLE [...] potentially hazardous s 07/18/2023 KAYLEIGH KENDRICK Hypercholesterolemia ([facility] [id number]) 05/21/2019 MICA BALTAZAR Parkinsonian gait (SNOMED CT 956003 04/04/2015 RIGO DYKES Posttraumatic stress disorder, vahe 01/31/2016 NIKOLAY SULTANA ALLERGIES: Data on this list may not be complete. Please check [facility]. FACILITY ALLERGY/ADR -------- No Remote Allergy/ADR Data available for this patient [place] [facility] [place] [facility] [place] MEDICATIONS: reviewed [...] treatment and demonstration of help-seeking behaviors. IMPRESSION: [place] presents as polite, cooperative and treatment motivated [...] Provider can be contacted at , EXT [phone] or via Secure Messaging. We have reviewed the Crisis Hotline (134, dial #1 for line), and the [place] has been instructed to call 911 or [...] court of law and presented to a grinder), and DOD access for active-duty service members. [...] of active outpatient prescriptions dispensed from this ND (local) and dispensed from another [place] or DoD facility (remote) as well as [...] Nurse Practitioner Signed: 03/04/2024 16:27 SIMON TODD [place] [facility] [facility]
--- OUTSIDE RECORDS SUMMARY | 2024-09-18 11:48 | XMS_ITS | Encounter Summary ---
Author Name [facility] [place] Organization [facility] [place] [facility] [place] Address [address] [place] [address] Care Team Providers Care Sustainable Agriculture Faculty Name Role Phone MICA BALTAZAR Primary Care [...] SPEARSAyaan ELLIS [id number] May 13, 2015 [id number] JAROCHO VILLASENOR PATIENT MEDICARE (WNR) MEDICARE (M) PART B Nov 10, 2014 PART B [id number] JAROCHO VILLASENOR PATIENT MEDICARE (WNR) MEDICARE (M) PART A Oct 11, 2009 PART A [id number] [phone] JAROCHO VILLASENOR PATIENT MEDICARE (WNR) MEDICARE (M) PART A Oct 11, 2009 PART A [id number] [phone] JAROCHO VILLASENOR PATIENT MEDICARE (WNR) MEDICARE (M) PART B Oct 11, 2009 PART B [id number] JAROCHO VILLASENOR PATIENT MEDICARE (WNR) MEDICARE (M) PART A Oct 11, 2009 PART A [id number] [phone] JAROCHO VILLASENOR PATIENT MEDICARE (WNR) MEDICARE (M) PART B Oct 11, 2009 PART B [id number] JAROCHO VILLASENOR PATIENT MEDICARE PART D (WNR) PRESCRIPT ION PART D May 13, 2015 PART D [id number] JAROCHO VILLASENOR PATIENT [employer] (OPT/PROF ) [facility] * Mar 13, 2015 [id number] JAROCHO VILLASENOR PATIENT Selected Encounter This section includes the information on record at [place] for the Encounter. Date/Time Encounter Type Encounter Description Reason Provider Source Dec 17, 2023 11:30 AM OFFICE O/P EST MOD 30 MIN [facility] - IND ICD-10-CM F43.12 Post-traumatic stress disorder, chronic DOREEN,DELANEY N IHE Encounter Template Text not used by [place] Assessments - Encounter Diagnoses This section includes the primary and secondary diagnoses documented for the Encounter. Date/Time Primary/Secondary Diagnosis Diagnosis Name Provider Source Dec 25, 2023 09:03 AM PRIMARY Post-traumatic stress disorder, chronic DOREENDELANEY N [facility] [place] [facility] Plan of Treatment: Future Appointments (+ 6 months) and Future Tests (+/- 45 days) The Plan of Treatment section includes future care activities for the patient from all [place] treatmentfacilities. This section includes future appointments and future orders which are active, pending or scheduled. Future Appointments This section includes appointments that were scheduled to occur 6 months from the date of the Encounter, up to a maximum of 20 appointments. The data comes from all [place] treatment facilities. Appointment Date/Time Appointment Type Appointme nt Facility Name Feb 26, 2024 11:30 AM AMBULATORY - PSYCHIATRY [facility] [place] [facility] Mar 25, 2024 11:30 AM AMBULATORY - PSYCHIATRY [facility] [place] [facility] Apr 21, 2024 11:30 AM AMBULATORY - PSYCHIATRY [facility] [place] [facility] May 22, 2024 10:30 AM AMBULATORY - MEDICINE DE [facility] [place] [facility] Jun 18, 2024 11:30 AM AMBULATORY - PSYCHIATRY [facility] [place] [facility] Social History: Smoking Status (Most current) and Tobacco Use (All prior to encounter date) This section includes the most current, and the historical, smoking and tobacco- related health factors from the [place] facility where the Encounter took place. Current Smoking Status This section includes the most current smoking, or tobacco-related health factor, from the [place] facility where the Encounter took place. Date/Time Current Smoking Status Comment Don mcnally May 23, 2023 10:30 AM VA-TOBACCO USER EVERY DAY [facility] [place] [facility] Tobacco Use History This section includes a history of the smoking, or tobacco-related health factors, that were collected on or before the date of the Encounter. The data comes from the [place] facility where the Encounter took place. 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 DIRECTOR NO [facility] [place] [facility] May 23, 2023 10:30 AM VA-TOBACCO USE MED NO [facility] [place] [facility] May 23, 2023 10:30 AM VA-TOBACCO USER EVERY DAY [facility] [place] [facility] May 23, 2022 09:30 AM VA-TOBACCO USE 30 YEARS OR MORE [facility] [place] [facility] May 23, 2022 09:30 AM VA-TOBACCO USE ADVICE [facility] [place] [facility] May 23, 2022 09:30 AM VA-TOBACCO USE 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 DIRECTOR NO [facility] [place] [facility] May 23, 2022 09:30 AM VA-TOBACCO USE MED NO [facility] [place] [facility] May 23, 2022 09:30 AM VA-TOBACCO USE WI 30 MIN OF WAKEUP [facility] [place] [facility] May 23, 2022 09:30 AM VA-TOBACCO USER SOME DAYS [facility] [place] [facility] May 22, 2021 01:30 PM VA-TOBACCO FORMER USER [facility] [place] [facility] May 22, 2021 01:30 PM VA-TOBACCO QUIT 15 YRS OR MORE [facility] [place] [facility] May 24, 2020 09:00 AM VA-TOBACCO FORMER USER [facility] [place] [facility] May 24, 2020 09:00 AM VA-TOBACCO QUIT 15 YRS OR MORE [facility] [place] [facility] Nov 24, 2018 08:52 AM VA-TOBACCO FORMER USER [facility] [place] [facility] Nov 24, 2018 08:52 AM VA-TOBACCO QUIT 15 YRS OR MORE [facility] [place] [facility] May 21, 2018 08:52 AM VA-TOBACCO FORMER USER [facility] [place] [facility] May 21, 2018 08:52 AM VA-TOBACCO QUIT 5 TO < 15 YRS [facility] [place] [facility] May 21, 2017 09:01 AM LIFETIME NON-TOBACCO USER [facility] [place] [facility] Jun 12, 2016 09:16 AM QUIT TOBACCO USE > 7 YEARS AGO [facility] [place] [facility] Jul 11, 2015 09:16 AM QUIT TOBACCO USE > 7 YEARS AGO [facility] [place] [facility] Aug 06, 2014 09:11 AM QUIT TOBACCO USE 1-7 YEARS AGO [facility] [place] [facility] Jan 08, 2014 09:12 AM QUIT TOBACCO USE IN PAST YEAR [facility] [place] [facility] May 01, 2013 08:55 AM CURRENT SMOKER [facility] [place] [facility] May 01, 2013 08:55 AM V1-PT NOT INTERESTED IN QUIT TOBACCO USE [facility] [place] [facility] Nov 07, 2012 08:35 AM V1-PT DECLINES TOBACCO CESSATION MEDS [facility] [place] [facility] Nov 07, 2012 08:35 AM V1-PT THINKING ABOUT QUIT TOBACCO USE [facility] [place] [facility] May 08, 2012 09:00 AM CURRENT SMOKER [facility] [place] [facility] May 08, 2012 09:00 AM V1-PT DECLINES TOBACCO CESSATION MEDS [facility] [place] [facility] May 08, 2012 09:00 AM V1-PT THINKING ABOUT QUIT TOBACCO USE [facility] [place] [facility] Nov 09, 2011 08:43 AM V1-PT DECLINES TOBACCO CESSATION MEDS [facility] [place] [facility] Nov 09, 2011 08:43 AM V1-PT THINKING ABOUT QUIT TOBACCO USE [facility] [place] [facility] Dec 29, 2010 08:58 AM CURRENT SMOKER Thinking to quit [facility] [place] [facility] Dec 29, 2010 08:58 AM V1-PT DECLINES TOBACCO CESSATION MEDS [facility] [place] [facility] Dec 29, 2010 08:58 AM V1-PT THINKING ABOUT QUIT TOBACCO USE [facility] [place] [facility] Jun 30, 2010 08:30 AM V1-PT DECLINES REF TO TOBACCO CESS PRGM [facility] Jun 30, 2010 08:30 AM V1-PT DECLINES TOBACCO CESSATION MEDS [facility] Jun 30, 2010 08:30 AM V1-PT THINKING ABOUT QUIT TOBACCO USE [facility] [place] [facility] Dec 30, 2009 09:18 AM CURRENT SMOKER Try to quit [facility] Dec 30, 2009 09:18 AM V1-PT DECLINES REF TO TOBACCO CESS PRGM [facility] Dec 30, 2009 09:18 AM V1-PT DECLINES TOBACCO CESSATION MEDS [facility] Dec 30, 2009 09:18 AM V1-PT THINKING ABOUT QUIT TOBACCO USE [facility] [place] [facility] Dec 17, 2008 08:44 AM CURRENT SMOKER [facility] [place] [facility] Dec 17, 2008 08:44 AM V1-PT DECLINES REF TO TOBACCO CESS PRGM [facility] [place] [facility] Dec 17, 2008 08:44 AM V1-PT DECLINES TOBACCO CESSATION MEDS [facility] [place] [facility] Dec 17, 2008 08:44 AM V1-PT THINKING ABOUT QUIT TOBACCO USE [facility] [place] [facility] Jun 18, 2008 08:47 AM V1-PT DECLINES REF TO TOBACCO CESS PRGM [facility] Jun 18, 2008 08:47 AM V1-PT DECLINES TOBACCO CESSATION MEDS [facility] Jun 18, 2008 08:47 AM V1-PT THINKING ABOUT QUIT TOBACCO USE [facility] Dec 12, 2007 08:59 AM CURRENT SMOKER [facility] Dec 12, 2007 08:59 AM V1-PT DECLINES REF TO TOBACCO CESS PRGM [facility] Dec 12, 2007 08:59 AM V1-PT DECLINES TOBACCO CESSATION MEDS [facility] Dec 12, 2007 08:59 AM V1-PT THINKING ABOUT QUIT TOBACCO USE [facility] Jun 13, 2007 09:30 AM V1-PT DECLINES REF TO TOBACCO CESS PRGM [facility] Jun 13, 2007 09:30 AM V1-PT DECLINES TOBACCO CESSATION MEDS [facility] Jun 13, 2007 09:30 AM V1-PT THINKING ABOUT QUIT TOBACCO USE [facility] 2006 09:09 AM CURRENT SMOKER Not ready as yet to quit [facility] Aug 03, 2005 08:20 AM CURRENT SMOKER [facility] Apr 19, 2004 10:13 AM CURRENT SMOKER [facility] Mar 26, 2003 09:23 AM CURRENT SMOKER trying to cut down. [facility] Feb 17, 2002 11:07 AM CURRENT SMOKER [facility] Advance Directives: All historical and current Section Date Range: From patient's date of to the date document was created. This section includes ALL of a patient's completed or amended [place] Advance and Rescinded Directives. The entries below indicate that a directive exists for the patient, but an actual copy is not included with this document. The data comes from all [place] facilities. Date Advance Directives Provider Source Jun 12, 2019 ADVANCE DIRECTIVE MICA BALTAZAR [facility] [...] ENTRY DATE: DEC 17, 2023@11:55:19 AUTHOR: ISABELLA LOGANIGNER: URGENCY: STATUS: COMPLETED OUTPATIENT MENTAL HEALTH CLINIC: FOLLOW-UP Visit is being conducted by [place] [facility]. [place] identified with 2 identifiers: Full Name Date of Emergency Plan: confirmed and/or provided the following information in case of emergency or technology failure. PATIENT PHONE - PHONE NUMBER [CELLULAR] - Is patient phone number correct, if not, enter below: 's phone number: CHRISTIANO VILLASENOR [address], [place], [address] 's present location and address for appointment: home 's emergency contact name and phone number: up to date in CPRS [place] reported that location is private and safe: yes HPI: CHRISTIANO VILLASENOR, a 78 y/o male [place] previously diagnosed with PTSD and PMH significant for Parkinson's disease presents for [facility] Follow-Up appointment. Last seen by [...] says that he will think about it. explicitly and convincingly denied SI, intent or plan and denied thoughts of harming others. SUBSTANCE USE: Caffeine: Tobacco: 3-5 cigarettes per day Alcohol: denied Narcotics: denied Cannabis: denied PSYCHIATRIC HISTORY: Medication trials: Melatonin trial ineffective and he has stopped taking MIRTAZAPINE RASAGILINE for PD PHENELZINE ([id number]) chart review suggests that change was prompted by change from phenelzine to tranylcyrpromine due to nationwide unavailability of phenelzine. SERTRALINE TRANYLCYPROMINE Inpatient Hospitalizations: denied Suicidal Acts and Self-Harm: denied HISTORY OF VIOLENCE/ASSAULTING OTHERS: denied FAMILY MENTAL HEALTH AND SUBSTANCE USE HISTORY: denied SOCIAL HISTORY: Per [facility] Outpatient Mental Health Assessment (06/03/2023), confirmed by during assessment BORN IN [place] TO PARENTS. I AM MIDDLE OF THREE CHILDREN. MOM WAS A STAY AT HOME MOTHER AND DAD WAS A [place]ESS CLARK IN A [employer]. IT WAS MOSTLY US AND MY MOTHER'S SISTER LIVED WITH US. WE DID NOT GO TO [facility]AL [facility]. FOR DISCIPLINE, WE DIDN'T DARE DO ANYTHING WRONG. WAIT TILL YOUR FATHER COMES HOME - THE FEAR WAS ENOUGH. 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 I PLAYED FOOTBALL FOR ONE YEAR. I GRADUATED FROM [employer] IN 1962. I WAS DRAFTED INTO THE [employer] IN 1964 AND SERVED IN [employer]. I WAS SENT TO [employer] FOR 13 MONTHS. I GOT OUT ON [...] SOMETHING ELSE. 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 I THINK IT WAS A PERSONALITY CONFLICT WITH THE PERSON IN CHARGE. I QUIT. I THEN WENT TO [employer] [place] [employer]. 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 THEY CHANGED MY JOB DESCRIPTION AND GAVE [...] IT. I DO NOT GO ONLINE. History: [id number]. ONE 13 MO DEPLOYMENT TO [place]. MULTIPLE TRAUMA. 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 [employer] LEFT WITH AN HONORABLE DISCHARGE AT 4. MEDICAL HISTORY: -hospitalized for nasal cancer removal [...] potentially hazardous s 07/18/2023 KAYLEIGH KENDRICK Hypercholesterolemia ([facility] [id number]) 05/21/2019 MICA BALTAZAR Parkinsonian gait ([facility]OMED CT [id number] 04/04/2015 RIGO DYKES Posttraumatic stress disorder, vahe 01/31/2016 KAYY,NIKOLAY H ALLERGIES: Data on this list may not be complete. Please check JLV. FACILITY ALLERGY/ADR -------- No Remote Allergy/ADR Data available for this patient [facility] [place] [facility] MEDICATIONS: reviewed [...] BENZODIAZEPINES including increased fall risk and encouraged [place] to consider titrating dosage downwards. prefers to wait reminded of potential side effects of benzodiazepines, including ataxia, confusion, drowsiness, respiratory depression (especially if combined with other CENTRAL SUPPLY NURSE depressants such as alcohol or opioid medications), [...] well as common and severe side effects. [place] comprehended all information discussed, had opportunity to ask questions which were answered to their satisfaction, and voluntarily and without duress agreed to trial as documented. CONTACT AND CRISIS INFO: [place] informed that This Provider can be contacted at , EXT [phone] or via Secure Messaging. We have reviewed the Crisis Hotline (071, dial #1 for line), and the has [...] court of law and presented to a care consultant), and DOD access for active-duty service [...] of active outpatient prescriptions dispensed from this [place] (local) and dispensed from another VA or [...] Nurse Practitioner Signed: 12/25/2023 09:03 ISABELLA LOGAN [facility]
--- OUTSIDE RECORDS SUMMARY | 2024-09-18 11:48 | XMS_ITS | Clinical Summary ---
Author Organization [facility] Address [address] [place] [address] Care Team Providers Care Sand Cutter Operator Name Role Phone WingSumanth Dilip Primary Care Provider [phone] Allergies Active Allergy Reactions Criticality Noted Date [...] mouth once a day. 3 Active vit C,F-Iw-zwkln-kaye tein-zeaxan (PreserVision AREDS-2) capsule Take 1 capsule by mouth 2 times a day. Active LORazepam (ATIVAN) 0.5 mg tablet Take 1 mg by mouth nightly as needed for anxiety. Active Active Problems Problem Noted Date Diagnosed Date Dysphagia causing pulmonary aspiration with swal lowing 10/16/2022 Assessment & Plan (10/18/2022 7:08 AM EDT): Patient with a history of acute on chronic dysphagia, [facility]. Per family, patient has had multiple previous MBS studies (most recently 4 years ago) given diagnosis of Parkinson's, leading to difficulty with chewing and swallowing. Previous MBS had recommended a diet of honey thick liquids and pur??es and compensation such as slow pacing and completing an additional swallow to clear residue, which patient tolerated well. Given recent intubation, patient underwent [facility] evaluation and MBS, which found that patient [...] for NG tube given recent nasal surgery. -[facility] following closely for continued swallow exercises -Repeat MBS evaluation on 10/20 -Initiated on peripheral PN until repeat MBS evaluation for nutrition support -RFP, Mg BID given risk for re-feeding syndrome Pneumonia due to hemophilus influenzae Assessment & Plan (10/18/2022 9:02 AM EDT): [...] placement from left ear cartilage with Dr. Zartae on 10/11. Surgery went without complication and [...] a day -Trending pulse ox Aspiration pneumonia 10/11/2022 023 Hypotension 10/11/2022 10/19/2022 Immunizations Immunization Administration Dates Next Due Influenza, Injectable, Quadrivalent, [...] Last Done Comments Hepatitis C Screening [address] Lung Cancer Screening (Baseline) 1994 Zoster Vaccines (1 of 2) 08/20/2014 06/25/2014 Pneumococcal Vaccine: 50+ Years (2 of 2 - PPSV23) 07/28/2015 06/02/2015 RSV Vaccine (60+ years old and patients) (1 - 1-dose 75+ series) 11/02/2019 DTaP,Tdap,and Td Vaccines (2 - Tdap) 06/10/2023 06/10/2013 COVID-19 Vaccine ( - season) 2024 03/27/2022, 03/31/2021, 07/15/2020, Additional history exists Alcohol/Substance Use Screening 05/13/2024 Depression Screening and Follow-Up 05/13/2024 Health Care Proxy Review 05/13/2024 Social Drivers of Health Annual Screening 05/13/2024 Influenza Vaccine (Season Ended) 2025 02/27/2023, 03/13/2022, 03/13/2022, Additional history exists Hepatitis B Vaccines Aged Out No long er eligible based on patient's age to complete this topic Insurance MEDICARE [facility] Advance Directives Documents on File Type Date Recorded 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
--- OUTSIDE RECORDS SUMMARY | 2024-09-18 11:48 | XMS_ITS | Encounter Summary ---
Author Name [facility] Organization [facility] [place] Address [address] [place] [address] Care Team Providers Care Tattoo Identifier Name Role Phone MICA SAMANIEGO Primary Care Provider Unavailabl e Insurance [...] SPEARSAyaan ELLIS [id number] May 13, 2015 [id number] [phone] JAROCHO VILLASENOR PATIENT MEDICARE (WNR) MEDICARE (M) PART B Nov 10, 2014 PART B [id number] JAROCHO VILLASENOR PATIENT MEDICARE (WNR) MEDICARE (M) PART A Oct 11, 2009 PART A [id number] [phone] JAROCHO VILLASENOR PATIENT MEDICARE (WNR) MEDICARE (M) PART A Oct 11, 2009 PART A [id number] JAROCHO VILLASENOR PATIENT MEDICARE (WNR) MEDICARE (M) PART B Oct 11, 2009 PART B [id number] [phone] JAROCHO VILLASENOR PATIENT MEDICARE (WNR) MEDICARE (M) PART A Oct 11, 2009 PART A [id number] JAROCHO VILLASENOR PATIENT MEDICARE (WNR) MEDICARE (M) PART B Oct 11, 2009 PART B [id number] JAROCHO VILLASENOR PATIENT MEDICARE PART D (WNR) PRESCRIPT ION PART D May 13, 2015 PART D [id number] JAROCHO VILLASENOR PATIENT [employer] (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 Date/Time Encounter Type Encounter Description Reason Provider Source May 22, 2024 10:30 AM OFFICE O/P EST LOW 20 MIN PRIMARY CARE/MEDICINE ICD-10-CM G20.A1 Parkinson's dis w/o dyskinesia, w/o mention of fluctuations MICA SAMANIEGO [facility] Encounter Template Text not used by [place] Assessments - Encounter Diagnoses This section includes the primary and secondary diagnoses documented for the Encounter. Date/Time Primary/Secondary Diagnosis Diagnosis Name Provider Source May 22, 2024 10:48 AM PRIMARY Parkinson's dis w/o dyskinesia, w/o mention of fluctuations MICA SAMANIEGO [facility] Plan of Treatment: Future Appointments (+ 6 months) and Future Tests (+/- 45 days) The Plan of Treatment section includes future care activities for the patient from all [place] treatmentfacilities. This section includes future appointments and future orders which are active, pending or scheduled. Future Appointments This section includes appointments that were scheduled to occur 6 months from the date of the Encounter, up to a maximum of 20 appointments. The data comes from all [place] treatment facilities. Appointment Date/Time Appointment Type Appointme nt Facility Name Jun 18, 2024 11:30 AM AMBULATORY - PSYCHIATRY [facility] Jul 28, 2024 11:30 AM AMBULATORY PSYCHIATRY [facility] September 30, 2024 11:30 AM AMBULATORY - PSYCHIATRY [facility] Vital Signs: All taken on the encounter date This section contains inpatient and outpatient Vital Signs collected on the date of the Encounter. Date/Time Temperature Pulse Blood Pressure Respiratory Rate SP02 Pain Height Weight Body Mass Index Source May 22, 2024 10:00 AM 97.6 75 116/80 16 95 0 132 20 [facility] Social History: Smoking Status (Most current) and Tobacco Use (All prior to encounter date) This section includes the most current, and the historical, smoking and tobacco- related health factors from the [place] facility where the Encounter took place. Current Smoking Status This section includes the most current smoking, or tobacco-related health factor, from the [place] facility where the Encounter took place. Date/Time Current Smoking Status Comment [facility] May 22, 2024 10:30 AM VA-TOBACCO USE ROSA RY DAY CIGARETTES [facility] Tobacco Use History This section includes a history of the smoking, or tobacco-related health factors, that were collected on or before the date of the Encounter. The data comes from the [place] facility where the Encounter took place. Date/Time Smoking Status/Tobac co Use Comment Facility May 22, 2024 10:30 AM VA-TOBACCO SCREEN FOLLOW-UP [facility] [place] [facility] May 22, 2024 10:30 AM VA-TOBACCO USE ADVICE [facility] [place] 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 May 22, 2024 10:30 AM VA-TOBACCO USE EVERY DAY CIGARETTES [facility] [place] [facility] May 22, 2024 10:30 AM VA-TOBACCO USE MED NO [facility] [place] [facility] May 23, 2023 10:30 AM VA-TOBACCO DOESNT USE WI 30 MIN WAKEUP [facility] [place] [facility] May 23, 2023 10:30 AM VA-TOBACCO USE 30 YEARS OR MORE [facility] [place] [facility] May 23, 2023 10:30 AM VA-TOBACCO USE ADVICE [facility] [place] 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 May 23, 2023 10:30 AM VA-TOBACCO USE MED NO [facility] [place] [facility] May 23, 2023 10:30 AM VA-TOBACCO USER EVERY DAY [facility] [place] [facility] May 23, 2022 09:30 AM VA-TOBACCO USE 30 YEARS OR MORE [facility] [place] [facility] May 23, 2022 09:30 AM VA-TOBACCO USE ADVICE [facility] [place] 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 May 23, 2022 09:30 AM VA-TOBACCO USE MED NO [facility] [place] [facility] May 23, 2022 09:30 AM VA-TOBACCO USE WI 30 MIN OF WAKEUP [facility] [place] [facility] May 23, 2022 09:30 AM VA-TOBACCO USER SOME DAYS [facility] [place] [facility] May 22, 2021 01:30 PM VA-TOBACCO FORMER USER [facility] [place] [facility] May 22, 2021 01:30 PM VA-TOBACCO QUIT 15 YRS OR MORE [facility] [place] [facility] May 24, 2020 09:00 AM VA-TOBACCO FORMER USER [facility] [place] [facility] May 24, 2020 09:00 AM VA-TOBACCO QUIT 15 YRS OR MORE [facility] [place] [facility] Nov 24, 2018 08:52 AM VA-TOBACCO FORMER USER [facility] [place] [facility] Nov 24, 2018 08:52 AM VA-TOBACCO QUIT 15 YRS OR MORE [facility] [place] [facility] May 21, 2018 08:52 AM VA-TOBACCO FORMER USER [facility] [place] [facility] May 21, 2018 08:52 AM VA-TOBACCO QUIT 5 TO < 15 YRS [facility] [place] [facility] May 21, 2017 09:01 AM LIFETIME NON-TOBACCO USER [facility] [place] [facility] Jun 12, 2016 09:16 AM QUIT TOBACCO USE > 7 YEARS AGO [facility] [place] [facility] Jul 11, 2015 09:16 AM QUIT TOBACCO USE > 7 YEARS AGO [facility] [place] [facility] Aug 06, 2014 09:11 AM QUIT TOBACCO USE 1-7 YEARS AGO [facility] [place] [facility] Jan 08, 2014 09:12 AM QUIT TOBACCO USE IN PAST YEAR [facility] [place] [facility] May 01, 2013 08:55 AM CURRENT SMOKER [facility] [place] [facility] May 01, 2013 08:55 AM V1-PT NOT INTERESTED IN QUIT TOBACCO USE [facility] [place] [facility] Nov 07, 2012 08:35 AM V1-PT DECLINES TOBACCO CESSATION MEDS [facility] [place] [facility] Nov 07, 2012 08:35 AM V1-PT THINKING ABOUT QUIT TOBACCO USE [facility] [place] [facility] May 08, 2012 09:00 AM CURRENT SMOKER [facility] [place] [facility] May 08, 2012 09:00 AM V1-PT DECLINES TOBACCO CESSATION MEDS [facility] [place] [facility] May 08, 2012 09:00 AM V1-PT THINKING ABOUT QUIT TOBACCO USE [facility] [place] [facility] Nov 09, 2011 08:43 AM V1-PT DECLINES TOBACCO CESSATION MEDS [facility] [place] [facility] Nov 09, 2011 08:43 AM V1-PT THINKING ABOUT QUIT TOBACCO USE [facility] [place] [facility] Dec 29, 2010 08:58 AM CURRENT SMOKER Thinking to quit [facility] [place] [facility] Dec 29, 2010 08:58 AM V1-PT DECLINES TOBACCO CESSATION MEDS [facility] [place] [facility] Dec 29, 2010 08:58 AM V1-PT THINKING ABOUT QUIT TOBACCO USE [facility] [place] [facility] Jun 30, 2010 08:30 AM V1-PT DECLINES REF TO TOBACCO CESS PRGM [facility] [place] [facility] Jun 30, 2010 08:30 AM V1-PT DECLINES TOBACCO CESSATION MEDS [facility] [place] [facility] Jun 30, 2010 08:30 AM V1-PT THINKING ABOUT QUIT TOBACCO USE [facility] [place] [facility] Dec 30, 2009 09:18 AM CURRENT SMOKER Try to quit [facility] [place] [facility] Dec 30, 2009 09:18 AM V1-PT DECLINES REF TO TOBACCO CESS PRGM [facility] [place] [facility] Dec 30, 2009 09:18 AM V1-PT DECLINES TOBACCO CESSATION MEDS [facility] [place] [facility] Dec 30, 2009 09:18 AM V1-PT THINKING ABOUT QUIT TOBACCO USE [facility] [place] [facility] Dec 17, 2008 08:44 AM CURRENT SMOKER [facility] [place] [facility] Dec 17, 2008 08:44 AM V1-PT DECLINES REF TO TOBACCO CESS PRGM [facility] [place] [facility] Dec 17, 2008 08:44 AM V1-PT DECLINES TOBACCO CESSATION MEDS [facility] [place] [facility] Dec 17, 2008 08:44 AM V1-PT THINKING ABOUT QUIT TOBACCO USE [facility] [place] [facility] Jun 18, 2008 08:47 AM V1-PT DECLINES REF TO TOBACCO CESS PRGM [facility] [place] [facility] Jun 18, 2008 08:47 AM V1-PT DECLINES TOBACCO CESSATION MEDS [facility] [place] [facility] Jun 18, 2008 08:47 AM V1-PT THINKING ABOUT QUIT TOBACCO USE [facility] [place] [facility] Dec 12, 2007 08:59 AM CURRENT SMOKER [facility] [place] [facility] Dec 12, 2007 08:59 AM V1-PT DECLINES REF TO TOBACCO CESS PRGM [facility] [place] [facility] Dec 12, 2007 08:59 AM V1-PT DECLINES TOBACCO CESSATION MEDS [facility] [place] [facility] Dec 12, 2007 08:59 AM V1-PT THINKING ABOUT QUIT TOBACCO USE [facility] [place] [facility] Jun 13, 2007 09:30 AM V1-PT DECLINES REF TO TOBACCO CESS PRGM [facility] [place] [facility] Jun 13, 2007 09:30 AM V1-PT DECLINES TOBACCO CESSATION MEDS [facility] [place] [facility] Jun 13, 2007 09:30 AM V1-PT THINKING ABOUT QUIT TOBACCO USE [facility] [place] [facility] 2006 09:09 AM CURRENT SMOKER Not ready as yet to quit [facility] [place] [facility] Aug 03, 2005 08:20 AM CURRENT SMOKER [facility] [place] Apr 19, 2004 10:13 AM CURRENT SMOKER [facility] Mar 26, 2003 09:23 AM CURRENT SMOKER trying to cut down. [facility] Feb 17, 2002 11:07 AM CURRENT SMOKER [facility] Advance Directives: All historical and current Section Date Range: From patient's date of to the date document was created. This section includes ALL of a patient's completed or amended [place] Advance and Rescinded Directives. The entries below indicate that a directive exists for the patient, but an actual copy is not included with this document. The data comes from all [place] facilities. Date Advance Directives Provider Source Jun 12, 2019 ADVANCE DIRECTIVE MICA SAMANIEGO [facility] Encounter Notes: All associated encounter notes This section contains the clinical notes associated to the Encounter. Date/Time Encounter Note(s) Provider Source May 22, 2024 10:47 AM ACCOUNTING OF DISCLOSURES NOTE: LOCAL TITLE: STATE PRESCRIPTION DRUG MONITORING PROGRAM ([place]) STANDARD TITLE: ACCOUNTING OF DISCLOSURES NOTE DATE OF NOTE: MAY 22, 2024@10:47 ENTRY DATE: MAY 22, 2024@10:47:46 AUTHOR: MICA SAMANIEGO EXP COSIGNER: URGENCY: STATUS: COMPLETED State Prescription Drug Monitoring Program ([facility]) Review The following [facility] Prescription Drug Monitoring Program was queried for this patient: [place] Report Number: The purpose of this query was a part of the medication reconciliation process for the: Renewal of a controlled substance prescription. The findings of the query are as follows: No duplicate therapy prescriptions for controlled substances outside the [place] were found. /kev/ Mica Samaniego MD Staff Physician Signed: 05/22/2024 10:48 MICA SAMANIEGO [facility] May 22, 2024 10:30 AM PHYSICIAN NOTE: LOCAL TITLE: NOTE STANDARD TITLE: PHYSICIAN NOTE DATE OF NOTE: MAY 22, 2024@10:30 ENTRY DATE: MAY 22, 2024@10:30:43 AUTHOR: MICA SAMANIEGO EXP COSIGNER: URGENCY: STATUS: COMPLETED Patient [...] No Active Remote Medications for this patient solar consultant note Chief complaint: Parkinson's all primary care private Dr. Dimas, [place] only for neurology and psychiatry History of present illness Patient is followed by [facility] neurology for Parkinson's. He feels well today [...] NEGATIVE Bilirubin, Urine (AX 4280): NEGATIVE Specific [place], (AX 4280): 1.020 pH, Urine ([id number]): 6.5 Urobilinogen, Urine (AX 4280): Normal Leukocyte [...] H Neut %: 54.1 Lymph %: 25.8 [place] %: 11.2 Eos %: 7.1 H Baso %: 1.6 Neut, Abs: 2.66 Lymph, Abs: 1.27 [place], Abs: 0.55 Eos, Abs: 0.35 Baso, Abs: [...] of active outpatient prescriptions dispensed from this [place] (local) and dispensed from another [place] or [facility] facility (remote) as well as [...] a prescription for tobacco cessation medications. /kev/ Mica Samaniego MD Staff Physician Signed: 05/22/2024 10:55 MICA SAMANIEGO [facility] [place] [facility] May 22, 2024 10:03 AM PREVENTIVE MEDICINE NURSING NOTE: LOCAL TITLE: CLINICAL REMINDERS/NURSING STANDARD TITLE: PREVENTIVE MEDICINE NURSING NOTE DATE OF NOTE: MAY 22, 2024@10:03 ENTRY DATE: MAY 22, 2024@10:03:40 AUTHOR: JEFFREY DALE EXP COSIGNER: URGENCY: STATUS: COMPLETED Suicide Screen: C-SSRS Screening [place] Suicide Severity Rating Scale (C-SSRS) screener 1. [...] LPN Signed: 05/22/2024 10:07 JEFFREY DALE [facility]
--- OUTSIDE RECORDS SUMMARY | 2024-09-18 11:48 | XMS_ITS | Encounter Summary ---
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 Name Role Phone MICA BALTAZAR Primary Care [...] SPEARSAyaan ELLIS [id number] [phone] May 13, 2015 [phone] JAROCHO VILLASENOR PATIENT MEDICARE (WNR) MEDICARE (M) PART B Nov 10, 2014 PART B [id number] JAROCHO VILLASENOR PATIENT MEDICARE (WNR) MEDICARE (M) PART A Oct 11, 2009 PART A [id number] JAROCHO VILLASENOR PATIENT MEDICARE (WNR) MEDICARE (M) PART A Oct 11, 2009 PART A [id number] [phone] JAROCHO VILLASENOR PATIENT MEDICARE (WNR) MEDICARE (M) PART B Oct 11, 2009 PART B [id number] JAROCHO VILLASENOR PATIENT MEDICARE (WNR) MEDICARE (M) PART A Oct 11, 2009 PART A [id number] JAROCHO VILLASENOR PATIENT MEDICARE (WNR) MEDICARE (M) PART B Oct 11, 2009 PART B [id number] JAROCHO VILLASENOR PATIENT MEDICARE PART D (WNR) PRESCRIPT ION PART D May 13, 2015 PART D [id number] JAROCHO VILLASENOR PATIENT [employer] (OPT/PROF ) [facility] * Mar 13, 2015 [id number] JAROCHO VILLASENOR PATIENT Selected Encounter This section includes the information on record at [place] for the Encounter. Date/Time Encounter Type Encounter Description Reason Provider Source Jul 28, 2024 11:30 AM OFFICE O/P EST MOD 30 MIN [facility]ENTAL [facility] CLINIC - IND ICD-10-CM F43.12 Post-traumatic stress disorder, chronic DELANEY TODD IHE Encounter Template Text not used by [place] Assessments - Encounter Diagnoses This section includes the primary and secondary diagnoses documented for the Encounter. Date/Time Primary/Secondary Diagnosis Diagnosis Name Provider Source Aug 02, 2024 02:29 PM PRIMARY Post-traumatic stress disorder, chronic DELANEY TODD [facility] Aug 02, 2024 02:29 PM SECONDARY Insomnia due to other mental disorder DELANEY TODD [facility] Plan of Treatment: Future Appointments (+ 6 months) and Future Tests (+/- 45 days) The Plan of Treatment section includes future care activities for the patient from all [place] treatmentfacilities. This section includes future appointments and future orders which are active, pending or scheduled. Future Appointments This section includes appointments that were scheduled to occur 6 months from the date of the Encounter, up to a maximum of 20 appointments. The data comes from all [place] treatment facilities. Appointment Date/Time Appointment Type Appointme nt Facility Name September 30, 2024 11:30 AM AMBULATORY - PSYCHIATRY [facility] Social History: Smoking Status (Most current) and Tobacco Use (All prior to encounter date) This section includes the most current, and the historical, smoking and tobacco- related health factors from the [place] facility where the Encounter took place. Current Smoking Status This section includes the most current smoking, or tobacco-related health factor, from the [place] facility where the Encounter took place. Date/Time Current Smoking Status Comment Facil ity May 22, 2024 10:30 AM VA-TOBACCO NEVER U SED OTHER TYPE [place] [facility] Tobacco Use History This section includes a history of the smoking, or tobacco-related health factors, that were collected on or before the date of the Encounter. The data comes from the [place] facility where the Encounter took place. 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 [facility] May 22, 2024 10:30 AM VA-TOBACCO USE EVERY DAY CIGARETTES [facility] May 22, 2024 10:30 AM VA-TOBACCO USE MED NO [facility] May 23, 2023 10:30 AM VA-TOBACCO DOESNT USE WI 30 MIN WAKEUP [place] [facility] May 23, 2023 10:30 AM VA-TOBACCO USE 30 YEARS OR MORE [facility] May 23, 2023 10:30 AM VA-TOBACCO USE ADVICE [facility] May 23, 2023 10:30 AM 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 [facility] May 23, 2023 10:30 AM VA-TOBACCO USE MED NO [facility] May 23, 2023 10:30 AM VA-TOBACCO USER EVERY DAY [facility] May 23, 2022 09:30 AM VA-TOBACCO USE 30 YEARS OR MORE [facility] May 23, 2022 09:30 AM VA-TOBACCO USE ADVICE [facility] May 23, 2022 09:30 AM 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 [facility] May 23, 2022 09:30 AM VA-TOBACCO USE MED NO [place] [facility] May 23, 2022 09:30 AM VA-TOBACCO USE WI 30 MIN OF WAKEUP [place] [facility] May 23, 2022 09:30 AM VA-TOBACCO USER SOME DAYS [facility] May 22, 2021 01:30 PM VA-TOBACCO FORMER USER [place] [facility] May 22, 2021 01:30 PM VA-TOBACCO QUIT 15 YRS OR MORE [facility] May 24, 2020 09:00 AM VA-TOBACCO FORMER USER [place] [facility] May 24, 2020 09:00 AM VA-TOBACCO QUIT 15 YRS OR MORE [place] [facility] Nov 24, 2018 08:52 AM VA-TOBACCO FORMER USER [place] [facility] Nov 24, 2018 08:52 AM VA-TOBACCO QUIT 15 YRS OR MORE [place] [facility] May 21, 2018 08:52 AM VA-TOBACCO FORMER USER [place] [facility] May 21, 2018 08:52 AM VA-TOBACCO QUIT 5 TO < 15 YRS [place] [facility] May 21, 2017 09:01 AM LIFETIME NON-TOBACCO USER [place] [facility] Jun 12, 2016 09:16 AM QUIT TOBACCO USE > 7 YEARS AGO [place] [facility] Jul 11, 2015 09:16 AM QUIT TOBACCO USE > 7 YEARS AGO [facility] Aug 06, 2014 09:11 AM QUIT TOBACCO USE 1-7 YEARS AGO [facility] Jan 08, 2014 09:12 AM QUIT TOBACCO USE IN PAST YEAR [place] [facility] May 01, 2013 08:55 AM CURRENT SMOKER [place] [facility] May 01, 2013 08:55 AM V1-PT NOT INTERESTED IN QUIT TOBACCO USE [facility] Nov 07, 2012 08:35 AM V1-PT DECLINES TOBACCO CESSATION MEDS [facility] Nov 07, 2012 08:35 AM V1-PT THINKING ABOUT QUIT TOBACCO USE [facility] May 08, 2012 09:00 AM CURRENT SMOKER [facility] May 08, 2012 09:00 AM V1-PT DECLINES TOBACCO CESSATION MEDS [facility] May 08, 2012 09:00 AM V1-PT THINKING ABOUT QUIT TOBACCO USE [facility] Nov 09, 2011 08:43 AM V1-PT DECLINES TOBACCO CESSATION MEDS [facility] Nov 09, 2011 08:43 AM V1-PT THINKING ABOUT QUIT TOBACCO USE [facility] Dec 29, 2010 08:58 AM CURRENT SMOKER Thinking to quit [facility] Dec 29, 2010 08:58 AM V1-PT DECLINES TOBACCO CESSATION MEDS [facility] Dec 29, 2010 08:58 AM V1-PT THINKING ABOUT QUIT TOBACCO USE [facility] Jun 30, 2010 08:30 AM V1-PT DECLINES REF TO TOBACCO CESS PRGM [facility] Jun 30, 2010 08:30 AM V1-PT DECLINES TOBACCO CESSATION MEDS [facility] Jun 30, 2010 08:30 AM V1-PT THINKING ABOUT QUIT TOBACCO USE [facility] Dec 30, 2009 09:18 AM CURRENT SMOKER Try to quit [facility] Dec 30, 2009 09:18 AM V1-PT DECLINES REF TO TOBACCO CESS PRGM [facility] Dec 30, 2009 09:18 AM V1-PT DECLINES TOBACCO CESSATION MEDS [facility] Dec 30, 2009 09:18 AM V1-PT THINKING ABOUT QUIT TOBACCO USE [facility] Dec 17, 2008 08:44 AM CURRENT SMOKER [facility] Dec 17, 2008 08:44 AM V1-PT DECLINES REF TO TOBACCO CESS PRGM [facility] Dec 17, 2008 08:44 AM V1-PT DECLINES TOBACCO CESSATION MEDS [facility] Dec 17, 2008 08:44 AM V1-PT THINKING ABOUT QUIT TOBACCO USE [facility] Jun 18, 2008 08:47 AM V1-PT DECLINES REF TO TOBACCO CESS PRGM [facility] Jun 18, 2008 08:47 AM V1-PT DECLINES TOBACCO CESSATION MEDS [facility] Jun 18, 2008 08:47 AM V1-PT THINKING ABOUT QUIT TOBACCO USE [facility] Dec 12, 2007 08:59 AM CURRENT SMOKER [facility] Dec 12, 2007 08:59 AM V1-PT DECLINES REF TO TOBACCO CESS PRGM [facility] Dec 12, 2007 08:59 AM V1-PT DECLINES TOBACCO CESSATION MEDS [facility] Dec 12, 2007 08:59 AM V1-PT THINKING ABOUT QUIT TOBACCO USE [facility] Jun 13, 2007 09:30 AM V1-PT DECLINES REF TO TOBACCO CESS PRGM [facility] Jun 13, 2007 09:30 AM V1-PT DECLINES TOBACCO CESSATION MEDS [facility] Jun 13, 2007 09:30 AM V1-PT THINKING ABOUT QUIT TOBACCO USE [facility] 2006 09:09 AM CURRENT SMOKER Not ready as yet to quit [facility] Aug 03, 2005 08:20 AM CURRENT SMOKER [facility] Apr 19, 2004 10:13 AM CURRENT SMOKER [facility] Mar 26, 2003 09:23 AM CURRENT SMOKER trying to cut down. [facility] Feb 17, 2002 11:07 AM [facility] Advance Directives: All historical and current Section Date Range: From patient's date of to the date document was created. This section includes ALL of a patient's completed or amended [place] Advance and Rescinded Directives. The entries below indicate that a directive exists for the patient, but an actual copy is not included with this document. The data comes from all [place] facilities. Date Advance Directives Provider Source Jun 12, 2019 ADVANCE DIRECTIVE MICA BALTAZAR [facility] Encounter Notes: All associated encounter notes This section contains the clinical notes associated to the Encounter. Date/Time Encounter Note(s) Provider Source Jul 28, 2024 11:56 AM ACCOUNTING OF DISCLOSURES NOTE: LOCAL TITLE: STATE PRESCRIPTION DRUG MONITORING PROGRAM STANDARD TITLE: ACCOUNTING OF DISCLOSURES NOTE DATE OF NOTE: JUL 28, 2024@11:56:22 ENTRY DATE: JUL 28, 2024@11:56:22 AUTHOR: SIMON TODDIGNER: URGENCY: STATUS: COMPLETED This PDMP query was submitted by Simon Todd. The clinical justification for this PDMP query is to review controlled substances prescribed outside of the [place], and any additional information that may become available, as an important component of standard clinical care, and in accordance with [facility] policy. Patient information was shared with the PDMP Appriss [place]. No prescription(s) for controlled substances outside the [place] were found in the last 90 days. /kev/ SIMON TODD Psychiatric Mental Health Nurse Practitioner Signed: 07/28/2024 11:56 SIMON TODD [facility] Jul 28, 2024 11:45 AM PRIMARY CARE NURSE PRACTITIONER OUTPATIENT NOTE: LOCAL TITLE: NURSE PRACTITIONER OUTPATIENT NOTE STANDARD TITLE: PRIMARY CARE NURSE PRACTITIONER OUTPATIENT NOTE DATE OF NOTE: JUL 28, 2024@11:45 ENTRY DATE: JUL 28, 2024@11:46:04 AUTHOR: SIMON TODDER: URGENCY: STATUS: COMPLETED OUTPATIENT MENTAL HEALTH CLINIC: FOLLOW-UP Visit is being conducted by [place] [facility]. Monette identified with 2 identifiers: Full Name Date of Emergency Plan: Monette confirmed and/or provided the following information in case of emergency or technology failure. PATIENT PHONE - PHONE NUMBER [CELLULAR] - Is patient phone number correct, if not, enter below: 's phone number: CHRISTIANO VILLASENOR [address] [place] [address], [phone] 's present location and address for appointment: home 's emergency contact name and phone number: up to date in CPRS Monette reported that location is private and safe: yes HPI: CHRISTIANO VILLASENOR, a 78 y/o male previously diagnosed with PTSD and PMH significant for Parkinson's disease presents for [facility] Follow-Up appointment. Last seen by This Provider on 06/18/24 Has successfully tapered LORAZEPAM down to 0.5 mg po QHS Sleep is adequate at this dose Broke dental bridge on nicotine gum and expressed interest in initiating patch with which he had good results during inpatient hospitalization in 2022 Down to 5-6 cigarettes per day Did well with 14mg/24hour patch while hospitalized in 2022 Monette explicitly and convincingly denied SI, intent or plan and denied thoughts of harming others. SUBSTANCE USE: Tobacco: 3-5 cigarettes per day Alcohol: denied Narcotics: denied Cannabis: denied PSYCHIATRIC HISTORY: Medication trials: Melatonin trial ineffective and he has stopped taking MIRTAZAPINE RASAGILINE for PD PHENELZINE ([id number]) chart review suggests that change was prompted by change from phenelzine to tranylcyrpromine due to nationwide unavailability of phenelzine. SERTRALINE TRANYLCYPROMINE DOXEPIN ineffective ESZOPICLONE never initiated Inpatient Hospitalizations: denied Suicidal Acts and Self-Harm: denied HISTORY OF VIOLENCE/ASSAULTING OTHERS: denied FAMILY MENTAL HEALTH AND SUBSTANCE USE HISTORY: denied SOCIAL HISTORY: Per [facility] Outpatient Mental Health Assessment (06/03/2023), confirmed by Monette during assessment BORN IN [place] TO PARENTS. I AM MIDDLE OF THREE CHILDREN. MOM WAS A STAY AT HOME MOTHER AND DAD WAS A PRESS CLARK IN A [employer]. IT WAS MOSTLY US AND MY MOTHER'S SISTER LIVED WITH US. WE DID NOT GO TO [place]. FOR DISCIPLINE, WE DIDN'T DARE DO ANYTHING WRONG. WAIT TILL YOUR FATHER COMES HOME - THE FEAR WAS ENOUGH. 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 I PLAYED FOOTBALL FOR ONE YEAR. I GRADUATED FROM [employer] 1962. I WAS DRAFTED INTO THE [employer] IN 1964 AND SERVED IN [employer]. 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 I THINK IT WAS A PERSONALITY CONFLICT WITH THE PERSON IN CHARGE. I QUIT. I THEN WENT TO [employer]. 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 THEY CHANGED MY JOB DESCRIPTION AND GAVE [...] IT. I DO NOT GO ONLINE. History: [id number]. ONE 13 MO DEPLOYMENT TO [place]. MULTIPLE [...] memory grossly intact to conversational testing Mood: okay Affect: mood congruent LABS AND STUDIES: REVIEWED IN CPRS MEDICAL HISTORY: Active Problem Parkinson's disease G20.A1 07/19/2023 RIGO DYKES Exposure to potentially hazardous s 07/18/2023 KAYLEIGH KENDRICK Hypercholesterolemia ([facility] [id number]) 05/21/2019 MICA BALTAZAR Parkinsonian gait (SNOMED CT [id number] 04/04/2015 RIGO DYKES Posttraumatic stress disorder, vahe 01/31/2016 NIKOLAY SULTANA ALLERGIES: Data on this list may not be complete. Please check [facility]. FACILITY ALLERGY/ADR -------- No Remote Allergy/ADR Data available for this patient [place] [facility] PENICILLIN MEDICATIONS: reviewed and updated in CPRS Active Outpatient Medications (including Supplies): Active Outpatient Medications Status = 1) CARBIDOPA 25/LEVODOPA 100MG TAB TAKE 2 TABLETS BY MOUTH FOUR ACTIVE TIMES A DAY 2) CARBIDOPA 50/LEVODOPA 200MG SA TAB TAKE 2 TABLETS BY MOUTH ACTIVE (S) EVERY MORNING AND TAKE 1 TABLET THREE TIMES A DAY Indication: FOR PARKINSON'S DISEASE 3) ESCITALOPRAM OXALATE 20MG TAB TAKE ONE TABLET BY MOUTH EVERY ACTIVE (S) MORNING AFTER BREAKFAST FOR MOOD/DEPRESSION 4) GABAPENTIN 300MG CAP TAKE ONE CAPSULE BY MOUTH EVERY MORNING ACTIVE (S) AND TAKE TWO CAPSULES AT BEDTIME TO PREVENT SEIZURES OR PAIN 5) LORAZEPAM 0.5MG TAB TAKE ONE TABLET BY MOUTH TWICE DAILY ACTIVE (S) NEEDED Indication: SLEEP AND ANXIETY 6) MAGNESIUM OXIDE 420MG TAB TAKE ONE TABLET BY MOUTH EVERY DAY ACTIVE 7) NICOTINE 2MG GUM CHEW 1 PIECE BY MOUTH EVERY 2 HOURS ACTIVE NEEDED Indication: SMOKING CESSATION 8) PROPRANOLOL HCL 10MG TAB TAKE ONE TABLET BY MOUTH THREE ACTIVE (S) TIMES A DAY Indication: FOR ESSENTIAL TREMOR 9) RASAGILINE MESYLATE 1MG TAB TAKE ONE TABLET BY MOUTH DAILY ACTIVE (S) 10) ROPINIROLE HCL 0.5MG TAB TAKE ONE TABLET BY MOUTH TWICE ACTIVE (S) DAILY SAFETY ASSESSMENT: No acute safety concerns. Convincingly denies any thoughts, intents, or plans to harm self or others. Chronic risk is elevated by status and mental illness but is currently mitigated by participation in treatment and demonstration of help-seeking behaviors. IMPRESSION: Monette presents as polite, cooperative and treatment motivated Reports adherence to current medications with significant therapeutic benefit and denies side effects. Reports desire to continue with current pharmacotherapy regimen. No acute safety concerns Diagnosis: PTSD, chronic Insomnia Disorder PLAN: 1) CONTINUE ESCITALOPRAM 20MG PO DAILY 2) DECREASE LORAZEPAM TO 0.5MG PO PRN 3) INITIATE NICOTINE 14MG/24HR PATCH Labs: none today Follow-Up: 09/29/24 Discussed risks and benefits of proposed medication treatments including FDA approved indications and off-label uses, as well as common and severe side effects. Monette comprehended all information discussed, had opportunity to ask questions which were answered to their satisfaction, and voluntarily and without duress agreed to trial as documented. CONTACT AND CRISIS INFO: informed that This Provider can be contacted at , [phone] or via Secure Messaging. We have reviewed the Crisis Hotline (132, dial #1 for line), and the Monette has been instructed to call 911 or [...] court of law and presented to a probate judge), and DOD access for active-duty service members. [...] TODD Psychiatric Mental Health Nurse Practitioner Signed: 08/02/2024 14:29 SIMON TODD [place] [facility]
--- OUTSIDE RECORDS SUMMARY | 2024-09-18 11:48 | XMS_ITS | Encounter Summary ---
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 Name Role Phone MICA BALTAZAR Primary [...] SPEARSAyaan ELLIS [id number] May 13, 2015 [id number] [phone] JAROCHO VILLASENOR PATIENT MEDICARE (WNR) MEDICARE (M) PART B Nov 10, 2014 PART B [id number] JAROCHO VILLASENOR PATIENT MEDICARE (WNR) MEDICARE (M) PART A Oct 11, 2009 PART A [id number] JAROCHO VILLASENOR PATIENT MEDICARE (WNR) MEDICARE (M) PART A Oct 11, 2009 PART A [id number] JAROCHO VILLASENOR PATIENT MEDICARE (WNR) MEDICARE (M) PART B Oct 11, 2009 PART B [id number] [phone] JAROCHO VILLASENOR PATIENT MEDICARE (WNR) MEDICARE (M) PART A Oct 11, 2009 PART A [id number] [phone] JAROCHO VILLASENOR PATIENT MEDICARE (WNR) MEDICARE (M) PART B Oct 11, 2009 PART B [id number] JAROCHO VILLASENOR PATIENT MEDICARE PART D (WNR) PRESCRIPT ION PART D May 13, 2015 PART D [id number] [phone] JAROCHO VILLASENOR PATIENT [employer] (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 Date/Time Encounter Type Encounter Description Reason Provider Source Jun 18, 2024 11:30 AM OFFICE O/P EST MOD 30 MIN [facility] - IND ICD-10-CM F43.12 Post-traumatic stress disorder, chronic DELANEY TODD IHE Encounter Template Text not used by [place] Assessments - Encounter Diagnoses This section includes the primary and secondary diagnoses documented for the Encounter. Date/Time Primary/Secondary Diagnosis Diagnosis Name Provider Source Jun 20, 2024 01:04 PM PRIMARY Post-traumatic stress disorder, chronic DELANEY TODD [facility] Jun 20, 2024 01:04 PM SECONDARY Insomnia due to other mental disorder DELANEY TODD [facility] Plan of Treatment: Future Appointments (+ 6 months) and Future Tests (+/- 45 days) The Plan of Treatment section includes future care activities for the patient from all [place] treatmentfacilities. This section includes future appointments and future orders which are active, pending or scheduled. Future Appointments This section includes appointments that were scheduled to occur 6 months from the date of the Encounter, up to a maximum of 20 appointments. The data comes from all [place] treatment facilities. Appointment Date/Time Appointment Type Appointme nt Facility Name Jul 28, 2024 11:30 AM AMBULATORY - PSYCHIATRY [facility] September 30, 2024 11:30 AM AMBULATORY - PSYCHIATRY [facility] Social History: Smoking Status (Most current) and [...] place. Date/Time Current Smoking Status Comment [facility] May 22, 2024 10:30 AM VA-TOBACCO USE ROSA RY DAY CIGARETTES [facility] [place] [facility] Tobacco Use History This section includes a history of the smoking, or tobacco-related health factors, that were collected on or before the date of the Encounter. The data comes from the [place] facility where the Encounter took place. Date/Time Smoking Status/Tobac co Use Comment Facility May 22, 2024 10:30 AM VA-TOBACCO SCREEN FOLLOW-UP [facility] [place] [facility] May 22, 2024 10:30 AM VA-TOBACCO USE ADVICE [facility] [place] [facility] May 22, 2024 10:30 AM VA-TOBACCO USE DIRECTOR SCRIPT NO [facility] [place] [facility] May 22, 2024 10:30 AM VA-TOBACCO USE EVERY DAY CIGARETTES [facility] [place] [facility] May 22, 2024 10:30 AM VA-TOBACCO USE MED NO [facility] [place] [facility] May 23, 2023 10:30 AM VA-TOBACCO DOESNT USE WI 30 MIN WAKEUP [facility] [place] [facility] May 23, 2023 10:30 AM VA-TOBACCO USE 30 YEARS OR MORE [facility] [place] [facility] May 23, 2023 10:30 AM VA-TOBACCO USE ADVICE [facility] [place] [facility] May 23, 2023 10:30 AM VA-TOBACCO USE DIRECTOR SCRIPT NO [facility] [place] [facility] May 23, 2023 10:30 AM VA-TOBACCO USE MED NO [facility] [place] [facility] May 23, 2023 10:30 AM VA-TOBACCO USER EVERY DAY [facility] [place] [facility] May 23, 2022 09:30 AM VA-TOBACCO USE 30 YEARS OR MORE [facility] [place] [facility] May 23, 2022 09:30 AM VA-TOBACCO USE ADVICE [facility] [place] [facility] May 23, 2022 09:30 AM VA-TOBACCO USE DIRECTOR SCRIPT NO [facility] [place] [facility] May 23, 2022 09:30 AM VA-TOBACCO USE MED NO [facility] [place] [facility] May 23, 2022 09:30 AM VA-TOBACCO USE WI 30 MIN OF WAKEUP [place] [facility] [place] [facility] May 23, 2022 09:30 AM VA-TOBACCO USER SOME DAYS [facility] [place] [facility] May 22, 2021 01:30 PM VA-TOBACCO FORMER USER [facility] [place] [facility] May 22, 2021 01:30 PM VA-TOBACCO QUIT 15 YRS OR MORE [facility] [place] [facility] May 24, 2020 09:00 AM VA-TOBACCO FORMER USER [facility] [place] [facility] May 24, 2020 09:00 AM VA-TOBACCO QUIT 15 YRS OR MORE [place] [facility] [place] [facility] Nov 24, 2018 08:52 AM VA-TOBACCO FORMER USER [place] [facility] [place] [facility] Nov 24, 2018 08:52 AM VA-TOBACCO QUIT 15 YRS OR MORE [facility] [place] [facility] May 21, 2018 08:52 AM VA-TOBACCO FORMER USER [facility] [place] [facility] May 21, 2018 08:52 AM VA-TOBACCO QUIT 5 TO < 15 YRS [facility] [place] [facility] May 21, 2017 09:01 AM LIFETIME NON-TOBACCO USER [facility] [place] [facility] Jun 12, 2016 09:16 AM QUIT TOBACCO USE > 7 YEARS AGO [facility] [place] [facility] Jul 11, 2015 09:16 AM QUIT TOBACCO USE > 7 YEARS AGO [facility] [place] [facility] Aug 06, 2014 09:11 AM QUIT TOBACCO USE 1-7 YEARS AGO [facility] [place] [facility] Jan 08, 2014 09:12 AM QUIT TOBACCO USE IN PAST YEAR [facility] [place] [facility] May 01, 2013 08:55 AM CURRENT SMOKER [place] [facility] [place] [facility] May 01, 2013 08:55 AM V1-PT NOT INTERESTED IN QUIT TOBACCO USE [facility] [place] [facility] Nov 07, 2012 08:35 AM V1-PT DECLINES TOBACCO CESSATION MEDS [facility] [place] [facility] Nov 07, 2012 08:35 AM V1-PT THINKING ABOUT QUIT TOBACCO USE [facility] [place] [facility] May 08, 2012 09:00 AM CURRENT SMOKER [facility] [place] [facility] May 08, 2012 09:00 AM V1-PT DECLINES TOBACCO CESSATION MEDS [facility] [place] [facility] May 08, 2012 09:00 AM V1-PT THINKING ABOUT QUIT TOBACCO USE [facility] [place] [facility] Nov 09, 2011 08:43 AM V1-PT DECLINES TOBACCO CESSATION MEDS [facility] [place] [facility] Nov 09, 2011 08:43 AM V1-PT THINKING ABOUT QUIT TOBACCO USE [facility] [place] [facility] Dec 29, 2010 08:58 AM CURRENT SMOKER Thinking to quit [facility] [place] [facility] Dec 29, 2010 08:58 AM V1-PT DECLINES TOBACCO CESSATION MEDS [facility] [place] [facility] Dec 29, 2010 08:58 AM V1-PT THINKING ABOUT QUIT TOBACCO USE [facility] [place] [facility] Jun 30, 2010 08:30 AM V1-PT DECLINES REF TO TOBACCO CESS PRGM [facility] [place] [facility] Jun 30, 2010 08:30 AM V1-PT DECLINES TOBACCO CESSATION MEDS [facility] [place] [facility] Jun 30, 2010 08:30 AM V1-PT THINKING ABOUT QUIT TOBACCO USE [facility] [place] [facility] Dec 30, 2009 09:18 AM CURRENT SMOKER Try to quit [facility] [place] [facility] Dec 30, 2009 09:18 AM V1-PT DECLINES REF TO TOBACCO CESS PRGM [facility] [place] [facility] Dec 30, 2009 09:18 AM V1-PT DECLINES TOBACCO CESSATION MEDS [facility] [place] [facility] Dec 30, 2009 09:18 AM V1-PT THINKING ABOUT QUIT TOBACCO USE [facility] [place] [facility] Dec 17, 2008 08:44 AM CURRENT SMOKER [facility] [place] [facility] Dec 17, 2008 08:44 AM V1-PT DECLINES REF TO TOBACCO CESS PRGM [facility] [place] [facility] Dec 17, 2008 08:44 AM V1-PT DECLINES TOBACCO CESSATION MEDS [facility] [place] [facility] Dec 17, 2008 08:44 AM V1-PT THINKING ABOUT QUIT TOBACCO USE [facility] [place] [facility] Jun 18, 2008 08:47 AM V1-PT DECLINES REF TO TOBACCO CESS PRGM [facility] [place] [facility] Jun 18, 2008 08:47 AM V1-PT DECLINES TOBACCO CESSATION MEDS [facility] [place] [facility] Jun 18, 2008 08:47 AM V1-PT THINKING ABOUT QUIT TOBACCO USE [facility] [place] [facility] Dec 12, 2007 08:59 AM CURRENT SMOKER [facility] [place] [facility] Dec 12, 2007 08:59 AM V1-PT DECLINES REF TO TOBACCO CESS PRGM [facility] [place] [facility] Dec 12, 2007 08:59 AM V1-PT DECLINES TOBACCO CESSATION MEDS [facility] [place] [facility] Dec 12, 2007 08:59 AM V1-PT THINKING ABOUT QUIT TOBACCO USE [facility] [place] [facility] Jun 13, 2007 09:30 AM V1-PT DECLINES REF TO TOBACCO CESS PRGM [facility] [place] [facility] Jun 13, 2007 09:30 AM V1-PT DECLINES TOBACCO CESSATION MEDS [facility] [place] [facility] Jun 13, 2007 09:30 AM V1-PT THINKING ABOUT QUIT TOBACCO USE [facility] [place] [facility] 2006 09:09 AM CURRENT SMOKER Not ready as yet to quit [facility] [place] [facility] Aug 03, 2005 08:20 AM CURRENT SMOKER [facility] [place] [facility] Apr 19, 2004 10:13 AM CURRENT SMOKER [facility] [place] [facility] Mar 26, 2003 09:23 AM CURRENT SMOKER trying to cut down. [facility] [place] [facility] Feb 17, 2002 11:07 AM CURRENT SMOKER [facility] Advance Directives: All historical and current [...] Jun 12, 2019 ADVANCE DIRECTIVE MICA BALTAZAR [facility] Encounter Notes: All associated encounter notes This section contains the clinical notes associated to the Encounter. Date/Time Encounter Note(s) Provider Source Jun 18, 2024 11:44 AM ACCOUNTING OF DISCLOSURES NOTE: LOCAL TITLE: STATE PRESCRIPTION DRUG MONITORING PROGRAM STANDARD TITLE: ACCOUNTING OF DISCLOSURES NOTE DATE OF NOTE: JUN 18, 2024@11:44:18 ENTRY DATE: JUN 18, 2024@11:44:18 AUTHOR: SIMON TODDIGNER: URGENCY: STATUS: COMPLETED This PDMP query was submitted by Simon Todd. The clinical justification for this PDMP query is to review controlled substances prescribed outside of the [place], and any additional information that may become available, as an important component of standard clinical care, and in accordance with [facility] policy. Patient information was shared with the PDMP [place]. No prescription(s) for controlled substances outside the [place] were found in the last 90 days. /kev/ SIMON TODD Psychiatric Mental Health Nurse Practitioner Signed: 06/18/2024 11:44 SIMON TODD [facility] Jun 18, 2024 11:33 AM PRIMARY CARE NURSE PRACTITIONER OUTPATIENT NOTE: LOCAL TITLE: NURSE PRACTITIONER OUTPATIENT NOTE STANDARD TITLE: PRIMARY CARE NURSE PRACTITIONER OUTPATIENT NOTE DATE OF NOTE: JUN 18, 2024@11:33 ENTRY DATE: JUN 18, 2024@11:33:42 AUTHOR: SIMON TODDIGNER: URGENCY: STATUS: COMPLETED OUTPATIENT MENTAL HEALTH CLINIC: FOLLOW-UP Visit is being conducted by [place] [facility]. [place] identified with 2 identifiers: Full Name Date of Emergency Plan: confirmed and/or provided the following information in case of emergency or technology failure. PATIENT PHONE - PHONE NUMBER [CELLULAR] - Is patient phone number correct, if not, enter below: [place]'s phone number: CHRISTIANO VILLASENOR [address], [place], [address] [place]'s present location and address for appointment: home [place]'s emergency contact name and phone number: up to date in CPRS reported that location is private and safe: yes HPI: CHRISTIANO VILLASENOR, a 78 y/o male [place] previously diagnosed with PTSD and PMH significant for Parkinson's disease presents for [facility] Follow-Up appointment. Last seen by This Provider on 04/21/24 Advised by Neurologist to decrease reliance on LORAZEPAM; only takes LORAZEPAM at night for sleep Only takes one (0.5 mg) tablet of LORAZEPAM at night; had been taking two tablets (1 mg) PO QHS previously I don't think I'm too depressed. Maybe a little bit but not that bad Sleep has been pretty good Anxiety and PTSD stable and tolerable at current baseline Appetite is good, Small meals 4 times per day 4. Chronic auditory and visual hallucinations with little change from baseline. People sneaking up on me that are only seen in his peripheral vision as shadows. Also endorses auditory hallucinations of Sounds like someone talking in the distance. Mumbling in the distance. Chronic AH also Cannot hear distinct words and denies command hallucinations. [place] explicitly and convincingly denied SI, intent or plan and denied thoughts of harming others. SUBSTANCE USE: Tobacco: 3-5 cigarettes per day Alcohol: denied Narcotics: denied Cannabis: denied PSYCHIATRIC HISTORY: Medication trials: Melatonin trial ineffective and he has stopped taking MIRTAZAPINE RASAGILINE for PD PHENELZINE ([id number]) chart review suggests that change was prompted by change from phenelzine to tranylcyrpromine due to nationwide unavailability of phenelzine. SERTRALINE TRANYLCYPROMINE DOXEPIN ineffective ESZOPICLONE never initiated Inpatient Hospitalizations: denied Suicidal Acts and Self-Harm: denied HISTORY OF VIOLENCE/ASSAULTING OTHERS: denied FAMILY MENTAL HEALTH AND SUBSTANCE USE HISTORY: denied SOCIAL HISTORY: Per [facility] Outpatient Mental Health Assessment (06/03/2023), confirmed by [place] during assessment B[place] TO PARENTS. I AM MIDDLE OF THREE CHILDREN. MOM WAS A STAY AT HOME MOTHER AND DAD WAS A PRESS CLARK IN A [employer] IT WAS MOSTLY US AND MY MOTHER'S SISTER LIVED WITH US. WE DID NOT GO TO [facility]. FOR DISCIPLINE, WE DIDN'T DARE DO ANYTHING WRONG. WAIT TILL YOUR FATHER COMES HOME - THE FEAR WAS ENOUGH. 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 I PLAYED FOOTBALL FOR ONE YEAR. I GRADUATED FROM [employer] IN 1962. I WAS DRAFTED INTO THE [employer] IN 1964 AND SERVED IN [employer]. I WAS SENT TO [employer] FOR 13 MONTHS. I GOT OUT ON [...] SOMETHING ELSE. 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 I THINK IT WAS A PERSONALITY CONFLICT WITH THE PERSON IN CHARGE. I QUIT. I THEN WENT TO [employer]. 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 THEY CHANGED MY JOB DESCRIPTION AND GAVE [...] IT. I DO NOT GO ONLINE. History: 1965-9858. ONE 13 MO DEPLOYMENT TO [employer]. MULTIPLE [...] memory grossly intact to conversational testing Mood: fine Affect: mood congruent MEDICAL HISTORY: Active Problem Parkinson's disease G20.A1 07/19/2023 RIGO DYKES Exposure to potentially hazardous s 07/18/2023 KAYLEIGH KENDRICK Hypercholesterolemia ([facility] [id number]) 05/21/2019 MICA BALTAZAR Parkinsonian gait (SNOMED CT [id number] 04/04/2015 RIGO DYKES Posttraumatic stress disorder, vahe 01/31/2016 NIKOLAY SULTANA ALLERGIES: Data on this list may not be complete. Please check [facility]. FACILITY ALLERGY/ADR -------- No Remote Allergy/ADR Data available for this patient [place] [facility] [place] [facility] MEDICATIONS: reviewed and updated in CPRS Active Outpatient Medications (including Supplies): Active Outpatient Medications Status 1) CARBIDOPA 25/LEVODOPA 100MG TAB TAKE 2 TABLETS BY MOUTH FOUR ACTIVE TIMES A DAY 2) CARBIDOPA 50/LEVODOPA 200MG SA TAB TAKE 2 TABLETS BY MOUTH ACTIVE (S) EVERY MORNING AND TAKE 1 TABLET THREE TIMES A DAY Indication: FOR PARKINSON'S DISEASE 3) ESCITALOPRAM OXALATE 20MG TAB TAKE ONE TABLET BY MOUTH EVERY ACTIVE MORNING AFTER BREAKFAST FOR MOOD/DEPRESSION 4) GABAPENTIN 300MG CAP TAKE ONE CAPSULE BY MOUTH EVERY MORNING ACTIVE AND TAKE TWO CAPSULES AT BEDTIME TO PREVENT SEIZURES OR PAIN 5) LORAZEPAM 1MG TAB TAKE ONE TABLET BY MOUTH ONCE DAILY ACTIVE NEEDED AND TAKE TWO TABLETS AT BEDTIME NEEDED Indication: ANXIETY 6) MAGNESIUM OXIDE 420MG TAB TAKE ONE TABLET BY MOUTH EVERY DAY ACTIVE (S) 7) PROPRANOLOL HCL 10MG TAB TAKE ONE TABLET BY MOUTH THREE ACTIVE TIMES A DAY Indication: FOR ESSENTIAL TREMOR 8) RASAGILINE MESYLATE 1MG TAB TAKE ONE TABLET BY MOUTH DAILY ACTIVE (S) 9) ROPINIROLE HCL 0.5MG TAB TAKE ONE TABLET BY MOUTH TWICE ACTIVE (S) DAILY LABS AND STUDIES: Color, Urine (AX 4280): Light-Yellow Appearance, Urine (AX 4280): Clear Glucose, Urine (AX 4280): Normal Ketones, Urine (AX 4280): NEGATIVE Blood, Urine (AX 4280): NEGATIVE Protein, Urine (AX 4280): NEGATIVE Nitrite, Urine (AX 4280): NEGATIVE Bilirubin, Urine (AX 4280): NEGATIVE Specific [place], (AX 4280): 1.020 pH, Urine ([id number]): 6.5 Urobilinogen, Urine (AX 4280): Normal Leukocyte [...] H Neut %: 54.1 Lymph %: 25.8 Winn %: 11.2 Eos %: 7.1 H Baso %: 1.6 Neut, Abs: 2.66 Lymph, Abs: 1.27 Winn, Abs: 0.55 Eos, Abs: 0.35 Baso, Abs: 0.08 Immature Granulocytes %: 0.2 Immature Granulocytes, Abs: 0.01 NRBC%: 0.0 NRBC#: 0.00 SAFETY ASSESSMENT: No acute safety concerns. Convincingly [...] desire to continue with current pharmacotherapy regimen. has successfully titrated down LORAZEPAM and intends to continue with downward titration Denies falls. Risks/side effects of benzodiazepines were reiterated, especially fall risk and respiratory depression. Strongly encouraged to take the lowest possible dose as infrequently as possible. Also reiterated contraindication on benzodiazepines in PTSD. No acute safety concerns Diagnosis: PTSD, chronic Insomnia Disorder PLAN: 1) CONTINUE ESCITALOPRAM 20MG PO DAILY 2) DECREASE LORAZEPAM TO 0.5MG PO BID PRN Labs: none today Follow-Up: 07/28/24 Discussed risks and benefits of proposed medication treatments including FDA approved indications and off-label uses, as well as common and severe side effects. comprehended all information discussed, had opportunity to ask questions which were answered to their satisfaction, and voluntarily and without duress agreed to trial as documented. CONTACT AND CRISIS INFO: [place] informed that This Provider can be contacted at , [phone] or via Secure Messaging. We have reviewed the Crisis Hotline (267, dial #1 for line), and the [place] has been instructed to call 911 or [...] court of law and presented to a head grinder), and DOD access for active-duty service [...] TODD Psychiatric Mental Health Nurse Practitioner Signed: 06/20/2024 13:04 SIMON TODD [place] [facility]
--- OUTSIDE RECORDS SUMMARY | 2024-09-18 11:48 | XMS_ITS | Encounter Summary ---
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 Name Role Phone SHAYAN SAMANIEGO Primary Care [...] Name Patient's Relationship to Policy Mccray GLENN PRESCRIPT RHONDA [id number] May 13, 2015 [id number] JAROCHO VILLASENOR PATIENT MEDICARE (WNR) MEDICARE (M) PART B Nov 10, 2014 PART B [id number] [phone] JAROCHO VILLASENOR PATIENT MEDICARE (WNR) MEDICARE (M) PART A Oct 11, 2009 PART A [id number] JAROCHO VILLASENOR PATIENT MEDICARE (WNR) MEDICARE (M) PART A Oct 11, 2009 PART A [id number] JAROCHO VILLASENOR PATIENT MEDICARE (WNR) MEDICARE (M) PART B Oct 11, 2009 PART B [id number] JAROCHO VILLASENOR PATIENT MEDICARE (WNR) MEDICARE (M) PART A Oct 11, 2009 PART A [id number] JAROCHO VILLASENOR PATIENT MEDICARE (WNR) MEDICARE (M) PART B Oct 11, 2009 PART B [id number] JAROCHO VILLASENOR PATIENT MEDICARE PART D (WNR) PRESCRIPT ION PART D May 13, 2015 PART D [id number] JAROCHO VILLASENOR PATIENT [employer] (OPT/PROF ) [facility] * Mar 13, 2015 [id number] JAROCHO VILLASENOR PATIENT Selected Encounter This section includes the information on record at [place] for the Encounter. Date/Time Encounter Type Encounter Description Reason Pro vider Source Apr 27, 2024 03:09 PM Outpatient Encounter ADMIN PAT ACTIVTIES (MASNONCT) IHE Encounter Template Text not used by [place] Plan of Treatment: Future Appointments (+ 6 months) and Future Tests (+/- 45 days) The Plan of Treatment section includes future care activities for the patient from all [place] treatmentfacilities. This section includes future appointments and future orders which are active, pending or scheduled. Future Appointments This section includes appointments that were scheduled to occur 6 months from the date of the Encounter, up to a maximum of 20 appointments. The data comes from all [place] treatment facilities. Appointment Date/Time Appointment Type Appointme nt Facility Name May 22, 2024 10:30 AM AMBULAT[facility] Jun 18, 2024 11:30 AM [facility] Jul 28, 2024 11:30 AM [facility] September 30, 2024 11:30 AM [facility] Lab Results: +/- 30 days of the encounter This section includes the Chemistry and Hematology Lab Results on record with [place] for the patient. Radiology Reports and Pathology Reports are provided separately, in subsequent sections. Lab Results This section contains the Chemistry/Hematology Results that were resulted 30 days before or 30 daysafter the date of the Encounter. Date/Time Source Result Type Result - Unit Interpretation Reference Range Specimen Type Comment Apr 22, 2024 08:26 AM [facility] TSH SERUM Specimen Type: SERUM No comment entered. Ordering Provider: SHAYAN SAMANIEGO Report Released Date/Time: Apr 05, 2024 04:17 PM Reporting Lab: [facility] [address] [facility] [address] Performing Lab: [address] [address] TSH 1.09 u[IU]/mL 0.35-5.00 Apr 22, 2024 08:26 AM [facility] LIVER FUNCTION SERUM Specimen Type: SERUM No comment entered. Ordering Provider: SHAYAN SAMANIEGO Report Released Date/Time: Apr 05, 2024 04:17 PM Reporting Lab: [address] [address] Performing Lab: [address] [address] PROTEIN,TOTAL 6.6 g/dL 6.0-8.3 ALBUMIN 3.9 g/dL 3.5-5.0 ALKALINE PHOSPHATASE 66 U/L 40-150 AST 10 U/L 5-34 ALT <6 U/L BILIRUBIN, TOTAL 0.7 mg/dL 0.2-1.2 Apr 22, 2024 08:26 AM [facility] BASIC METABOLIC PANEL (fasting) SERUM Specime n Type: SERUM No comment entered. Ordering Provider: SHAYAN SAMANIEGO Report Released Date/Time: Apr 05, 2024 04:17 PM Reporting Lab: [address] [address] Performing Lab: [address] [address] UREA NITROGEN 15 mg/dL 7-25 GLUCOSE 98 mg/dL 65-100 SODIUM 142 mmol/L 135-145 POTASSIUM 4.8 mmol/L 3.5-5.0 CHLORIDE 103 mmol/L 100-110 CO2 31 meq/L H 20-30 CREATININE, Serum 0.81 mg/dL 0.50-1.40 eGFR(CKD-EPI 2020) 90 mL/min >60 Apr 22, 2024 08:26 AM [facility] URINALYSIS CLEAN CATCH URINE Specimen Type: U RINE Comment: If Glucose = >500 and Ketones are positive, please alert the Physician. Ordering Provider: SHAYAN SAMANIEGO Report Released Date/Time: Apr 05, 2024 04:17 PM Reporting Lab: [facility] [address] [facility] [address] Performing Lab: [address] [address] UA COLOR Light-Yellow Yellow UA APPEARANCE Clear Clear UA GLUCOSE Normal mg/dL Negative UA KETONES NEGATIVE mg/dL Negative UA BLOOD NEGATIVE mg/dL Negative UA PROTEIN NEGATIVE mg/dL Negative UA NITRITE NEGATIVE mg/dL Negative UA BILIRUBIN NEGATIVE mg/dL Negative UA SPECIFIC GRAVITY 1.020 1.016-1.022 UA pH 6.5 5.0-9.0 UA UROBILINOGEN Normal mg/dL <2.0 UA LEUKOCYTE NEGATIVE Negative Apr 22, 2024 08:26 AM [facility] LIPID PANEL FASTING SERUM Specimen Type: SERU M No comment entered. Ordering Provider: SHAYAN SAMANIEGO Report Released Date/Time: Apr 05, 2024 04:17 PM Reporting Lab: [address] [address] Performing Lab: [address] [address] CHOLESTEROL 207 mg/dL H TRIGLYCERIDE 101 mg/dL 0-150 LDL calculated 135 mg/dL H 0-129 CHOL/HDL 4.0 HDL CHOLESTEROL 52 mg/dL 40-60 Apr 22, 2024 08:26 AM [facility] CBC AND DIFF (AUTO) BLOOD Specimen Type: BLOO D No comment entered. Ordering Provider: SHAYAN SAMANIEGO Report Released Date/Time: Apr 05, 2024 04:17 PM Reporting Lab: [address] [address] Performing Lab: [address] [address] WBC 4.92 10*3/uL 4.50-11.00 RBC 4.55 10*6/uL [...] and tobacco- related health factors from the [place] facility where the Encounter took place. Current Smoking Status This section includes the most current smoking, or tobacco-related health factor, from the [place] facility where the Encounter took place. Date/Time Current Smoking Status Comment [facility] May 23, 2023 10:30 AM VA-TOBACCO USER EVERY DAY [facility] Tobacco Use History This section includes a history of the smoking, or tobacco-related health factors, that were collected on or before the date of the Encounter. The data comes from the [place] facility where the Encounter took place. 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 [facility] [place] [facility] May 23, 2023 10:30 AM VA-TOBACCO USE MED NO [facility] [place] [facility] May 23, 2023 10:30 AM VA-TOBACCO USER EVERY DAY [facility] [place] [facility] May 23, 2022 09:30 AM VA-TOBACCO USE 30 YEARS OR MORE [facility] [place] [facility] May 23, 2022 09:30 AM VA-TOBACCO USE ADVICE [facility] [place] [facility] May 23, 2022 09:30 AM 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 [facility] [place] [facility] May 23, 2022 09:30 AM VA-TOBACCO USE MED NO [facility] [place] [facility] May 23, 2022 09:30 AM VA-TOBACCO USE WI 30 MIN OF WAKEUP [facility] [place] [facility] May 23, 2022 09:30 AM VA-TOBACCO USER SOME DAYS [facility] [place] [facility] May 22, 2021 01:30 PM VA-TOBACCO FORMER USER [facility] [place] [facility] May 22, 2021 01:30 PM VA-TOBACCO QUIT 15 YRS OR MORE [facility] [place] [facility] May 24, 2020 09:00 AM VA-TOBACCO FORMER USER [facility] [place] [facility] May 24, 2020 09:00 AM VA-TOBACCO QUIT 15 YRS OR MORE [facility] [place] [facility] Nov 24, 2018 08:52 AM VA-TOBACCO FORMER USER [facility] [place] [facility] Nov 24, 2018 08:52 AM VA-TOBACCO QUIT 15 YRS OR MORE [facility] [place] [facility] May 21, 2018 08:52 AM VA-TOBACCO FORMER USER [facility] [place] [facility] May 21, 2018 08:52 AM VA-TOBACCO QUIT 5 TO < 15 YRS [facility] [place] [facility] May 21, 2017 09:01 AM LIFETIME NON-TOBACCO USER [facility] [place] [facility] Jun 12, 2016 09:16 AM QUIT TOBACCO USE > 7 YEARS AGO [facility] [place] [facility] Jul 11, 2015 09:16 AM QUIT TOBACCO USE > 7 YEARS AGO [facility] [place] [facility] Aug 06, 2014 09:11 AM QUIT TOBACCO USE 1-7 YEARS AGO [facility] [place] [facility] Jan 08, 2014 09:12 AM QUIT TOBACCO USE IN PAST YEAR [facility] [place] [facility] May 01, 2013 08:55 AM CURRENT SMOKER [facility] [place] [facility] May 01, 2013 08:55 AM V1-PT NOT INTERESTED IN QUIT TOBACCO USE [facility] [place] [facility] Nov 07, 2012 08:35 AM V1-PT DECLINES TOBACCO CESSATION MEDS [facility] [place] [facility] Nov 07, 2012 08:35 AM V1-PT THINKING ABOUT QUIT TOBACCO USE [facility] [place] [facility] May 08, 2012 09:00 AM [facility] [place] [facility] May 08, 2012 09:00 AM V1-PT DECLINES TOBACCO CESSATION MED[facility] [place] [facility] May 08, 2012 09:00 AM V1-PT THINKING ABOUT QUIT TOBACCO USE [facility] [place] [facility] Nov 09, 2011 08:43 AM V1-PT DECLINES [facility]BACCO [facility]ESSATION [facility] [place] [facility] Nov 09, 2011 08:43 AM V1-PT THINKING ABOUT QUIT TOBACCO USE [facility] [place] [facility] Dec 29, 2010 08:58 AM CURRENT SMOKER Thinking to quit [facility] [place] [facility] Dec 29, 2010 08:58 AM V1-PT DECLINES TOBACCO CESSATION MEDS [facility] [place] [facility] Dec 29, 2010 08:58 AM V1-PT THINKING ABOUT QUIT TOBACCO USE [facility] [place] [facility] Jun 30, 2010 08:30 AM V1-PT DECLINES REF TO TOBACCO CESS PRGM [facility] [place] [facility] Jun 30, 2010 08:30 AM V1-PT DECLINES TOBACCO CESSATION MEDS [facility] [place] [facility] Jun 30, 2010 08:30 AM V1-PT THINKING ABOUT QUIT TOBACCO USE [facility] [place] [facility] Dec 30, 2009 09:18 AM CURRENT SMOKER Try to quit [facility] [place] [facility] Dec 30, 2009 09:18 AM V1-PT DECLINES REF TO TOBACCO CESS PRGM [facility] [place] [facility] Dec 30, 2009 09:18 AM V1-PT DECLINES TOBACCO CESSATION MEDS [facility] [place] [facility] Dec 30, 2009 09:18 AM V1-PT THINKING ABOUT QUIT TOBACCO USE [facility] [place] [facility] Dec 17, 2008 08:44 AM CURRENT SMOKER [facility] [place] [facility] Dec 17, 2008 08:44 AM V1-PT DECLINES REF TO TOBACCO CESS PRGM [facility] [place] [facility] Dec 17, 2008 08:44 AM V1-PT DECLINES TOBACCO CESSATION MEDS [facility] Dec 17, 2008 08:44 AM V1-PT THINKING ABOUT QUIT TOBACCO USE [facility] [place] [facility] Jun 18, 2008 08:47 AM V1-PT DECLINES REF TO TOBACCO CESS PRGM [facility] [place] [facility] Jun 18, 2008 08:47 AM V1-PT DECLINES TOBACCO CESSATION MEDS [facility] Jun 18, 2008 08:47 AM V1-PT THINKING ABOUT QUIT TOBACCO USE [facility] [place] [facility] Dec 12, 2007 08:59 AM CURRENT SMOKER [facility] [place] [facility] Dec 12, 2007 08:59 AM V1-PT DECLINES REF TO TOBACCO CESS PRGM [facility] [place] [facility] Dec 12, 2007 08:59 AM V1-PT DECLINES TOBACCO CESSATION MEDS [facility] [place] [facility] Dec 12, 2007 08:59 AM V1-PT THINKING ABOUT QUIT TOBACCO USE [facility] [place] [facility] Jun 13, 2007 09:30 AM V1-PT DECLINES REF TO TOBACCO CESS PRGM [facility] [place] [facility] Jun 13, 2007 09:30 AM V1-PT DECLINES TOBACCO CESSATION MEDS [facility] [place] Jun 13, 2007 09:30 AM V1-PT THINKING ABOUT QUIT TOBACCO USE [facility] 2006 09:09 AM CURRENT SMOKER Not ready as yet to quit [facility] Aug 03, 2005 08:20 AM CURRENT SMOKER [facility] Apr 19, 2004 10:13 AM CURRENT SMOKER [facility] Mar 26, 2003 09:23 AM CURRENT SMOKER trying to cut down. [facility] Feb 17, 2002 11:07 AM CURRENT SMOKER [facility] Advance Directives: All historical and current Section Date Range: From patient's date of to the date document was created. This section includes ALL of a patient's completed or amended [place] Advance and Rescinded Directives. The entries below indicate that a directive exists for the patient, but an actual copy is not included with this document. The data comes from all [place] facilities. Date Advance Directives Provider Source Jun 12, 2019 ADVANCE DIRECTIVE SHAYAN SAMANIEGO [facility] Encounter Notes: All associated encounter notes [...] TWO TABLETS AT BEDTIME NEEDED Indication: ANXIETY /es/ NAHUN LEON Signed: 04/27/2024 15:09 Receipt Acknowledged By: 04/27/2024 15:14 /guilherme Melton RN, DEL[facility] 04/27/2024 15:12 /kev/ Shayan Samaniego MD Staff Physician SHAYAN SAMANIEGO [facility] Apr 27, 2024 03:09 PM MEDICATION MGT NOT E: LOCAL TITLE: MEDICATION RENEWAL STANDARD TITLE: MEDICATION MGT NOTE DATE OF NOTE: APR 27, 2024@15:09 ENTRY DATE: APR 27, 2024@15:09:37 AUTHOR: NAHUN LEON EXP COSIGNER: URGENCY: STATUS: COMPLETED MEDICATION RENEWAL Has ADDENDA john Jones is requesting a refill on the following prescription(s). Please renew if appropriate.Thank you for your time. 1) LORAZEPAM 1MG TAB TAKE ONE TABLET BY MOUTH ONCE DAILY ACTIVE NEEDED AND TAKE TWO TABLETS AT BEDTIME NEEDED Indication: ANXIETY /es/ NAHUN LEON Signed: 04/27/2024 15:09 Receipt Acknowledged By: 04/27/2024 15:14 /DELONTE Barriga RN Primary Care 04/27/2024 15:12 /kev/ Shayan Samaniego MD Staff Physician 04/27/2024 ADDENDUM STATUS: COMPLETED forward to prescriber /guilherme Samaniego MD Staff Physician Signed: 04/27/2024 15:12 Receipt Acknowledged By: * AWAITING SIGNATURE * SIABELLA LOGAN JEILYNE M [facility]
--- OUTSIDE RECORDS SUMMARY | 2024-09-18 11:48 | XMS_ITS | Referral Summary ---
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 3 Active vit C,G-Wa-lqnda-kaye tein-zeaxan (PreserVision AREDS-2) capsule Take 1 capsule by mouth 2 times a day. Active LORazepam (ATIVAN) 0.5 mg tablet Take 1 mg by mouth nightly as needed for anxiety. Active Active Problems Problem Noted Date Diagnosed Date Dysphagia causing pulmonary aspiration with swal lowing 10/16/2022 Assessment & Plan (10/18/2022 7:08 AM EDT): Patient with a history of acute on chronic dysphagia, [facility] Per family, patient has had multiple previous MBS studies (most recently 4 years ago) given diagnosis of Parkinson's, leading to difficulty with chewing and swallowing. Previous MBS had recommended a diet of honey thick liquids and pur??es and compensation such as slow pacing and completing an additional swallow to clear residue, which patient tolerated well. Given recent intubation, patient underwent VIDEO RENTAL CLERK evaluation and MBS, which found that patient [...] for NG tube given recent nasal surgery. -VIDEO RENTAL CLERK following closely for continued swallow exercises -Repeat [...] of Treatment Not on file Insurance MEDICARE [facility] Advance Directives Documents on File Type Date Recorded Patient Change Management Director Expl anation Health Care Proxy 10/15/2022 2:03 PM 2022 * Full Code (Latest Code Status on File) Date Activated Date Inactivated Comments 10/11/2022 4:30 PM 10/19/2022 3:36 PM * Presumed Full Code Date Activated Date Inactivated Comments 10/11/2022 5:51 AM 10/11/2022 4:29 PM Care Teams Photography Colorist Relationship Specialty Start Date End Date Sumanth Dimas [address] [place] [id number] PCP - General Family Medicine 08/27/22
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
--- OUTSIDE RECORDS SUMMARY | 2024-09-18 11:48 | XMS_ITS ---
Author Organization [facility] Address [address] [place] [address] Care Team Providers Care Extruder Operator Name Role Phone Sumanth Dimas Primary Care Provider [phone] Active Problems Problem Noted Date Diagnosed Date Dysphagia causing pulmonary aspiration with swal lowing 10/16/2022 Assessment & Plan (10/18/2022 7:08 AM EDT): Patient with a history of acute on chronic dysphagia, followed by SPEEDER MACHINE OPERATOR [facility] the [facility]. Per family, patient [...] tolerated well. Given recent intubation, patient underwent SPEEDER MACHINE OPERATOR evaluation and MBS, which found that [...] for NG tube given recent nasal surgery. -SPEEDER MACHINE OPERATOR following closely for continued swallow exercises [...] -Hold rasagiline and gabapentin Hypercholesterolemia 02/12/2013 Current Treatment and Therapy Plans No current plan information found. Past Treatment and Therapy Plans No past plan information found. Lifetime Dose Tracking * Chemical Lifetime Dose Automatic Entry Manual Entr y Fluoro Time 5.705 minutes 5.705 minutes 0 minutes TotalDLP 398 mGy 398 mGy 0 mGy [id number] 3.6 mSv 3.6 mSv 0 mSv CTDIvol [...]
--- OUTSIDE RECORDS SUMMARY | 2024-09-18 11:48 | XMS_ITS | Encounter Summary ---
Author Organization [facility] Address [address] [place] [address] Care Team Providers Care Hospitality Aide Name Role Phone Sumanth Dimas Primary Care Provider [phone] Encounter Details Date Type Department Care Team (Late st Contact Info) Description 09/07/2022 Orders Only [facility] Interventional Radiology [address] [place] [address] Cain Davila MD [address], [place] [id number] Social History Tobacco Use Types Packs/Day Years [...] on filedocumented in this encounter Care Teams Hospitality Aide Relationship Specialty Start Date End Date Sumanth Dimas [address] [place] [id number] PCP - General Family Medicine 08/27/22 documented as of this encounter
--- OUTSIDE RECORDS SUMMARY | 2024-09-18 11:48 | XMS_ITS | Encounter Summary ---
Author Name [facility] [place] Organization [facility] [place] [facility] [place] Address [address] [place] [address] Care Team Providers Care Development Eng Name Role Phone MICA BALTAZAR Primary Care [...] SPEARSAyaan ELLIS [id number] May 13, 2015 [id number] [id number] JAROCHO VILLASENOR PATIENT MEDICARE (WNR) MEDICARE (M) PART B Nov 10, 2014 PART B [id number] JAROCHO VILLASENOR PATIENT MEDICARE (WNR) MEDICARE (M) PART A Oct 11, 2009 PART A [id number] JAROCHO VILLASENOR PATIENT MEDICARE (WNR) MEDICARE (M) PART A Oct 11, 2009 PART A [id number] JAROCHO VILLASENOR PATIENT MEDICARE (WNR) MEDICARE (M) PART B Oct 11, 2009 PART B [id number] [phone] JAROCHO VILLASENOR PATIENT MEDICARE (WNR) MEDICARE (M) PART A Oct 11, 2009 PART A [id number] [phone] JAROCHO VILLASENOR PATIENT MEDICARE (WNR) MEDICARE (M) PART B Oct 11, 2009 PART B [id number] JAROCHO VILLASENOR PATIENT MEDICARE PART D (WNR) PRESCRIPT ION PART D May 13, 2015 PART D [id number] JAROCHO VILLASENOR PATIENT [employer] (OPT/PROF ) [facility] * Mar 13, 2015 [id number] [phone] JAROCHO VILLASENOR PATIENT Selected Encounter This section includes the information on record at [place] for the Encounter. Date/Time Encounter Type Encounter Description Reason Provider Source Oct 15, 2023 11:30 AM OFFICE O/P EST MOD 30 [facility] - IND ICD-10-CM F43.12 Post-traumatic stress disorder, chronic DOREEN,DELANEY N IHE Encounter Template Text not used by [place] Assessments - Encounter Diagnoses This section includes the primary and secondary diagnoses documented for the Encounter. Date/Time Primary/Secondary Diagnosis Diagnosis Name Provider Source Oct 15, 2023 12:02 PM PRIMARY Post-traumatic stress disorder, chronic DOREEN,DELANEY N [facility] [place] [facility] Plan of Treatment: Future Appointments (+ 6 months) and Future Tests (+/- 45 days) The Plan of Treatment section includes future care activities for the patient from all [place] treatmentfacilities. This section includes future appointments and future orders which are active, pending or scheduled. Future Appointments This section includes appointments that were scheduled to occur 6 months from the date of the Encounter, up to a maximum of 20 appointments. The data comes from all [place] treatment facilities. Appointment Date/Time Appointment Type Appointme nt Facility Name Oct 23, 2023 11:00 AM AMBULATORY - MEDICINE NM [facility] [place] [facility] Dec 17, 2023 11:30 AM AMBULATORY - PSYCHIATRY [facility] [place] [facility] Feb 26, 2024 11:30 AM AMBULATORY - PSYCHIATRY [facility] [place] [facility] Mar 25, 2024 11:30 AM AMBULATORY - PSYCHIATRY [facility] [place] [facility] Social History: Smoking Status (Most current) and Tobacco Use (All prior to encounter date) This section includes the most current, and the historical, smoking and tobacco- related health factors from the [place] facility where the Encounter took place. Current Smoking Status This section includes the most current smoking, or tobacco-related health factor, from the [place] facility where the Encounter took place. Date/Time Current Smoking Status Comment Don renteria May 23, 2023 10:30 AM VA-TOBACCO USER EVERY DAY [facility] [place] [facility] Tobacco Use History This section includes a history of the smoking, or tobacco-related health factors, that were collected on or before the date of the Encounter. The data comes from the [place] facility where the Encounter took place. 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 [facility] [place] [facility] May 23, 2023 10:30 AM VA-TOBACCO USE MED NO [facility] [place] [facility] May 23, 2023 10:30 AM VA-TOBACCO USER EVERY DAY [facility] [place] [facility] May 23, 2022 09:30 AM VA-TOBACCO USE 30 YEARS OR MORE [facility] [place] [facility] May 23, 2022 09:30 AM VA-TOBACCO USE ADVICE [facility] [place] [facility] May 23, 2022 09:30 AM 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 [facility] [place] [facility] May 23, 2022 09:30 AM VA-TOBACCO USE MED NO [facility] [place] [facility] May 23, 2022 09:30 AM VA-TOBACCO USE WI 30 MIN OF WAKEUP [facility] [place] [facility] May 23, 2022 09:30 AM VA-TOBACCO USER SOME DAYS [facility] [place] [facility] May 22, 2021 01:30 PM VA-TOBACCO FORMER USER [facility] [place] [facility] May 22, 2021 01:30 PM VA-TOBACCO QUIT 15 YRS OR MORE [facility] [place] [facility] May 24, 2020 09:00 AM VA-TOBACCO FORMER USER [facility] [place] [facility] May 24, 2020 09:00 AM VA-TOBACCO QUIT 15 YRS OR MORE [facility] [place] [facility] Nov 24, 2018 08:52 AM VA-TOBACCO FORMER USER [facility] [place] [facility] Nov 24, 2018 08:52 AM VA-TOBACCO QUIT 15 YRS OR MORE [facility] [place] [facility] May 21, 2018 08:52 AM VA-TOBACCO FORMER USER [facility] [place] [facility] May 21, 2018 08:52 AM VA-TOBACCO QUIT 5 TO < 15 YRS [facility] [place] [facility] May 21, 2017 09:01 AM LIFETIME NON-TOBACCO USER [facility] [place] [facility] Jun 12, 2016 09:16 AM QUIT TOBACCO USE > 7 YEARS AGO [facility] [place] [facility] Jul 11, 2015 09:16 AM QUIT TOBACCO USE > 7 YEARS AGO [facility] [place] [facility] Aug 06, 2014 09:11 AM QUIT TOBACCO USE 1-7 YEARS AGO [facility] [place] [facility] Jan 08, 2014 09:12 AM QUIT TOBACCO USE IN PAST YEAR [facility] [place] [facility] May 01, 2013 08:55 AM CURRENT SMOKER [facility] [place] [facility] May 01, 2013 08:55 AM V1-PT NOT INTERESTED IN QUIT TOBACCO USE [facility] [place] [facility] Nov 07, 2012 08:35 AM V1-PT DECLINES TOBACCO CESSATION MEDS [facility] [place] [facility] Nov 07, 2012 08:35 AM V1-PT THINKING ABOUT QUIT TOBACCO USE [facility] [place] [facility] May 08, 2012 09:00 AM CURRENT SMOKER [facility] [place] [facility] May 08, 2012 09:00 AM V1-PT DECLINES TOBACCO CESSATION MEDS [facility] [place] [facility] May 08, 2012 09:00 AM V1-PT THINKING ABOUT QUIT TOBACCO USE [facility] [place] [facility] Nov 09, 2011 08:43 AM V1-PT DECLINES TOBACCO CESSATION MEDS [facility] [place] [facility] Nov 09, 2011 08:43 AM V1-PT THINKING ABOUT QUIT TOBACCO USE [facility] [place] [facility] Dec 29, 2010 08:58 AM CURRENT SMOKER Thinking to quit [facility] [place] [facility] Dec 29, 2010 08:58 AM V1-PT DECLINES TOBACCO CESSATION MEDS [facility] [place] [facility] Dec 29, 2010 08:58 AM V1-PT THINKING ABOUT QUIT TOBACCO USE [facility] [place] [facility] Jun 30, 2010 08:30 AM V1-PT DECLINES REF TO TOBACCO CESS PRGM [facility] [place] [facility] Jun 30, 2010 08:30 AM V1-PT DECLINES TOBACCO CESSATION MEDS [facility] [place] [facility] Jun 30, 2010 08:30 AM V1-PT THINKING ABOUT QUIT TOBACCO USE [facility] [place] [facility] Dec 30, 2009 09:18 AM CURRENT SMOKER Try to quit [facility] [place] [facility] Dec 30, 2009 09:18 AM V1-PT DECLINES REF TO TOBACCO CESS PRGM [facility] [place] [facility] Dec 30, 2009 09:18 AM V1-PT DECLINES TOBACCO CESSATION MEDS [facility] [place] [facility] Dec 30, 2009 09:18 AM V1-PT THINKING ABOUT QUIT TOBACCO USE [facility] [place] [facility] Dec 17, 2008 08:44 AM CURRENT SMOKER [facility] [place] [facility] Dec 17, 2008 08:44 AM V1-PT DECLINES REF TO TOBACCO CESS PRGM [facility] [place] [facility] Dec 17, 2008 08:44 AM V1-PT DECLINES TOBACCO CESSATION MEDS [facility] [place] [facility] Dec 17, 2008 08:44 AM V1-PT THINKING ABOUT QUIT TOBACCO USE [facility] [place] [facility] Jun 18, 2008 08:47 AM V1-PT DECLINES REF TO TOBACCO CESS PRGM [facility] [place] [facility] Jun 18, 2008 08:47 AM V1-PT DECLINES TOBACCO CESSATION MEDS [facility] [place] [facility] Jun 18, 2008 08:47 AM V1-PT THINKING ABOUT QUIT TOBACCO USE [facility] Dec 12, 2007 08:59 AM CURRENT SMOKER [facility] Dec 12, 2007 08:59 AM V1-PT DECLINES REF TO TOBACCO CESS PRGM [facility] Dec 12, 2007 08:59 AM V1-PT DECLINES TOBACCO CESSATION MEDS [facility] Dec 12, 2007 08:59 AM V1-PT THINKING ABOUT QUIT TOBACCO USE [facility] Jun 13, 2007 09:30 AM V1-PT DECLINES REF TO TOBACCO CESS [facility] Jun 13, 2007 09:30 AM V1-PT DECLINES TOBACCO CESSATION MEDS [facility] Jun 13, 2007 09:30 AM V1-PT THINKING ABOUT QUIT TOBACCO USE [facility] 2006 09:09 AM CURRENT SMOKER Not ready as yet to quit [facility] Aug 03, 2005 08:20 AM CURRENT SMOKER [facility] Apr 19, 2004 10:13 AM CURRENT SMOKER [facility] Mar 26, 2003 09:23 AM CURRENT SMOKER trying to cut down. [facility] Feb 17, 2002 11:07 AM CURRENT SMOKER [facility] Advance Directives: All historical and current Section Date Range: From patient's date of to the date document was created. This section includes ALL of a patient's completed or amended [place] Advance and Rescinded Directives. The entries below indicate that a directive exists for the patient, but an actual copy is not included with this document. The data comes from all [place] facilities. Date Advance Directives Provider Source Jun 12, 2019 ADVANCE DIRECTIVE MICA BALTAZAR [facility] Encounter Notes: All associated encounter notes This section contains the clinical notes associated to the Encounter. Date/Time Encounter Note(s) Provider Source Oct 15, 2023 11:46 AM PRIMARY CARE NURSE PRACTITIONER OUTPATIENT NOTE: LOCAL TITLE: NURSE PRACTITIONER OUTPATIENT NOTE STANDARD TITLE: PRIMARY CARE NURSE PRACTITIONER OUTPATIENT NOTE DATE OF NOTE: OCT 15, 2023@11:46 ENTRY DATE: OCT 15, 2023@11:46:11 AUTHOR: ISABELLA LOGAN: URGENCY: STATUS: COMPLETED OUTPATIENT MENTAL HEALTH CLINIC: FOLLOW-UP Visit is being conducted by [place] [facility]. [place] identified with 2 identifiers: Full Name Date of Emergency Plan: [place] confirmed and/or provided the following information in case of emergency or technology failure. PATIENT PHONE - PHONE NUMBER [CELLULAR] - Is patient phone number correct, if not, enter below: Minster's phone number: CHRISTIANO VILLASENOR [address], [place], [address] 's present location and address for appointment: home 's emergency contact name and phone number: up to date in CPRS Minster reported that location is private and safe: yes HPI: CHRISTIANO VILLASENOR, a 77 y/o male [place] previously diagnosed with PTSD and PMH significant [...] regimen. I think I'm doing pretty good. explicitly and convincingly denied SI, intent or plan and denied thoughts of harming others. SUBSTANCE USE: Caffeine: Tobacco: 3-5 cigarettes per day Alcohol: denied Narcotics: denied Cannabis: denied PSYCHIATRIC HISTORY: Medication trials: Melatonin trial ineffective and he has stopped taking MIRTAZAPINE RASAGILINE for PD PHENELZINE ([id number]) chart review suggests that change was prompted by change from phenelzine to tranylcyrpromine due to nationwide unavailability of phenelzine. SERTRALINE TRANYLCYPROMINE Inpatient Hospitalizations: denied Suicidal Acts and Self-Harm: denied HISTORY OF VIOLENCE/ASSAULTING OTHERS: denied FAMILY MENTAL HEALTH AND SUBSTANCE USE HISTORY: denied SOCIAL HISTORY: Per Uniform Outpatient Mental Health Assessment (06/03/2023), confirmed by [place] during assessment BORN IN [place] TO PARENTS. I AM MIDDLE OF THREE CHILDREN. MOM WAS A STAY AT HOME MOTHER AND DAD WAS A [employer]ESS [employer]ARK IN A [place]. IT WAS MOSTLY US AND MY MOTHER'S SISTER LIVED WITH US. WE DID NOT GO TO [facility]. FOR DISCIPLINE, WE DIDN'T DARE DO ANYTHING WRONG. WAIT TILL YOUR FATHER COMES HOME - THE FEAR WAS ENOUGH. 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 I PLAYED FOOTBALL FOR ONE YEAR. I GRADUATED FROM [employer] IN 1962. I WAS DRAFTED INTO THE [employer] IN 1964 AND SERVED IN [employer]. I WAS SENT TO [place] FOR 13 MONTHS. I GOT OUT ON [...] SOMETHING ELSE. 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 I THINK IT WAS A PERSONALITY CONFLICT WITH THE PERSON IN CHARGE. I QUIT. I THEN WENT TO [employer]. 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 THEY CHANGED MY JOB DESCRIPTION AND GAVE [...] IT. I DO NOT GO ONLINE. History: [id number]. ONE 13 MO DEPLOYMENT TO [employer]. MULTIPLE [...] potentially hazardous s 07/18/2023 KAYLEIGH KENDRICK Hypercholesterolemia ([facility] [id number]) 05/21/2019 MICA BALTAZAR Parkinsonian gait ([facility] CT 346178 04/04/2015 RIGO DYKES Posttraumatic stress disorder, vahe 01/31/2016 NIKOLAY SULTANA ALLERGIES: Data on this list may not be complete. Please check JLV. FACILITY ALLERGY/ADR -------- No Remote Allergy/ADR Data available for this patient [facility] [place] [facility] MEDICATIONS: reviewed [...] respiratory depression (especially if combined with other MANAGER WORK depressants such as alcohol or opioid medications), increased fall risk and the risk of developing a substance use disorder. agreed to refrain from use of alcohol or opioid medications concurrent with use of benzodiazepine. PDMP and chart review do suggest any history of misuse or diversion. Emphasized that this medication increases fall risk and discussed trial of dose reduction. Minster declined to do so at present noting [...] well as common and severe side effects. [place]ster comprehended all information discussed, had opportunity to ask questions which were answered to their satisfaction, and voluntarily and without duress agreed to trial as documented. CONTACT AND CRISIS INFO: informed that This Provider can be contacted at , EXT [phone] or via Secure Messaging. We have reviewed the Crisis Hotline (516, dial #1 for line), and the has [...] court of law and presented to a beamster), and DOD access for active-duty service members. [...] of active outpatient prescriptions dispensed from this [place] (local) and dispensed from another [place] or DoD facility (remote) as well as [...] Signed: 10/15/2023 12:01 ISABELLA LOGAN [facility]
--- OUTSIDE RECORDS SUMMARY | 2024-09-18 11:49 | XMS_ITS | Continuity of Care Document ---
Author Name [facility] Organization [facility] Care Team Providers Care Postmaster Name Role Phone DOD-AL Unavailable Unavailable Problems Combined list of problems from Department of 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 It does not include entries that were removed or entered in error. 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) Active 970 Condition Jul 30, 2001 Entered [...] KENDRICK Comment: Original GINNY Screen completed 05/23/22 [facility] Parkinson's disease Active Condition [facility] Parkinsonian gait (SNOMED CT 213340962) Active Condition [facility] Diagnosis: ICD-10-CM F43.12 Post-traumatic stress disorder, chronic Active Diagnosis [facility] Diagnosis: ICD-10-CM G20.A1 Parkinson's dis w/o dyskinesia, w/o mention of fluctuations Active Diagnosis [facility] Diagnosis: ICD-10-CM G20.C Parkinsonism, unspecified Active Diagnosis [facility] Medications Combined list of outpatient medications from Department of 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Medications provided include 1) outpatient medications from the last 15 months, and 2) patient-reported medications. Medication Details Route Status Patient Instructions Prescription Expires Prescription Number Last Dispense Date Ordering Provider Order Date Order Qty Source CARBIDOPA 25MG/LEVODO PA 100MG TAB TAKE 2 TABLETS BY MOUTH FOUR TIMES A DAY ORAL SUSPEND ED 06/16/2025 [id number] Courtney GASTELUM MD 2024 [facility] CARBIDOPA 50MG/LEVODO PA 200MG TAB,SA TAKE 2 TABLETS BY MOUTH EVERY MORNING AND TAKE 1 TABLET THREE TIMES A DAY FOR PARKINSO N'S DISEASE ORAL ACTIVE 05/23/2025 [id number] 5 MOLLY BALTAZAR 2024 450 [facility] CARBIDOPA 50MG/LEVODO PA 200MG TAB,SA TAKE 2 TABLETS BY MOUTH EVERY MORNING AND TAKE 1 TABLET THREE TIMES A DAY FOR PARKINSO N'S DISEASE ORAL DISCONT INUED 04/06/2025 [id number] 5 MOLLY BALTAZAR 2024 [facility] CARBIDOPA 50MG/LEVODO PA 200MG TAB,SA TAKE 2 TABLETS BY MOUTH EVERY MORNING AND TAKE 1 TABLET THREE TIMES A DAY FOR PARKINSO N'S DISEASE ORAL DISCONT INUED 07/19/2024 [id number] TONY DYKES 2023 450 [facility] DOXEPIN 6MG TAB TAKE ONE TABLET BY MOUTH AT BEDTIME NEEDED FOR INSOMNIA ORAL DISCONT INUED BY PROVIDE R 02/26/2025 [id number] ISABELLA LOGAN 2023 30 [facility] ESCITALOPRA M OXALATE 20MG TAB TAKE ONE TABLET BY MOUTH EVERY MORNING AFTER BREAKFAS T FOR MOOD/DEP RESSION ORAL ACTIVE 12/17/2024 [id number] 5 ISABELLA LOGAN 2023 90 [facility] ESCITALOPRA M OXALATE 20MG TAB TAKE ONE TABLET BY MOUTH EVERY MORNING AFTER BREAKFAS T FOR MOOD/DEP RESSION ORAL DISCONT INUED 04/25/2024 [id number] DANK GARIBAY 2022 90 [facility] ESZOPICLONE 1MG TAB TAKE ONE TABLET BY MOUTH AT BEDTIME NEEDED FOR INSOMNIA ORAL DISCONT INUED BY PROVIDE R 09/25/2024 [id number] ISABELLA LOGAN 2023 30 [facility] GABAPENTIN 300MG CAP TAKE ONE CAPSULE BY MOUTH EVERY MORNING AND TAKE TWO CAPSULES AT BEDTIME TO PREVENT SEIZURES OR PAIN ORAL SUSPEND ED 05/23/2025 [id number] 5 MOLLY BALTAZAR 2024 270 [facility] GABAPENTIN 300MG CAP TAKE ONE CAPSULE BY MOUTH EVERY MORNING AND TAKE TWO CAPSULES AT BEDTIME TO PREVENT SEIZURES OR PAIN ORAL DISCONT INUED 07/19/2024 [id number] 4 TONY DYKES 2023 270 [facility] GABAPENTIN 300MG CAP TAKE ONE CAPSULE BY MOUTH EVERY MORNING AND TAKE TWO CAPSULES AT BEDTIME TO PREVENT SEIZURES OR PAIN ORAL DISCONT INUED 01/12/2024 [id number] 4 TONY DYKES 2022 270 [facility] LORAZEPAM 0.5MG TAB TAKE ONE TABLET BY MOUTH AT BEDTIME NEEDED ORAL SUSPEND ED 01/28/2025 [id number] ISABELLA LOGAN 2024 30 [facility] LORAZEPAM 0.5MG TAB TAKE ONE TABLET BY MOUTH TWICE DAILY NEEDED ORAL DISCONT INUED (EDIT) 12/19/2024 [id number] 5 ISABELLA LOGAN 2024 60 [facility] LORAZEPAM 0.5MG TAB TAKE ONE TABLET BY MOUTH EVERY MORNING NEEDED AND TAKE TWO TABLETS AT BEDTIME NEEDED FOR ANXIETY ORAL DISCONT INUED 12/18/2023 [id number] 4 ISABELLA LOGAN 2023 90 [facility] LORAZEPAM 0.5MG TAB TAKE ONE TABLET BY MOUTH EVERY MORNING NEEDED AND TAKE TWO TABLETS AT BEDTIME NEEDED FOR ANXIETY ORAL 02/20/2024 [id number] 4 DOREEN ISABELLA 2023 90 [facility] LORAZEPAM 1MG TAB TAKE ONE TABLET BY MOUTH ONCE DAILY NEEDED AND TAKE TWO TABLETS AT BEDTIME NEEDED ANXIETY ORAL DISCONT INUED (EDIT) 10/28/2024 [id number] 5 ISABELLA LOGAN 2024 90 [facility] LORAZEPAM 1MG TAB TAKE ONE TABLET BY MOUTH ONCE DAILY NEEDED AND TAKE TWO TABLETS AT BEDTIME NEEDED ANXIETY ORAL DISCONT INUED 08/28/2024 [id number] DOREEN ISABELLA 2023 90 [facility] MAGNESIUM OXIDE 420MG TAB TAKE ONE TABLET BY MOUTH EVERY DAY ORAL SUSPEND ED 05/23/2025 [id number] 5 MOLLY BALTAZAR 2024 90 [facility] MAGNESIUM OXIDE 420MG TAB TAKE ONE TABLET BY MOUTH EVERY DAY ORAL DISCONT INUED 07/19/2024 [id number] 4 TONY DYKES 2023 90 [facility] NICOTINE 14MG/24HRS PATCH APPLY 1 PATCH TO SKIN ONCE DAILY (REMOVE OLD PATCH BEFORE APPLYING NEW PATCH) TRANSD ERMAL SUSPEND ED 07/29/2025 [id number] 5 ISABELLA LOGAN 2024 84 [facility] NICOTINE POLACRILEX 2MG TAB,CHEWG GUM CHEW 1 PIECE BY MOUTH EVERY 2 HOURS NEEDED SMOKING CESSATIO N ORAL DISCONT INUED BY PROVIDE R 06/19/2025 [id number] 5 ISABELLA LOGAN 2024 120 [facility] PROPRANOLOL HCL 10MG TAB TAKE ONE TABLET BY MOUTH THREE TIMES A DAY FOR ESSENTIA L [place] ORAL ACTIVE 05/23/2025 [id number] 5 MOLLY BALTAZAR 2024 270 [facility] PROPRANOLOL HCL 10MG TAB TAKE ONE TABLET BY MOUTH THREE TIMES A DAY FOR ESSENTIA L [place] ORAL DISCONT INUED 04/06/2025 [id number] MOLLY BALTAZAR 2023 270 [facility] PROPRANOLOL HCL 10MG TAB TAKE ONE TABLET BY MOUTH THREE TIMES A DAY ORAL DISCONT INUED 10/23/2024 [id number] Courtney GASTELUM MD 2023 90 [facility] RASAGILINE MESYLATE 1MG TAB TAKE ONE TABLET BY MOUTH DAILY ORAL SUSPEND ED 05/23/2025 [id number] 5 MOLLY BALTAZAR 2024 90 [facility] RASAGILINE MESYLATE 1MG TAB TAKE ONE TABLET BY MOUTH DAILY ORAL DISCONT INUED 07/19/2024 [id number] 4 TONY DYKES 2023 90 [facility] ROPINIROLE HCL 0.5MG TAB TAKE ONE TABLET BY MOUTH TWICE DAILY ORAL SUSPEND ED 05/23/2025 [id number] 5 MOLLY BALTAZAR 2024 180 [facility] ROPINIROLE HCL 0.5MG TAB TAKE ONE TABLET BY MOUTH TWICE DAILY ORAL DISCONT INUED 07/19/2024 [id number] 4 TONY DYKES 2023 180 [facility] Allergies, Adverse Reactions, Alerts Combined list of allergies from Department of 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 It does not include entries that were removed or entered in error. Substance Category Reaction Severity Reaction type Status Date Reported Comments Source PENICILLIN Propensity to adverse reactions to drug (finding) [facility] Immunizations Combined list of available immunizations from the Department of 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 Status Comments Source INFLUENZA, UNSPECIFIED FORMULATION 2023 88 complet ed Booster for Series, HISTORICA L INFORMATI ON - FROM OTHER PROVIDER, [facility] INFLUENZA, UNSPECIFIED FORMULATION 2022 88 complet ed Booster for Series, HISTORICA L INFORMATI ON - FROM OTHER PROVIDER, [facility] COVID-19 (MODERNA), MRNA, LNP-S, BIVALENT BOOSTER, PF, 50 MCG/0.5 ML OR 25MCG/0.25 ML DOSE 2021 229 complet ed Booster for Series, HISTORICA L INFORMATI ON - SOURCE UNSPECIFI ED, Lot#: [id number] [facility] INFLUENZA, UNSPECIFIED FORMULATION 2021 88 complet ed HISTORICA L INFORMATI ON - SOURCE UNSPECIFI ED, [facility] INFLUENZA, UNSPECIFIED FORMULATION 2020 88 complet ed [facility] COVID-19 (MODERNA), MRNA, LNP-S, PF, 100 MCG/0.5 ML DOSE 2 2020 207 complet ed MOD; [id number]; 1 [facility] COVID-19 (MODERNA), MRNA, LNP-S, PF, 100 MCG/0.5 ML DOSE 1 2020 207 complet ed MOD; [id number]; 1 [facility] [...] PM Reporting Lab: [facility] [address] [facility] [address] Performing Lab: [facility] [address] [facility] [address] [facility] LIVER FUNCTION PROTEIN [MASS/VOLU ME] IN SERUM OR PLASMA 6.6 g/dL 6.0 - 8.3 04/22 Specimen Type: SERUM No comment entered. Ordering Provider: SUZY BALTAZAR Report Released Date/Time: Apr 05, 2024 04:17 PM Reporting Lab: [facility] [address] [facility] [address] Performing Lab: [facility] [address] [facility] [address] [facility] LIVER FUNCTION ALBUMIN [MASS/VOLU ME] IN SERUM OR PLASMA 3.9 g/dL 3.5 - 5.0 04/22 Specimen Type: SERUM No comment entered. Ordering Provider: SUZY BALTAZAR Report Released Date/Time: Apr 05, 2024 04:17 PM Reporting Lab: [facility] [facility] [address] [facility] [address] Performing Lab: [facility] [facility] [address] [facility] [address] [facility] LIVER FUNCTION ALKALINE PHOSPHATAS E [ENZYMATIC ACTIVITY/V OLUME] IN SERUM OR PLASMA 66 U/L 40 - 150 04/22 Specimen Type: SERUM No comment entered. Ordering Provider: SUZY BALTAZAR Report Released Date/Time: Apr 05, 2024 04:17 PM Reporting Lab: [facility] [facility] [address] [facility] [address] Performing Lab: [facility] [facility] [address] [facility] [address] [facility] LIVER FUNCTION ASPARTATE AMINOTRANS FERASE [ENZYMATIC ACTIVITY/V OLUME] IN SERUM OR PLASMA 10 U/L 5 - 34 04/22 Specimen Type: SERUM No comment entered. Ordering Provider: SUZY BALTAZAR Report Released Date/Time: Apr 05, 2024 04:17 PM Reporting Lab: [facility] [facility] [address] [facility] [address] Performing Lab: [facility] [address] [facility] [address] [facility] LIVER FUNCTION ALANINE AMINOTRANS FERASE [ENZYMATIC ACTIVITY/V OLUME] IN SERUM OR PLASMA <6U/L 04/22 Specimen Type: SERUM No comment entered. Ordering Provider: SUZY BALTAZAR Report Released Date/Time: Apr 05, 2024 04:17 PM Reporting Lab: [facility] [facility] [address] [facility] [address] Performing Lab: [facility] [facility] [address] [facility] [address] [facility] LIVER FUNCTION BILIRUBIN. TOTAL [MASS/VOLU ME] IN SERUM OR PLASMA 0.7 mg/dL 0.2 - 1.2 04/22 Specimen Type: SERUM No comment entered. Ordering Provider: SUZY BALTAZAR Report Released Date/Time: Apr 05, 2024 04:17 PM Reporting Lab: [facility] [facility] [address] [facility] [address] Performing Lab: [facility] [address] [address] [facility] LIPID PANEL FASTING CHOLESTERO L [MASS/VOLU ME] IN SERUM OR PLASMA 207 mg/dL 04/22 H Specimen Type: SERUM No comment entered. Ordering Provider: SUZY BALTAZAR Report Released Date/Time: Apr 05, 2024 04:17 PM Reporting Lab: [facility] [place] [facility] [address] [facility] [address] Performing Lab: [facility] [address] [address] [facility] LIPID PANEL FASTING TRIGLYCERI DE [MASS/VOLU ME] IN SERUM OR PLASMA 101 mg/dL 0 - 150 04/22 Specimen Type: SERUM No comment entered. Ordering Provider: SUZY BALTAZAR Report Released Date/Time: Apr 05, 2024 04:17 PM Reporting Lab: [facility] [place] [facility] [address] [facility] [address] Performing Lab: [facility] [place] [facility] [address] [facility] [address] [facility] LIPID PANEL FASTING CHOLESTERO L IN LDL [MASS/VOLU ME] IN SERUM OR PLASMA BY CALCULATIO N 135 mg/dL 0 - 129 04/22 H Specimen Type: SERUM No comment entered. Ordering Provider: SUZY BALTAZAR Report Released Date/Time: Apr 05, 2024 04:17 PM Reporting Lab: [facility] [place] [facility] [address] [facility] [address] Performing Lab: [facility] [place] [address] [address] [facility] LIPID PANEL FASTING CHOLESTERO L.TOTAL/CH OLESTEROL IN HDL [MASS RATIO] IN SERUM OR PLASMA 4.0 04/22 Specimen Type: SERUM No comment entered. Ordering Provider: SUZY BALTAZAR Report Released Date/Time: Apr 05, 2024 04:17 PM Reporting Lab: [facility] [place] [address] [address] Performing Lab: [facility] [place] [address] [address] [facility] LIPID PANEL FASTING CHOLESTERO L IN HDL [MASS/VOLU ME] IN SERUM OR PLASMA 52 mg/dL 40 - 60 04/22 Specimen Type: SERUM No comment entered. Ordering Provider: SUZY BALTAZAR Report Released Date/Time: Apr 05, 2024 04:17 PM Reporting Lab: [facility] [place] [facility] [address] [facility] [address] Performing Lab: [facility] [address] [address] [facility] BASIC METABOLI C PANEL (fasting ) UREA NITROGEN [MASS/VOLU ME] IN SERUM OR PLASMA 15 mg/dL 7 - 25 04/22 Specimen Type: SERUM No comment entered. Ordering Provider: SUZY BALTAZAR Report Released Date/Time: Apr 05, 2024 04:17 PM Reporting Lab: [facility] [address] Performing Lab: [facility] [address] [facility] BASIC METABOLI C PANEL (fasting ) GLUCOSE [MASS/VOLU ME] IN SERUM OR PLASMA 98 mg/dL 65 - 100 04/22 Specimen Type: SERUM No comment entered. Ordering Provider: SUZY BALTAZAR Report Released Date/Time: Apr 05, 2024 04:17 PM Reporting Lab: [facility] [address] [address] Performing Lab: [facility] [address] [facility] BASIC METABOLI C PANEL (fasting ) SODIUM [MOLES/VOL UME] IN SERUM OR PLASMA 142 mmol/L 135 - 145 04/22 Specimen Type: SERUM No comment entered. Ordering Provider: SUZY BALTAZAR Report Released Date/Time: Apr 05, 2024 04:17 PM Reporting Lab: [facility] [address] Performing Lab: [facility] [address] [facility] BASIC METABOLI C PANEL (fasting ) POTASSIUM [MOLES/VOL UME] IN SERUM OR PLASMA 4.8 mmol/L 3.5 - 5.0 04/22 Specimen Type: SERUM No comment entered. Ordering Provider: SUZY BALTAZAR Report Released Date/Time: Apr 05, 2024 04:17 PM Reporting Lab: [facility] [address] Performing Lab: [facility] [address] [facility] [address] [facility] BASIC METABOLI C PANEL (fasting ) CHLORIDE [MOLES/VOL UME] IN SERUM OR PLASMA 103 mmol/L 100 - 110 04/22 Specimen Type: SERUM No comment entered. Ordering Provider: SUZY BALTAZAR Report Released Date/Time: Apr 05, 2024 04:17 PM Reporting Lab: [facility] [address] [facility] [address] Performing Lab: [facility] [address] [facility] [address] [facility]ITAL[facility] BASIC METABOLI C PANEL (fasting ) CARBON DIOXIDE, TOTAL [MOLES/VOL UME] IN SERUM OR PLASMA 31 meq/L 20 - 30 04/22 H Specimen Type: SERUM No comment entered. Ordering Provider: SUZY BALTAZAR Report Released Date/Time: Apr 05, 2024 04:17 PM Reporting Lab: [facility] [address] [facility] [address] Performing Lab: [facility] [address] [facility]ITAL[facility] BASIC METABOLI C PANEL (fasting ) CREATININE [MASS/VOLU ME] IN SERUM OR PLASMA 0.81 mg/dL 0.50 - 1.40 04/22 Specimen Type: SERUM No comment entered. Ordering Provider: SUZY BALTAZAR Report Released Date/Time: Apr 05, 2024 04:17 PM Reporting Lab: [facility] [address] [facility] [address] Performing Lab: [facility] [address] [facility] BASIC METABOLI C PANEL (fasting ) GLOMERULAR FILTRATION RATE/1.73 SQ M.PREDICTE D [VOLUME RATE/AREA] IN SERUM, PLASMA OR BLOOD BY CREATININE -BASED FORMULA (CKD-EPI 2020) 90 mL/min 60 04/22 Specimen Type: SERUM No comment entered. Ordering Provider: SUZY BALTAZAR Report Released Date/Time: Apr 05, 2024 04:17 PM Reporting Lab: [facility] [address] [facility] [address] Performing Lab: [facility] [address] [facility] [address] [facility] URINALYS IS CLEAN CATCH COLOR OF URINE Light-Ye llow 04/22 Specimen Type: URINE Comment: If Glucose = >500 and Ketones are positive, please alert the Physician. Ordering Provider: SUZY BALTAZAR Report Released Date/Time: Apr 05, 2024 04:17 PM Reporting Lab: [facility] [address] [facility] [address] Performing Lab: [facility] [place] [facility] [address] [facility] [address] [facility] URINALYS IS CLEAN CATCH APPEARANCE OF URINE Clear 04/22 Specimen Type: URINE Comment: If Glucose = >500 and Ketones are positive, please alert the Physician. Ordering Provider: SUZY BALTAZAR Report Released Date/Time: Apr 05, 2024 04:17 PM Reporting Lab: [facility] [address] [facility] [address] Performing Lab: [facility] [address] [facility] [address] [facility] URINALYS IS CLEAN CATCH GLUCOSE [MASS/VOLU ME] IN URINE Normalmg /dL 04/22 Specimen Type: URINE Comment: If Glucose = >500 and Ketones are positive, please alert the Physician. Ordering Provider: SUZY BALTAZAR Report Released Date/Time: Apr 05, 2024 04:17 PM Reporting Lab: [facility] [address] [facility] [address] Performing Lab: [facility] [address] [facility] [address] [facility] URINALYS IS CLEAN CATCH KETONES [MASS/VOLU ME] IN URINE BY TEST STRIP NEGATIVE mg/dL 04/22 Specimen Type: URINE Comment: If Glucose = >500 and Ketones are positive, please alert the Physician. Ordering Provider: SUZY BALTAZAR Report Released Date/Time: Apr 05, 2024 04:17 PM Reporting Lab: [facility] [place] [address] [address] Performing Lab: [facility] [place] [facility] [address] [facility] [address] [facility] URINALYS IS CLEAN CATCH ERYTHROCYT ES [PRESENCE] IN URINE SEDIMENT BY LIGHT MICROSCOPY NEGATIVE mg/dL 04/22 Specimen Type: URINE Comment: If Glucose = >500 and Ketones are positive, please alert the Physician. Ordering Provider: SUZY BALTAZAR Report Released Date/Time: Apr 05, 2024 04:17 PM Reporting Lab: [facility] [place] [address] [address] Performing Lab: [facility] [place] [address] [address] [facility] URINALYS IS CLEAN CATCH PROTEIN [MASS/VOLU ME] IN URINE BY TEST STRIP NEGATIVE mg/dL 04/22 Specimen Type: URINE Comment: If Glucose = >500 and Ketones are positive, please alert the Physician. Ordering Provider: SUZY BALTAZAR Report Released Date/Time: Apr 05, 2024 04:17 PM Reporting Lab: [facility] [place] [address] [address] Performing Lab: [facility] [place] [address] [address] [facility] URINALYS IS CLEAN CATCH NITRITE [PRESENCE] IN URINE NEGATIVE mg/dL 04/22 Specimen Type: URINE Comment: If Glucose = >500 and Ketones are positive, please alert the Physician. Ordering Provider: SUZY BALTAZAR Report Released Date/Time: Apr 05, 2024 04:17 PM Reporting Lab: [facility] [place] [address] [address] Performing Lab: [facility] [place] [facility] [address] [facility] [address] [facility] URINALYS IS CLEAN CATCH BILIRUBIN. TOTAL [PRESENCE] IN URINE NEGATIVE mg/dL 04/22 Specimen Type: URINE Comment: If Glucose = >500 and Ketones are positive, please alert the Physician. Ordering Provider: SUZY BALTAZAR Report Released Date/Time: Apr 05, 2024 04:17 PM Reporting Lab: [facility] [place] [facility] [address] [facility] [address] Performing Lab: [facility] [place] [address] [address] [facility] [place] [facility] URINALYS IS CLEAN CATCH SPECIFIC GRAVITY OF URINE BY REFRACTOME TRY 1.020 1.016 - 1.022 04/22 Specimen Type: URINE Comment: If Glucose = >500 and Ketones are positive, please alert the Physician. Ordering Provider: SUZY BALTAZAR Report Released Date/Time: Apr 05, 2024 04:17 PM Reporting [facility] [place] [address] [address] Performing Lab: [facility] [place] [address] [address] [facility] [place] [facility] URINALYS IS CLEAN CATCH PH OF URINE BY TEST STRIP 6.5 5.0 - 9.0 04/22 Specimen Type: URINE Comment: If Glucose = >500 and Ketones are positive, please alert the Physician. Ordering Provider: SUZY BALTAZAR Report Released Date/Time: Apr 05, 2024 04:17 PM Reporting [facility]: [facility] [place] [address] [address] Performing Lab: [facility] [place] [address] [address] [facility] [place] [facility] URINALYS IS CLEAN CATCH UROBILINOG EN [MASS/VOLU ME] IN URINE BY TEST STRIP Normalmg /dL <2.0 - 2.0 04/22 Specimen Type: URINE Comment: If Glucose = >500 and Ketones are positive, please alert the Physician. Ordering Provider: SUZY BALTAZAR Report Released Date/Time: Apr 05, 2024 04:17 PM Reporting Lab: [facility] [place] [place] [facility] [address] [facility] [address] Performing Lab: [facility] [place] [facility] [address] [facility] [address] [facility] [place] [facility] URINALYS IS CLEAN CATCH LEUKOCYTE ESTERASE [PRESENCE] IN URINE BY TEST STRIP NEGATIVE 04/22 Specimen Type: URINE Comment: If Glucose = >500 and Ketones are positive, please alert the Physician. Ordering Provider: SUZY BALTAZAR Report Released Date/Time: Apr 05, 2024 04:17 PM Reporting Lab: [facility] [place] [address] [address] Performing Lab: [facility] [place] [address] [address] [facility] [place] [facility] CBC AND DIFF (AUTO) LEUKOCYTES [#/VOLUME] IN BLOOD BY AUTOMATED COUNT 4.92 10*3/uL 4.50 - 11.00 04/22 Specimen Type: BLOOD No comment entered. Ordering Provider: SUZY BALTAZAR Report Released Date/Time: Apr 05, 2024 04:17 PM Reporting Lab: [facility] [place] [address] [address] Performing Lab: [facility] [place] [facility] [address] [facility] [address] [facility] [place] [facility] CBC AND DIFF (AUTO) ERYTHROCYT ES [#/VOLUME] IN BLOOD BY AUTOMATED COUNT 4.55 10*6/uL 4.23 - 5.66 04/22 Specimen Type: BLOOD No comment entered. Ordering Provider: SUZY BALTAZAR Report Released Date/Time: Apr 05, 2024 04:17 PM Reporting Lab: [facility] [place] [address] [address] Performing Lab: [facility] [place] [facility] [address] [facility] [address] [facility] CBC AND DIFF (AUTO) HEMOGLOBIN [MASS/VOLU ME] IN BLOOD 15.1 g/dL 12.8 - 17 04/22 Specimen Type: BLOOD No comment entered. Ordering Provider: SUZY BALTAZAR Report Released Date/Time: Apr 05, 2024 04:17 PM Reporting Lab: [facility] [place] [facility] [address] [facility] [address] Performing Lab: [facility] [place] [facility] [address] [facility] [address] [facility] CBC AND DIFF (AUTO) HEMATOCRIT [VOLUME FRACTION] OF BLOOD BY AUTOMATED COUNT 44.2 39.2 - 50.4 04/22 Specimen Type: BLOOD No comment entered. Ordering Provider: SUZY BALTAZAR Report Released Date/Time: Apr 05, 2024 04:17 PM Reporting Lab: [facility] [place] [facility] [address] [facility] [address] Performing Lab: [facility] [place] [facility] [address] [facility] [address] [facility] CBC AND DIFF (AUTO) MCV [ENTITIC VOLUME] BY AUTOMATED COUNT 97.1 fL 82 - 99 04/22 Specimen Type: BLOOD No comment entered. Ordering Provider: SUZY BALTAZAR Report Released Date/Time: Apr 05, 2024 04:17 PM Reporting Lab: [facility] [place] [facility] [address] [facility] [address] Performing Lab: [facility] [place] [facility] [address] [facility] [address] [facility] CBC AND DIFF (AUTO) MCHC [MASS/VOLU ME] BY AUTOMATED COUNT 34.2 g/dL 30.8 - 35.1 04/22 Specimen Type: BLOOD No comment entered. Ordering Provider: SUZY BALTAZAR Report Released Date/Time: Apr 05, 2024 04:17 PM Reporting Lab: [facility] [place] [facility] [address] [facility] [address] Performing Lab: [facility] [place] [facility] [address] [facility] [address] [facility] [place] [facility] CBC AND DIFF (AUTO) PLATELETS [#/VOLUME] IN BLOOD BY AUTOMATED COUNT 211 10*3/uL 140 - 360 04/22 Specimen Type: BLOOD No comment entered. Ordering Provider: SUZY BALTAZAR Report Released Date/Time: Apr 05, 2024 04:17 PM Reporting Lab: [facility] [place] [facility] [address] [facility] [address] Performing Lab: [facility] [place] [facility] [address] [facility] [address] [facility] [place] [facility] CBC AND DIFF (AUTO) ERYTHROCYT E DISTRIBUTI ON WIDTH [RATIO] BY AUTOMATED COUNT 12.9 12.0 - 16.0 04/22 Specimen Type: BLOOD No comment entered. Ordering Provider: SUZY BALTAZAR Report Released Date/Time: Apr 05, 2024 04:17 PM Reporting Lab: [facility] [place] [facility] [address] [facility] [address] Performing [facility]: [facility] [place] [facility] [address] [facility] [address] [facility] [place] [facility] CBC AND DIFF (AUTO) MONOCYTES [#/VOLUME] IN BLOOD BY AUTOMATED COUNT 0.55 10*3/uL 0.30 - 1.10 04/22 Specimen Type: BLOOD No comment entered. Ordering Provider: SUZY BALTAZAR Report Released Date/Time: Apr 05, 2024 04:17 PM Reporting Lab: [facility] [place] [facility] [address] [facility] [address] Performing Lab: [facility] [place] [facility] [address] [facility] [address] [facility] [place] [facility] CBC AND DIFF (AUTO) MCH [ENTITIC MASS] BY AUTOMATED COUNT 33.2 pg 26.2 - 32.6 04/22 H Specimen Type: BLOOD No comment entered. Ordering Provider: SUZY BALTAZAR Report Released Date/Time: Apr 05, 2024 04:17 PM Reporting Lab: [facility] [place] [facility] [address] [facility] [address] Performing Lab: [facility] [place] [facility] [address] [facility] [address] [facility] CBC AND DIFF (AUTO) NEUTROPHIL S/100 LEUKOCYTES IN BLOOD BY AUTOMATED COUNT 54.1 43.7 - 75.8 04/22 Specimen Type: BLOOD No comment entered. Ordering Provider: SUZY BALTAZAR Report Released Date/Time: Apr 05, 2024 04:17 PM Reporting Lab: [facility] [place] [facility] [address] [facility] [address] Performing Lab: [facility] [place] [facility] [address] [facility] [address] [facility] CBC AND DIFF (AUTO) LYMPHOCYTE S/100 LEUKOCYTES IN BLOOD BY AUTOMATED COUNT 25.8 14.0 - 42.3 04/22 Specimen Type: BLOOD No comment entered. Ordering Provider: SUZY BALTAZAR Report Released Date/Time: Apr 05, 2024 04:17 PM Reporting Lab: [facility] [place] [facility] [address] [facility] [address] Performing Lab: [facility] [place] [facility] [address] [facility] [address] [facility] CBC AND DIFF (AUTO) MONOCYTES/ 100 LEUKOCYTES IN BLOOD BY AUTOMATED COUNT 11.2 5.1 - 13.7 04/22 Specimen Type: BLOOD No comment entered. Ordering Provider: SUZY BALTAZAR Report Released Date/Time: Apr 05, 2024 04:17 PM Reporting Lab: [facility] [place] [facility] [address] [facility] [address] Performing Lab: [facility] [place] [facility] [address] [facility] [address] [facility] CBC AND DIFF (AUTO) EOSINOPHIL S/100 LEUKOCYTES IN BLOOD BY AUTOMATED COUNT 7.1 0.4 - 6.8 04/22 H Specimen Type: BLOOD No comment entered. Ordering Provider: SUZY BALTAZAR Report Released Date/Time: Apr 05, 2024 04:17 PM Reporting Lab: [facility] [place] [facility] [address] [facility] [address] Performing Lab: [facility] [place] [facility] [address] [facility] [address] [facility] CBC AND DIFF (AUTO) BASOPHILS/ 100 LEUKOCYTES IN BLOOD BY AUTOMATED COUNT 1.6 0.1 - 2.0 04/22 Specimen Type: BLOOD No comment entered. Ordering Provider: SUZY BALTAZAR Report Released Date/Time: Apr 05, 2024 04:17 PM Reporting Lab: [facility] [place] [facility] [address] [facility] [address] Performing Lab: [facility] [place] [facility] [address] [facility] [address] [facility] [place] [facility] CBC AND DIFF (AUTO) NEUTROPHIL S [#/VOLUME] IN BLOOD BY AUTOMATED COUNT 2.66 10*3/uL 2.20 - 7.60 04/22 Specimen Type: BLOOD No comment entered. Ordering Provider: SUZY BALTAZAR Report Released Date/Time: Apr 05, 2024 04:17 PM Reporting Lab: [facility] [place] [facility] [address] [facility] [address] Performing Lab: [facility] [place] [facility] [address] [facility] [address] [facility] CBC AND DIFF (AUTO) LYMPHOCYTE S [#/VOLUME] IN BLOOD BY AUTOMATED COUNT 1.27 10*3/uL 1.00 - 3.20 04/22 Specimen Type: BLOOD No comment entered. Ordering Provider: SUZY BALTAZAR Report Released Date/Time: Apr 05, 2024 04:17 PM Reporting Lab: [facility] [place] [facility] [address] [facility] [address] Performing Lab: [facility] [place] [facility] [address] [facility] [address] [facility] CBC AND DIFF (AUTO) EOSINOPHIL S [#/VOLUME] IN BLOOD BY AUTOMATED COUNT 0.35 10*3/uL 0.03 - 0.44 04/22 Specimen Type: BLOOD No comment entered. Ordering Provider: SUZY BALTAZAR Report Released Date/Time: Apr 05, 2024 04:17 PM Reporting Lab: [facility] [place] [address] [address] Performing Lab: [facility] [place] [facility] [address] [facility] [address] [facility] CBC AND DIFF (AUTO) BASOPHILS [#/VOLUME] IN BLOOD BY AUTOMATED COUNT 0.08 10*3/uL 0.01 - 0.13 04/22 Specimen Type: BLOOD No comment entered. Ordering Provider: SUZY BALTAZAR Report Released Date/Time: Apr 05, 2024 04:17 PM Reporting Lab: [facility] [place] [address] [address] Performing Lab: [facility] [place] [address] [address] [facility] [place] [facility] CBC AND DIFF (AUTO) IMMATURE GRANULOCYT ES/100 LEUKOCYTES IN BLOOD BY AUTOMATED COUNT 0.2 0.0 - 0.7 04/22 Specimen Type: BLOOD No comment entered. Ordering Provider: SUZY BALTAZAR Report Released Date/Time: Apr 05, 2024 04:17 PM Reporting Lab: [facility] [place] [address] [address] Performing Lab: [facility] [place] [address] [address] [facility] [place] CBC AND DIFF (AUTO) IMMATURE GRANULOCYT ES [#/VOLUME] IN BLOOD 0.01 10*3/uL 0.00 - 0.06 04/22 Specimen Type: BLOOD No comment entered. Ordering Provider: SUZY BALTAZAR Report Released Date/Time: Apr 05, 2024 04:17 PM Reporting Lab: [facility] [place] [address] [address] Performing Lab: [facility] [place] [facility] [address] [facility] [address] [facility] [place] [facility] CBC AND DIFF (AUTO) NRBC % 0.0 0.0 - 0.0 04/22 Specimen Type: BLOOD No comment entered. Ordering Provider: SUZY BALTAZAR Report Released Date/Time: Apr 05, 2024 04:17 PM Reporting Lab: [facility] [place] [facility] [address] [facility] [address] Performing Lab: [facility] [place] [facility] [address] [facility] [address] [facility] [place] [facility] CBC AND DIFF (AUTO) NRBC, ABS 0.00 10*3/uL 0.00 - 0.00 04/22 Specimen Type: BLOOD No comment entered. Ordering Provider: SUZY BALTAZAR Report Released Date/Time: Apr 05, 2024 04:17 PM Reporting Lab: [facility] [place] [facility] [address] [facility] [address] Performing Lab: [facility] [place] [facility] [address] [facility] [address] [facility] [place] [facility] LIVER FUNCTION PROTEIN [MASS/VOLU ME] IN SERUM OR PLASMA 6.3 g/dL 6.0 - 8.3 05/03 Specimen Type: SERUM No comment entered. Ordering Provider: SUZY BALTAZAR Report Released Date/Time: Apr 16, 2023 05:26 PM Reporting Lab: [facility] [place] [facility] [address] [facility] [address] Performing Lab: [facility] [place] [facility] [address] [facility] [address] [facility] [place] [facility] LIVER FUNCTION ALBUMIN [MASS/VOLU ME] IN SERUM OR PLASMA 3.9 g/dL 3.5 - 5.0 05/03 Specimen Type: SERUM No comment entered. Ordering Provider: SUZY BALTAZAR Report Released Date/Time: Apr 16, 2023 05:26 PM Reporting Lab: [facility] [place] [facility] [address] [facility] [address] Performing Lab: [facility] [place] [facility] [address] [facility] [address] [facility] [place] [facility] LIVER FUNCTION ALKALINE PHOSPHATAS E [ENZYMATIC ACTIVITY/V OLUME] IN SERUM OR PLASMA 67 U/L 40 - 150 05/03 Specimen Type: SERUM No comment entered. Ordering Provider: SUZY BALTAZAR Report Released Date/Time: Apr 16, 2023 05:26 PM Reporting Lab: [facility] [place] [facility] [address] [facility] [address] Performing Lab: [facility] [place] [facility] [address] [facility] [address] [facility] LIVER FUNCTION ASPARTATE AMINOTRANS FERASE [ENZYMATIC ACTIVITY/V OLUME] IN SERUM OR PLASMA 9 U/L 5 - 34 05/03 Specimen Type: SERUM No comment entered. Ordering Provider: SUZY BALTAZAR Report Released Date/Time: Apr 16, 2023 05:26 PM Reporting Lab: [facility] [place] [facility] [address] [facility] [address] Performing Lab: [facility] [place] [facility] [address] [facility] [address] [facility] LIVER FUNCTION ALANINE AMINOTRANS FERASE [ENZYMATIC ACTIVITY/V OLUME] IN SERUM OR PLASMA <6U/L 05/03 Specimen Type: SERUM No comment entered. Ordering Provider: SUZY BALTAZAR Report Released Date/Time: Apr 16, 2023 05:26 PM Reporting Lab: [facility] [place] [facility] [address] [facility] [address] Performing Lab: [facility] [place] [facility] [address] [facility] [address] [facility] [facility] LIVER FUNCTION BILIRUBIN. TOTAL [MASS/VOLU ME] IN SERUM OR PLASMA 0.7 mg/dL 0.2 - 1.2 05/03 Specimen Type: SERUM No comment entered. Ordering Provider: SUZY BALTAZAR Report Released Date/Time: Apr 16, 2023 05:26 PM Reporting Lab: [facility] [place] [facility] [address] [facility] [address] Performing Lab: [facility] [place] [facility] [address] [facility] [address] [facility] [place] [facility] LIPID PANEL FASTING CHOLESTERO L [MASS/VOLU ME] IN SERUM OR PLASMA 199 mg/dL 05/03 Specimen Type: SERUM No comment entered. Ordering Provider: SUZY BALTAZAR Report Released Date/Time: Apr 16, 2023 05:26 PM Reporting Lab: [facility] [place] [facility] [address] [facility] [address] Performing Lab: [facility] [place] [address] [address] [facility] [place] [facility] LIPID PANEL FASTING TRIGLYCERI DE [MASS/VOLU ME] IN SERUM OR PLASMA 60 mg/dL 0 - 150 05/03 Specimen Type: SERUM No comment entered. Ordering Provider: SUZY BALTAZAR Report Released Date/Time: Apr 16, 2023 05:26 PM Reporting Lab: [facility] [place] [facility] [address] [facility] [address] Performing Lab: [facility] [place] [facility] [address] [facility] [address] [facility] [place] [facility] LIPID PANEL FASTING CHOLESTERO L IN LDL [MASS/VOLU ME] IN SERUM OR PLASMA BY CALCULAMELVAO N 130 mg/dL 0 - 129 05/03 H Specimen Type: SERUM No comment entered. Ordering Provider: SUZY BALTAZAR Report Released Date/Time: Apr 16, 2023 05:26 PM Reporting Lab: [facility] [place] [facility] [address] [facility] [address] Performing Lab: [facility] [place] [address] [address] [facility] [place] [facility] LIPID PANEL FASTING CHOLESTERO L.TOTAL/CH OLESTEROL IN HDL [MASS RATIO] IN SERUM OR PLASMA 3.5 05/03 Specimen Type: SERUM No comment entered. Ordering Provider: SUZY BALTAZAR Report Released Date/Time: Apr 16, 2023 05:26 PM Reporting Lab: [facility] [place] [facility] [address] [facility] [address] Performing Lab: [facility] [place] [facility] [address] [facility] [address] [facility] [place] [facility] LIPID PANEL FASTING CHOLESTERO L IN HDL [MASS/VOLU ME] IN SERUM OR PLASMA 57 mg/dL 40 - 60 05/03 Specimen Type: SERUM No comment entered. Ordering Provider: SUZY BALTAZAR Report Released Date/Time: Apr 16, 2023 05:26 PM Reporting Lab: [facility] [place] [facility] [address] [facility] [address] Performing Lab: [facility] [address] [address] [facility] [facility] BASIC METABOLI C PANEL (fasting ) UREA NITROGEN [MASS/VOLU ME] IN SERUM OR PLASMA 13 mg/dL 7 - 25 05/03 Specimen Type: SERUM No comment entered. Ordering Provider: SUZY BALTAZAR Report Released Date/Time: Apr 16, 2023 05:26 PM Reporting Lab: [facility] [place] [facility] [address] [facility] [address] Performing Lab: [facility] [place] [address] [address] [facility] [place] [facility] BASIC METABOLI C PANEL (fasting ) GLUCOSE [MASS/VOLU ME] IN SERUM OR PLASMA 84 mg/dL 65 - 100 05/03 Specimen Type: SERUM No comment entered. Ordering Provider: SUZY BALTAZAR Report Released Date/Time: Apr 16, 2023 05:26 PM Reporting Lab: [facility] [place] [facility] [address] [facility] [address] Performing Lab: [facility] [place] [address] [address] [facility] [place] [facility] BASIC METABOLI C PANEL (fasting ) SODIUM [MOLES/VOL UME] IN SERUM OR PLASMA 142 mmol/L 135 - 145 05/03 Specimen Type: SERUM No comment entered. Ordering Provider: SUZY BALTAZAR Report Released Date/Time: Apr 16, 2023 05:26 PM Reporting Lab: [facility] [place] [address] [address] Performing Lab: [facility] [address] [facility] BASIC METABOLI C PANEL (fasting ) POTASSIUM [MOLES/VOL UME] IN SERUM OR PLASMA 4.2 mmol/L 3.5 - 5.0 05/03 Specimen Type: SERUM No comment entered. Ordering Provider: SUZY BALTAZAR Report Released Date/Time: Apr 16, 2023 05:26 PM Reporting Lab: [facility] [address] Performing Lab: [facility] [address] [facility] BASIC METABOLI C PANEL (fasting ) CHLORIDE [MOLES/VOL UME] IN SERUM OR PLASMA 104 mmol/L 100 - 110 05/03 Specimen Type: SERUM No comment entered. Ordering Provider: SUZY BALTAZAR Report Released Date/Time: Apr 16, 2023 05:26 PM Reporting Lab: [facility] [address] Performing Lab: [facility] [address] [address] [facility] BASIC METABOLI C PANEL (fasting ) CARBON DIOXIDE, TOTAL [MOLES/VOL UME] IN SERUM OR PLASMA 29 meq/L 20 - 30 05/03 Specimen Type: SERUM No comment entered. Ordering Provider: SUZY BALTAZAR Report Released Date/Time: Apr 16, 2023 05:26 PM Reporting Lab: [facility] [address] [address] Performing Lab: [facility] [address] [facility] [address] [facility] BASIC METABOLI C PANEL (fasting ) CREATININE [MASS/VOLU ME] IN SERUM OR PLASMA 0.81 mg/dL 0.50 - 1.40 05/03 Specimen Type: SERUM No comment entered. Ordering Provider: SUZY BALTAZAR Report Released Date/Time: Apr 16, 2023 05:26 PM Reporting Lab: [facility] [address] [facility] [address] Performing Lab: [facility] [address] [address] [facility] BASIC METABOLI C PANEL (fasting ) GLOMERULAR FILTRATION RATE/1.73 SQ M.PREDICTE D [VOLUME RATE/AREA] IN SERUM, PLASMA OR BLOOD BY CREATININE -BASED FORMULA (CKD-EPI 2020) 90 mL/min 60 05/03 Specimen Type: SERUM No comment entered. Ordering Provider: SUZY BALTAZAR Report Released Date/Time: Apr 16, 2023 05:26 PM Reporting Lab: [facility] [address] Performing Lab: [facility] [address] [address] [facility] TSH THYROTROPI N [UNITS/VOL UME] IN SERUM OR PLASMA 0.76 u[IU]/mL 0.35 - 5.00 05/03 Specimen Type: SERUM No comment entered. Ordering Provider: SUZY BALTAZAR Report Released Date/Time: Apr 16, 2023 05:26 PM Reporting Lab: [facility] [address] Performing Lab: [facility] [address] [address] [facility] Vital Signs Combined list of inpatient [...] 10:00:37 [facility] BMI 20 kg/m2 05/22/2024 10:00:37 [facility] PAIN 0 05/22/2024 10:00:37 [facility] TEMPERATURE 97.6 05/22/2024 10:00:37 [facility] PULSE 75 05/22/2024 10:00:37 [facility] [place] RESPIRATION 16 05/22/2024 10:00:37 [facility] [place] Encounters Combined list of: 1) Encounters from [facility] facilities going backup to the last 18 months, not all [facility] inpatient encounters are included; 2) 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 Location Location Details Encounter Type Encounter Number Reason For Visit Attending Provider ADM Date DC Date Status Disposition Source [facility] Outpatient Encounter [id number] 04/16 [facility] Outpatient [facility]counter [id number] DANK GARIBAY 04/25 [facility] Out[facility]counter [id number] 05/16 [facility] Outpatient [facility]counter [id number] 05/21 [facility] OFFICE O/P EST LOW 20 MIN [id number] Diagnos is: ICD-10- CM G20.C Bon onism, unspeci SAL Rivera RD 05/23 [facility] Outpatient [facility]counter [id number] 05/23 [facility] PSYCH DIAGNOSTIC EVALUATION [id number] Diagnos is: ICD-10- CM F43.12 Post-tr aumatic stress disorde r, chronic WOLFGANG CARDENAS 06/03 [facility] OFFICE O/P EST HI 40 MIN [id number] Diagnos is: ICD-10- CM F43.12 Post-tr aumatic stress disorde r, chronic DOREENBaltazar ARLINE 06/17 [facility] OFFICE O/P EST MOD 30 MIN [id number] Diagnos is: ICD-10- CM F43.12 Post-tr aumatic stress disorde r, chronic DOREENBaltazar ARLINE 07/09 [facility] OFFICE O/P EST MOD 30 MIN [id number] Diagnos is: ICD-10- CM G20.A1 Bon on's dis w/o dyskine [place], w/o mention of annea RITU Dominguez Y 07/18 [facility] Outpatient [facility]counter [id number] 07/29 [facility] Outpatient [facility]counter [id number] 08/13 [facility] OFFICE O/P EST MOD 30 MIN [id number] Diagnos is: ICD-10- CM F43.12 Post-tr aumatic stress disorde r, Baltazar Haney ARLINE 08/19 [facility] [place] [facility] OFFICE O/P EST MOD 30 MIN [id number] Diagnos is: ICD-10- CM F43.12 Post-tr aumatic stress disorde r, Baltazar Haney ARLINE 10/14 [facility] [place] [facility] [place] [facility] Outpatient Encounter [id number] [facility] [place] [facility] [place] [facility] Outpatient Encounter [id number] DMITRY MARTINES 10/27 [facility] [place] [facility] [place] [facility] OFFICE O/P EST MOD 30 MIN [id number] Diagnos is: ICD-10- CM F43.12 Post-tr aumatic stress disorde r, Baltazar Haney ARLINE 12/16 [facility] [place] [facility] [place] [facility] Outpatient Encounter [id number] 02/19 [facility] [place] [place] [facility] OFFICE O/P EST MOD 30 MIN [id number] Diagnos is: ICD-10- CM F43.12 Post-tr aumatic stress disorde r, Baltazar Haney ARLINE 02/25 [facility] [place] [facility] [place] [facility] OFFICE O/P EST MOD 30 MIN [id number] Diagnos is: ICD-10- CM F43.12 Post-tr aumatic stress disorde r, Baltazar Haney ARLINE 03/25 [facility] [place] [place] [facility] Outpatient Encounter [id number] 04/05 [facility] [place] [place] [facility] OFFICE O/P EST MOD 30 MIN [id number] Diagnos is: ICD-10- CM F43.12 Post-tr aumatic stress disorde r, Baltazar Haney ARLINE 04/21 [facility] [place] [place] [facility] Outpatient Encounter [id number] 04/23 [facility] [place] [place] [facility] Outpatient Encounter [id number] 04/27 [facility] [place] [place] [facility] OFFICE O/P EST LOW 20 MIN [id number] Diagnos is: ICD-10- CM G20.A1 Bon on's dis w/o dyskine [place], w/o mention of fluctua tions SAL BALTAZAR RD 05/22 [facility] [place] [place] [facility] OFFICE O/P EST MOD 30 MIN [id number] Diagnos is: ICD-10- CM F43.12 Post-tr aumatic stress disorde r, Baltazar Haney ARLINE 06/18 [facility] [place] [place] [facility] OFFICE O/P EST MOD 30 MIN [id number] Diagnos is: ICD-10- CM F43.12 Post-tr aumatic stress disorde r, chronic Baltazar LOGAN ARLINE 07/28 [facility] [place] [facility] Social History Combined list of available smoking, tobacco, and other social history from Department of 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 Social History Type Response Date Comment Source Tobacco smoking status CTIS VA-TOBACCO USE EVERY DAY CIGARETTES 05/22/2024 [facility] [place] [facility] History of tobacco use AL-TOBACCO NEVER USED OTHER TYPE 05/22/2024 [facility] [place] [facility] History of tobacco use AL-TOBACCO USER EVERY DAY 05/23/2023 [facility] [place] [facility] History of tobacco use AL-TOBACCO USER SOME DAYS 05/23/2022 [facility] [place] [facility] History of tobacco use AL-TOBACCO FORMER USER 05/22/2021 [facility] [place] [facility] History of tobacco use AL-TOBACCO FORMER USER 05/24/2020 [facility] [place] [facility] 11/24/2018 [facility] [place] [facility] History of tobacco use AL-TOBACCO FORMER USER 05/21/2018 [facility] [place] [facility] History of tobacco use LIFETIME NON-TOBACCO USER 05/21/2017 [facility] [place] [facility] History of tobacco use QUIT TOBACCO USE > 7 YEARS AGO 06/12/2016 [facility] [place] [facility] History of tobacco use QUIT TOBACCO USE > 7 YEARS AGO 07/11/2015 [facility] [place] [facility] History of tobacco use QUIT TOBACCO USE 1-7 YEARS AGO 08/06/2014 [facility] [place] [facility] History of tobacco use QUIT TOBACCO USE IN PAST YEAR 01/08/2014 [facility] [place] [facility] History of tobacco use CURRENT SMOKER 05/01/2013 [facility] [place] [facility] History of tobacco use V1-PT DECLINES TOBACCO CESSATION MEDS 11/07/2012 [facility] [place] [facility] History of tobacco use CURRENT SMOKER 05/08/2012 [facility] History of tobacco use V1-PT DECLINES TOBACCO CESSATION MEDS 11/09/2011 [facility] History of tobacco use CURRENT SMOKER 12/29/2010 Thinking to quit [facility] History of tobacco use V1-PT DECLINES TOBACCO CESSATION MEDS 06/30/2010 [facility] History of tobacco use CURRENT SMOKER 12/30/2009 Try to quit [facility] History of tobacco use CURRENT SMOKER 12/17/2008 [facility] History of tobacco use V1-PT DECLINES TOBACCO CESSATION MEDS 06/18/2008 [facility] History of tobacco use CURRENT SMOKER 12/12/2007 [facility] History of tobacco use V1-PT DECLINES TOBACCO CESSATION MEDS 06/13/2007 [facility] History of tobacco use CURRENT SMOKER 2006 Not ready as yet to quit [facility] History of tobacco use CURRENT SMOKER 08/03/2005 [facility] History of tobacco use CURRENT SMOKER 04/19/2004 [facility] History of tobacco use CURRENT SMOKER 03/26/2003 trying to cut down. [facility] History of tobacco use CURRENT SMOKER 02/17/2002 [facility] Plan of Care List of future care activities from [facility] facilities. Additional future care activities may be listed in the Assessment and Plan section. Date/Time Care Activity Care Activity Detail Facili ty 09/30/2024 AMBULATORY - PSYCHIATRY AMBULATORY - PSYC HIATRY [facility] Advance Directives List of completed, amended, or rescinded Advance Directives on record at [facility] facilities. An actual copy of the Directive is not included. Date Advance Directive Provider Source 06/12/2019 ADVANCE DIRECTIVE MICA BALTAZAR [facility]
== END 2024-09-18 12:34 | disposition home or self-care (01) ==
LOC: HO.HSMS 11:21
PROVIDERS: PCP Internal Medicine; Visit Provider Psychiatry & Neurology Neurology
DX: G20.A2 Parkinson's disease without dyskinesia, with fluctuations (principal); R44.3 Hallucinations, unspecified
CPT/HCPCS: 98013

== ENCOUNTER 2024-12-14 10:40 | Outpatient (AMB) | payer OTHER, SELFPAY ==
[2024-12-14 10:45] VITALS: BP 120/60; BMI 18.3
--- NOTE | 2024-12-14 10:45 | A.OFFVIS_ITS ---
Vital Signs 12/14/24 10:45 Height 5 ft 11 in Weight 131 lb BMI 18.3 BP 120/60 Blood Pressure Location Rt brachial Position Sitting Comment Unable to obtain O2 Intake Visit Reasons: 6 mo follow up [employer] Required: No Accompanied by: Spouse Allergies Penicillins Allergy (Mild, Verified 12/14/24 11:00) Rash HPI Comments Details: 79y/o Right Handed male calls for follow up of Parkinson disease.He is on carbidopa/levodopa 25/100 2tabs qid Ropinirole 0.5 mg bid and rasagiline 1mg qd He is sleeping better- has more structure . he exercises twice a day He is doing well denies any change . he had questions if blurred vision was caused by carbidopa/levodopa. No falls or hallucinations History from initial visit- he was diagnosed by Late DR. Goldstein about 15 years ago when he presented with right UE rest tremors. He has been under the care of psychiatry for depression PTSD for over 40 years and has been on multiple medications. His psychiatrist noticed his tremors a s referred him to Dr. Goldstein. Currently he is on carbidopa/levodopa ER 50/200 2-1-1-1 Rasagiline 1mg qd ropinirole 0.5mg bid. Memory- good Sleep- he wanders, sleep talks Mood- stable with meds Motivated- good SPeech- softer, mumbles, drooling Trouble swallowing Using utensils- he has weighted spoons and it helps Handwriting- cannot write Dressing - slower and has trouble with buttons Shower- slower Gait- no falls , has back problems which affects his gait No dizziness He has constipation He has mild hallucinations - has insight started before Parkinsons. startles easily No fh/o tremors He was in [place] and exposed to Agent [place] [facility] Medical History Coarse tremors Parkinson's disease without dyskinesia Hallucinations Depression Panic attacks Anxiety PTSD (post-traumatic stress disorder) Skin cancer Hyperlipidemia Squamous cell carcinoma of nose Surgical History History of appendectomy Social History Household Members: Spouse Housing: House Alcohol intake: never Patient Tobacco Use Status: Current everyday Tobacco user Tobacco use type: Cigarette Years Smoked: for 50 years 3-5 cigarettes Physical Exam Vital Signs: Last Vital Signs BP 120/60 12/14/24 10:45 BMI result Body Mass Index 18.3 Const General: cooperative, healthy appearing and no acute distress Nutritional Appearance: obese Orientation/consciousness: patient oriented x3 HEENT Head: Yes normal to inspection Neck Other: mild antecollis and restricted range of motion Neuro Other: Mild decreased blink and facial expression mild lower lip tremors, tongue tremors , slow tongue movements , yes yes head tremors Voice- mild hypophonia Rest tremors- Right LE Right UE Postural and action tremors R>L Fine Finger movements - moderately decreased bijal R>L Alternating hand movements - decreased bijal Hand movements - decreased bijal Foot taps- decreased bijal cog wheel rigidity - left UE gait - mild stoop decreased arm swing R>L, small steps General: patient oriented x3 and no focal motor deficits Cranial nerves: Yes CN's II-XII intact bilaterally, Yes Bilaterally intact EOM present, Yes Normal facial strength present and Yes Midline tongue present Cognition (Neuro): normal cognition Motor exam (neuro): 5/5 motor strength present throughout Coordination: [id number] test normal Assessment & Plan Assessment & Plan (1) Parkinson's disease without dyskinesia: Comment: exposure to Agent [place] Code(s): G20.A1 - Parkinson's disease without dyskinesia, without mention of fluctuations Category: Medical Qualifiers: Fluctuating manifestations: with fluctuating manifestations Qualified Code(s): G20.A2 - Parkinson's disease without dyskinesia, with fluctuations (2) Hallucinations: Comment: visual hallucinations. Code(s): R44.3 - Hallucinations, unspecified Category: Social Hx (3) Coarse tremors: Code(s): G25.2 - Other specified forms of tremor Category: Medical Plan In addition to Parkinsonism he has additional features of essential tremors continue carbidopa/levodopa 25/100 2 tabs 8am 12, 4pm, 8pm Ropinirole 0.5 mg bid rasagiline 1mg qd Coding Level of Care Code Est Pt Level 4 (53217) Complex EM visit Add On G2211 Diagnoses Parkinson's disease without dyskinesia, with fluctuating manifestations G20.A2 Fluctuating manifestations: with fluctuating manifestations Hallucinations R44.3 Coarse tremors G25.2
--- OUTSIDE RECORDS SUMMARY | 2024-12-14 11:31 | XMS_ITS | Referral Summary ---
Author Organization [facility] Address [address] [place] [address] Care Team Providers Care Claims Adjuster Supervisor Name Role Phone WingSumanth Dilip Primary Care Provider [phone] Allergies Active Allergy Reactions Criticality Noted Date [...] mouth once a day. 3 Active vit C,J-Ch-rddug-kaye tein-zeaxan (PreserVision AREDS-2) capsule Take 1 capsule by mouth 2 times a day. Active LORazepam (ATIVAN) 0.5 mg tablet Take 1 mg by mouth nightly as needed for anxiety. Active Active Problems Problem Noted Date Diagnosed Date Dysphagia causing pulmonary aspiration with swal lowing 10/16/2022 Assessment & Plan (10/18/2022 7:08 AM EDT): Patient with a history of acute on chronic dysphagia, [facility] Per family, patient has had multiple previous MBS studies (most recently 4 years ago) given diagnosis of Parkinson's, leading to difficulty with chewing and swallowing. Previous MBS had recommended a diet of honey thick liquids and pur es and compensation such as slow pacing and completing an additional swallow to clear residue, which patient tolerated well. Given recent intubation, patient underwent [facility] evaluation and MBS, which found that patient [...] for NG tube given recent nasal surgery. -JO[facility] following closely for continued swallow exercises -Repeat [...] 75 01/04/2023 9:00 AM EDT Temperature 36.7 C (98.1 F) 10/19/2022 6:00 AM EDT Respiratory Rate 18 01/04/2023 9:00 AM EDT Oxygen Saturation 95% 01/04/2023 9:00 AM EDT Inhaled Oxygen Concentration - - Weight 56.7 kg (125 lb) 11/30/2022 8:45 AM EDT Height 177.8 cm (5' 10 ) 11/30/2022 8:45 AM EDT Body Mass Index 17.94 11/30/2022 8:45 AM EDT Plan of Treatment Not on file Insurance MEDICARE [facility] Advance Directives Documents on File Type Date Recorded Patient Vocational Rehab Consultant Expl anation Health Care Proxy 10/15/2022 2:03 PM 2022 * Full Code (Latest Code Status on File) Date Activated Date Inactivated Comments 10/11/2022 4:30 PM 10/19/2022 3:36 PM * Presumed Full Code Date Activated Date Inactivated Comments 10/11/2022 5:51 AM 10/11/2022 4:29 PM Care Teams Claims Adjuster Supervisor Relationship Specialty Start Date End Date Sumanth Dimas [address] [place] [id number] PCP - General Family Medicine 08/27/22
== END 2024-12-14 11:27 | disposition home or self-care (01) ==
LOC: HO.HSMS 10:41
PROVIDERS: Visit Provider Psychiatry & Neurology Neurology
DX: G20.A2 Parkinson's disease without dyskinesia, with fluctuations (principal); R44.3 Hallucinations, unspecified; G25.2 Other specified forms of tremor
CPT/HCPCS: 99214; G2211

== ENCOUNTER → 2024-12-14 10:40 | Outpatient (BNVA) | payer OTHER, SELFPAY | PROVIDERS: Visit Provider Psychiatry & Neurology Neurology | DX: G20.A2 Parkinson's disease without dyskinesia, with fluctuations (principal); R44.3 Hallucinations, unspecified; G25.2 Other specified forms of tremor | CPT/HCPCS: 99212 ==